=== PATIENT | male | born 1980 | race Asian ===

== ENCOUNTER 2016-10-20 14:39 | Emergency (ER) | payer OTHER ==
[2016-10-20 14:53] VITALS: TEMP 98; BMI 26.2
--- NOTE | 2016-10-20 14:58 | PDOC ---
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 Per staff he had "shaking all over" for 4 minutes. There has been no change in his medications. He is non-verbal and unable to provide a history. 10/20/16 15:15 10/20/16 15:27 - Physicial Exam PE: 10/20/16 14:59 Vitals noted He is in no acute distress Per aide, who cares for him daily, he is at his baseline mental status 10/20/16 15:27 - Medical Decision Making 10/20/16 15:17 He is well appearing and in no acute distress Per aide, he is at his baseline mental status Given his history of epilepsy there is no clear evidence to support neuroimaging Will check shunt series plain XR Will administer atival 1mg IV Will obtain basic labs 10/20/16 15:27 10/20/16 15:27 10/20/16 16:34 Labs pending Shunt series pending He has remained stable, and at his baseline Case discussed in detail with oncoming Emergency Physician including history, physical exam and ancillary studies. Oncoming Emergency Physician has assumed care for the patient and will complete the evaluation and treatment. Discharge Disposition - Diagnosis Seizure, Seizure disorder - Discharge Dispostion Last Admission D/C Date: 08/29/14
--- NOTE | 2016-10-20 15:00 | PDOC ---
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 As per aid present at bedside the patient was seizing for over 4 minutes while he was in school. As per aid, the patient at baseline has frequent seizures and while in ED right now the patient is at his baseline mental status not more lethargic than usual. The patient was discharged 2/ after being admitted for seizure activity control. The patient is nonverbal and all history was taken from chart review. The aid denies any fever, vomiting, diarrhea. <Julia Short - Last Filed: 10/20/16 15:17> <Lesly Mejias - Last Filed: 10/20/16 17:42> <Ino Amaya - Last Filed: 10/20/16 19:22> - General Chief Complaint: Seizure Stated Complaint: Seizure Time Seen by Provider: 10/20/16 14:58 Past History <Julia Short - Last Filed: 10/20/16 15:17> - Past Medical History Anemia: Yes GI Disorders: Yes (:GERD) Psychiatric Problems: Yes (mental retardation) Suicide Attempt (Hx): No Seizures: Yes Thyroid Disease: Yes (HYPOTHYROIDISM) - Surgical History Abdominal Surgery: Yes (g tube) Orthopedic Surgery: Yes - Immunization History Immunization Up to Date: Yes - Psycho/Social/Smoking Cessation Hx Anxiety: No Suicidal Ideation: No Smoking Status: No Smoking History: Never smoked Have you smoked in the past 12 months: No Number of Cigarettes Smoked Daily: 0 Information on smoking cessation initiated: No Hx Alcohol Use: No Drug/Substance Use Hx: No Substance Use Type: None <Lesly Mejias - Last Filed: 10/20/16 17:42> <Ino Amaya - Last Filed: 10/20/16 19:22> - Past Medical History Allergies/Adverse Reactions: Allergies Allergy/AdvReac Type Severity Reaction Status Date / Time carbamazepine Allergy Unknown Verified 08/07/14 16:30 Home Medications: Ambulatory Orders Baclofen 5 mg PO QID 10/20/16 Cholecalciferol (Vitamin D3) [Vitamin D3] 3,000 unit GT DAILY 10/20/16 Clindamycin Topical Solution [Cleocin 1% Topical Solution -] 0 ml TP BID Diazepam [Diastat] 5 mg RC QID PRN 10/20/16 Lacosamide [Vimpat -] 75 mg GT BID 10/20/16 Levocarnitine [Carnitor] 330 mg GT TID 10/20/16 Levothyroxine [Synthroid -] 75 mcg PO DAILY 10/20/16 Multivit-Min/Iron Fum/Folic AC [Eszvx-Yaunkjn-Qdslrtec Tablet] 1 tab GT DAILY Omeprazole 20 mg PO BID 10/20/16 Phenobarbital 30 mg GT BID 10/20/16 Polyethylene Glycol 3350 [Miralax (For Daily Use) -] 17 gm GT DAILY 10/20/16 Sodium Benzoate 5,000 gm GT TID 10/20/16 Topiramate [Topamax] 150 mg GT AM 10/20/16 Topiramate [Topamax] 175 mg GT HS 10/20/16 Valproic Acid (As Sodium Salt) [Valproic Acid] 125 mg PO BID 10/20/16 Review of Systems - Review of Systems Able to Perform ROS?: Yes Comments:: 10/20/16 15:13 Unable to obtain from the patient because patient is nonverbal. As per aid at bedside CONSTITUTIONAL: Absent: fever, no chills, no fatigue EYES: Absent: visual changes ENT: Absent: ear pain, no sore throat CARDIOVASCULAR: Absent: chest pain, no palpitations RESPIRATORY: Absent: cough, no SOB GI: Absent: no vomiting, no constipation, no diarrhea GENITOURINARY: Absent: no frequency, no hematuria NEURO: Present: seizure SKIN: Absent: rash <Julia Short - Last Filed: 10/20/16 15:17> *Physical Exam - Vital Signs Last Vital Signs Temp Pulse Resp BP Pulse Ox 98 F 76 20 113/94 98 10/20/16 14:48 10/20/16 14:48 10/20/16 14:48 10/20/16 14:48 10/20/16 14:48 - Physical Exam Comments: 10/20/16 15:16 GENERAL: +Nonverbal, +bedbound. HEENT: Normocephalic, atraumatic. +pupils slow reaction to light but symmetric. No conjunctival pallor. Sclera are non-icteric. Moist mucous membranes. Oropharynx is clear. NECK: Supple. No JVD. Carotid pulses 2+ and symmetric, without bruits. No thyromegaly. No lymphadenopathy. CARDIOVASCULAR: Regular rate and rhythm. No murmurs, rubs, or gallops. Distal pulses are 2+ and symmetric. PULMONARY: No evidence of respiratory distress. Lungs clear to auscultation bilaterally. No wheezing, rales or rhonchi. ABDOMINAL: +G tube LUQ with brown discharge around the G tube, +well healed mid abdomen vertical scar. Soft. Non-tender. Non-distended. No rebound or guarding. No organomegaly. Normoactive bowel sounds. MUSCULOSKELETAL: No bony deformities or tenderness. EXTREMITIES: +Contracted extremities. No cyanosis. No clubbing. No edema. No calf tenderness. SKIN: Warm and dry. Normal capillary refill. No rashes. No jaundice. NEUROLOGICAL: +nonverbal +no facial assymetry, not able to assess motor and sensation, +does not follow commands <Julia Short - Last Filed: 10/20/16 15:17> - Vital Signs Last Vital Signs Temp Pulse Resp BP Pulse Ox 98 F 76 20 113/94 98 10/20/16 14:48 10/20/16 14:48 10/20/16 14:48 10/20/16 14:48 10/20/16 14:48 <Lesly Mejias - Last Filed: 10/20/16 17:42> - Vital Signs Last Vital Signs Temp Pulse Resp BP Pulse Ox 98 F 76 20 113/94 98 10/20/16 14:48 10/20/16 14:48 10/20/16 14:48 10/20/16 14:48 10/20/16 14:48 <Ino Amaya - Last Filed: 10/20/16 19:22> ED Treatment Course - LABORATORY CBC & Chemistry Diagram: 10/20/16 16:30 10/20/16 16:30 <Lesly Mejias - Last Filed: 10/20/16 17:42> - LABORATORY CBC & Chemistry Diagram: 10/20/16 16:30 10/20/16 16:30 - ADDITIONAL ORDERS Additional order review: Laboratory Results 10/20/16 16:30 Sodium 141 Potassium 3.6 Chloride 102 Carbon Dioxide 30 Anion Gap 9 BUN 7 D Creatinine 0.6 L Creat Clearance w eGFR > 60 Random Glucose 87 Calcium 9.1 Total Bilirubin 0.3 D AST 11 L D ALT 31 D Alkaline Phosphatase 109 Total Protein 7.5 Albumin 3.9 10/20/16 16:30 RBC 4.63 MCV 100.0 H MCHC 34.0 RDW 12.3 MPV 9.2 - RADIOLOGY Radiology Studies Ordered: Category Date Time Status HEAD CT WITHOUT CONTRAST [CT] Stat CT Scan 10/20/16 18:27 Completed - Medications Given in the ED: ED Medications Discontinued Medications Generic Name Dose Route Start Last Admin Trade Name Freq PRN Reason Stop Dose Admin Lorazepam 1 mg 10/20/16 15:07 10/20/16 16:27 Ativan Injection - IVPUSH 10/20/16 15:08 Not Given ONCE ONE Lorazepam 1 mg 10/20/16 15:14 10/20/16 15:55 Ativan Injection - IM 10/20/16 15:15 1 mg ONCE ONE Administration Lorazepam 2 mg 10/20/16 18:08 10/20/16 18:15 Ativan Injection - IVPUSH 10/20/16 18:09 2 mg ONCE ONE Administration <Ino Amaya - Last Filed: 10/20/16 19:22> Medical Decision Making - Medical Decision Making 10/20/16 17:13 We ordered CBC, CMP, UA, x ray of his shunt. No labs abnormalities noted. Waiting for x ray. No more episodes of seizure noted. Ativan was given. 10/20/16 17:42 Shunt x ray done, no abnormalities reported. Laboratory normal. The pt will be discharged. <Lesly Mejias - Last Filed: 10/20/16 17:42> *DC/Admit/Observation/Transfer - Attestations Scribe Attestion: 10/20/16 15:27 Documentation prepared by STEPHIE Bustillos, acting as medical housekeeper for Magalie Grace MD. <Julia Short - Last Filed: 10/20/16 15:17> - Discharge Dispostion Admit: No <Lesly Mejias - Last Filed: 10/20/16 17:42> <Ino Amaya - Last Filed: 10/20/16 19:22> Diagnosis at time of Disposition: Seizure disorder Seizure Qualifiers: Convulsion type: unspecified Qualified Code(s): R56.9 - Unspecified convulsions - Discharge Dispostion Disposition: HALFWAY FACILITY Condition at time of disposition: Good - Referrals Referrals: pmd, as needed [Other] - Patient Instructions Printed Discharge Instructions: DI for Seizure Disorder -- Adult Additional Instructions: If your symptoms worsen come back to emergency room as soon as possible. shunt series reveals no abnormalities. ct head shows no acute pathology.
[2016-10-20] MEDS ORDERED: LORAZEPAM CARPU-JECT 2 MG/ML DISP.SYRIN IVPUSH ONE ×2 (15:07→18:08)
[2016-10-20] MEDS ORDERED: LORAZEPAM CARPU-JECT 2 MG/ML DISP.SYRIN IM ONE (15:14)
[2016-10-20] MEDS ORDERED: LORAZEPAM CARPU-JECT 2 MG/ML DISP.SYRIN ONE ×2 (15:50→18:10)
[2016-10-20 16:45] LABS: MEAN PLT VOLUME 9.2 fl (7.5-11.1); PLATELET COUNT 248 K/MM3 (134-434); RDW 12.3 % (11.9-15.9); WHITE BLOOD COUNT 6.2 K/mm3 (4.0-10.0)
[2016-10-20 17:09] LABS: ALBUMIN 3.9 g/dl (3.4-5.0); ALK PHOS 109 U/L (45-117); ANION GAP 9 (8-16); BILIRUBIN,TOTAL 0.3 mg/dL (0.2-1.0); CALCIUM 9.1 mg/dL (8.5-10.1); CO2 30 mmol/L (21-32); COCKROFT - GAULT 143.32; CREATININE 0.6 mg/dL (0.7-1.3); GLUCOSE,RANDOM 87 mg/dL (74-106); SGOT/AST 11 U/L (15-37); SGPT/ALT 31 U/L (12-78); TOT PROT 7.5 g/dl (6.4-8.2)
[2016-10-20 20:04] LABS: URINE APPEARANCE TURBID; URINE BILIRUBIN NEGATIVE (NEGATIVE); URINE BLOOD NEGATIVE (NEGATIVE); URINE COLOR YELLOW; URINE GLUCOSE (UA) NEGATIVE (NEGATIVE); URINE KETONE NEGATIVE (NEGATIVE); URINE LEUK ESTERASE NEGATIVE (NEGATIVE); URINE NITRITE NEGATIVE (NEGATIVE); URINE PROTEIN NEGATIVE (NEGATIVE); URINE UROBILINOGEN NEGATIVE E.U./dl (0.2-1.0)
[2016-10-20 20:22] VITALS: BP 123/74; PULSE 88
== END 2016-10-20 19:30 ==
LOC: JER 14:39
PROC: 3E033NZ Introduction of Analgesics, Hypnotics, Sedatives into Peripheral Vein, Percutaneous Approach (ICD-10-PCS; principal; 2016-10-20)
PROC: 3E023NZ Introduction of Analgesics, Hypnotics, Sedatives into Muscle, Percutaneous Approach (ICD-10-PCS; 2016-10-20)
DX: G40.909 Epilepsy, unspecified, not intractable, without status epilepticus (principal); E03.9 Hypothyroidism, unspecified; Q02 Microcephaly; G80.8 Other cerebral palsy; F73 Profound intellectual disabilities
CPT/HCPCS: 36415; 70260-TC; 70450-TC; 71010-TC; 72050-TC; 74190-TC; 80053; 81003; 85027; 99283-25

== ENCOUNTER 2016-11-10 12:41 | Emergency (ER) | payer OTHER ==
[2016-11-10 12:49] VITALS: BMI 18.1
--- NOTE | 2016-11-10 13:13 | PDOC ---
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 Per day program staff who are accompanying the patient states he typically has frequent seizures, but they are usually shorter lasting. He had a seizure lsting approx 15 min that cnsisted of deviated gaze and his arms 'stretching' - no n/v, tongue biting, + urinary incontience (pt is typically incontinent of urine) - wet diaper no recent infectious complaints per staff. <Dylan Paulino - Last Filed: 11/15/16 02:39> - General Chief Complaint: Seizure Stated Complaint: SEIZURE Time Seen by Provider: 11/10/16 13:00 Past History <Elyse Page - Last Filed: 11/10/16 17:54> - Past Medical History Anemia: Yes GI Disorders: Yes (:GERD) Psychiatric Problems: Yes (mental retardation) Suicide Attempt (Hx): No Seizures: Yes Thyroid Disease: Yes (HYPOTHYROIDISM) - Surgical History Abdominal Surgery: Yes (g tube) Orthopedic Surgery: Yes - Immunization History Immunization Up to Date: Yes - Psycho/Social/Smoking Cessation Hx Anxiety: No Suicidal Ideation: No Smoking Status: No Smoking History: Never smoked Have you smoked in the past 12 months: No Number of Cigarettes Smoked Daily: 0 Information on smoking cessation initiated: No Hx Alcohol Use: No Drug/Substance Use Hx: No Substance Use Type: None <Dylan Paulino - Last Filed: 11/15/16 02:39> - Past Medical History Allergies/Adverse Reactions: Allergies Allergy/AdvReac Type Severity Reaction Status Date / Time carbamazepine Allergy Unknown Verified 11/10/16 12:47 Home Medications: Ambulatory Orders Baclofen 5 mg PO QID 10/20/16 Cholecalciferol (Vitamin D3) [Vitamin D3] 2,000 unit GT DAILY 10/20/16 Clindamycin Topical Solution [Cleocin 1% Topical Solution -] 0 ml TP BID Diazepam [Diastat] 10 mg RC PRN PRN 10/20/16 Lacosamide [Vimpat -] 200 mg GT BID 10/20/16 Levocarnitine [Carnitor] 330 mg GT BID 10/20/16 Levothyroxine [Synthroid -] 75 mcg GT DAILY 10/20/16 Multivit-Min/Iron Fum/Folic AC [Cycch-Daiqcfa-Tnurnphy Tablet] 1 tab GT DAILY Phenobarbital 64.8 mg GT BID 10/20/16 Topiramate [Topamax] 200 mg GT BID 10/20/16 Albuterol 0.083% Nebulizer Jyoti [Ventolin 0.083%] 1 neb NEB Q4H 11/10/16 Benzoyl Peroxide 5% Gel - 1 applic TP BID 11/10/16 Bisacodyl Suppository [Dulcolax Suppository -] 10 mg RC PRN PRN 11/10/16 Ca Citrate/Mgox/Vit D3/B6/Min [Calcium Citrate Plus Tablet] 2 each GT BID Cetirizine HCl [Zyrtec -] 10 mg PO DAILY 11/10/16 Levetiracetam [Keppra Xr -] 1,500 mg GT BID 11/10/16 Magnesium Hydrox 2400MG/30Ml [Milk of Magnesia -] 30 ml PO BID 11/10/16 Mometasone Furoate [Asmanex] 50 mcg 11/10/16 Nut.tx., Urea Cycle Disorder [Cyclinex-2] 15 ml GT DAILY 11/10/16 Phenobarbital 32.4 mg GT DAILY 11/10/16 Rufinamide [Banzel] 1,200 mg GT BID 11/10/16 Senna - 17.2 mg GT BID 11/10/16 Sodium Benzoate 4.5 gm GT TID 11/10/16 Review of Systems - Review of Systems Able to Perform ROS?: No <Dylna Paulino - Last Filed: 11/15/16 02:39> *Physical Exam - Vital Signs Last Vital Signs Temp Pulse Resp BP Pulse Ox 98.5 F 93 H 18 156/44 95 11/10/16 12:47 11/10/16 12:47 11/10/16 12:47 11/10/16 12:47 11/10/16 12:47 <Elyse Page - Last Filed: 11/10/16 17:54> - Vital Signs Last Vital Signs Temp Pulse Resp BP Pulse Ox 98.5 F 93 H 18 156/44 95 11/10/16 12:47 11/10/16 12:47 11/10/16 12:47 11/10/16 12:47 11/10/16 12:47 - Physical Exam Comments: 11/10/16 13:25 GENERAL: The patient is awake, HEAD: microcephalic EYES: eyes moving around sponatneously ENT: nonverbal LUNGS: Breath sounds equal, clear to auscultation bilaterally. No wheezes, no rhonchi, no rales. HEART: Regular rate and rhythm, normal S1 and S2 without murmur, rub or gallop. ABDOMEN: slightly distended, nontender, g tube in place EXTREMITIES: contracted extremities NEUROLOGICAL: limited PSYCH: unable to assess SKIN: Warm, Dry, normal turgor, <Lora,Dylan - Last Filed: 11/15/16 02:39> ED Treatment Course - LABORATORY CBC & Chemistry Diagram: 11/10/16 13:30 11/10/16 13:30 - ADDITIONAL ORDERS Additional order review: Laboratory Results 11/10/16 11/10/16 13:30 13:30 Sodium 140 Potassium 4.1 Chloride 101 Carbon Dioxide 28 Anion Gap 11 BUN 8 Creatinine 0.5 L Creat Clearance w eGFR > 60 Random Glucose 87 Calcium 9.7 Total Bilirubin 0.2 D AST 17 D ALT 33 Alkaline Phosphatase 117 Total Protein 8.6 H Albumin 4.6 Valproic Acid < 3.000 L 11/10/16 13:30 RBC 5.02 MCV 101.3 H MCHC 33.4 RDW 12.5 MPV 9.0 Neutrophils % 58.6 Lymphocytes % 30.2 Monocytes % 8.7 Eosinophils % 1.8 Basophils % 0.7 - RADIOLOGY Radiograph Interpretation: 11/10/16 15:50 CT/HEAD CT WITHOUT CONTRAST 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 Direct axial images were obtained with coronal, sagittal reconstruction images. Comparison study CT brain October 20, 2016. Right-sided ventriculoperitoneal shunt is noted, the location of the shunt unchanged from prior study. No evidence of hydrocephalus. Its of acute intracranial hemorrhage midline shift. No evidence of acute subarachnoid hematoma. Agenesis of the corpus callosum. Asymmetry of atria, occipital horns of lateral ventricle ( left greater than the right) with periventricular encephalomalacia (left > right). No acute acute territorial ischemic changes are seen No Chiari malformation is seen. Diffusely thickened calvarium which may be attributed to the prolonged use of antiseizure medication. The visualized paranasal sinuses mastoid air cell middle ear are not opacified. Impression. Right ventricular peritoneal shunt in place. No evidence of hydrocephalus. Agenesis of the corpus callosum. 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 Diffusely thickened calvarium which may be attributed to the prolonged use of antiseizure medication. Reported By: Wade Mccabe MD 11/10/16 1458 - Medications Given in the ED: ED Medications Discontinued Medications Generic Name Dose Route Start Last Admin Trade Name Freq PRN Reason Stop Dose Admin Lorazepam 1 mg 11/10/16 13:46 11/10/16 13:46 Ativan Injection - IVPUSH 11/10/16 13:47 1 mg ONCE ONE Administration <Elyse Page - Last Filed: 11/10/16 17:54> - LABORATORY CBC & Chemistry Diagram: 11/10/16 13:30 11/10/16 13:30 - RADIOLOGY Radiology Studies Ordered: Category Date Time Status HEAD CT WITHOUT CONTRAST [CT] Stat CT Scan 11/10/16 13:00 Ordered <Dylan Paulino - Last Filed: 11/15/16 02:39> Medical Decision Making - Medical Decision Making 11/10/16 16:[address] King ([phone]) at 1547. Left a message for a call back. Called Dr. King for a second time 16:15. Left a second message for a call back. 11/10/16 17:[address] King, call transferred to Dr. Montero who is emergency management consultant for Dr. King. The patients case was discussed. 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 he is on sevral other meds that are documented as given. will await UA if neg will dc back to fu with dr. King 11/10/16 17:[address] holly rao agreed with amnagement if UA neg, will have pt fu with neurology as outpatient will include complete labs and CT head I discussed the physical exam findings, ancillary test results and final diagnoses with the patient. I answered all of the patient's questions. The patient was satisfied with the care received and felt comfortable with the discharge plan and treatment plan. The patient will call their primary care physician within 24 hours to arrange follow-up and will return to the Emergency Department with any new, persistent or worsening symptoms. <Dylan Paulino - Last Filed: 11/15/16 02:39> *DC/Admit/Observation/Transfer <Elyse Page - Last Filed: 11/10/16 17:54> - Discharge Dispostion Admit: No <Dylan Paulino - Last Filed: 11/15/16 02:39> Diagnosis at time of Disposition: Seizure Qualifiers: Convulsion type: unspecified Qualified Code(s): R56.9 - Unspecified convulsions - Discharge Dispostion Disposition: HOME Condition at time of disposition: Improved - Referrals Referrals: Munir King Jr [Non Staff, Medical] - - Patient Instructions Printed Discharge Instructions: DI for Seizure Disorder -- Adult Additional Instructions: Return to the emergency department immediately with ANY new, persistent or worsening symptoms. You MUST call and follow up with neurologist in 2-3 days for further evaluation of your symptoms. Results were discussed with you. Please make sure your doctor reviews the results of your emergency evaluation. Print Language: VIET[place]ESE
[2016-11-10] MEDS ORDERED: LORAZEPAM CARPU-JECT 2 MG/ML DISP.SYRIN ONE (13:41)
[2016-11-10] MEDS ORDERED: LORAZEPAM CARPU-JECT 2 MG/ML DISP.SYRIN IVPUSH ONE (13:46)
[2016-11-10 13:48] LABS: BASOPHIL 0.7 % (0-2.0); EOSINOPHIL 1.8 % (0-4.5); MCH 33.8 pg (25.7-33.7); MCHC 33.4 g/dl (32.0-35.9); MEAN CELL VOLUME 101.3 fl (80-96); NEUTROPHILS 58.6 % (42.8-82.8); PLATELET COUNT 250 K/MM3 (134-434); RDW 12.5 % (11.9-15.9); WHITE BLOOD COUNT 6.2 K/mm3 (4.0-10.0)
[2016-11-10 14:10] LABS: ALBUMIN 4.6 g/dl (3.4-5.0); ANION GAP 11 (8-16); BILIRUBIN,TOTAL 0.2 mg/dL (0.2-1.0); CALCIUM 9.7 mg/dL (8.5-10.1); CO2 28 mmol/L (21-32); COCKROFT - GAULT 117.93; CREATININE 0.5 mg/dL (0.7-1.3); GLUCOSE,RANDOM 87 mg/dL (74-106); SGOT/AST 17 U/L (15-37); SGPT/ALT 33 U/L (12-78); TOT PROT 8.6 g/dl (6.4-8.2)
[2016-11-10 14:11] LABS: ALK PHOS 117 U/L (45-117)
[2016-11-10 17:24] LABS: URINE APPEARANCE SLCLOUDY; URINE BILIRUBIN NEGATIVE (NEGATIVE); URINE BLOOD NEGATIVE (NEGATIVE); URINE COLOR YELLOW; URINE GLUCOSE (UA) NEGATIVE (NEGATIVE); URINE KETONE NEGATIVE (NEGATIVE); URINE LEUK ESTERASE NEGATIVE (NEGATIVE); URINE NITRITE NEGATIVE (NEGATIVE); URINE UROBILINOGEN NEGATIVE E.U./dl (0.2-1.0)
[2016-11-10 18:14] VITALS: TEMP 97.4
[2016-11-10 18:14] LABS: URINE PROTEIN 1+ (NEGATIVE)
[2016-11-10 18:19] LABS: URINE BACTERIA RARE /hpf (NONE SEEN); URINE MUCUS MODERATE; URINE RBC 1 /hpf (0-3); URINE WBC <1 /hpf (3-5)
[2016-11-10 19:33] VITALS: BP 121/80; PULSE 104
== END 2016-11-10 19:33 | disposition home or self-care (01) ==
LOC: JER 12:41
PROC: 3E033NZ Introduction of Analgesics, Hypnotics, Sedatives into Peripheral Vein, Percutaneous Approach (ICD-10-PCS; principal; 2016-11-10)
DX: G40.909 Epilepsy, unspecified, not intractable, without status epilepticus (principal); F73 Profound intellectual disabilities; G80.8 Other cerebral palsy; H47.619 Cortical blindness, unspecified side of brain
CPT/HCPCS: 36415; 70450-TC; 80053; 80164; 81003; 81015; 85025; 99282-25

== ENCOUNTER 2017-02-01 13:13 | Emergency (ER) | payer OTHER ==
[2017-02-01 13:36] VITALS: PULSE 90; TEMP 98.4
--- NOTE | 2017-02-01 13:41 | PDOC ---
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 As per the patients aide at bedside, there are no other complaints at this time. Allergies: carbamazapine <Norma Mae - Last Filed: 02/01/17 14:39> <Dylan Paulino - Last Filed: 02/03/17 07:45> - General Stated Complaint: GTUBE REPLACEMENT Time Seen by Provider: 02/01/17 13:33 Past History <Norma Mae - Last Filed: 02/01/17 14:39> - Past Medical History Anemia: Yes GI Disorders: Yes (:GERD) Psychiatric Problems: Yes (mental retardation) Suicide Attempt (Hx): No Seizures: Yes Thyroid Disease: Yes (HYPOTHYROIDISM) - Surgical History Abdominal Surgery: Yes (g tube) Orthopedic Surgery: Yes - Immunization History Immunization Up to Date: Yes - Psycho/Social/Smoking Cessation Hx Anxiety: No Suicidal Ideation: No Smoking Status: No Smoking History: Never smoked Have you smoked in the past 12 months: No Number of Cigarettes Smoked Daily: 0 Hx Alcohol Use: No Drug/Substance Use Hx: No Substance Use Type: None <Dylan Paulino - Last Filed: 02/03/17 07:45> - Past Medical History Allergies/Adverse Reactions: Allergies Allergy/AdvReac Type Severity Reaction Status Date / Time carbamazepine Allergy Unknown Verified 02/01/17 13:36 Home Medications: Ambulatory Orders Baclofen 5 mg PEG DAILY 02/01/17 Cholecalciferol (Vitamin D3) [Vitamin D3 -] 2,000 unit PO DAILY 02/01/17 Clindamycin 1% Gel [Cleocin *Gel*] 1 applic TP DAILY 02/01/17 Clobazam [Onfi -] 10 mg PEG DAILY 02/01/17 Diazepam Rectal Gel [Diastat *Rectal Gel*] 10 mg RC PRN 02/01/17 Lactulose 20 gm PEG DAILY 02/01/17 Levocarnitine [Carnitor] 330 mg PEG DAILY 02/01/17 Levothyroxine [Synthroid -] 75 mcg PEG DAILY 02/01/17 Magnesium Hydrox 2400MG/30Ml [Milk of Magnesia -] 30 ml PO Q8H 02/01/17 Nut.tx., Urea Cycle Disorder [Cyclinex-2] 400 gm PO DAILY 02/01/17 Omeprazole 20 mg PEG DAILY 02/01/17 Phenobarbital 32.4 mg PEG DAILY 02/01/17 Polyethylene Glycol 3350 [Miralax (For Daily Use) -] 17 gm PO DAILY 02/01/17 Rufinamide [Banzel] 1,400 mg PEG DAILY 02/01/17 Sodium Benzoate 4,500 gm PEG DAILY 02/01/17 Topiramate [Topamax] 100 mg PEG DAILY 02/01/17 Abd/GI Specific PMHX - Complaint Specific PMHX GERD: Yes <Dylan Paulino - Last Filed: 02/03/17 07:45> Review of Systems - Review of Systems Able to Perform ROS?: No (unable to assess) <Norma Mae - Last Filed: 02/01/17 14:39> *Physical Exam - Vital Signs Last Vital Signs Temp Pulse Resp BP Pulse Ox 98.4 F 90 18 162/90 98 02/01/17 13:40 02/01/17 13:40 02/01/17 13:40 02/01/17 13:40 02/01/17 13:40 - Physical Exam Comments: 02/01/17 14:39 GENERAL: The patient is awake, HEAD: microcephalic EYES: eyes moving around sponatneously ENT: nonverbal ABDOMEN: nondistended, nontender, gastrostomy tube displced, no bleeding or trauma noted EXTREMITIES: contracted extremities NEUROLOGICAL: limited PSYCH: unable to assess SKIN: Warm, Dry, normal turgor, <Norma Mae - Last Filed: 02/01/17 14:39> - Vital Signs Last Vital Signs Temp Pulse Resp BP Pulse Ox 98.4 F 90 18 160/92 98 02/01/17 13:35 02/01/17 13:35 02/01/17 13:35 02/01/17 13:35 02/01/17 13:35 <Dylan Paulino - Last Filed: 02/03/17 07:45> ED Treatment Course - RADIOLOGY Radiology Studies Ordered: Category Date Time Status KUB (KID UR & BLAD) [RAD] Stat Radiology 02/01/17 13:34 Ordered <Dylan Paulino - Last Filed: 02/03/17 07:45> Medical Decision Making - Medical Decision Making 02/01/17 13:41 G tube replaced awaiting KUB 02/01/17 14:[address] with contrast in stomach seven dc back to facility return precautions were discussed A portion of this note was documented by scribe services under my direction. I have reviewed the details of the note, within reason, and agree with the documentation with the following case summary and management plan written by me <Dylan Paulino - Last Filed: 02/03/17 07:45> *DC/Admit/Observation/Transfer - Attestations Scribe Attestion: 02/01/17 14:40 Documentation prepared by Norma Mae, acting as medical records clerk for Dylan Paulino MD <Norma Mae - Last Filed: 02/01/17 14:39> - Discharge Dispostion Admit: No <Dylan Paulino - Last Filed: 02/03/17 07:45> Diagnosis at time of Disposition: Gastrojejunostomy tube dislodgement - Discharge Dispostion Disposition: HOME Condition at time of disposition: Improved - Referrals Referrals: Munir King Jr [Non Staff, Medical] - - Patient Instructions Printed Discharge Instructions: How to Care for Your PEG Tube Additional Instructions: Return to the emergency department immediately with ANY new, persistent or worsening symptoms. You MUST call and follow up with your doctor tomorrow for further evaluation of your symptoms. Results were discussed with you. Please make sure your doctor reviews the results of your emergency evaluation. If you had any xrays during your visit, it was read preliminarily by myself, a Radiologist will review it and if there are any additional findings we will call you.
[2017-02-01 13:49] VITALS: BP 162/90; BMI 23.1
== END 2017-02-01 15:11 | disposition home or self-care (01) ==
LOC: JER 13:13
PROC: 0DH63UZ Insertion of Feeding Device into Stomach, Percutaneous Approach (ICD-10-PCS; principal; 2017-02-01)
DX: Z43.1 Encounter for attention to gastrostomy (principal); F79 Unspecified intellectual disabilities; G80.8 Other cerebral palsy; H54.0 Blindness, both eyes; E03.9 Hypothyroidism, unspecified; K21.9 Gastro-esophageal reflux disease without esophagitis
CPT/HCPCS: 43760; 74000-TC; 99282-25

== ENCOUNTER 2017-08-13 11:13 | Inpatient (IN) | payer OTHER ==
[2017-08-13 11:54] VITALS: BMI 17.9
[2017-08-13 12:34] LABS: RDW 12.8 % (11.9-15.9)
[2017-08-13 12:39] LABS: MEAN PLT VOLUME 10.6 fl (7.5-11.1)
--- NOTE | 2017-08-13 12:39 | PDOC ---
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 Around 10: 30am the patients O2 sank to 84-86%, upon putting him on oxygen, O2 saturation vincent to 97% according to the nurse at [place]. It is also noted that the there is flu like symptoms currently at the [facility] afflicting many other residents. Allergies: None Past surgical history: G-Tube placement Social history: No alcohol, tobacco or drug use reported <Eitan Nash - Last Filed: 08/13/17 14:12> <Ema Marino - Last Filed: 08/13/17 16:28> - General Chief Complaint: Shortness of Breath Stated Complaint: DIFFICULT BREATHING Time Seen by Provider: 08/13/17 11:23 Past History <Eitan Nash - Last Filed: 08/13/17 14:12> - Past Medical History Anemia: Yes COPD: No GI Disorders: Yes (:GERD, esophagitis.) Liver Disease: Yes (hep c core AB+) Psychiatric Problems: Yes (mental retardation,cortical blindness) Seizures: Yes Thyroid Disease: Yes (HYPOTHYROIDISM) Other medical history: infant. microcephalus, optic atrophy, spinal fusion w/instrumentati - Surgical History Abdominal Surgery: Yes (g tube) Orthopedic Surgery: Yes - Immunization History Immunization Up to Date: Yes - Suicide/Smoking/Psychosocial Hx Smoking Status: No Smoking History: Never smoked Have you smoked in the past 12 months: No Number of Cigarettes Smoked Daily: 0 Information on smoking cessation initiated: No Hx Alcohol Use: No Drug/Substance Use Hx: No Substance Use Type: None <Ema Marino - Last Filed: 08/13/17 16:28> - Past Medical History Allergies/Adverse Reactions: Allergies Allergy/AdvReac Type Severity Reaction Status Date / Time carbamazepine Allergy Unknown Verified 08/13/17 11:54 Home Medications: Ambulatory Orders Albuterol 0.083% Nebulizer Jyoti [Ventolin 0.083%] 1 neb NEB Q4H PRN 08/13/17 Baclofen 5 mg GT Q6H 08/13/17 Benzoyl Peroxide 5% Gel - 1 applic TP BID 08/13/17 Bisacodyl 10 mg RC PRN PRN 08/13/17 Calcium Citrate/Vitamin D3 [Calcium Cit 315-Vit D3 250 Tab] 1 each GT BID Cetirizine HCl 10 mg GT DAILY 08/13/17 Cholecalciferol (Vitamin D3) [Vitamin D3] 2,000 unit GT DAILY 08/13/17 Clindamycin 1% Gel [Cleocin *Gel*] 1 applic TP BID 08/13/17 Clobazam [Onfi -] 20 mg GT DAILY 08/13/17 Clobazam [Onfi -] 30 mg PO HS 08/13/17 Diazepam Rectal Gel [Diastat *Rectal Gel*] 5 mg RC PRN 08/13/17 Lacosamide [Vimpat -] 200 mg GT BID 08/13/17 Lactose-Reduced Food/Fiber [Jevity 1.5 Harjit Liquid] 711 ml GT DAILY 08/13/17 Levetiracetam 1,500 mg GT BID 08/13/17 Levocarnitine 330 mg GT BID 08/13/17 Levothyroxine [Synthroid -] 0.075 mg GT DAILY 08/13/17 Magnesium Hydrox 2400MG/30Ml [Milk of Magnesia -] 30 ml GT BID 08/13/17 Mometasone Furoate [Asmanex 110Mcg -] 2 spray IH DAILY 08/13/17 Multivitamins [Tab-A-Vit -] 1 tab GT DAILY 08/13/17 Nut.therapy,Urea Cycle Disordr [Cyclinex-2] 15 ml GT DAILY 08/13/17 Phenobarbital 32.4 mg GT HS 08/13/17 Phenobarbital 64.8 mg PO BID 08/13/17 Rufinamide [Banzel] 30 mg GT BID 08/13/17 Sennosides [Senna] 8.6 mg GT BID 08/13/17 Sodium Benzoate 4.5 gm GT TID 08/13/17 Topiramate 50 mg GT BID 08/13/17 Topiramate 200 mg GT BID 08/13/17 Review of Systems - Review of Systems Able to Perform ROS?: No Comments:: 08/13/17 14:11 Unable to obtain ROS due to patient medical condition. <Eitan Nash - Last Filed: 08/13/17 14:12> *Physical Exam - Vital Signs Last Vital Signs Temp Pulse Resp BP Pulse Ox 98.6 F 103 H 22 122/87 98 08/13/17 11:15 08/13/17 11:15 08/13/17 11:15 08/13/17 11:15 08/13/17 13:02 - Physical Exam Comments: 08/13/17 14:11 GENERAL: Eyes closed, non verbal HEAD: No signs of trauma, normocephalic, atraumatic EYES:sclera anicteric, conjunctiva clear ENT: Auricles normal inspection, nares patent, OP exam limited but no visualized abnormality NECK: Normal ROM, supple, no lymphadenopathy, JVD, or masses LUNGS: No distress, diffuse rhonchi, 4L O2 requirement to maintain sat to 95% HEART: tachy but regular to 102, normal S1 and S2, no murmurs, rubs or gallops, peripheral pulses normal and equal bilaterally. ABDOMEN: distended, tympanitic to percussion EXTREMITIES :contracted x4 NEUROLOGICAL: Deferred due to patient advanced MR. SKIN: Warm, Dry, normal turgor, no rashes or lesions noted. <Eitan Nash - Last Filed: 08/13/17 14:12> - Vital Signs Last Vital Signs Temp Pulse Resp BP Pulse Ox 98.6 F 103 H 22 122/87 96 08/13/17 11:15 08/13/17 11:15 08/13/17 11:15 08/13/17 11:15 08/13/17 11:15 <mEa Marino - Last Filed: 08/13/17 16:28> Heart Score/ECG Review #1 08/13/17 16:28 Twelve-lead EKG was performed and reviewed by me. Sinus tachycardia, rate 108. Normal axis and intervals. No ST elevations. <Ema Marino - Last Filed: 08/13/17 16:28> ED Treatment Course - LABORATORY CBC & Chemistry Diagram: 08/13/17 12:11 08/13/17 12:11 - ADDITIONAL ORDERS Additional order review: Laboratory Results 08/13/17 08/13/17 08/13/17 12:49 12:11 12:11 VBG pH 7.46 H POC VBG pCO2 44.4 POC VBG pO2 77.7 H Mixed VBG HCO3 31.4 H Sodium 141 Potassium 2.5 L* D Chloride 98 Carbon Dioxide 35 H D Anion Gap 8 BUN 8 Creatinine 0.5 L Creat Clearance w eGFR > 60 Random Glucose 101 Lactic Acid 1.0 Calcium 9.0 Total Bilirubin 0.3 D AST 21 D ALT 31 Alkaline Phosphatase 90 D Creatine Kinase 183 Creatine Kinase Index 0.5 CK-MB (CK-2) < 1.000 Troponin I < 0.02 Total Protein 8.0 Albumin 3.7 08/13/17 12:11 Influenza Types A,B Antigen (LAURA) - Final Nasopharyngeal Swab - Final 08/13/17 12:11 RBC 4.55 MCV 100.0 H MCHC 34.1 RDW 12.8 MPV 10.6 D Neutrophils % No Result Required. Lymphocytes % No Result Required. - Medications Given in the ED: ED Medications Discontinued Medications Generic Name Dose Route Start Last Admin Trade Name Freq PRN Reason Stop Dose Admin Piperacillin Sod/Tazobactam 100 mls @ 200 mls/hr 08/13/17 13:28 08/13/17 13: 37 Sod 4.5 gm/ Dextrose IVPB 08/13/17 13:57 200 mls/hr ONCE ONE Administration Protocol <Eitan Nash - Last Filed: 08/13/17 14:12> - LABORATORY CBC & Chemistry Diagram: 08/13/17 12:11 08/13/17 12:11 - RADIOLOGY Radiology Studies Ordered: Category Date Time Status CHEST X-RAY PORTABLE* [RAD] Stat Radiology 08/13/17 11:34 Completed <Ema Marino - Last Filed: 08/13/17 16:28> Medical Decision Making - Medical Decision Making 08/13/17 13:39 36-year-old male multiple medical problems including advanced MR, quadriplegic presents from [facility] with hypoxia. Vitals here remarkable for tachycardia to the low 100s an oxygen requirement at 4 L. Exam is remarkable for rhonchi and distended abdomen. Differential is wide and includes but is not limited to sepsis secondary to pulmonary or GI source versus electrolyte abnormality versus intra-abdominal pathology. We'll obtain sepsis labs and imaging of the chest and abdomen for further workup and cover broadly with vanc/ zosyn. 08/13/17 16:12 Labs remarkable for hypokalemia to 2.5. 3 runs of 10 KCl IV were ordered and liter of fluids were ordered with 20 mEq of potassium. Urinalysis negative for infection. Vitals have remained stable, patient continues have an oxygen requirement of [address] scan of the chest, abdomen, and pelvis with IV contrast however CT tach will not permit IV contrast as the patient cannot consent. Upon looking at EMR, patient has not had any CT scans of IV contrast at our facility. We also called [facility] and discussed allergies and imaging history with staff - they report they do not know if patient is allergic to IV contrast. As such, CT scans were switched nonconstant. CT scans with no acute pathology. Patient to be admitted for clinical pneumonia, hypoxia and possible sepsis. Case discussed with admitting physician Dr. Kidd who accepts the patient to an inpatient bed. Case discussed in detail with admitting physician including history, physical exam and ancillary studies. Admitting physician has assumed care for the patient, will follow all pending diagnostics and will complete the evaluation and treatment. <Ema Marino - Last Filed: 08/13/17 16:28> *DC/Admit/Observation/Transfer - Attestations Scribe Attestion: 08/13/17 14:12 Documentation prepared by Eitan Nash, acting as infertility medical assistant for Ema Marino MD <Eitan Nash - Last Filed: 08/13/17 14:12> - Discharge Dispostion Admit: Yes - Attestations Physician Attestion: 08/13/17 16:23 I, Dr. Ema Marino MD, attest that this document has been prepared under my direction and personally reviewed by me in its entirety. I further attest, that it accurately reflects all work, treatment, procedures and medical decision -making performed by me. <Ema Marino - Last Filed: 08/13/17 16:28> Diagnosis at time of Disposition: Sepsis - Discharge Dispostion Condition at time of disposition: Stable - Referrals Referrals: Burt Carty MD, MD [Primary Care Provider] - - Patient Instructions - Post Discharge Activity
[2017-08-13 12:45] LABS: HEMATOCRIT 45.5 % (35.4-49); HEMOGLOBIN 15.5 GM/dL (11.7-16.9); MCH 34.1 pg (25.7-33.7); MCHC 34.1 g/dl (32.0-35.9); PLATELET COUNT 254 K/MM3 (134-434); RBC 4.55 M/mm3 (4.00-5.60); WHITE BLOOD COUNT 8.7 K/mm3 (4.0-10.0)
[2017-08-13 12:57] LABS: VENOUS PC02 44.4 mmHg (38-52); VENOUS PH 7.46 (7.32-7.42); VENOUS PO2 77.7 mmHg (28-48)
[2017-08-13 13:11] LABS: ALBUMIN 3.7 g/dl (3.4-5.0); ANION GAP 8 (8-16); BILIRUBIN,TOTAL 0.3 mg/dL (0.2-1.0); BLOOD UREA NITROGEN 8 mg/dL (7-18); CHLORIDE 98 mmol/L (98-107); CO2 35 mmol/L (21-32); CREATININE 0.5 mg/dL (0.7-1.3); GLUCOSE,RANDOM 101 mg/dL (74-106); SGOT/AST 21 U/L (15-37); SGPT/ALT 31 U/L (12-78); SODIUM 141 mmol/L (136-145)
[2017-08-13 13:12] LABS: ALK PHOS 90 U/L (45-117)
[2017-08-13 13:27] LABS: POTASSIUM 2.5 mmol/L (3.5-5.1)
[2017-08-13] MEDS ORDERED: VANCOMYCIN 1,000 MG in DEXTROSE 5%-WATER - 250 ML IVPB ONE (13:28)
[2017-08-13] MEDS ORDERED: PIPERACILLIN/TAZOB 4.5 GM 4.5 GM in DEXTROSE 5%-WATER - 100 ML IVPB ONE (13:28)
[2017-08-13] MEDS ORDERED: KCL 10 MEQ IVPB 30 MEQ/300 ML INFUS.BAG IVPB ONE (13:36)
[2017-08-13] MEDS ORDERED: VANCOMYCIN 1 GRAM (PRE-DOCKED) 1,000 MG/250 ML BAG IVPB ONE (13:36)
[2017-08-13] MEDS ORDERED: PIPERACILLIN/TAZOB 4.5 GM 4.5 GM/100 ML BAG IVPB ONE (13:36)
[2017-08-13] MEDS ORDERED: SODIUM CHLORIDE 0.9% 500 ML INFUS.BAG IV ONE (13:41)
[2017-08-13] MEDS ORDERED: SODIUM CHLORIDE 0.9%/KCL 20 MEQ/1,000 ML INFUS.BAG IV ONE (13:44)
[2017-08-13] MEDS ORDERED: SODIUM CHLORIDE 0.9%/KCL 20 MEQ/1,000 ML INFUS.BAG IV SCH (13:45)
[2017-08-13 13:59] LABS: ACANTHOCYTES 0; ANISOCYTOSIS 0; HELMET CELLS 0; HOWELL-JOLLY BODIES 0; MACROCYTOSIS 0; OVALOCYTE 0; ROULEAU 0; SICKELED CELLS 0; TARGET CELLS 0; TEAR DROP CELLS 0; TOXIC GRANULATION 0
[2017-08-13] MEDS: KCL 10 MEQ IVPB 10 MEQ/100 ML INFUS.BAG IVPB SCH ×3 (15:15→17:05)
[2017-08-13 15:50] LABS: URINE APPEARANCE CLEAR; URINE BILIRUBIN NEGATIVE (NEGATIVE); URINE BLOOD NEGATIVE (NEGATIVE); URINE COLOR YELLOW; URINE GLUCOSE (UA) NEGATIVE (NEGATIVE); URINE KETONE NEGATIVE (NEGATIVE); URINE LEUK ESTERASE NEGATIVE (NEGATIVE); URINE NITRITE NEGATIVE (NEGATIVE); URINE PROTEIN NEGATIVE (NEGATIVE); URINE UROBILINOGEN NEGATIVE mg/dL (0.2-1.0)
--- NOTE | 2017-08-13 16:26 | HP ---
CHIEF COMPLAINT: " Sent from [facility] due to hypoxia sat 84-86% " HISTORY OF PRESENT ILLNESS: Non verbal at baseline. History obtained from [place] chart and ED physician. Patient is a 36 year old male " Sent from [facility] due to hypoxia sat 84-86% ". He was given 4L of nasal canula and his sat improved to 97 %. As per the chart, he was treated with PO Augmentin x 10 days starting from 07/28/2017 and completed the course for bronchitis. There has been 7 flu positive patients currently in [place]. In the ED, patient had 3 large bowel movements, brown in color, non bloody, fowl smelling. Rest of the history to be obtained from [facility]. 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, congenital quadriplegia, blindness, G-tube, anemia, GERD, microcephaly, hypothyroidism and spinal fusion with instrumentations PAST SURGICAL HISTORY: As mentioned above Social History: Smoking: No smoking Alcohol: No alcohol Drugs: No drugs Family History: Unknown Allergies carbamazepine Allergy (Unknown, Verified 08/13/17 11:54) HOME MEDICATIONS: Home Medications Medication Instructions Recorded Albuterol 0.083% Nebulizer Jyoti 1 neb NEB Q4H PRN 08/13/17 [Ventolin 0.083%] Baclofen 5 mg GT Q6H 08/13/17 Benzoyl Peroxide 5% Gel - 1 applic TP BID 08/13/17 Bisacodyl 10 mg RC PRN PRN 08/13/17 Calcium Citrate/Vitamin D3 1 each GT BID 08/13/17 [Calcium Cit 315-Vit D3 250 Tab] Cetirizine HCl 10 mg GT DAILY 08/13/17 Cholecalciferol (Vitamin D3) 2,000 unit GT DAILY 08/13/17 [Vitamin D3] Clindamycin 1% Gel [Cleocin *Gel*] 1 applic TP BID 08/13/17 Clobazam [Onfi -] 20 mg GT DAILY 08/13/17 Clobazam [Onfi -] 30 mg PO HS 08/13/17 Diazepam Rectal Gel [Diastat 5 mg RC PRN 08/13/17 *Rectal Gel*] Lacosamide [Vimpat -] 200 mg GT BID 08/13/17 Lactose-Reduced Food/Fiber [Jevity 711 ml GT DAILY 08/13/17 1.5 Harjit Liquid] Levetiracetam 1,500 mg GT BID 08/13/17 Levocarnitine 330 mg GT BID 08/13/17 Levothyroxine [Synthroid -] 0.075 mg GT DAILY 08/13/17 Magnesium Hydrox 2400MG/30Ml [Milk 30 ml GT BID 08/13/17 of Magnesia -] Mometasone Furoate [Asmanex 110Mcg 2 spray IH DAILY 08/13/17 -] Multivitamins [Tab-A-Vit -] 1 tab GT DAILY 08/13/17 Nut.therapy,Urea Cycle Disordr 15 ml GT DAILY 08/13/17 [Cyclinex-2] Phenobarbital 32.4 mg GT HS 08/13/17 Phenobarbital 64.8 mg PO BID 08/13/17 Rufinamide [Banzel] 30 mg GT BID 08/13/17 Sennosides [Senna] 8.6 mg GT BID 08/13/17 Sodium Benzoate 4.5 gm GT TID 08/13/17 Topiramate 50 mg GT BID 08/13/17 Topiramate 200 mg GT BID 08/13/17 REVIEW OF SYSTEMS RESPIRATORY: Present: shortness of breath PHYSICAL EXAMINATION Vital Signs - 24 hr 08/13/17 08/13/17 11:15 13:02 Temperature 98.6 F Pulse Rate 103 H Respiratory 22 Rate Blood Pressure 122/87 O2 Sat by Pulse 96 98 Oximetry (%) GENERAL: Young male, somnolent but arousable, in mild respiratory distress. HEAD: Normal with no signs of trauma. EYES: No pallor or icterus. EARS, NOSE, THROAT: Ears normal. Moist mucous membranes. NECK: Supple. LUNGS: B/L coarse breath sounds ++, No wheezes. No accessory muscle use. HEART: Distant heart sounds, hard to appreciate murmurs due to loud coarse BS. ABDOMEN: PEG tube in place-minimal erythema, Distended, nontender, hyperactive bowel sounds, No hepatomegaly or splenomegaly. MUSCULOSKELETAL: Contracted extremities. UPPER EXTREMITIES: 2+ pulses, warm, well-perfused. No cyanosis. No clubbing. No peripheral edema. LOWER EXTREMITIES: 2+ pulses, warm, well-perfused. No calf tenderness. No peripheral edema. NEUROLOGICAL: Profound MR at baseline, non verbal, doesn't follow commands. PSYCHIATRIC: Poor eye contact. SKIN: Warm, dry, normal turgor, no rashes or lesions noted, normal capillary refill. Laboratory Results - last 24 hr 08/13/17 08/13/17 08/13/17 12:11 12:11 12:11 WBC 8.7 D RBC 4.55 Hgb 15.5 Hct 45.5 MCV 100.0 H MCH 34.1 H MCHC 34.1 RDW 12.8 Plt Count 254 MPV 10.6 D Neutrophils % No Result Required. Neutrophils % (Manual) 80.6 Band Neutrophils % 3.1 Lymphocytes % No Result Required. Lymphocytes % (Manual) 5.1 L Monocytes % (Manual) 6 Eosinophils % (Manual) 0.0 Basophils % (Manual) 0.0 Myelocytes % (Man) 0 Promyelocytes % (Man) 0 Metamyelocytes 0 Hypochromia 0 Toxic Granulation 0 Dohle Bodies 0 Polychromasia 0 Poikilocytosis 0 Basophilic Stippling 0 Anisocytosis 0 Microcytosis 0 Macrocytosis 0 Spherocytes 0 Sickle Cells 0 Target Cells 0 Tear Drop Cells 0 Ovalocytes 0 Stomatocytes 0 Helmet Cells [address] [place] Bodies 0 Campbell Rings 0 Linda Cells 0 Acanthocytes (Spur) 0 Rouleaux 0 Fragmented RBCs 0 Schistocytes 0 VBG pH POC VBG pCO2 POC VBG pO2 Mixed VBG HCO3 Sodium 141 Potassium 2.5 L* D Chloride 98 Carbon Dioxide 35 H D Anion Gap 8 BUN 8 Creatinine 0.5 L Creat Clearance w eGFR > 60 Random Glucose 101 Lactic Acid 1.0 Calcium 9.0 Total Bilirubin 0.3 D AST 21 D ALT 31 Alkaline Phosphatase 90 D Creatine Kinase 183 Creatine Kinase Index 0.5 CK-MB (CK-2) < 1.000 Troponin I < 0.02 Total Protein 8.0 Albumin 3.7 Urine Color Urine Appearance Urine pH Ur Specific [place] Urine Protein Urine Glucose (UA) Urine Ketones Urine Blood Urine Nitrite Urine Bilirubin Urine Urobilinogen Ur Leukocyte Esterase 01/28/18 01/28/18 12:49 15:30 WBC RBC Hgb Hct MCV MCH MCHC RDW Plt Count MPV Neutrophils % Neutrophils % (Manual) Band Neutrophils % Lymphocytes % Lymphocytes % (Manual) Monocytes % (Manual) Eosinophils % (Manual) Basophils % (Manual) Myelocytes % (Man) Promyelocytes % (Man) Metamyelocytes Hypochromia Toxic Granulation Dohle Bodies Polychromasia Poikilocytosis Basophilic Stippling Anisocytosis Microcytosis Macrocytosis Spherocytes Sickle Cells Target Cells Tear Drop Cells Ovalocytes Stomatocytes Helmet Cells Juarez-St. Clement Bodies Campbell Rings Linda Cells Acanthocytes (Spur) Rouleaux Fragmented RBCs Schistocytes VBG pH 7.46 H POC VBG pCO2 44.4 POC VBG pO2 77.7 H Mixed VBG HCO3 31.4 H Sodium Potassium Chloride Carbon Dioxide Anion Gap BUN Creatinine Creat Clearance w eGFR Random Glucose Lactic Acid Calcium Total Bilirubin AST ALT Alkaline Phosphatase Creatine Kinase Creatine Kinase Index CK-MB (CK-2) Troponin I Total Protein Albumin Urine Color Yellow Urine Appearance Clear Urine pH 6.0 D Ur Specific [place] 1.023 Urine Protein Negative Urine Glucose (UA) Negative Urine Ketones Negative Urine Blood Negative Urine Nitrite Negative Urine Bilirubin Negative Urine Urobilinogen Negative Ur Leukocyte Esterase Negative Chest CT: 1. Suspected chronic interstitial lung disease with no acute pathology within the chest. 2. Fluid filled, moderately distended colon without obstruction. 3. Extremely limited examination with no evidence of acute pathology within the abdomen or pelvis. 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 # Sepsis likely secondary to bronchitis vs Flu Recently completed 10 day course of Augmentin, 7 flu positive pts in [facility] Patient is afebrile, no leukocytosis, Flu is negative however, high suspicion for flu Chest CT-negative for Pneumonia Would like to treat with Tamiflu but its on hold since patient is NPO due to abdominal distention, will discuss with Dr. Monterroso Hold off abx- afebrile, no leukocytosis Blood culture and Urine culture pending ID consult requested. # Acute Hypoxic respiratory failure likely secondary to bronchitis vs flu Sat dropped to 84-86 % at the [place] which improved to 97 % with 4L ox Continue Nasal oxygen Duoneb QID andreas and Albuterol Q4H PRN Chest PT # Watery diarrhoea-R/O C. diff 3 episodes of watery, brown, non bloody, fowl smelling stool; recently completed Augmentin Will send stool cultures, Ova, parasites, C. diff IV NS @ 83mls/hr # Abdominal distention likely secondary to Ileus Will place pt on PEG with low continuous suction NPO, no meds, no tube feeds No rectal tube due to risk of bleeding # Severe hypokalemia K- 2.5, was given IV 3 bags of KCL Will repeat at 8 pm with Mg level Replete K as per BMP report. # Seizure-no seizure activity at this time Continue IV Keppra 1500 mg BID Continue IV Phenobarbitol 30 mg HS and IV Phenobarbitol 60mg BID. Hold Topiramate as it is not in IV form # Hypothyroidism Continue IV Synthroid 37.5 mcg # FEN IV NS @ 83 mls/hr, if he is hypoglycemic, fluids to be changed to IV D5-1/2 NS Electrolytes to be repeated in am NPO except meds, will hold tube feeds for today. # Prophylaxis For DVT: On Heparin 5000 IU sq TID For GI: Not indicated # Medications: Confirmed from the list sent by [facility]. # Dispo: Admitted in Med-Surg. Duration of stay unknown. Case discussed with Dr. Limon and Compliance Reviewer. Visit type - Emergency Visit Emergency Visit: Yes ED Registration Date: 08/13/17 Care time: The patient presented to the Emergency Department on the above date and was hospitalized for further evaluation of their emergent condition. - New Patient This patient is new to me today: Yes Date on this admission: 08/13/17 - Critical Care Critical Care patient: No
[2017-08-13] MEDS ORDERED: ALBUTEROL SO4 0.083% IH SOL 2.5 MG/3 ML VIAL.NEB. NEB PRN (17:32)
[2017-08-13] MEDS ORDERED: OSELTAMIVIR PHOSPHATE 6 MG/1 ML - 60ML BOTTLE PO ONE (17:39)
[2017-08-13] MEDS ORDERED: OSELTAMIVIR PHOSPHATE 6 MG/1 ML - 60ML BOTTLE PEG ONE (17:42)
--- NOTE | 2017-08-13 18:07 | HP ---
Unable to obtain history from patient. Info gathered from chart. HISTORY OF PRESENT ILLNESS: Patient is a 36 yo M with a PMHx of Mental Retardation, congenital quadriplegia, seizures, blindness, Gerd, hypothyroidism , s/p G tube placement, presented to the ED from [facility] because of chest congestion, coughing and wheezing. This morning his O2 sat went to 84% and improved to 97% with O2. Patient was also treated for bronchitis with 10 days of Augmentin on 07/28. It is noted there is a flu outbreak in the halfway with at least 7 people positive with Flu. ER course was notable for: (1) Afebrile, tachycardic 103 bpm, RR-22; Hypokalemia 2.5 (2) EKG; Abd/Pelvis CT; Chest CT (3) IV KCL x 3 bags, Zosyn 4.5 gm, Vanc 1gm (4) 4 BM, nonbloody watery diarrhea Recent Travel: none PAST MEDICAL HISTORY: Mental Retardation, congenital quadriplegia, seizures, blindness, Gerd, hypothyroidism, s/p G tube placement PAST SURGICAL HISTORY: n/a Social History: Smoking: n/a Alcohol: n/a Drugs: n/a Family History: Allergies carbamazepine Allergy (Unknown, Verified 08/13/17 11:54) HOME MEDICATIONS: Home Medications Medication Instructions Recorded Albuterol 0.083% Nebulizer Jyoti 1 neb NEB Q4H PRN 08/13/17 [Ventolin 0.083%] Baclofen 5 mg GT Q6H 08/13/17 Benzoyl Peroxide 5% Gel - 1 applic TP BID 08/13/17 Bisacodyl 10 mg RC PRN PRN 08/13/17 Calcium Citrate/Vitamin D3 1 each GT BID 08/13/17 [Calcium Cit 315-Vit D3 250 Tab] Cetirizine HCl 10 mg GT DAILY 08/13/17 Cholecalciferol (Vitamin D3) 2,000 unit GT DAILY 08/13/17 [Vitamin D3] Clindamycin 1% Gel [Cleocin *Gel*] 1 applic TP BID 08/13/17 Clobazam [Onfi -] 20 mg GT DAILY 08/13/17 Clobazam [Onfi -] 30 mg PO HS 08/13/17 Diazepam Rectal Gel [Diastat 5 mg RC PRN 08/13/17 *Rectal Gel*] Lacosamide [Vimpat -] 200 mg GT BID 08/13/17 Lactose-Reduced Food/Fiber [Jevity 711 ml GT DAILY 08/13/17 1.5 Harjit Liquid] Levetiracetam 1,500 mg GT BID 08/13/17 Levocarnitine 330 mg GT BID 08/13/17 Levothyroxine [Synthroid -] 0.075 mg GT DAILY 08/13/17 Magnesium Hydrox 2400MG/30Ml [Milk 30 ml GT BID 08/13/17 of Magnesia -] Mometasone Furoate [Asmanex 110Mcg 2 spray IH DAILY 08/13/17 -] Multivitamins [Tab-A-Vit -] 1 tab GT DAILY 08/13/17 Nut.therapy,Urea Cycle Disordr 15 ml GT DAILY 08/13/17 [Cyclinex-2] Phenobarbital 32.4 mg GT HS 08/13/17 Phenobarbital 64.8 mg PO BID 08/13/17 Rufinamide [Banzel] 30 mg GT BID 08/13/17 Sennosides [Senna] 8.6 mg GT BID 08/13/17 Sodium Benzoate 4.5 gm GT TID 08/13/17 Topiramate 50 mg GT BID 08/13/17 Topiramate 200 mg GT BID 08/13/17 REVIEW OF SYSTEMS unable to obtain PHYSICAL EXAMINATION Vital Signs - 24 hr 08/13/17 08/13/17 08/13/17 11:15 13:02 16:40 Temperature 98.6 F Pulse Rate 103 H 103 H Respiratory 22 19 Rate Blood Pressure 122/87 125/95 O2 Sat by Pulse 96 98 95 Oximetry (%) GENERAL: nonverbal, somnolent, 4 L NC HEAD: Normal with no signs of trauma. EYES: Pupils equal, round and reactive to light, anicteric THROAT: oropharynx clear without exudates. Moist mucous membranes. NECK: no JVD, or masses. LUNGS: scattered course breath sounds b/l HEART: Tachy, no murmurs appreciated due to lung sounds. ABDOMEN: markedly distended, tympanic to percussion, G-tube in place, surrounding mild erythema, no drainage EXTREMITIES: Contracted limbs x 4, 2+ pulses, No peripheral edema. SKIN: Warm, dry, normal turgor, no rashes or lesions noted, normal capillary refill. Laboratory Results - last 24 hr 08/13/17 08/13/17 08/13/17 12:11 12:11 12:11 WBC 8.7 D RBC 4.55 Hgb 15.5 Hct 45.5 MCV 100.0 H MCH 34.1 H MCHC 34.1 RDW 12.8 Plt Count 254 MPV 10.6 D Neutrophils % No Result Required. Neutrophils % (Manual) 80.6 Band Neutrophils % 3.1 Lymphocytes % No Result Required. Lymphocytes % (Manual) 5.1 L Monocytes % (Manual) 6 Eosinophils % (Manual) 0.0 Basophils % (Manual) 0.0 Myelocytes % (Man) 0 Promyelocytes % (Man) 0 Metamyelocytes 0 Hypochromia 0 Toxic Granulation 0 Dohle Bodies 0 Polychromasia 0 Poikilocytosis 0 Basophilic Stippling 0 Anisocytosis 0 Microcytosis 0 Macrocytosis 0 Spherocytes 0 Sickle Cells 0 Target Cells 0 Tear Drop Cells 0 Ovalocytes 0 Stomatocytes 0 Helmet Cells 0 [place] Bodies 0 Harmony Rings 0 Goldvein Cells 0 Acanthocytes (Spur) 0 Rouleaux 0 Fragmented RBCs 0 Schistocytes 0 VBG pH POC VBG pCO2 POC VBG pO2 Mixed VBG HCO3 Sodium 141 Potassium 2.5 L* D Chloride 98 Carbon Dioxide 35 H D Anion Gap 8 BUN 8 Creatinine 0.5 L Creat Clearance w eGFR > 60 Random Glucose 101 Lactic Acid 1.0 Calcium 9.0 Total Bilirubin 0.3 D AST 21 D ALT 31 Alkaline Phosphatase 90 D Creatine Kinase 183 Creatine Kinase Index 0.5 CK-MB (CK-2) < 1.000 Troponin I < 0.02 Total Protein 8.0 Albumin 3.7 Urine Color Urine Appearance Urine pH Ur Specific [place] Urine Protein Urine Glucose (UA) Urine Ketones Urine Blood Urine Nitrite Urine Bilirubin Urine Urobilinogen Ur Leukocyte Esterase 08/13/17 08/13/17 12:49 15:30 WBC RBC Hgb Hct MCV MCH MCHC RDW Plt Count MPV Neutrophils % Neutrophils % (Manual) Band Neutrophils % Lymphocytes % Lymphocytes % (Manual) Monocytes % (Manual) Eosinophils % (Manual) Basophils % (Manual) Myelocytes % (Man) Promyelocytes % (Man) Metamyelocytes Hypochromia Toxic Granulation Dohle Bodies Polychromasia Poikilocytosis Basophilic Stippling Anisocytosis Microcytosis Macrocytosis Spherocytes Sickle Cells Target Cells Tear Drop Cells Ovalocytes Stomatocytes Helmet Cells [place] Bodies Harmony Rings Goldvein Cells Acanthocytes (Spur) Rouleaux Fragmented RBCs Schistocytes VBG pH 7.46 H POC VBG pCO2 44.4 POC VBG pO2 77.7 H Mixed VBG HCO3 31.4 H Sodium Potassium Chloride Carbon Dioxide Anion Gap BUN Creatinine Creat Clearance w eGFR Random Glucose Lactic Acid Calcium Total Bilirubin AST ALT Alkaline Phosphatase Creatine Kinase Creatine Kinase Index CK-MB (CK-2) Troponin I Total Protein Albumin Urine Color Yellow Urine Appearance Clear Urine pH 6.0 D Ur Specific [place] 1.023 Urine Protein Negative Urine Glucose (UA) Negative Urine Ketones Negative Urine Blood Negative Urine Nitrite Negative Urine Bilirubin Negative Urine Urobilinogen Negative Ur Leukocyte Esterase Negative Chest/ABD Ct: Suspected chronic ILD, Fluid filled distended colon w/o obstruction ASSESSMENT/PLAN: Patient is a 36 yo M with a PMHx of Mental Retardation, congenital quadriplegia , seizures, blindness, Gerd, hypothyroidism, s/p G tube placement, presented to the ED from [facility] because of chest congestion, coughing and wheezing and was found to be Septic. #Sepsis -secondary to Flu vs bronchitis -s/p Augmentin x 10 days for bronchitis 08/07 (last dose) -Flu outbreak at halfway facility -ID consulted -FU Cx, Bcx -CT Chest/Abd- suspected chronic ILD, no infiltrates. -No Abx at this time -FU am labs -Droplet precautions #Acute hypoxic respiratory failure -likely secondary to bronchitis vs flu -O2 sat went to 84% and improved to 97% with O2 -Sat 98% on 2L NC -Cont. O2 therapy -Duoneb QID andreas and Albuterol Q4H PRN -Chest PT -Sputum cultures -Obtain chest xray from [place]. #Diarrhea -4 BM, nonbloody watery diarrhea -NPO -Stool cultures, stool O&P, C. diff toxin -Ct Abd: fluid filled, distended colon without obstruction -IV fluids NS @ 83 ml #Ileus -significant distention on exam and Abd CT -Peg-tube low intermittent suctions -will hold placing rectal tube, poss C-diff -NPO -Home meds IV #Severe hypokalemia -K: 2.5 in ED -Given 3 bags of KCL -Will repeat labs at 8pm -Replete as needed #Seizures -no seizure activity at this time -cont. Keppra IV 1500mg BID -Continue IV Phenobarbitol 30 mg HS and IV Phenobarbitol 60mg BID #Hypothyroidism -IV Synthroid 37.5 mcg #FEN -IV fluids NS @ 83 -Replete Potassium -NPO #DVT -Hep SQ Dispo: Med-sure Visit type - Emergency Visit Emergency Visit: Yes ED Registration Date: 08/13/17 Care time: The patient presented to the Emergency Department on the above date and was hospitalized for further evaluation of their emergent condition. - New Patient This patient is new to me today: Yes Date on this admission: 08/13/17 - Critical Care Critical Care patient: No
[2017-08-13] MEDS ORDERED: LEVOTHYROXINE NA 75 MCG TABLET (FP) GT SCH (18:15)
[2017-08-13] MEDS ORDERED: BACLOFEN 10 MG TABLET (FP) GT SCH (18:15)
--- NOTE | 2017-08-13 18:25 | PN ---
Teaching Attending Note Name of Resident: Fede Loera ATTENDING PHYSICIAN STATEMENT I saw and evaluated the patient. I reviewed the resident's note and discussed the case with the resident. I agree with the resident's findings and plan as documented. 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 Pt is a [place] resident. Spo2 84% which improved to 97% on 4L NC. also had 4 loose BM today and noted his belly to be distended. he was recently treated for bronchitis with augmentin x10 days. there are reports of 6 other [place] residents with the flu which this pt is said to have contact with. 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 Acute hypoxic respiratory failure- [place] admission. concern for flu or possible superimposed bacterial infection. nebs prn, supplemental oxygen to maintain spO2 >90% 2. sepsis due to suspected flu vs diarrhea with concern for cdiff- concern for flu due to recent contacts and presenting symptoms. will need to obtain images from recent URI that he was treated for. also concern for cdiff with recent abx use. received vanco/zosyn in the ER. Flu swab negative but would start treatment. would consider starting tamiflu due to risk factors and severity of flu season at this time. droplet precaution. consult ID 3. Ileus- significant distention appreciate on exam and imaging. will place PEG to low intermittent suction. NPO. will hold on placing rectal tube due to possibility of friable mucosa if he does have cdiff 4. Diarrhea- enteritis vs cdiff. check cdiff. O&P. avoid loperamide at this time 5. Severe hypokalemia- received KCl x3 runs. will repeat when completed. check Mg 6. Hypothyroid- LT4 7. Seizure- no reported seizure like activity. will convert seizure medications to IV. seizure precautions 8. Congenital quadriplegia- full care. turn Q4H 9. DVT ppx- Hep sq
[2017-08-13] MEDS: SODIUM CHLORIDE 1,000 ML IV SCH (18:44)
[2017-08-13] MEDS ORDERED: ALBUTEROL SO4 2.5/IPRATROPIUM 0.5 INH SOL 3 ML VIAL.NEB. NEB ONE (20:25)
[2017-08-13] MEDS: ALBUTEROL SO4 2.5/IPRATROPIUM 0.5 INH SOL 3 ML VIAL.NEB. NEB SCH (20:31)
[2017-08-13] MEDS ORDERED: SODIUM BENZOATE GT SCH (22:00)
[2017-08-13] MEDS ORDERED: SENNOSIDES 8.8 MG/5 ML BULK BOTTLE GT SCH (22:00)
[2017-08-13] MEDS ORDERED: MAGNESIUM HYDROX 2400MG/30ML ORAL SUSPENSION 30 ML CUP GT SCH (22:00)
[2017-08-13] MEDS ORDERED: PHENobarbital 30 MG TABLET PO SCH (22:00)
[2017-08-13] MEDS ORDERED: LEVOCARNITINE GT SCH (22:00)
[2017-08-13] MEDS ORDERED: levETIRAcetam 500 MG/5 ML ORAL SOLUTION (UNIT-DOSE CUPS) PEG SCH (22:00)
[2017-08-13] MEDS ORDERED: PATIENT'S OWN MEDICATION (NON-FORMULARY) (Phenobarbital [Phenobarbital] 64.8 MG) PO SCH (22:00)
[2017-08-13 22:11] LABS: ANION GAP 7 (8-16); BLOOD UREA NITROGEN 7 mg/dL (7-18); CALCIUM 8.3 mg/dL (8.5-10.1); CHLORIDE 100 mmol/L (98-107); CO2 33 mmol/L (21-32); CREATININE 0.5 mg/dL (0.7-1.3); GLUCOSE,RANDOM 92 mg/dL (74-106); MAGNESIUM 2.4 mg/dL (1.8-2.4); POTASSIUM 3.4 mmol/L (3.5-5.1); SODIUM 140 mmol/L (136-145)
[2017-08-13] MEDS: levETIRAcetam 500 MG/5 ML INJECTION VIAL IVPB SCH (23:28)
[2017-08-13] MEDS ORDERED: HEPARIN NA (PORCINE) 5,000 UNITS/ML 1ML VIAL ONE (23:29)
[2017-08-13] MEDS: HEPARIN NA (PORCINE) 5,000 UNITS/ML 1ML VIAL SQ SCH (23:33)
[2017-08-13] MEDS: TOPIRAMATE 25 MG TABLET (FP) NR SCH (23:47)
[2017-08-13] MEDS: TOPIRAMATE 200 MG TABLET (FP) GT SCH (23:48)
[2017-08-14] MEDS: PHENobarbital SODIUM 65 MG/1 ML VIAL IVPB SCH ×3 (00:39→22:10)
[2017-08-14] MEDS: KCL 10 MEQ IVPB 10 MEQ/100 ML INFUS.BAG IVPB SCH ×2 (03:24→05:07)
[2017-08-14] MEDS ORDERED: KCL 10 MEQ IVPB 10 MEQ/100 ML INFUS.BAG IVPB ONE (04:52)
[2017-08-14] MEDS ORDERED: KCL 10 MEQ IVPB 10 MEQ/100 ML INFUS.BAG IVPB SCH (06:30)
[2017-08-14] MEDS ORDERED: HEPARIN NA (PORCINE) 5,000 UNITS/ML 1ML VIAL ONE (06:37)
[2017-08-14] MEDS: HEPARIN NA (PORCINE) 5,000 UNITS/ML 1ML VIAL SQ SCH ×3 (06:39→22:10)
[2017-08-14] MEDS: LEVOTHYROXINE SODIUM 100 MCG VIAL IVPUSH SCH (07:21)
[2017-08-14] MEDS ORDERED: ALBUTEROL SO4 2.5/IPRATROPIUM 0.5 INH SOL 3 ML VIAL.NEB. NEB ONE (08:40)
[2017-08-14] MEDS: ALBUTEROL SO4 2.5/IPRATROPIUM 0.5 INH SOL 3 ML VIAL.NEB. NEB SCH ×4 (08:40→20:25)
--- NOTE | 2017-08-14 08:40 | CON.ID ---
Consult Consult Specialty:: infectious disease Referred by:: hospitalist service - History of Present Illness Chief Complaint: hypoxia History of Present Illness: 36 year old man with history of CPMR sent from [facility] with hypoxia and "cold symptoms" he had ct scan chest /abd/pelvis with increased interstitial markings, no bowel obstruction of note he has received 10 days of augmentin from 07/29 as well multiple residents of the [facility] have had influenza - History Source History Provided By: Medical Record Limitations to Obtaining History: Clinical Condition - Past Medical History 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, Other (severe developmental delay, cerebral palsy, mental retardation, cortical blindness) Cardio/Vascular: Yes: AFIB (quadraplegia) Gastrointestinal: Yes: GERD Musculoskeletal: Yes: Paraplegia Endocrine: Yes: Hypothyroidism - Past Surgical History Additional Surgical History: Gtube - Alcohol/Substance Use Hx Alcohol Use: No - Smoking History Smoking history: Never smoked Have you smoked in the past 12 months: No Aproximately how many cigarettes per day: 0 - Social History Usual Living Arrangement: [facility] ADL: Support Services History of Recent Travel: No Home Medications - Allergies Allergies/Adverse Reactions: Allergies Allergy/AdvReac Type Severity Reaction Status Date / Time carbamazepine Allergy Unknown Verified 08/13/17 11:54 - Home Medications Home Medications: Ambulatory Orders Albuterol 0.083% Nebulizer Jyoti [Ventolin 0.083%] 1 neb NEB Q4H PRN 08/13/17 Baclofen 5 mg GT Q6H 08/13/17 Calcium Citrate/Vitamin D3 [Calcium Cit 315-Vit D3 250 Tab] 1 each GT BID Cetirizine HCl 10 mg GT DAILY 08/13/17 Cholecalciferol (Vitamin D3) [Vitamin D3] 2,000 unit GT DAILY 08/13/17 Clobazam [Onfi -] 20 mg GT BID 08/13/17 Clobazam [Onfi -] 30 mg PO HS 08/13/17 Diazepam Rectal Gel [Diastat *Rectal Gel*] 5 mg RC PRN 08/13/17 Lacosamide [Vimpat -] 200 mg GT BID 08/13/17 Lactose-Reduced Food/Fiber [Jevity 1.5 Harjit Liquid] 711 ml GT DAILY 08/13/17 Levetiracetam 1,500 mg GT BID 08/13/17 Levocarnitine 330 mg GT BID 08/13/17 Levothyroxine [Synthroid -] 0.075 mg GT DAILY 08/13/17 Magnesium Hydrox 2400MG/30Ml [Milk of Magnesia -] 30 ml GT BID 08/13/17 Mometasone Furoate [Asmanex 110Mcg -] 2 spray IH BID 08/13/17 Multivitamins [Tab-A-Vit -] 1 tab GT DAILY 08/13/17 Phenobarbital 32.4 mg GT HS 08/13/17 Phenobarbital 64.8 mg PO BID 08/13/17 Rufinamide [Banzel] 30 ml GT BID 08/13/17 Sennosides [Senna] 2 tab GT BID 08/13/17 Sodium Benzoate 4.5 gm GT TID 08/13/17 Sodium Phosphate,[place]-Dibasic [Enema Ready To Use] 133 ml RC ASDIR PRN 08/13/17 Topiramate 50 mg GT BID 08/13/17 Topiramate 200 mg GT BID 08/13/17 Family Disease History - Family Disease History Family History: Unable to Obtain Review of Systems - Review of Systems Respiratory: reports: Cough, Other (hypoxia and cold symptoms) Gastrointestinal: reports: Diarrhea (watery times 4 now resolved) Physical Exam Vital Signs: Vital Signs Temperature 98.1 F 08/13/17 18:45 Pulse Rate 98 H 08/14/17 06:56 Respiratory Rate 16 08/14/17 06:56 Blood Pressure 116/75 08/14/17 06:56 O2 Sat by Pulse Oximetry (%) 97 08/14/17 06:56 Constitutional: Yes: No Distress, Calm HENT: Yes: Atraumatic Cardiovascular: Yes: Regular Rate and Rhythm Respiratory: Yes: Regular, CTA Bilaterally, Diminished Gastrointestinal: Yes: Normal Bowel Sounds, Distention. No: Tenderness, Tenderness, Epigastrium ...Rectal Exam: Yes: Deferred Edema: No Labs: CBC, BMP 08/13/17 12:11 08/13/17 20:50 Microbiology 08/13/17 12:11 Nasopharyngeal Swab Influenza Types A,B Antigen (LUARA) - Final 08/13/17 12:11 Nasopharyngeal Swab - Final Imaging - Results Chest X-ray: Report Reviewed, Image Reviewed Cat Scan: Report Reviewed Problem List - Problems (1) Hypoxia Code(s): R09.02 - HYPOXEMIA (2) Spastic cerebral palsy Code(s): G80.1 - SPASTIC DIPLEGIC CEREBRAL PALSY (3) Seizure Code(s): R56.9 - UNSPECIFIED CONVULSIONS Qualifiers: Convulsion type: unspecified Qualified Code(s): R56.9 - Unspecified convulsions (4) Seizure disorder Code(s): G40.909 - EPILEPSY, UNSP, NOT INTRACTABLE, WITHOUT STATUS EPILEPTICUS Assessment/Plan given hypoxia and cold symptoms In the setting of the current influenza season-not on prophylaxis at the [place]- multiple developmental delays would treat for influenza with tamiflu check legionella urine antigen, blood cultures have been sent treat for possible pneumonia with levaquin would check RSV antigen as well I have called lab and asked them to sent viral culture droplet isolation d/w Resident in the ED
[2017-08-14 08:58] LABS: BASO % 0.3 % (0-2.0); EOS % 0.1 % (0-4.5); HEMATOCRIT 45.6 % (35.4-49); HEMOGLOBIN 14.9 GM/dL (11.7-16.9); LYMPH % 6.1 % (8-40); MCH 33.1 pg (25.7-33.7); MCHC 32.6 g/dl (32.0-35.9); MEAN CELL VOLUME 101.5 fl (80-96); MEAN PLT VOLUME 8.4 fl (7.5-11.1); MONO % 7.8 % (3.8-10.2); NEUT % 85.7 % (42.8-82.8); PLATELET COUNT 222 K/MM3 (134-434); RBC 4.49 M/mm3 (4.00-5.60); WHITE BLOOD COUNT 11.5 K/mm3 (4.0-10.0)
[2017-08-14 09:26] LABS: ALBUMIN 3.2 g/dl (3.4-5.0); ANION GAP 8 (8-16); BLOOD UREA NITROGEN 5 mg/dL (7-18); CALCIUM 8.5 mg/dL (8.5-10.1); CHLORIDE 104 mmol/L (98-107); CO2 26 mmol/L (21-32); CREATININE 0.3 mg/dL (0.7-1.3); GLUCOSE,RANDOM 95 mg/dL (74-106); MAGNESIUM 2.3 mg/dL (1.8-2.4); PHOSPHOROUS 2.6 mg/dL (2.5-4.9); POTASSIUM 4.2 mmol/L (3.5-5.1); SGOT/AST 22 U/L (15-37); SGPT/ALT 27 U/L (12-78); SODIUM 138 mmol/L (136-145)
[2017-08-14 09:27] LABS: ALK PHOS 76 U/L (45-117); BILIRUBIN,TOTAL 0.2 mg/dL (0.2-1.0)
[2017-08-14 09:30] LABS: INR 1.01 (0.82-1.09); PROTHROMBIN TIME (PATIENT) 11.4 SEC (9.98-11.88)
[2017-08-14] MEDS ORDERED: CHOLECALCIFEROL (VITAMIN D3) 1,000 UNIT TABLET (FP) GT SCH (10:00)
[2017-08-14] MEDS ORDERED: LORATADINE 10 MG TABLET GT SCH (10:00)
[2017-08-14] MEDS ORDERED: OSELTAMIVIR PHOSPHATE 6 MG/1 ML - 60ML BOTTLE PO SCH (10:00)
--- NOTE | 2017-08-14 11:19 | CON.GI ---
Consult Consult Specialty:: GI Reason for Consultation:: distended abdomen, ileus - History of Present Illness History of Present Illness: Patient is a 36 year old male " Sent from [facility] due to hypoxia sat 84-86% ". He was given 4L of nasal canula and his sat improved to 97 %. As per the chart, he was treated with PO Augmentin x 10 days starting from 07/28/2017 and completed the course for bronchitis. There has been 7 flu positive patients currently in [place]. In the ED, patient had 3 large bowel movements, brown in color, non bloody, fowl smelling. 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 Non-communicative. Health-aid at bedside, who tells me that the distended abdomen is not new, but chronic. She also tells me that multiple residents at [place] currently have flu. 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 (severe developmental delay, cerebral palsy, mental retardation, cortical blindness) Cardio/Vascular: Yes: AFIB (quadraplegia) Gastrointestinal: Yes: GERD Hepatobiliary: Yes: Hepatitis C Musculoskeletal: Yes: Paraplegia Endocrine: Yes: Hypothyroidism - Past Surgical History Additional Surgical History: Gtube - Alcohol/Substance Use Hx Alcohol Use: No - Smoking History Smoking history: Never smoked Have you smoked in the past 12 months: No Aproximately how many cigarettes per day: 0 - Social History Usual Living Arrangement: Half-Way ADL: Support Services History of Recent Travel: No Home Medications - Allergies Allergies/Adverse Reactions: Allergies Allergy/AdvReac Type Severity Reaction Status Date / Time carbamazepine Allergy Unknown Verified 08/13/17 11:54 - Home Medications Home Medications: Ambulatory Orders Albuterol 0.083% Nebulizer Jyoti [Ventolin 0.083%] 1 neb NEB Q4H PRN 08/13/17 Baclofen 5 mg GT Q6H 08/13/17 Calcium Citrate/Vitamin D3 [Calcium Cit 315-Vit D3 250 Tab] 1 each GT BID Cetirizine HCl 10 mg GT DAILY 08/13/17 Cholecalciferol (Vitamin D3) [Vitamin D3] 2,000 unit GT DAILY 08/13/17 Clobazam [Onfi -] 20 mg GT BID 08/13/17 Clobazam [Onfi -] 30 mg PO HS 08/13/17 Diazepam Rectal Gel [Diastat *Rectal Gel*] 5 mg RC PRN 08/13/17 Lacosamide [Vimpat -] 200 mg GT BID 08/13/17 Lactose-Reduced Food/Fiber [Jevity 1.5 Harjit Liquid] 711 ml GT DAILY 08/13/17 Levetiracetam 1,500 mg GT BID 08/13/17 Levocarnitine 330 mg GT BID 08/13/17 Levothyroxine [Synthroid -] 0.075 mg GT DAILY 08/13/17 Magnesium Hydrox 2400MG/30Ml [Milk of Magnesia -] 30 ml GT BID 08/13/17 Mometasone Furoate [Asmanex 110Mcg -] 2 spray IH BID 08/13/17 Multivitamins [Tab-A-Vit -] 1 tab GT DAILY 08/13/17 Phenobarbital 32.4 mg GT HS 08/13/17 Phenobarbital 64.8 mg PO BID 08/13/17 Rufinamide [Banzel] 30 ml GT BID 08/13/17 Sennosides [Senna] 2 tab GT BID 08/13/17 Sodium Benzoate 4.5 gm GT TID 08/13/17 Sodium Phosphate,[place]-Dibasic [Enema Ready To Use] 133 ml RC ASDIR PRN 08/13/17 Topiramate 50 mg GT BID 08/13/17 Topiramate 200 mg GT BID 08/13/17 Family Disease History - Family Disease History Family History: Unremarkable (non-contributory) Review of Systems Findings/Remarks: as per HPI, H&P Physical Exam-GI Vital Signs: Vital Signs Temperature 98.1 F 08/13/17 18:45 Pulse Rate 98 H 08/14/17 06:56 Respiratory Rate 16 08/14/17 06:56 Blood Pressure 116/75 08/14/17 06:56 O2 Sat by Pulse Oximetry (%) 97 08/14/17 06:56 Constitutional: Yes: Well Nourished, No Distress, Calm Eyes: Yes: Tearing Neck: Yes: Supple Cardiovascular: Yes: Regular Rate and Rhythm Respiratory: Yes: Rhonchi Gastrointestinal Inspection: Yes: Distention ...Auscultate: Yes: Normoactive Bowel Sounds ...Palpate: Yes: Soft, Other (Intact PEG in LUQ). No: Firm/Rigid, Guarding, Hepatomegaly, Mass, Pulsatile Mass, Tenderness, Tenderness, Epigastium, Tenderness, Rebound Labs: CBC, BMP 08/14/17 08:50 08/14/17 08:50 INR, PTT INR 1.01 (0.82-1.09) 08/14/17 08:50 Abnormal Lab Results 08/13/17 08/13/17 08/13/17 12:11 12:11 12:49 WBC MCV 100.0 H MCH 34.1 H Neutrophils % Lymphocytes % Lymphocytes % (Manual) 5.1 L VBG pH 7.46 H POC VBG pO2 77.7 H Mixed VBG HCO3 31.4 H Potassium 2.5 L* D Carbon Dioxide 35 H D Anion Gap BUN Creatinine 0.5 L Calcium Albumin 08/13/17 08/14/17 08/14/17 20:50 08:50 08:50 WBC 11.5 H D MCV 101.5 H MCH Neutrophils % 85.7 H D Lymphocytes % 6.1 L D Lymphocytes % (Manual) VBG pH POC VBG pO2 Mixed VBG HCO3 Potassium 3.4 L D Carbon Dioxide 33 H Anion Gap 7 L BUN 5 L D Creatinine 0.5 L 0.3 L D Calcium 8.3 L Albumin 3.2 L Imaging - Results Cat Scan: Report Reviewed Problem List - Problems (1) Abdominal distension (gaseous) Code(s): R14.0 - ABDOMINAL DISTENSION (GASEOUS) (2) Abdominal distention, non-gaseous Code(s): R14.0 - ABDOMINAL DISTENSION (GASEOUS) (3) Ileus Code(s): K56.7 - ILEUS, UNSPECIFIED Assessment/Plan Recent bronchitis and abx use. Still has pulmonary symptoms and signs. Has ileus on CT however had large BM white in ED. Do not suspect partial or total obstruction at this time Distended, non-tended, soft abdomen. Hold PEG feeds today IVF Stool for C. diff toxin PEG to intermittent suction today Frequent abdominal exams Pulmonary as per per primary team will follow
[2017-08-14] MEDS: TOPIRAMATE 200 MG TABLET (FP) GT SCH ×2 (12:33→22:32)
--- NOTE | 2017-08-14 13:04 | EKG ---
Test Reason : Blood Pressure : / mmHG Vent. Rate : 108 BPM Atrial Rate : 108 BPM P-R Int : 142 ms QRS Dur : 064 ms QT Int : 334 ms P-R-T Axes : 046 054 040 degrees QTc Int : 447 ms SINUS TACHYCARDIA POSSIBLE LEFT ATRIAL ENLARGEMENT SEPTAL INFARCT , AGE UNDETERMINED ABNORMAL ECG WHEN COMPARED WITH ECG OF 22-AUG-2014 22:49, Confirmed by JENNIFER SMITH MD ([id number]) on 08/14/2017 1:04:25 PM Referred By: Confirmed By:JENNIFER SMITH MD
[2017-08-14] MEDS: WATER IVPB SCH ×2 (13:30→22:31)
[2017-08-14] MEDS: LEVETIRACETAM IVPB SCH ×2 (13:30→22:31)
[2017-08-14] MEDS: DEXTROSE 5% IVPB SCH ×2 (13:30→22:31)
[2017-08-14] MEDS ORDERED: OSELTAMIVIR PHOSPHATE 6 MG/1 ML - 60ML BOTTLE PEG SCH (13:41)
[2017-08-14] MEDS ORDERED: ACETAMINOPHEN 650 MG/20.3 ML ORAL SOLUTION (CUPS) PEG ONE (13:42)
[2017-08-14] MEDS: OSELTAMIVIR PHOSPHATE 6 MG/1 ML - 60ML BOTTLE PEG SCH ×2 (14:23→22:32)
[2017-08-14] MEDS: levETIRAcetam 500 MG/5 ML INJECTION VIAL IVPB SCH (14:24)
[2017-08-14] MEDS ORDERED: ACETAMINOPHEN 650 MG/20.3 ML ORAL SOLUTION (CUPS) ONE (14:32)
[2017-08-14] MEDS: SODIUM CHLORIDE 1,000 ML IV SCH (15:42)
--- NOTE | 2017-08-14 17:09 | PN ---
Physical Exam: SUBJECTIVE: Patient seen and examined. No acute events overnight. He had 1 loose , nonbloody bowel movement this AM. OBJECTIVE: Vital Signs Period Temp Pulse Resp BP Sys/De La Vega Pulse Ox Last 24 Hr 98.1 F-100.9 F 68-107 13-100 107-132/65-85 94-99 GENERAL: nonverbal, somnolent, 2 L NC HEAD: Normal with no signs of trauma. EYES: Pupils equal, round and reactive to light, anicteric THROAT: oropharynx clear without exudates. Moist mucous membranes. NECK: no JVD, or masses. LUNGS: scattered course breath sounds b/l HEART: Tachy, no murmurs appreciated due to increased lung sounds. ABDOMEN: markedly distended, tympanic to percussion, G-tube in place, surrounding mild erythema, no drainage EXTREMITIES: Contracted limbs x 4, 2+ pulses, No peripheral edema. SKIN: Warm, dry, normal turgor, no rashes or lesions noted, normal capillary refill. Laboratory Results - last 24 hr 08/13/17 08/13/17 08/14/17 18:45 20:50 08:50 WBC 11.5 H D RBC 4.49 Hgb 14.9 Hct 45.6 MCV 101.5 H MCH 33.1 MCHC 32.6 RDW 13.0 Plt Count 222 MPV 8.4 D Neutrophils % 85.7 H D Lymphocytes % 6.1 L D Monocytes % 7.8 Eosinophils % 0.1 D Basophils % 0.3 PT with INR INR Sodium 140 Potassium 3.4 L D Chloride 100 Carbon Dioxide 33 H Anion Gap 7 L BUN 7 Creatinine 0.5 L Creat Clearance w eGFR Random Glucose 92 Lactic Acid 0.7 Calcium 8.3 L Phosphorus Magnesium 2.4 Total Bilirubin AST ALT Alkaline Phosphatase Total Protein Albumin 08/14/17 08/14/17 08:50 08:50 WBC RBC Hgb Hct MCV MCH MCHC RDW Plt Count MPV Neutrophils % Lymphocytes % Monocytes % Eosinophils % Basophils % PT with INR 11.40 INR 1.01 Sodium 138 Potassium 4.2 D Chloride 104 Carbon Dioxide 26 D Anion Gap 8 BUN 5 L D Creatinine 0.3 L D Creat Clearance w eGFR > 60 Random Glucose 95 Lactic Acid Calcium 8.5 Phosphorus 2.6 D Magnesium 2.3 Total Bilirubin 0.2 D AST 22 ALT 27 Alkaline Phosphatase 76 Total Protein 7.0 Albumin 3.2 L Active Medications Generic Name Dose Route Start Last Admin Trade Name Freq PRN Reason Stop Dose Admin Albuterol Sulfate 1 amp 08/13/17 17:32 Ventolin 0.083% Nebulizer Soln - NEB Q4H PRN SHORT OF BREATH/WHEEZING Albuterol/Ipratropium 1 amp 08/13/17 20:00 08/14/17 16:48 Duoneb - NEB 1 amp RQID ANDREAS Administration Heparin Sodium (Porcine) 5,000 unit 08/13/17 22:00 08/14/17 14:20 Heparin - SQ 5,000 unit TID ANDREAS Administration Sodium Chloride 1,000 mls @ 83 mls/hr 08/13/17 17:45 08/14/17 15:42 Normal Saline - IV 83 mls/hr ASDIR ANDREAS Administration Levetiracetam 1,500 mg/ 115 mls @ 460 mls/hr 08/14/17 10:00 08/14/17 13:30 Dextrose IVPB 460 mls/hr BID ANDREAS Administration Levofloxacin 500 mg 08/14/17 13:41 Levaquin - PEG DAILY@0600 ANDREAS Levothyroxine Sodium 37.5 mcg 08/14/17 07:00 08/14/17 07:21 Synthroid Injection - IVPUSH 37.5 mcg DAILY@0700 ANDREAS Administration Oseltamivir Phosphate 75 mg 08/14/17 14:30 08/14/17 14:23 Tamiflu Oral Suspension - PEG 08/19/17 14:29 75 mg BID ANDREAS Administration Phenobarbital 30 mg 08/13/17 22:00 08/14/17 00:39 Phenobarbital Injection - IVPB 30 mg HS ANDREAS Administration Phenobarbital 60 mg 08/14/17 10:00 08/14/17 15:55 Phenobarbital Injection - IVPB Not Given DAILY ANDREAS Topiramate 50 mg 08/13/17 22:00 08/13/17 23:47 Topamax - NR 50 mg HS ANDREAS Administration Topiramate 200 mg 08/13/17 22:00 08/14/17 12:33 Topamax - GT 200 mg BID ANDREAS Administration ASSESSMENT/PLAN: Patient is a 36 yo M with a PMHx of Mental Retardation, congenital quadriplegia , seizures, blindness, Gerd, hypothyroidism, s/p G tube placement, presented to the ED from [facility] because of chest congestion, coughing and wheezing and was found to be Septic. #Sepsis -secondary to Flu vs. PNA -Started Tamiflu 75mg BID -Started IV Abx: Levaquin 500mg (Day1) -FU legionella urine antigen -s/p Augmentin x 10 days for bronchitis 08/07 (last dose) -[facility] at [facility] -ID consulted -FU Cx, Bcx -CT Chest/Abd- suspected chronic ILD, no infiltrates. -FU am labs -Droplet precautions #Acute hypoxic respiratory failure -likely secondary to Flu vs PNA -Sat 98% on 2L NC -Cont. O2 therapy -Duoneb QID andreas and Albuterol Q4H PRN -Chest PT -Sputum cultures #Diarrhea -resolved (watery diarrhea) -only 1 Loose, nonbloody BM this AM -NPO -Stool cultures, stool O&P, C. diff toxin -Ct Abd: fluid filled, distended colon without obstruction -IV fluids NS @ 83 ml #Ileus -significant distention on exam and Abd CT -Peg-tube low intermittent suctions -NPO -Home meds IV -GI consulted: Dr. Herrera #Severe hypokalemia -resolved -Replete as needed -FU am labs #Seizures -no seizure activity at this time -cont. Keppra IV 1500mg BID -Continue IV Phenobarbitol 30 mg HS and IV Phenobarbitol 60mg BID #Hypothyroidism -IV Synthroid 37.5 mcg #FEN -IV fluids NS @ 83 -Replete Potassium -NPO #DVT -Hep SQ Visit type - Emergency Visit Emergency Visit: Yes ED Registration Date: 08/13/17 Care time: The patient presented to the Emergency Department on the above date and was hospitalized for further evaluation of their emergent condition. - New Patient This patient is new to me today: No - Critical Care Critical Care patient: No
--- NOTE | 2017-08-14 17:42 | PN ---
Teaching Attending Note Name of Resident: eFde Loera ATTENDING PHYSICIAN STATEMENT I saw and evaluated the patient. I reviewed the resident's note and discussed the case with the resident. I agree with the resident's findings and plan as documented. 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 Acute hypoxic respiratory failure-likely due to flu and possible PNA. clinically improved. saturating 96% on RA. will start tamiflu and give in between suction. started on empiric Levaquin for suspected PNA. nebs prn, supplemental oxygen to maintain spO2 >90% 2. sepsis due to suspected flu vs diarrhea with concern for cdiff- possible flu even though flu swab was negative. start tamiflu. Vanco/Zosyn switched to levaquin. will d/c IVF. cdiff pending. droplet precaution. consult ID 3. Ileus- significant distention appreciate on exam and imaging. PEG was not placed to suction last night as ordered. instructed RN to place to intermittent suction. GI consulted. hold TF 4. Diarrhea- enteritis vs cdiff. improved 1 loose BM. cdiff pending. avoid loperamide at this time 5. Severe hypokalemia-resolved 6. Hypothyroid- LT4 7. Seizure- no reported seizure like activity. cont seizure meds via IV. seizure precautions 8. Congenital quadriplegia- full care. turn Q4H 9. DVT ppx- Hep sq
[2017-08-14] MEDS ORDERED: PT OWN MED DRAWER 7, Y5N ONE (22:03)
[2017-08-14] MEDS: TOPIRAMATE 25 MG TABLET (FP) NR SCH (22:32)
[2017-08-15] MEDS ORDERED: PT OWN MED DRAWER 7, Y5N ONE ×3 (06:00→22:20)
[2017-08-15] MEDS: HEPARIN NA (PORCINE) 5,000 UNITS/ML 1ML VIAL SQ SCH ×3 (06:03→22:30)
[2017-08-15] MEDS: LEVOTHYROXINE SODIUM 100 MCG VIAL IVPUSH SCH (06:03)
[2017-08-15] MEDS: ALBUTEROL SO4 2.5/IPRATROPIUM 0.5 INH SOL 3 ML VIAL.NEB. NEB SCH ×4 (07:30→20:30)
--- NOTE | 2017-08-15 07:52 | PN ---
Physical Exam: SUBJECTIVE: Patient seen and examined. Tmax of 99.5. No BM all night. Patient asleep. Arousable to verbal stimuli. OBJECTIVE: Vital Signs Period Temp Pulse Resp BP Sys/De La Vega Pulse Ox Last 24 Hr 98.1 F-100.9 F 88-107 16-20 99-132/53-79 97-97 GENERAL: nonverbal, somnolent, 2 L NC HEAD: Normal with no signs of trauma. EYES: Pupils equal, round and reactive to light, anicteric THROAT: oropharynx clear without exudates. Moist mucous membranes. NECK: no JVD, or masses. LUNGS: scattered course breath sounds b/l R> L HEART: Tachy, no murmurs appreciated due to increased lung sounds. ABDOMEN:soft, nondistended, tympanic to percussion, G-tube in place, no drainage EXTREMITIES: Contracted limbs x 4, 2+ pulses, No peripheral edema. SKIN: Warm, dry, normal turgor, no rashes or lesions noted, normal capillary refill. Laboratory Results - last 24 hr 08/14/17 08/14/17 08/14/17 08:50 08:50 08:50 WBC 11.5 H D RBC 4.49 Hgb 14.9 Hct 45.6 MCV 101.5 H MCH 33.1 MCHC 32.6 RDW 13.0 Plt Count 222 MPV 8.4 D Neutrophils % 85.7 H D Lymphocytes % 6.1 L D Monocytes % 7.8 Eosinophils % 0.1 D Basophils % 0.3 PT with INR 11.40 INR 1.01 Sodium 138 Potassium 4.2 D Chloride 104 Carbon Dioxide 26 D Anion Gap 8 BUN 5 L D Creatinine 0.3 L D Creat Clearance w eGFR > 60 Random Glucose 95 Calcium 8.5 Phosphorus 2.6 D Magnesium 2.3 Total Bilirubin 0.2 D AST 22 ALT 27 Alkaline Phosphatase 76 Total Protein 7.0 Albumin 3.2 L Active Medications Generic Name Dose Route Start Last Admin Trade Name Freq PRN Reason Stop Dose Admin Albuterol Sulfate 1 amp 08/13/17 17:32 Ventolin 0.083% Nebulizer Soln - NEB Q4H PRN SHORT OF BREATH/WHEEZING Albuterol/Ipratropium 1 amp 08/13/17 20:00 08/14/17 20:25 Duoneb - NEB 1 amp RQID ANDREAS Administration Heparin Sodium (Porcine) 5,000 unit 08/13/17 22:00 08/15/17 06:03 Heparin - SQ 5,000 unit TID ANDREAS Administration Levetiracetam 1,500 mg/ 115 mls @ 460 mls/hr 08/14/17 10:00 08/14/17 22:31 Dextrose IVPB 460 mls/hr BID ANDREAS Administration Levothyroxine Sodium 37.5 mcg 08/14/17 07:00 08/15/17 06:03 Synthroid Injection - IVPUSH 37.5 mcg DAILY@0700 ANDREAS Administration Oseltamivir Phosphate 75 mg 08/14/17 14:30 08/14/17 22:32 Tamiflu Oral Suspension - PEG 08/19/17 14:29 75 mg BID ANDREAS Administration Phenobarbital 30 mg 08/13/17 22:00 08/14/17 22:10 Phenobarbital Injection - IVPB 30 mg HS ANDREAS Administration Phenobarbital 60 mg 08/14/17 10:00 08/14/17 15:55 Phenobarbital Injection - IVPB Not Given DAILY ANDREAS Topiramate 50 mg 08/13/17 22:00 08/14/17 22:32 Topamax - NR 50 mg HS ANDREAS Administration Topiramate 200 mg 08/13/17 22:00 08/14/17 22:32 Topamax - GT 200 mg BID ANDREAS Administration ASSESSMENT/PLAN: Patient is a 36 yo M with a PMHx of Mental Retardation, congenital quadriplegia , seizures, blindness, Gerd, hypothyroidism, s/p G tube placement, presented to the ED from [facility] because of chest congestion, coughing and wheezing and was found to be Septic. #Sepsis -secondary to Flu vs. PNA -clinically improved -leukocytosis improved -Started Tamiflu 75mg BID (Day 2) -Started IV Abx: Levaquin 500mg (Day2) -s/p Augmentin x 10 days for bronchitis 08/07 (last dose) -Flu outbreak at long term facility -ID on board -FU legionella urine antigen, RVP -Urine cultures, BCx, RSV antigen negative -CT Chest/Abd- suspected chronic ILD, no infiltrates. -No change in repeat CXR -FU am labs -Droplet precautions -Tylenol PRN for Fever #Acute hypoxic respiratory failure -oxygenation improved -likely secondary to Flu vs PNA -Sat 93% on RA -Cont. O2 therapy -Duoneb QID andreas and Albuterol Q4H PRN -Chest PT -Sputum cultures #Diarrhea -resolved -NPO -Stool cultures, stool O&P, C. diff toxin -Ct Abd: fluid filled, distended colon without obstruction -IV fluids NS @ 83 ml #Ileus -abdominal distension improved. -Held Peg-tube suctions -Cont feeds tomorrow if does well without suctioning -NPO -Home meds IV -GI consulted: Dr. Herrera #Severe hypokalemia -resolved -Replete as needed -FU am labs #Seizures -no seizure activity at this time -cont. Keppra IV 1500mg BID -Continue IV Phenobarbitol 30 mg HS and IV Phenobarbitol 60mg BID #Hypothyroidism -IV Synthroid 37.5 mcg -NPO #DVT -Hep SQ Visit type - Emergency Visit Emergency Visit: Yes ED Registration Date: 08/13/17 Care time: The patient presented to the Emergency Department on the above date and was hospitalized for further evaluation of their emergent condition. - New Patient This patient is new to me today: No - Critical Care Critical Care patient: No
[2017-08-15 08:37] LABS: HEMATOCRIT 44.7 % (35.4-49); HEMOGLOBIN 14.5 GM/dL (11.7-16.9); MCH 33.1 pg (25.7-33.7); MCHC 32.5 g/dl (32.0-35.9); MEAN CELL VOLUME 101.8 fl (80-96); MEAN PLT VOLUME 9.4 fl (7.5-11.1); PLATELET COUNT 179 K/MM3 (134-434); RBC 4.39 M/mm3 (4.00-5.60); RDW 12.7 % (11.9-15.9); WHITE BLOOD COUNT 6.8 K/mm3 (4.0-10.0)
[2017-08-15 10:01] LABS: ANION GAP 10 (8-16); BLOOD UREA NITROGEN 4 mg/dL (7-18); CALCIUM 8.1 mg/dL (8.5-10.1); CHLORIDE 106 mmol/L (98-107); CO2 22 mmol/L (21-32); CREATININE 0.3 mg/dL (0.7-1.3); GLUCOSE,RANDOM 81 mg/dL (74-106); POTASSIUM 4.2 mmol/L (3.5-5.1); SODIUM 138 mmol/L (136-145)
[2017-08-15] MEDS: OSELTAMIVIR PHOSPHATE 6 MG/1 ML - 60ML BOTTLE PEG SCH ×2 (10:40→22:47)
[2017-08-15] MEDS: PHENobarbital SODIUM 65 MG/1 ML VIAL IVPB SCH ×2 (10:40→22:30)
[2017-08-15] MEDS: TOPIRAMATE 200 MG TABLET (FP) GT SCH ×2 (10:41→22:47)
[2017-08-15] MEDS ORDERED: ACETAMINOPHEN 1000 MG/100 ML VIAL (NON FORMULARY) IVPB ONE (11:30)
[2017-08-15] MEDS: WATER IVPB SCH (11:46)
[2017-08-15] MEDS: DEXTROSE 5% IVPB SCH (11:46)
[2017-08-15] MEDS: LEVETIRACETAM IVPB SCH (11:46)
--- NOTE | 2017-08-15 14:20 | PN ---
Progress Note (short form) - Note Progress Note: nasal congestin NAD he is smiling Vital Signs Period Temp Pulse Resp BP Sys/De La Vega Pulse Ox Last 24 Hr 98.1 F-100.5 F 88-110 18-20 99-129/53-76 96-97 cor-rrr lungs decreased bs at bases abd-soft, nt ext no edema CBC, BMP 08/15/17 08:20 08/15/17 08:20 Microbiology 08/15/17 04:00 Urine For Antigen Detection Legionella Antigen - Final 08/15/17 04:00 Urine For Antigen Detection Streptococcus pneumoniae Antigen (M - Final 08/13/17 12:11 Blood - Peripheral Venous Blood Culture - Preliminary NO GROWTH OBTAINED AFTER 48 HOURS, INCUBATION TO CONTINUE FOR 3 DAYS. 08/13/17 12:11 Blood - Peripheral Venous Blood Culture - Preliminary NO GROWTH OBTAINED AFTER 48 HOURS, INCUBATION TO CONTINUE FOR 3 DAYS. 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
--- NOTE | 2017-08-15 14:32 | PN ---
Teaching Attending Note Name of Resident: Fede Loera ATTENDING PHYSICIAN STATEMENT Time of evaluation: 10:30 AM I saw and evaluated the patient. I reviewed the resident's note and discussed the case with the resident. I agree with the resident's findings and plan as documented. SUBJECTIVE: patient seen and examined. non verbal, unable to assess for ROS. OBJECTIVE: Vital Signs Period Temp Pulse Resp BP Sys/De La Vega Pulse Ox Last 24 Hr 98.1 F-100.5 F 88-110 18-20 99-129/53-76 96-97 Intake & Output 08/12/17 08/13/17 08/14/17 08/15/17 23:59 23:59 23:59 23:59 Intake Total 350 200 Output Total 900 Balance 350 200 -900 Weight 111 lb 1.596 oz general: lying in bed in no acute distress Chest: poor effort, no rales or wheezing appreciated abdomen: soft, minimal distension, positive bowel sounds, PEG in place, no grimacing on palpation extremities: contractures Home Medication List Medication Instructions Recorded Confirmed Type Albuterol 0.083% Nebulizer Jyoti 1 neb NEB Q4H PRN 08/13/17 08/13/17 History [Ventolin 0.083%] Baclofen 5 mg GT Q6H 08/13/17 08/13/17 History Calcium Citrate/Vitamin D3 1 each GT BID 08/13/17 08/13/17 History [Calcium Cit 315-Vit D3 250 Tab] Cetirizine HCl 10 mg GT DAILY 08/13/17 08/13/17 History Cholecalciferol (Vitamin D3) 2,000 unit GT DAILY 08/13/17 08/13/17 History [Vitamin D3] Clobazam [Onfi -] 20 mg GT BID 08/13/17 08/13/17 History Clobazam [Onfi -] 30 mg PO HS 08/13/17 08/13/17 History Diazepam Rectal Gel [Diastat 5 mg RC PRN 08/13/17 08/13/17 History *Rectal Gel*] Lacosamide [Vimpat -] 200 mg GT BID 08/13/17 08/13/17 History Lactose-Reduced Food/Fiber [Jevity 711 ml GT DAILY 08/13/17 08/13/17 History 1.5 Harjit Liquid] Levetiracetam 1,500 mg GT BID 08/13/17 08/13/17 History Levocarnitine 330 mg GT BID 08/13/17 08/13/17 History Levothyroxine [Synthroid -] 0.075 mg GT DAILY 08/13/17 08/13/17 History Magnesium Hydrox 2400MG/30Ml [Milk 30 ml GT BID 08/13/17 08/13/17 History of Magnesia -] Mometasone Furoate [Asmanex 110Mcg 2 spray IH BID 08/13/17 08/13/17 History -] Multivitamins [Tab-A-Vit -] 1 tab GT DAILY 08/13/17 08/13/17 History Phenobarbital 32.4 mg GT HS 08/13/17 08/13/17 History Phenobarbital 64.8 mg PO BID 08/13/17 08/13/17 History Rufinamide [Banzel] 30 ml GT BID 08/13/17 08/13/17 History Sennosides [Senna] 2 tab GT BID 08/13/17 08/13/17 History Sodium Benzoate 4.5 gm GT TID 08/13/17 08/13/17 History Sodium Phosphate,Yellow Medicine-Dibasic 133 ml RC ASDIR PRN 08/13/17 08/13/17 History [Enema Ready To Use] Topiramate 50 mg GT BID 08/13/17 08/13/17 History Topiramate 200 mg GT BID 08/13/17 08/13/17 History Active Medications Generic Name Dose Route Start Last Admin Trade Name Freq PRN Reason Stop Dose Admin Albuterol Sulfate 1 amp 08/13/17 17:32 Ventolin 0.083% Nebulizer Soln - NEB Q4H PRN SHORT OF BREATH/WHEEZING Albuterol/Ipratropium 1 amp 08/13/17 20:00 08/15/17 11:15 Duoneb - NEB 1 amp RQID JOANNA Administration Heparin Sodium (Porcine) 5,000 unit 08/13/17 22:00 08/15/17 06:03 Heparin - SQ 5,000 unit TID JOANNA Administration Levetiracetam 1,500 mg/ 115 mls @ 460 mls/hr 08/14/17 10:00 08/15/17 11:46 Dextrose IVPB 460 mls/hr BID JOANNA Administration Levothyroxine Sodium 37.5 mcg 08/14/17 07:00 08/15/17 06:03 Synthroid Injection - IVPUSH 37.5 mcg DAILY@0700 JOANNA Administration Oseltamivir Phosphate 75 mg 08/14/17 14:30 08/15/17 10:40 Tamiflu Oral Suspension - PEG 08/19/17 14:29 75 mg BID JOANNA Administration Phenobarbital 30 mg 08/13/17 22:00 08/14/17 22:10 Phenobarbital Injection - IVPB 30 mg HS JOANNA Administration Phenobarbital 60 mg 08/14/17 10:00 08/15/17 10:40 Phenobarbital Injection - IVPB 60 mg DAILY JOANNA Administration Topiramate 50 mg 08/13/17 22:00 08/14/17 22:32 Topamax - NR 50 mg HS JOANNA Administration Topiramate 200 mg 08/13/17 22:00 08/15/17 10:41 Topamax - GT 200 mg BID JOANNA Administration Laboratory Results - last 24 hr 08/15/17 08/15/17 08:20 08:20 WBC 6.8 D RBC 4.39 Hgb 14.5 Hct 44.7 MCV 101.8 H MCH 33.1 MCHC 32.5 RDW 12.7 Plt Count 179 MPV 9.4 D Sodium 138 Potassium 4.2 Chloride 106 Carbon Dioxide 22 Anion Gap 10 BUN 4 L Creatinine 0.3 L Random Glucose 81 Calcium 8.1 L Microbiology 08/15/17 04:00 Urine For Antigen Detection Legionella Antigen - Final 08/15/17 04:00 Urine For Antigen Detection Streptococcus pneumoniae Antigen (M - Final 08/13/17 12:11 Blood - Peripheral Venous Blood Culture - Preliminary NO GROWTH OBTAINED AFTER 48 HOURS, INCUBATION TO CONTINUE FOR 3 DAYS. 08/13/17 12:11 Blood - Peripheral Venous Blood Culture - Preliminary NO GROWTH OBTAINED AFTER 48 HOURS, INCUBATION TO CONTINUE FOR 3 DAYS. 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 Emperic tamiflu day 2,. Levaquin day 2. ID input appreicated. Urine pNA studies and RSV Ag neg. Follow up RVP. Abdominal exam benign with < 100 ml suction since admission. Abdominal xray noted. Will d/c intermittent suction. If no concerns or worsening distension, resume feeds in 24 hours. GI input appreicated. Low clinical suspicion for C difficile colitis. Replete K prn. Continue levothyroxine. Continue keppra/topiramate/phenobarbital IV till able to resume PEG feeds. Seizure precautions. resume other psych meds once able to take PO. Full care, turn q4h. Aspiration precautions. DVTPPx with heparin. dispo - anticipate in 1-2 days pending clinical improvement as oxygenation improves and able to tolerate feeds well.
--- NOTE | 2017-08-15 16:38 | PN ---
Progress Note (short form) - Note Progress Note: AXR results noted Problem List - Problems (1) Abdominal distension (gaseous) Code(s): R14.0 - ABDOMINAL DISTENSION (GASEOUS) (2) Abdominal distention, non-gaseous Code(s): R14.0 - ABDOMINAL DISTENSION (GASEOUS) (3) Ileus Code(s): K56.7 - ILEUS, UNSPECIFIED
[2017-08-15] MEDS: TOPIRAMATE 25 MG TABLET (FP) NR SCH (22:31)
[2017-08-16] MEDS ORDERED: PT OWN MED DRAWER 7, Y5N ONE (06:11)
[2017-08-16] MEDS: HEPARIN NA (PORCINE) 5,000 UNITS/ML 1ML VIAL SQ SCH ×3 (06:19→21:55)
[2017-08-16] MEDS: LEVOTHYROXINE SODIUM 100 MCG VIAL IVPUSH SCH (06:19)
[2017-08-16] MEDS: ALBUTEROL SO4 2.5/IPRATROPIUM 0.5 INH SOL 3 ML VIAL.NEB. NEB SCH ×4 (07:30→20:49)
[2017-08-16 08:02] LABS: HEMATOCRIT 46.5 % (35.4-49); HEMOGLOBIN 15.3 GM/dL (11.7-16.9); MCH 33.4 pg (25.7-33.7); MEAN CELL VOLUME 101.4 fl (80-96); MEAN PLT VOLUME 9.2 fl (7.5-11.1); PLATELET COUNT 188 K/MM3 (134-434); RBC 4.58 M/mm3 (4.00-5.60); RDW 12.7 % (11.9-15.9); WHITE BLOOD COUNT 7.8 K/mm3 (4.0-10.0)
[2017-08-16 08:39] LABS: ANION GAP 12 (8-16); BLOOD UREA NITROGEN 5 mg/dL (7-18); CALCIUM 8.7 mg/dL (8.5-10.1); CHLORIDE 102 mmol/L (98-107); CO2 23 mmol/L (21-32); CREATININE 0.4 mg/dL (0.7-1.3); GLUCOSE,RANDOM 70 mg/dL (74-106); POTASSIUM 4.1 mmol/L (3.5-5.1); SODIUM 137 mmol/L (136-145)
--- NOTE | 2017-08-16 09:07 | PN ---
Progress Note, Physician History of Present Illness: CLinically the same. NOt in distress, or discomfort. Abdomen, soft and appears to be non-tender. Imaging results noted - no ileus, or obstruction. - Current Medication List Current Medications: Active Medications Albuterol Sulfate (Ventolin 0.083% Nebulizer Soln -) 1 amp NEB Q4H PRN PRN Reason: SHORT OF BREATH/WHEEZING Albuterol/Ipratropium (Duoneb -) 1 amp NEB RQID [facility] Last Admin: 08/16/17 07:30 Dose: 1 amp Heparin Sodium (Porcine) (Heparin -) 5,000 unit SQ TID [facility] Last Admin: 08/16/17 06:19 Dose: 5,000 unit Levofloxacin (Levaquin 500 Mg Premixed Ivpb -) 500 mg in 100 mls @ 100 mls/hr IVPB DAILY [facility] Last Admin: 08/15/17 15:00 Dose: 100 mls/hr Levetiracetam 1,500 mg/ Sodium (Chloride) 115 mls @ 460 mls/hr IVPB BID [facility] Last Admin: 08/15/17 22:47 Dose: 460 mls/hr Levothyroxine Sodium (Synthroid Injection -) 37.5 mcg IVPUSH DAILY@0700 [facility] Last Admin: 08/16/17 06:19 Dose: 37.5 mcg Oseltamivir Phosphate (Tamiflu Oral Suspension -) 75 mg PEG BID [facility] Stop: 08/19/17 14:29 Last Admin: 08/15/17 22:47 Dose: 75 mg Phenobarbital (Phenobarbital Injection -) 30 mg IVPB HS [facility] Last Admin: 08/15/17 22:30 Dose: 30 mg Phenobarbital (Phenobarbital Injection -) 60 mg IVPB DAILY [facility] Last Admin: 08/15/17 10:40 Dose: 60 mg Topiramate (Topamax -) 50 mg NR HS [facility] Last Admin: 08/15/17 22:31 Dose: 50 mg Topiramate (Topamax -) 200 mg GT BID [facility] Last Admin: 08/15/17 22:47 Dose: 200 mg - Objective Vital Signs: Vital Signs Temperature 99.8 F H 08/16/17 06:00 Pulse Rate 96 H 08/16/17 06:00 Respiratory Rate 20 08/16/17 06:00 Blood Pressure 126/69 08/16/17 06:00 O2 Sat by Pulse Oximetry (%) 97 08/15/17 22:00 Constitutional: Yes: No Distress, Calm Gastrointestinal: Yes: Normal Bowel Sounds, Soft, Other (PEG intact). No: Tenderness, Tenderness, Epigastrium, Tenderness, Rebound, Vomiting Labs: CBC, BMP 08/16/17 07:37 INR, PTT INR 1.01 (0.82-1.09) 08/14/17 08:50 CBCD WBC 7.8 K/mm3 (4.0-10.0) 08/16/17 07:37 RBC 4.58 M/mm3 (4.00-5.60) 08/16/17 07:37 Hgb 15.3 GM/dL (11.7-16.9) 08/16/17 07:37 Hct 46.5 % (35.4-49) 08/16/17 07:37 MCV 101.4 fl (80-96) H 08/16/17 07:37 MCHC 33.0 g/dl (32.0-35.9) 08/16/17 07:37 RDW 12.7 % (11.9-15.9) 08/16/17 07:37 Plt Count 188 K/MM3 (134-434) 08/16/17 07:37 MPV 9.2 fl (7.5-11.1) 08/16/17 07:37 CMP Sodium 138 mmol/L (136-145) 08/15/17 08:20 Potassium 4.2 mmol/L (3.5-5.1) 08/15/17 08:20 Chloride 106 mmol/L (98-107) 08/15/17 08:20 Carbon Dioxide 22 mmol/L (21-32) 08/15/17 08:20 Anion Gap 10 (8-16) 08/15/17 08:20 BUN 4 mg/dL (7-18) L 08/15/17 08:20 Creatinine 0.3 mg/dL (0.7-1.3) L 08/15/17 08:20 Creat Clearance w eGFR > 60 (>60) 08/14/17 08:50 Calcium 8.1 mg/dL (8.5-10.1) L 08/15/17 08:20 Total Bilirubin 0.2 mg/dL (0.2-1.0) D 08/14/17 08:50 AST 22 U/L (15-37) 08/14/17 08:50 ALT 27 U/L (12-78) 08/14/17 08:50 Alkaline Phosphatase 76 U/L (45-117) 08/14/17 08:50 Total Protein 7.0 g/dl (6.4-8.2) 08/14/17 08:50 Albumin 3.2 g/dl (3.4-5.0) L 08/14/17 08:50 Problem List - Problems (1) Abdominal distension (gaseous) Code(s): R14.0 - ABDOMINAL DISTENSION (GASEOUS) (2) Abdominal distention, non-gaseous Code(s): R14.0 - ABDOMINAL DISTENSION (GASEOUS) (3) Ileus Code(s): K56.7 - ILEUS, UNSPECIFIED Assessment/Plan Recent bronchitis and abx use. Still has pulmonary symptoms and signs. Has ileus on CT however has BMs. Do not suspect partial or total obstruction at this time Chronically istended, non-tended, soft abdomen. Resume PEG feeds observe will follow
[2017-08-16] MEDS: PHENobarbital SODIUM 65 MG/1 ML VIAL IVPB SCH (10:14)
[2017-08-16] MEDS: TOPIRAMATE 200 MG TABLET (FP) GT SCH (10:14)
[2017-08-16] MEDS: OSELTAMIVIR PHOSPHATE 6 MG/1 ML - 60ML BOTTLE PEG SCH ×2 (12:09→22:51)
--- NOTE | 2017-08-16 12:18 | PN ---
Progress Note (short form) - Note Progress Note: nasal congestion NAD Vital Signs Period Temp Pulse Resp BP Sys/De La Vega Pulse Ox Last 24 Hr 97.8 F-99.8 F 76-99 20-20 121-131/69-72 97 cor-rrr lungs decreased bs at bases abd soft,nt ext no edema CBC, BMP 08/16/17 07:37 08/16/17 07:37 Microbiology 08/15/17 04:00 Urine For Antigen Detection Legionella Antigen - Final 08/15/17 04:00 Urine For Antigen Detection Streptococcus pneumoniae Antigen (M - Final 08/13/17 12:11 Blood - Peripheral Venous Blood Culture - Preliminary NO GROWTH OBTAINED AFTER 48 HOURS, INCUBATION TO CONTINUE FOR 3 DAYS. 08/13/17 12:11 Blood - Peripheral Venous Blood Culture - Preliminary NO GROWTH OBTAINED AFTER 48 HOURS, INCUBATION TO CONTINUE FOR 3 DAYS. 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
[2017-08-16] MEDS ORDERED: ALBUTEROL SO4 0.083% IH SOL 2.5 MG/3 ML VIAL.NEB. NEB PRN (15:53)
[2017-08-16] MEDS ORDERED: BISACODYL 10 MG SUPP.RECT RC PRN (15:53)
[2017-08-16] MEDS: BACLOFEN 10 MG TABLET (FP) PEG SCH ×2 (17:14→21:57)
--- NOTE | 2017-08-16 17:21 | PN ---
Teaching Attending Note Name of Resident: Fede Loera ATTENDING PHYSICIAN STATEMENT Time of evaluation: 10:30 AM I saw and evaluated the patient. I reviewed the resident's note and discussed the case with the resident. I agree with the resident's findings and plan as documented. SUBJECTIVE: Patient seen and examined. non verbal, calm, smiling, unable to assess for ROS. OBJECTIVE: Vital Signs Period Temp Pulse Resp BP Sys/De La Vega Pulse Ox Last 24 Hr 97.8 F-99.8 F 76-101 20-20 109-126/50-70 96-97 Intake & Output 08/13/17 08/14/17 08/15/17 08/16/17 23:59 23:59 23:59 23:59 Intake Total 350 200 799 200 Output Total 900 Balance 350 200 -101 200 Weight 111 lb 1.596 oz General: lying in bed in contractures, no acute process Chest: poor effort, unable to appreciate rales or wheezing Abdomen: soft, ND, positive bowel sounds, PEG in place, no grimacing on palpation Extremities: contractures Home Medication List Medication Instructions Recorded Confirmed Type Albuterol 0.083% Nebulizer Jyoti 1 neb NEB Q4H PRN 08/16/17 08/16/17 History [Ventolin 0.083%] Baclofen [Lioresal -] 5 mg PEG QID 08/16/17 08/16/17 History Benzoyl Peroxide 5% Gel - 1 applic TP BID 08/16/17 08/16/17 History Bisacodyl Suppository [Dulcolax 10 mg AR PRN PRN 08/16/17 08/16/17 History Suppository -] Calcium Citrate/Vitamin D3 2 each PEG BID 08/16/17 08/16/17 History [Calcium Cit 315-Vit D3 250 Tab] Calcium Crb,Cit/D3/Min34/Shahbaz 08/16/17 History [Citracal + Bone Density Tablet] Cetirizine HCl [Zyrtec -] 10 mg PEG AM 08/16/17 08/16/17 History Cholecalciferol (Vitamin D3) 2,000 iu PEG DAILY 08/16/17 08/16/17 History [Vitamin D3] Clindamycin Topical Solution 1 applic TP DAILY 08/16/17 08/16/17 History [Cleocin 1% Topical Solution -] Clobazam [Onfi -] 10 mg PEG HS 08/16/17 08/16/17 History Clobazam [Onfi] 20 mg PEG BID 08/16/17 08/16/17 History Diazepam [Diastat Acudial] 5 mg AR PRN PRN 08/16/17 08/16/17 History Lacosamide [Vimpat] 200 mg PEG BID 08/16/17 08/16/17 History Lactose-Reduced Food/Fiber [Jevity 711 ml PEG DAILY 08/16/17 08/16/17 History 1.5 Harjit Liquid] Levetiracetam 15 ml PEG BID 08/16/17 08/16/17 History Levocarnitine [Carnitor] 330 mg PEG BID 08/16/17 08/16/17 History Levothyroxine [Synthroid -] 75 mcg PEG AM 08/16/17 08/16/17 History Magnesium Hydrox 2400MG/30Ml [Milk 30 ml PEG BID 08/16/17 08/16/17 History of Magnesia -] Multivitamin [One Daily] PEG DAILY 08/16/17 History Nut.therapy,Urea Cycle Disordr 1 tbs PEG DAILY 08/16/17 08/16/17 History [Cyclinex-2] Phenobarbital 32.4 mg PEG HS 08/16/17 08/16/17 History Phenobarbital 64.8 mg PEG BID 08/16/17 08/16/17 History Rufinamide [Banzel] 30 ml PEG BID 08/16/17 08/16/17 History Sennosides [Senna] 2 tab PEG BID 08/16/17 08/16/17 History Sodium Benzoate 4.5 gm PEG TID 08/16/17 08/16/17 History Topiramate [Topamax -] 200 mg PEG BID 08/16/17 08/16/17 History Topiramate [Topamax] 50 mg PEG DAILY 08/16/17 08/16/17 History Water For Irrigation,Sterile 200 ml PEG DAILY 08/16/17 08/16/17 History [Water] Water For Irrigation,Sterile 525 ml PEG DAILY 08/16/17 08/16/17 History [Water] Active Medications Generic Name Dose Route Start Last Admin Trade Name Freq PRN Reason Stop Dose Admin Al Hydroxide/Mg Hydroxide 30 ml 08/16/17 22:00 Mylanta Oral Suspension - PEG BID [facility] Albuterol Sulfate 1 amp 08/13/17 17:32 Ventolin 0.083% Nebulizer Soln - NEB Q4H PRN SHORT OF BREATH/WHEEZING Albuterol/Ipratropium 1 amp 08/13/17 20:00 08/16/17 15:55 Duoneb - NEB 1 amp RQID JOANAN Administration Baclofen 5 mg 08/16/17 18:00 08/16/17 17:14 Lioresal - PEG 5 mg QID JOANNA Administration Benzoyl Peroxide 1 applic 08/16/17 22:00 Benzoyl Peroxide 5% Gel - TP BID [facility] Bisacodyl 10 mg 08/16/17 15:53 Dulcolax Suppository - RC DAILY PRN CONSTIPATION Cholecalciferol 2,000 unit 08/17/17 10:00 Vitamin D3 - GT DAILY [facility] Clindamycin Phosphate 1 applic 08/17/17 10:00 Cleocin 1% Topical Solution - TP DAILY [facility] Clobazam 20 mg 08/16/17 22:00 Onfi - PO BID [facility] Heparin Sodium (Porcine) 5,000 unit 08/13/17 22:00 08/16/17 15:54 Heparin - SQ 5,000 unit TID [facility] Administration Levofloxacin 500 mg in 100 mls @ 100 mls/hr 08/15/17 14:45 08/16/17 10:13 Levaquin 500 Mg Premixed Ivpb - IVPB 100 mls/hr DAILY JOANNA Administration Lacosamide 200 mg 08/16/17 22:00 Vimpat - PO BID [facility] Levetiracetam 1,500 mg 08/16/17 22:00 Keppra Oral Solution - PEG BID [facility] Levocarnitine 330 mg 08/16/17 22:00 Carnitor Oral Solution - PEG BID [facility] Levothyroxine Sodium 75 mcg 08/17/17 07:00 Synthroid - PEG AM [facility] Loratadine 10 mg 08/17/17 07:00 Claritin - GT AM [facility] Non-Formulary Medication 2 each 08/16/17 22:00 Calcium Citrate/Vitamin D3 [Calcium Cit 315-Vit D3 250 Tab] PEG BID JOANNA Non-Formulary Medication 1 tbs 08/17/17 10:00 Nut.Therapy,Urea Cycle Disordr [Cyclinex-2] PEG DAILY [facility] Non-Formulary Medication 30 ml 08/16/17 22:00 Rufinamide [Banzel] PEG BID [facility] Non-Formulary Medication 4.5 gm 08/16/17 22:00 Sodium Benzoate [Sodium Benzoate] PEG TID [facility] Oseltamivir Phosphate 75 mg 08/14/17 14:30 08/16/17 12:09 Tamiflu Oral Suspension - PEG 08/19/17 14:29 75 mg BID JOANNA Administration Phenobarbital 60 mg 08/17/17 10:00 Phenobarbital - PEG DAILY JOANNA Phenobarbital 90 mg 08/16/17 22:00 Phenobarbital - PEG HS JOANNA Senna 2 tab 08/16/17 22:00 Senna - PO BID JOANNA Topiramate 200 mg 08/16/17 22:00 Topamax - PO HS JOANNA Topiramate 200 mg/ Topiramate 250 mg 08/17/17 10:00 50 mg PO DAILY [facility] Laboratory Results - last 24 hr 08/16/17 08/16/17 08/16/17 07:37 07:37 07:37 WBC 7.8 RBC 4.58 Hgb 15.3 Hct 46.5 MCV 101.4 H MCH 33.4 MCHC 33.0 RDW 12.7 Plt Count 188 MPV 9.2 Sodium 137 Potassium 4.1 Chloride 102 Carbon Dioxide 23 Anion Gap 12 BUN 5 L D Creatinine 0.4 L D Random Glucose 70 L Calcium 8.7 Vitamin B12 1656 H Serum Folate 42 H Microbiology 08/13/17 12:11 Blood - Peripheral Venous Blood Culture - Preliminary NO GROWTH OBTAINED AFTER 72 HOURS, INCUBATION TO CONTINUE FOR 2 DAYS. 08/13/17 12:11 Blood - Peripheral Venous Blood Culture - Preliminary NO GROWTH OBTAINED AFTER 72 HOURS, INCUBATION TO CONTINUE FOR 2 DAYS. 08/15/17 04:00 Urine For Antigen Detection Legionella Antigen - Final 08/15/17 04:00 Urine For Antigen Detection Streptococcus pneumoniae Antigen (M - Final 08/13/17 12:11 Urine - Urine Clean Catch Urine Culture - Final 08/13/17 12:11 Nasopharyngeal Swab Respiratory Virus Panel - Preliminary 08/14/17 11:25 Nasopharyngeal Swab Respiratory Syncytial Virus Ag - Final 08/13/17 12:11 Nasopharyngeal Swab Influenza Types A,B Antigen (LAURA) - Final 08/13/17 12:11 Nasopharyngeal Swab - Final ASSESSMENT AND PLAN: 6yo M with H severe mental retardation, DESIZING [employer] shunt, congenital quadriplegia, hypothyroid, blind and seizures sent to the ER for hypoxia nad cough -Acute hypoxic respiratory failure, suspected influenza vs PNA -Sepsis, susected influenza vs PNA, less likely C difficile given resolution of diarrhea -?Ileus -Diarrhea -Severe hypokalemia -Hypothyroidism -Seizure disorder -Severe mental retardation with congenital quadriplegia Plan: Oxygenation improved. Emperic tamiflu/levaquin day 3. ID input appreciated. Urine pNA studies and RSV Ag neg. Follow up RVP. Abdominal exam benign. Abdomen xray improved. GI input appreciated. resume tube feeds, place on Jevity 1.5 at 40 ml/hr based on prior admissions (patient getting 100 ml/hr nighttime for 9.5 hours at the [facility]) Low clinical suspicion for C difficile colitis. Replete K prn. Continue levothyroxine. Resume home meds via PEG. Seizure precautions. Full care, turn q4h. Aspiration precautions. DVTPPx with heparin. dispo - anticipate dc in 24 hours if tolerating feeds and no new events.
--- NOTE | 2017-08-16 18:14 | PN ---
Physical Exam: SUBJECTIVE: Patient seen and examined. No acute events over night per nurse. OBJECTIVE: Vital Signs Period Temp Pulse Resp BP Sys/De La Vega Pulse Ox Last 24 Hr 97.8 F-99.8 F 72-101 20-20 109-126/50-70 96-97 GENERAL: nonverbal, somnolent HEAD: Normal with no signs of trauma. EYES: Pupils equal, round and reactive to light, anicteric THROAT: oropharynx clear without exudates. Moist mucous membranes. NECK: no JVD, or masses. LUNGS: scattered course breath sounds b/l R> L (improving) HEART: regular rate, no murmurs appreciated ABDOMEN:soft, nondistended, G-tube in place, no drainage EXTREMITIES: Contracted limbs x 4, 2+ pulses, No peripheral edema. SKIN: Warm, dry, normal turgor, no rashes or lesions noted, normal capillary refill. Laboratory Results - last 24 hr 08/16/17 08/16/17 08/16/17 07:37 07:37 07:37 WBC 7.8 RBC 4.58 Hgb 15.3 Hct 46.5 MCV 101.4 H MCH 33.4 MCHC 33.0 RDW 12.7 Plt Count 188 MPV 9.2 Sodium 137 Potassium 4.1 Chloride 102 Carbon Dioxide 23 Anion Gap 12 BUN 5 L D Creatinine 0.4 L D Random Glucose 70 L Calcium 8.7 Vitamin B12 1656 H Serum Folate 42 H Active Medications Generic Name Dose Route Start Last Admin Trade Name Freq PRN Reason Stop Dose Admin Al Hydroxide/Mg Hydroxide 30 ml 08/16/17 22:00 Mylanta Oral Suspension - PEG BID ANDREAS Albuterol Sulfate 1 amp 08/13/17 17:32 Ventolin 0.083% Nebulizer Soln - NEB Q4H PRN SHORT OF BREATH/WHEEZING Albuterol/Ipratropium 1 amp 08/13/17 20:00 08/16/17 15:55 Duoneb - NEB 1 amp RQID ANDREAS Administration Baclofen 5 mg 08/16/17 18:00 08/16/17 17:14 Lioresal - PEG 5 mg QID ANDREAS Administration Bisacodyl 10 mg 08/16/17 15:53 Dulcolax Suppository - RC DAILY PRN CONSTIPATION Cholecalciferol 2,000 unit 08/17/17 10:00 Vitamin D3 - GT DAILY [facility] Clindamycin Phosphate 1 applic 08/17/17 10:00 Cleocin 1% Topical Solution - TP DAILY [facility] Clobazam 20 mg 08/16/17 22:00 Onfi - PO BID [facility] Heparin Sodium (Porcine) 5,000 unit 08/13/17 22:00 08/16/17 15:54 Heparin - SQ 5,000 unit TID [facility] Administration Levofloxacin 500 mg in 100 mls @ 100 mls/hr 08/15/17 14:45 08/16/17 10:13 Levaquin 500 Mg Premixed Ivpb - IVPB 100 mls/hr DAILY [facility] Administration Lacosamide 200 mg 08/16/17 22:00 Vimpat - PO BID [facility] Levetiracetam 1,500 mg 08/16/17 22:00 Keppra Oral Solution - PEG BID [facility] Levocarnitine 330 mg 08/16/17 22:00 Carnitor Oral Solution - PEG BID [facility] Levothyroxine Sodium 75 mcg 08/17/17 07:00 Synthroid - PEG AM [facility] Loratadine 10 mg 08/17/17 07:00 Claritin - GT AM [facility] Non-Formulary Medication 2 each 08/16/17 22:00 Calcium Citrate/Vitamin D3 [Calcium Cit 315-Vit D3 250 Tab] PEG BID [facility] Non-Formulary Medication 1 tbs 08/17/17 10:00 Nut.Therapy,Urea Cycle Disordr [Cyclinex-2] PEG DAILY [facility] Non-Formulary Medication 30 ml 08/16/17 22:00 Rufinamide [Banzel] PEG BID [facility] Non-Formulary Medication 4.5 gm 08/16/17 22:00 Sodium Benzoate [Sodium Benzoate] PEG TID [facility] Oseltamivir Phosphate 75 mg 08/14/17 14:30 08/16/17 12:09 Tamiflu Oral Suspension - PEG 08/19/17 14:29 75 mg BID ANDREAS Administration Phenobarbital 60 mg 08/17/17 10:00 Phenobarbital - PEG DAILY [facility] Phenobarbital 90 mg 08/16/17 22:00 Phenobarbital - PEG HS [facility] Senna 2 tab 08/16/17 22:00 Senna - PO BID [facility] Topiramate 200 mg 08/16/17 22:00 Topamax - PO HS [facility] Topiramate 200 mg/ Topiramate 250 mg 08/17/17 10:00 50 mg PO DAILY ANDREAS ASSESSMENT/PLAN: Patient is a 36 yo M with a PMHx of Mental Retardation, congenital quadriplegia , seizures, blindness, Gerd, hypothyroidism, s/p G tube placement, presented to the ED from [facility] because of chest congestion, coughing and wheezing and was found to be Septic. #Sepsis -secondary to Flu vs. PNA -clinically improved -leukocytosis improved -Started Tamiflu 75mg BID (Day 3) -Started IV Abx: Levaquin 500mg (Day3) -s/p Augmentin x 10 days for bronchitis 08/07 (last dose) -Flu outbreak at [facility] -ID on board -FU RVP -Urine cultures, BCx, RSV antigen negative -CT Chest/Abd- suspected chronic ILD, no infiltrates. -No change in repeat CXR -FU am labs -Droplet precautions -Tylenol PRN for Fever #Acute hypoxic respiratory failure -oxygenation improved -likely secondary to Flu vs PNA -Sat 93% on RA -Cont. O2 therapy -Duoneb QID andreas and Albuterol Q4H PRN -Chest PT -Sputum cultures negative #Diarrhea -resolved -Stool cultures, stool O&P, C. diff toxin negative -Ct Abd on admission: fluid filled, distended colon without obstruction #Ileus -resolved -no abdominal distension -Cont tube feeds -GI consulted: Dr. Herrera #Severe hypokalemia -resolved -Replete as needed -FU am labs #Seizures -no seizure activity at this time -cont. Keppra -Continue Phenobarbitol #Hypothyroidism -Synthroid 75mcg via PEG #FEN -No IV fluids -WNL -Tube feeds: Jevity 1.5 at 40 ml/hr based on prior admissions (patient getting 100 ml/hr nighttime for 9.5 hours at the [facility]) #DVT -Hep SQ DC in AM if no events occur. Visit type - Emergency Visit Emergency Visit: Yes ED Registration Date: 08/13/17 Care time: The patient presented to the Emergency Department on the above date and was hospitalized for further evaluation of their emergent condition. - New Patient This patient is new to me today: No - Critical Care Critical Care patient: No
[2017-08-16] MEDS: LEVOCARNITINE PEG SCH (21:54)
[2017-08-16] MEDS: cloBAZam 10 MG TABLET PO SCH (21:55)
[2017-08-16] MEDS: LACOSAMIDE 50 MG TABLET PO SCH (21:56)
[2017-08-16] MEDS: levETIRAcetam 500 MG/5 ML ORAL SOLUTION (UNIT-DOSE CUPS) PEG SCH (21:57)
[2017-08-16] MEDS: SENNOSIDES 8.6MG TABLET (FP) PO SCH (21:57)
[2017-08-16] MEDS ORDERED: TOPIRAMATE 200 MG TABLET (FP) GT SCH (22:00)
[2017-08-16] MEDS ORDERED: PATIENT'S OWN MEDICATION (NON-FORMULARY) (Phenobarbital [Phenobarbital] 64.8 MG) PEG SCH (22:00)
[2017-08-16] MEDS ORDERED: SODIUM BENZOATE PEG SCH (22:00)
[2017-08-16] MEDS ORDERED: PHENobarbital 30 MG TABLET PEG SCH ×2 (22:00)
[2017-08-16] MEDS ORDERED: TOPIRAMATE 200 MG TABLET (FP) PO SCH (22:00)
[2017-08-16] MEDS ORDERED: BENZOYL PEROXIDE 5% 60 GM GEL..GRAM. TP SCH (22:00)
[2017-08-16] MEDS ORDERED: RUFINAMIDE PEG SCH (22:00)
[2017-08-16] MEDS: MAG HYDROX/AL HYDROX/SIMETH 30 ML UNIT-DOSE CUP PEG SCH (22:14)
[2017-08-17] MEDS: HEPARIN NA (PORCINE) 5,000 UNITS/ML 1ML VIAL SQ SCH ×2 (06:14→13:24)
[2017-08-17] MEDS ORDERED: LEVOTHYROXINE NA 75 MCG TABLET (FP) PEG SCH (07:00)
[2017-08-17] MEDS ORDERED: LORATADINE 10 MG TABLET GT SCH (07:00)
[2017-08-17] MEDS: ALBUTEROL SO4 2.5/IPRATROPIUM 0.5 INH SOL 3 ML VIAL.NEB. NEB SCH ×3 (07:25→16:18)
[2017-08-17] MEDS: LEVETIRACETAM IVPB SCH (08:12)
[2017-08-17] MEDS: DEXTROSE 5% IVPB SCH (08:12)
[2017-08-17] MEDS: WATER IVPB SCH (08:12)
[2017-08-17 08:37] VITALS: BP 121/63
--- NOTE | 2017-08-17 08:51 | DS ---
Physical Exam: SUBJECTIVE: Patient seen and examined OBJECTIVE: Vital Signs Period Temp Pulse Resp BP Sys/De La Vega Pulse Ox Last 24 Hr 97.7 F-99.1 F 72-101 20-22 99-121/50-76 96-98 PHYSICAL EXAM GENERAL: nonverbal, somnolent HEAD: Normal with no signs of trauma. EYES: Pupils equal, round and reactive to light, anicteric THROAT: oropharynx clear without exudates. Moist mucous membranes. NECK: no JVD, or masses. LUNGS: mild course, breath sounds. no rales rhonchi or wheezing. HEART: regular rate, no murmurs appreciated ABDOMEN:soft, nondistended, G-tube in place, no drainage EXTREMITIES: Contracted limbs x 4, 2+ pulses, No peripheral edema. SKIN: Warm, dry, normal turgor, no rashes or lesions noted, normal capillary refill. LABS Laboratory Results - last 24 hr 08/16/17 08/16/17 07:37 07:37 Sodium 137 Potassium 4.1 Chloride 102 Carbon Dioxide 23 Anion Gap 12 BUN 5 L D Creatinine 0.4 L D Random Glucose 70 L Calcium 8.7 Vitamin B12 1656 H Serum Folate 42 H HOSPITAL COURSE: Date of Admission:08/13/17 Patient is a 36 yo M with a PMHx of Mental Retardation, congenital quadriplegia , seizures, blindness, Gerd, hypothyroidism, s/p G tube placement, presented to the ED from [facility] because of chest congestion, coughing and wheezing and was found to be Septic and in hypoxic respiratory failure secondary to Flu and suspected pneumonia. Patient was started on Tamiflu ( today day 4), and IV abx: Levaquin 500mg. CT Chest/Abd- suspected chronic ILD, no infiltrates. Patient also presented with ileus and watery diarrhea which resolved. Ct Abd on admission: fluid filled, distended colon without obstruction. C. diff was negative. Tube feeds were held with frequent suctioning of PEG with resolution of symptoms. Patient's oxygenation improved with cont. o2 therapy, duonebs, chest PT and Abx. Patient will be discharged on O2 therapy, 1 more day of Tamiflu, and 3 more days of Oral ABx-levaquin 500mg daily. He is medically cleared to be transferred back to facility. Date of Discharge: 08/17/17 Discharge Summary Reason For Visit: SEPSIS Current Active Problems Abdominal distension (gaseous) (Acute) Abdominal distention, non-gaseous (Acute) Hypoxia (Acute) Ileus (Acute) Sepsis (Acute) Condition: Improved - Instructions Diet, Activity, Other Instructions: You will be transferred back to [place]. Continue with tube feeds and water flushes. Continue Tamiflu for 1 more day. Continue Levaquin antibiotic for 3 more days. Referrals: Burt Carty MD, [Primary Care Provider] - Disposition: TRANSFER ACUTE CARE/OTHER HOSP - Home Medications Comprehensive Discharge Medication List: Ambulatory Orders Albuterol 0.083% Nebulizer Jyoti [Ventolin 0.083%] 1 neb NEB Q4H PRN 08/16/17 Baclofen [Lioresal -] 5 mg PEG QID 08/16/17 Benzoyl Peroxide 5% Gel - 1 applic TP BID 08/16/17 Bisacodyl Suppository [Dulcolax Suppository -] 10 mg UT PRN PRN 08/16/17 Calcium Citrate/Vitamin D3 [Calcium Cit 315-Vit D3 250 Tab] 2 each PEG BID 08/16 Calcium Crb,Cit/D3/Min34/Shahbaz [Citracal + Bone Density Tablet] 08/16/17 Cetirizine HCl [Zyrtec -] 10 mg PEG AM 08/16/17 Cholecalciferol (Vitamin D3) [Vitamin D3] 2,000 iu PEG DAILY 08/16/17 Clindamycin Topical Solution [Cleocin 1% Topical Solution -] 1 applic TP DAILY 08/16/17 Clobazam [Onfi -] 10 mg PEG HS 08/16/17 Clobazam [Onfi] 20 mg PEG BID 08/16/17 Diazepam [Diastat Acudial] 5 mg UT PRN PRN 08/16/17 Lacosamide [Vimpat] 200 mg PEG BID 08/16/17 Lactose-Reduced Food/Fiber [Jevity 1.5 Harjit Liquid] 711 ml PEG DAILY 08/16/17 Levetiracetam 15 ml PEG BID 08/16/17 Levocarnitine [Carnitor] 330 mg PEG BID 08/16/17 Levothyroxine [Synthroid -] 75 mcg PEG AM 08/16/17 Magnesium Hydrox 2400MG/30Ml [Milk of Magnesia -] 30 ml PEG BID 08/16/17 Multivitamin [One Daily] PEG DAILY 08/16/17 Nut.therapy,Urea Cycle Disordr [Cyclinex-2] 1 tbs PEG DAILY 08/16/17 Phenobarbital 32.4 mg PEG HS 08/16/17 Phenobarbital 64.8 mg PEG BID 08/16/17 Rufinamide [Banzel] 30 ml PEG BID 08/16/17 Sennosides [Senna] 2 tab PEG BID 08/16/17 Sodium Benzoate 4.5 gm PEG TID 08/16/17 Topiramate [Topamax -] 200 mg PEG BID 08/16/17 Topiramate [Topamax] 50 mg PEG DAILY 08/16/17 Water For Irrigation,Sterile [Water] 200 ml PEG DAILY 08/16/17 Water For Irrigation,Sterile [Water] 525 ml PEG DAILY 08/16/17
[2017-08-17 09:12] LABS: HEMATOCRIT 43.4 % (35.4-49); HEMOGLOBIN 14.4 GM/dL (11.7-16.9); MCH 33.4 pg (25.7-33.7); MCHC 33.2 g/dl (32.0-35.9); MEAN CELL VOLUME 100.6 fl (80-96); MEAN PLT VOLUME 9.2 fl (7.5-11.1); PLATELET COUNT 198 K/MM3 (134-434); RBC 4.32 M/mm3 (4.00-5.60); RDW 12.3 % (11.9-15.9); WHITE BLOOD COUNT 4.2 K/mm3 (4.0-10.0)
[2017-08-17 09:36] LABS: ANION GAP 6 (8-16); BLOOD UREA NITROGEN 7 mg/dL (7-18); CALCIUM 7.9 mg/dL (8.5-10.1); CHLORIDE 107 mmol/L (98-107); CO2 27 mmol/L (21-32); CREATININE 0.3 mg/dL (0.7-1.3); GLUCOSE,RANDOM 125 mg/dL (74-106); POTASSIUM 3.9 mmol/L (3.5-5.1); SODIUM 140 mmol/L (136-145)
[2017-08-17] MEDS ORDERED: PT OWN MED DRAWER 7, Y5N ONE ×2 (09:54→19:10)
[2017-08-17] MEDS: MAG HYDROX/AL HYDROX/SIMETH 30 ML UNIT-DOSE CUP PEG SCH (09:56)
[2017-08-17] MEDS: OSELTAMIVIR PHOSPHATE 6 MG/1 ML - 60ML BOTTLE PEG SCH (09:56)
[2017-08-17] MEDS: SENNOSIDES 8.6MG TABLET (FP) PO SCH (09:57)
[2017-08-17] MEDS: LACOSAMIDE 50 MG TABLET PO SCH (09:57)
[2017-08-17] MEDS: cloBAZam 10 MG TABLET PO SCH (09:57)
[2017-08-17] MEDS ORDERED: [UNRECOGNIZED DRUG - OTHER] PEG SCH (10:00)
[2017-08-17] MEDS ORDERED: PHENobarbital 30 MG TABLET PEG SCH (10:00)
[2017-08-17] MEDS ORDERED: CLINDAMYCIN PHOSPHATE 1% TOPICAL SOLUTION 30 ML BOTTLE TP SCH (10:00)
[2017-08-17] MEDS ORDERED: TOPIRAMATE 200 MG, TOPIRAMATE 50 MG PO SCH (10:00)
[2017-08-17] MEDS: LEVOCARNITINE PEG SCH (10:00)
[2017-08-17] MEDS ORDERED: PATIENT'S OWN MEDICATION (NON-FORMULARY) (Topiramate [Topamax] 50 MG) PEG SCH (10:00)
[2017-08-17] MEDS ORDERED: CHOLECALCIFEROL (VITAMIN D3) 1,000 UNIT TABLET (FP) GT SCH (10:00)
[2017-08-17] MEDS: levETIRAcetam 500 MG/5 ML ORAL SOLUTION (UNIT-DOSE CUPS) PEG SCH (10:00)
[2017-08-17] MEDS: BACLOFEN 10 MG TABLET (FP) PEG SCH ×3 (10:03→17:27)
--- NOTE | 2017-08-17 11:08 | PN ---
Progress Note, Physician Chief Complaint: ID Levofloxacin Oseltamavir Appears comfortable - Current Medication List Current Medications: Active Medications Al Hydroxide/Mg Hydroxide (Mylanta Oral Suspension -) 30 ml PEG BID [facility] Last Admin: 08/17/17 09:56 Dose: 30 ml Albuterol Sulfate (Ventolin 0.083% Nebulizer Soln -) 1 amp NEB Q4H PRN PRN Reason: SHORT OF BREATH/WHEEZING Albuterol/Ipratropium (Duoneb -) 1 amp NEB RQID [facility] Last Admin: 08/17/17 07:25 Dose: 1 amp Baclofen (Lioresal -) 5 mg PEG QID [facility] Last Admin: 08/17/17 10:03 Dose: 5 mg Bisacodyl (Dulcolax Suppository -) 10 mg RC DAILY PRN PRN Reason: CONSTIPATION Cholecalciferol (Vitamin D3 -) 2,000 unit GT DAILY [facility] Last Admin: 08/17/17 09:57 Dose: 2,000 unit Clindamycin Phosphate (Cleocin 1% Topical Solution -) 1 applic TP DAILY [facility] Clobazam (Onfi -) 20 mg PO BID [facility] Last Admin: 08/17/17 09:57 Dose: 20 mg Heparin Sodium (Porcine) (Heparin -) 5,000 unit SQ TID [facility] Last Admin: 08/17/17 06:14 Dose: 5,000 unit Levofloxacin (Levaquin 500 Mg Premixed Ivpb -) 500 mg in 100 mls @ 100 mls/hr IVPB DAILY [facility] Last Admin: 08/17/17 09:56 Dose: 100 mls/hr Lacosamide (Vimpat -) 200 mg PO BID [facility] Last Admin: 08/17/17 09:57 Dose: 200 mg Levetiracetam (Keppra Oral Solution -) 1,500 mg PEG BID [facility] Last Admin: 08/17/17 10:00 Dose: 1,500 mg Levocarnitine (Carnitor Oral Solution -) 330 mg PEG BID [facility] Last Admin: 08/17/17 10:00 Dose: 330 mg Levothyroxine Sodium (Synthroid -) 75 mcg PEG AM [facility] Last Admin: 08/17/17 06:14 Dose: 75 mcg Loratadine (Claritin -) 10 mg GT AM [facility] Last Admin: 08/17/17 06:14 Dose: 10 mg Non-Formulary Medication (Calcium Citrate/Vitamin D3 [Calcium Cit 315-Vit D3 250 Tab]) 2 each PEG BID [facility] Non-Formulary Medication (Nut.Therapy,Urea Cycle Disordr [Cyclinex-2]) 1 tbs PEG DAILY [facility] Non-Formulary Medication (Rufinamide [Banzel]) 30 ml PEG BID [facility] Non-Formulary Medication (Sodium Benzoate [Sodium Benzoate]) 4.5 gm PEG TID [facility] Oseltamivir Phosphate (Tamiflu Oral Suspension -) 75 mg PEG BID [facility] Stop: 08/19/17 14:29 Last Admin: 08/17/17 09:56 Dose: 75 mg Phenobarbital (Phenobarbital -) 60 mg PEG DAILY [facility] Last Admin: 08/17/17 09:56 Dose: 60 mg Phenobarbital (Phenobarbital -) 90 mg PEG HS [facility] Last Admin: 08/16/17 21:56 Dose: 90 mg Senna (Senna -) 2 tab PO BID [facility] Last Admin: 08/17/17 09:57 Dose: 2 tab Topiramate (Topamax -) 200 mg PO HS [facility] Last Admin: 08/16/17 21:57 Dose: 200 mg Topiramate 200 mg/ Topiramate (50 mg) 250 mg PO DAILY [facility] Last Admin: 08/17/17 10:03 Dose: 250 mg - Objective Vital Signs: Vital Signs Temperature 98.1 F 08/17/17 08:36 Pulse Rate 76 08/17/17 10:42 Respiratory Rate 22 08/17/17 08:36 Blood Pressure 121/63 08/17/17 08:36 O2 Sat by Pulse Oximetry (%) 97 08/17/17 10:42 Cardiovascular: Yes: Regular Rate and Rhythm, S1, S2 Respiratory: Yes: WNL, Regular, CTA Bilaterally, Other (Occ rhocnhci) Gastrointestinal: Yes: WNL, Normal Bowel Sounds, Soft. No: Tenderness Edema: No Labs: CBC, BMP 08/17/17 08:35 08/17/17 08:35 INR, PTT INR 1.01 (0.82-1.09) 08/14/17 08:50 Assessment/Plan Laboratory Tests 08/17/17 08:35 WBC 4.2 D Hgb 14.4 Hct 43.4 Plt Count 198 Assessment URI symptoms with hypoxemia likely viral illness Plan Complete last day of Tamiflu Discharge planning
--- NOTE | 2017-08-17 12:35 | PN ---
Teaching Attending Note Name of Resident: Fede Loera ATTENDING PHYSICIAN STATEMENT Time of evaluation: 10:40 AM I saw and evaluated the patient. I reviewed the resident's note and discussed the case with the resident. I agree with the resident's findings and plan as documented. SUBJECTIVE: Patient seen and examined, non verbal, sleeping, unable to assess for ROS. OBJECTIVE: Vital Signs Period Temp Pulse Resp BP Sys/De La Vega Pulse Ox Last 24 Hr 97.7 F-99.1 F 72-101 20-22 99-121/50-76 87-98 Intake & Output 08/14/17 08/15/17 08/16/17 08/17/17 23:59 23:59 23:59 23:59 Intake Total 200 799 200 720 Output Total 900 Balance 200 -101 200 720 General: lying in bed no acute distress Abdomen: soft, ND, No grimacing on palpitation, positive bowel sounds, PEG In place Chest: poor effort, limited exam, positive air entry Home Medication List Medication Instructions Recorded Confirmed Type Albuterol 0.083% Nebulizer Jyoti 1 neb NEB Q4H PRN 08/16/17 08/16/17 History [Ventolin 0.083%] Baclofen [Lioresal -] 5 mg PEG QID 08/16/17 08/16/17 History Benzoyl Peroxide 5% Gel - 1 applic TP BID 08/16/17 08/16/17 History Bisacodyl Suppository [Dulcolax 10 mg TN PRN PRN 08/16/17 08/16/17 History Suppository -] Calcium Citrate/Vitamin D3 2 each PEG BID 08/16/17 08/16/17 History [Calcium Cit 315-Vit D3 250 Tab] Calcium Crb,Cit/D3/Min34/Shahbaz 08/16/17 History [Citracal + Bone Density Tablet] Cetirizine HCl [Zyrtec -] 10 mg PEG AM 08/16/17 08/16/17 History Cholecalciferol (Vitamin D3) 2,000 iu PEG DAILY 08/16/17 08/16/17 History [Vitamin D3] Clindamycin Topical Solution 1 applic TP DAILY 08/16/17 08/16/17 History [Cleocin 1% Topical Solution -] Clobazam [Onfi -] 10 mg PEG HS 08/16/17 08/16/17 History Clobazam [Onfi] 20 mg PEG BID 08/16/17 08/16/17 History Diazepam [Diastat Acudial] 5 mg TN PRN PRN 08/16/17 08/16/17 History Lacosamide [Vimpat] 200 mg PEG BID 08/16/17 08/16/17 History Lactose-Reduced Food/Fiber [Jevity 711 ml PEG DAILY 08/16/17 08/16/17 History 1.5 Harjit Liquid] Levetiracetam 15 ml PEG BID 08/16/17 08/16/17 History Levocarnitine [Carnitor] 330 mg PEG BID 08/16/17 08/16/17 History Levothyroxine [Synthroid -] 75 mcg PEG AM 08/16/17 08/16/17 History Magnesium Hydrox 2400MG/30Ml [Milk 30 ml PEG BID 08/16/17 08/16/17 History of Magnesia -] Multivitamin [One Daily] PEG DAILY 08/16/17 History Nut.therapy,Urea Cycle Disordr 1 tbs PEG DAILY 08/16/17 08/16/17 History [Cyclinex-2] Phenobarbital 32.4 mg PEG HS 08/16/17 08/16/17 History Phenobarbital 64.8 mg PEG BID 08/16/17 08/16/17 History Rufinamide [Banzel] 30 ml PEG BID 08/16/17 08/16/17 History Sennosides [Senna] 2 tab PEG BID 08/16/17 08/16/17 History Sodium Benzoate 4.5 gm PEG TID 08/16/17 08/16/17 History Topiramate [Topamax -] 200 mg PEG BID 08/16/17 08/16/17 History Topiramate [Topamax] 50 mg PEG DAILY 08/16/17 08/16/17 History Water For Irrigation,Sterile 200 ml PEG DAILY 08/16/17 08/16/17 History [Water] Water For Irrigation,Sterile 525 ml PEG DAILY 08/16/17 08/16/17 History [Water] Active Medications Generic Name Dose Route Start Last Admin Trade Name Freq PRN Reason Stop Dose Admin Al Hydroxide/Mg Hydroxide 30 ml 08/16/17 22:00 08/17/17 09:56 Mylanta Oral Suspension - PEG 30 ml BID JOANNA Administration Albuterol Sulfate 1 amp 08/13/17 17:32 Ventolin 0.083% Nebulizer Soln - NEB Q4H PRN SHORT OF BREATH/WHEEZING Albuterol/Ipratropium 1 amp 08/13/17 20:00 08/17/17 11:34 Duoneb - NEB 1 amp RQID JOANNA Administration Baclofen 5 mg 08/16/17 18:00 08/17/17 10:03 Lioresal - PEG 5 mg QID JOANNA Administration Bisacodyl 10 mg 08/16/17 15:53 Dulcolax Suppository - RC DAILY PRN CONSTIPATION Cholecalciferol 2,000 unit 08/17/17 10:00 08/17/17 09:57 Vitamin D3 - GT 2,000 unit DAILY JOANNA Administration Clindamycin Phosphate 1 applic 08/17/17 10:00 Cleocin 1% Topical Solution - TP DAILY [facility] Clobazam 20 mg 08/16/17 22:00 08/17/17 09:57 Onfi - PO 20 mg BID JOANNA Administration Heparin Sodium (Porcine) 5,000 unit 08/13/17 22:00 08/17/17 06:14 Heparin - SQ 5,000 unit TID [facility] Administration Levofloxacin 500 mg in 100 mls @ 100 mls/hr 08/15/17 14:45 08/17/17 09:56 Levaquin 500 Mg Premixed Ivpb - IVPB 100 mls/hr DAILY JOANNA Administration Lacosamide 200 mg 08/16/17 22:00 08/17/17 09:57 Vimpat - PO 200 mg BID JOANNA Administration Levetiracetam 1,500 mg 08/16/17 22:00 08/17/17 10:00 Keppra Oral Solution - PEG 1,500 mg BID JOANNA Administration Levocarnitine 330 mg 08/16/17 22:00 08/17/17 10:00 Carnitor Oral Solution - PEG 330 mg BID JOANNA Administration Levothyroxine Sodium 75 mcg 08/17/17 07:00 08/17/17 06:14 Synthroid - PEG 75 mcg AM JOANNA Administration Loratadine 10 mg 08/17/17 07:00 08/17/17 06:14 Claritin - GT 10 mg AM JOANNA Administration Non-Formulary Medication 2 each 08/16/17 22:00 Calcium Citrate/Vitamin D3 [Calcium Cit 315-Vit D3 250 Tab] PEG BID JOANNA Non-Formulary Medication 1 tbs 08/17/17 10:00 Nut.Therapy,Urea Cycle Disordr [Cyclinex-2] PEG DAILY JOANNA Non-Formulary Medication 30 ml 08/16/17 22:00 Rufinamide [Banzel] PEG BID [facility] Non-Formulary Medication 4.5 gm 08/16/17 22:00 Sodium Benzoate [Sodium Benzoate] PEG TID JOANNA Oseltamivir Phosphate 75 mg 08/14/17 14:30 08/17/17 09:56 Tamiflu Oral Suspension - PEG 08/19/17 14:29 75 mg BID JOANNA Administration Phenobarbital 60 mg 08/17/17 10:00 08/17/17 09:56 Phenobarbital - PEG 60 mg DAILY JOANNA Administration Phenobarbital 90 mg 08/16/17 22:00 08/16/17 21:56 Phenobarbital - PEG 90 mg HS JOANNA Administration Senna 2 tab 08/16/17 22:00 08/17/17 09:57 Senna - PO 2 tab BID JOANNA Administration Topiramate 200 mg 08/16/17 22:00 08/16/17 21:57 Topamax - PO 200 mg HS JOANNA Administration Topiramate 200 mg/ Topiramate 250 mg 08/17/17 10:00 08/17/17 10:03 50 mg PO 250 mg DAILY JOANNA Administration Laboratory Results - last 24 hr 08/17/17 08/17/17 08:35 08:35 WBC 4.2 D RBC 4.32 Hgb 14.4 Hct 43.4 MCV 100.6 H MCH 33.4 MCHC 33.2 RDW 12.3 Plt Count 198 MPV 9.2 Sodium 140 Potassium 3.9 Chloride 107 Carbon Dioxide 27 Anion Gap 6 L BUN 7 D Creatinine 0.3 L D Random Glucose 125 H D Calcium 7.9 L Microbiology 08/13/17 12:11 Blood - Peripheral Venous Blood Culture - Preliminary NO GROWTH OBTAINED AFTER 72 HOURS, INCUBATION TO CONTINUE FOR 2 DAYS. 08/13/17 12:11 Blood - Peripheral Venous Blood Culture - Preliminary NO GROWTH OBTAINED AFTER 72 HOURS, INCUBATION TO CONTINUE FOR 2 DAYS. 08/15/17 04:00 Urine For Antigen Detection Legionella Antigen - Final 08/15/17 04:00 Urine For Antigen Detection Streptococcus pneumoniae Antigen (M - Final 08/13/17 12:11 Urine - Urine Clean Catch Urine Culture - Final 08/13/17 12:11 Nasopharyngeal Swab Respiratory Virus Panel - Preliminary 08/14/17 11:25 Nasopharyngeal Swab Respiratory Syncytial Virus Ag - Final 08/13/17 12:11 Nasopharyngeal Swab Influenza Types A,B Antigen (LAURA) - Final 08/13/17 12:11 Nasopharyngeal Swab - Final ASSESSMENT AND PLAN: 36yo M with PMH severe mental retardation, INFORMATION ARCHITECT shunt, congenital quadriplegia, hypothyroid, blind and seizures sent to the ER for hypoxia nad cough -Acute hypoxic respiratory failure, suspected influenza vs PNA -Sepsis, susected influenza vs PNA -?Ileus -Diarrhea -Severe hypokalemia -Hypothyroidism -Seizure disorder -Severe mental retardation with congenital quadriplegia Plan: Oxygenation improved. Emperic tamiflu/levaquin day 4. ID input appreciated. Urine pNA studies and RSV Ag neg. Follow up RVP. levaquin x 1 week and 5 days course of tamiflu. Tolerating feeds well, no concerns. Resume home regimen on dc. Replete K prn. Continue levothyroxine. Home meds via PEG. Seizure precautions. Full care, turn q4h. Aspiration precautions. DVTPPx with heparin. dispo - d/c back to [place] today, outpatient oxygen to be arranged.
--- NOTE | 2017-08-17 13:32 | DS ---
Physical Exam: SUBJECTIVE: Patient seen and examined. No acute events overnight. Tolerate tube feeds overnight. No abdominal distension. 1 nonbloody formed BM. OBJECTIVE: Vital Signs Period Temp Pulse Resp BP Sys/De La Vega Pulse Ox Last 24 Hr 97.7 F-99.1 F 72-101 20-22 99-121/50-76 87-98 PHYSICAL EXAM GENERAL: nonverbal, somnolent HEAD: Normal with no signs of trauma. EYES: Pupils equal, round and reactive to light, anicteric THROAT: oropharynx clear without exudates. Moist mucous membranes. NECK: no JVD, or masses. LUNGS: mild course, breath sounds. no rales rhonchi or wheezing. HEART: regular rate, no murmurs appreciated ABDOMEN:soft, nondistended, G-tube in place, no drainage EXTREMITIES: Contracted limbs x 4, 2+ pulses, No peripheral edema. SKIN: Warm, dry, normal turgor, no rashes or lesions noted, normal capillary refill. LABS Laboratory Results - last 24 hr 08/17/17 08/17/17 08:35 08:35 WBC 4.2 D RBC 4.32 Hgb 14.4 Hct 43.4 MCV 100.6 H MCH 33.4 MCHC 33.2 RDW 12.3 Plt Count 198 MPV 9.2 Sodium 140 Potassium 3.9 Chloride 107 Carbon Dioxide 27 Anion Gap 6 L BUN 7 D Creatinine 0.3 L D Random Glucose 125 H D Calcium 7.9 L HOSPITAL COURSE: Date of Admission:08/13/17 Patient is a 36 yo M with a PMHx of Mental Retardation, congenital quadriplegia , seizures, blindness, Gerd, hypothyroidism, s/p G tube placement, presented to the ED from [facility] because of chest congestion, coughing and wheezing and was found to be Septic and in hypoxic respiratory failure secondary to Flu and suspected pneumonia. Patient was started on Tamiflu ( today day 4), and IV abx: Levaquin 500mg. CT Chest/Abd- suspected chronic ILD, no infiltrates. Patient also presented with ileus and watery diarrhea which resolved. Ct Abd on admission: fluid filled, distended colon without obstruction. C. diff was negative. Tube feeds were held with frequent suctioning of PEG with resolution of symptoms. Patient's oxygenation improved with cont. o2 therapy, duonebs, chest PT and Abx. His O2 sat prior to discharge was 87% on RA. He will be discharged on O2 therapy, 1 more day of Tamiflu, and 3 more days of Oral ABx-levaquin 500mg daily. He is medically cleared to be transferred back to facility. Date of Discharge: 08/17/17 Minutes to complete discharge: 35 Discharge Summary Reason For Visit: SEPSIS Current Active Problems Abdominal distension (gaseous) (Acute) Abdominal distention, non-gaseous (Acute) Diarrhea (Acute) Hypoxia (Acute) Ileus (Acute) Sepsis (Acute) Tachycardia (Acute) Seizure disorder (Chronic) Condition: Improved - Instructions Diet, Activity, Other Instructions: You will be transferred back to [facility]. Continue with tube feeds and water flushes. Continue Tamiflu for 1 more day. Continue Levaquin antibiotic for 3 more days. Referrals: Burt Carty MD, MD [Primary Care Provider] - Disposition: TRANSFER ACUTE CARE/OTHER HOSP - Home Medications Comprehensive Discharge Medication List: Ambulatory Orders Albuterol 0.083% Nebulizer Jyoti [Ventolin 0.083% Nebulizer Soln -] 1 neb NEB Q4H PRN 08/16/17 Baclofen [Lioresal -] 5 mg PEG QID 08/16/17 Benzoyl Peroxide 5% Gel - 1 applic TP BID 08/16/17 Bisacodyl Suppository [Dulcolax Suppository -] 10 mg SD PRN PRN 08/16/17 Calcium Citrate/Vitamin D3 [Calcium Cit 315-Vit D3 250 Tab] 2 each PEG BID 08/16 Calcium Crb,Cit/D3/Min34/Shahbaz [Citracal + Bone Density Tablet] 08/16/17 Cetirizine HCl [Zyrtec -] 10 mg PEG AM 08/16/17 Cholecalciferol (Vitamin D3) [Vitamin D3] 2,000 iu PEG DAILY 08/16/17 Clindamycin Topical Solution [Cleocin 1% Topical Solution -] 1 applic TP DAILY 08/16/17 Clobazam [Onfi] 20 mg PEG BID 08/16/17 Lacosamide [Vimpat] 200 mg PEG BID 08/16/17 Lactose-Reduced Food/Fiber [Jevity 1.5 Harjit Liquid] 711 ml PEG DAILY 08/16/17 Levetiracetam 15 ml PEG BID 08/16/17 Levocarnitine [Carnitor] 330 mg PEG BID 08/16/17 Levothyroxine [Synthroid -] 75 mcg PEG AM 08/16/17 Magnesium Hydrox 2400MG/30Ml [Milk of Magnesia -] 30 ml PEG BID 08/16/17 Multivitamin [One Daily] PEG DAILY 08/16/17 Nut.therapy,Urea Cycle Disordr [Cyclinex-2] 1 tbs PEG DAILY 08/16/17 Rufinamide [Banzel] 30 ml PEG BID 08/16/17 Sennosides [Senna] 2 tab PEG BID 08/16/17 Sodium Benzoate 4.5 gm PEG TID 08/16/17 Albuterol 2.5/Ipratropium 0.5 [Duoneb -] 1 amp NEB RQID amp 08/17/17 Levofloxacin [Levaquin -] 500 mg PO DAILY #3 tablet 08/17/17 Oseltamivir Phosphate [Tamiflu Oral Susp 6 mg/1 mL -] 75 mg PEG BID #1 ml Phenobarbital - 60 mg PEG DAILY tablet MDD 60 08/17/17 Phenobarbital - 90 mg PEG HS tablet MDD 90 08/17/17 Topiramate [Topamax -] 200 mg PO HS tablet 08/17/17 Topiramate [Topamax -] 250 mg GT DAILY tablet 08/17/17 This patient is new to me today: Yes Date on this admission: 08/17/17 Emergency Visit: No Critical Care patient: No - Discharge Referral Referred to [facility] No
[2017-08-17 16:29] VITALS: PULSE 87; TEMP 99
== END 2017-08-17 19:12 | disposition short-term general hospital (02) | DRG 720 ==
LOC: JER 11:13 → JERBED 16:23 → J6S 08-14 15:34
PROVIDERS: ADMIT Internal Medicine; ATTEND Hospitalist
DX: A41.9 Sepsis, unspecified organism (principal); F73 Profound intellectual disabilities; G80.1 Spastic diplegic cerebral palsy; H47.619 Cortical blindness, unspecified side of brain; D64.9 Anemia, unspecified; K21.9 Gastro-esophageal reflux disease without esophagitis; J11.00 Influenza due to unidentified influenza virus with unspecified type of pneumonia; E03.9 Hypothyroidism, unspecified; Q02 Microcephaly; H47.20 Unspecified optic atrophy; K20.8 Other esophagitis; R00.0 Tachycardia, unspecified; I48.91 Unspecified atrial fibrillation; E87.6 Hypokalemia; R14.0 Abdominal distension (gaseous); K56.7 Ileus, unspecified; J96.01 Acute respiratory failure with hypoxia; G40.909 Epilepsy, unspecified, not intractable, without status epilepticus; R19.7 Diarrhea, unspecified; Z98.2 Presence of cerebrospinal fluid drainage device; Z93.1 Gastrostomy status
CPT/HCPCS: 36415; 71045-TC; 71250-TC; 74019-TC-FY; 74176-TC; 80048; 80053; 81003; 82550; 82553; 82607; 82746; 82803; 83605; 83735; 84100; 84484; 85025; 85027; 85610; 87040; 87086; 87254; 87420; 87633; 87804; 87899; 93005; 93010; 94640; 99285-25; G9019; J0475; J1644

== ENCOUNTER 2019-02-01 11:56 | Emergency (ER) | payer OTHER ==
[2019-02-01 12:53] VITALS: BMI 19.5
--- NOTE | 2019-02-01 13:07 | PDOC ---
History of Present Illness - General Chief Complaint: Seizure Stated Complaint: Seizure History Source: Care Provider (Lemus Aid at bedside.), Correction Records, Old Records Exam Limitations: Physical Impairment, Other (Severe MR) - History of Present Illness Initial Comments: HPI: 38 y/o male [facility] from [facility] for seizure activity and fever. Facility documentation does not document any description of events or vitals signs. Member of staff at bedside but unable to provide this information. She does report the pt had three seizures today. She observed the last episode. Describes approx. 20 seconds of eye deviation with movement of upper extremities before returning to baseline. Pt unable to provide HPI secondary to cognitive baseline. Facility documentation indicates the pt has a h/o of Epilepsy managed with Topamax 200 BID and Phenobarbital 32.4mg nightly. Pts neurologist is Dr. Babin at [facility]. . Medical Hx: - Profound Intellectual Disability - H/o intraventricular hemorrhage of - Generalized idiopathic epilepsy - Microcephaly - Cortical Blindness - GERD - Spastic quadriplegic cerebral palsy - Hypothyroidism - S/p CHRONOGRAPH OPERATOR shunt placement - S/p G tube placement Review of Systems: Unable to obtain secondary to pts baseline mental status. Physical Examination: Constitutional: Nontoxic adult male in no acute distress or obvious discomfort. Found semi-fowlers on hospital bed. Alert with occasional smiling and eye tracking. Verbalizing nonspecific sounds. Head: Microcephalic. No obvious external signs of acute trauma. Eyes: Sclerae white. Cardiovascular / Chest: Regular rate and regular rhythm. No murmur, rubs, clicks , or gallops. Peripheral pulses: radial pulses full. No pretibial edema. Respiratory: Breathing unlabored. Equal chest rise and fall. Exam limited by pt s vocalization. Clear to auscultation bilaterally. No stridor, no wheezing, no rhonchi. Infrequent possible wet sounding cough. Gastrointestinal: abdomen is soft and nondistended. No grimace, rebound, or guarding. G-tube in LUQ; site well appearing. No pulsatile masses. No overlying skin lesions or obvious signs of trauma. Neuro: Alert and at baseline per member of staff at bedside. Skin: Warm, dry, and intact. No bruising, rashes, or other lesions. MSK: Upper and lower extremities contracted. Warm and well perfused. Psych: Affect: appropriate. Mood: normal. MDM: *Reviewed vital signs, nursing notes, and prior visit documentation (if available). 38 y/o male with severe MR, quadriplegia secondary to cerebral palsey, and epilepsy presenting for 3x seizures today with fever. Afebrile on arrival, which was greater than 4 hours after the reported administration of PO Tylenol. Triage vitals remarkable for borderline tachycardia with borderline hypoxia. Repeat trend revealed improved HR and SPO2 without medical intervention. Physical exam unrevealing and as described above. Given reported fever, possible cough, and risk factors for aspiration, will obtain CXR. Additionally ordered UA and culture to evaluate another site of possible infection. Ordered serum levels for pts prescribed antiepileptics and basic lab work. Suspect likely breakthrough seizure versus benign seizure mimicking activity. Telephone discussion with SHELF FILLER Alma from [facility]. Verbally appraised of the pts HPI, ED course, and current plan of management. Will fax completed epilepsy medication list. Is unable to provide a description of normal seizure pattern. Suggests increasing Phenobarbital dose if level is subtherapeutic. Will have office call Allan to schedule f/u clinic appt. Telephone consult with SHELF FILLER from [facility] [place] [facility]. Reports the pt had 3x seizures lasting less than 40 seconds each. Was found to be febrile to 101.5 this morning; is not aware of how the temperature was obtained. Is not aware of any other acute problems. Pt was given Tylenol 650mg at 8:45 this morning. Pt was never given prescribed Diastat abortive therapy. CBC revealed leukocytosis with left shift. Suspect likely reactionary to seizure activity rather than infectious given absence of other infectious signs. CXR unremarkable for acute pathology however limited by single view and pts poor inspiratory effort. CT of chest obtained and remarkable for trace consolidation likely associate financial representative of worsening chronic interstitial lung disease rather than pneumonia. UA unremarkable for pyuria, nitirtes, or leukocyte esterase. CMP unremarkable for significant electrolyte derangement. Antiepileptic levels are send out tests. Placed call back for results to be transmitted to facility. Pt reasessed. Found sleeping comfortably. Aid at bedside denies observing any further seizure like activity over the six hour duration of his ED visit. Pt believed to be stable for discharge with out patient f/u. Case discussed with rolly Lemus RN. Will monitor for further infectious signs. Steve Mason M.D., PGY2 Emergency Medicine Resident Past History - Past Medical History Allergies/Adverse Reactions: Allergies Allergy/AdvReac Type Severity Reaction Status Date / Time carbamazepine Allergy Unknown Verified 08/13/17 11:54 Home Medications: Ambulatory Orders Baclofen [Lioresal -] 5 mg PEG QID 08/16/17 Benzoyl Peroxide 5% Gel - 1 applic TP BID 08/16/17 Bisacodyl Suppository [Dulcolax Suppository -] 10 mg WA PRN PRN 08/16/17 Calcium Citrate/Vitamin D3 [Calcium Cit 315-Vit D3 250 Tab] 2 each PEG BID 08/16 Cetirizine HCl [Zyrtec -] 10 mg PEG AM 08/16/17 Cholecalciferol (Vitamin D3) [Vitamin D3] 2,000 iu PEG DAILY 08/16/17 Clindamycin Topical Solution [Cleocin 1% Topical Solution -] 1 applic TP DAILY 08/16/17 Lacosamide [Vimpat] 200 mg PEG BID 08/16/17 Levocarnitine [Carnitor] 330 mg PEG BID 08/16/17 Levothyroxine [Synthroid -] 75 mcg PEG AM 08/16/17 Multivitamin [One Daily] PEG DAILY 08/16/17 Rufinamide [Banzel] 30 ml PEG BID 08/16/17 Sennosides [Senna] 2 tab PEG BID 08/16/17 Sodium Benzoate 4.5 gm PEG TID 08/16/17 levETIRAcetam [Levetiracetam] 15 ml PEG BID 08/16/17 Chlorhexidine Gluconate 10 ml MM BID 02/01/19 Clobazam 10 mg PEG DAILY 02/01/19 Clobazam [Onfi] 20 mg PO BID 02/01/19 Diazepam Rectal Gel [Diastat Rectal Gel -] 10 mg WA ONCE PRN 02/01/19 Fluticasone Prop 0.05% Nasal [Flonase -] 1 spray NS DAILY 02/01/19 Lacosamide [Vimpat] 200 mg PO BID 02/01/19 Magnesium Hydrox 2400MG/30Ml [Milk of Magnesia -] 30 ml PEG BID 02/01/19 Phenobarbital - 32.4 mg PEG HS MDD 60 02/01/19 Topiramate [Topamax -] 200 mg GT HS 02/01/19 Anemia: Yes COPD: No GI Disorders: Yes (:GERD, esophagitis.) Liver Disease: Yes (hep c core AB+) Psychiatric Problems: Yes (mental retardation,cortical blindness) Seizures: Yes Thyroid Disease: Yes (HYPOTHYROIDISM) - Surgical History Abdominal Surgery: Yes (g tube) Orthopedic Surgery: Yes - Immunization History Immunization Up to Date: Yes - Suicide/Smoking/Psychosocial Hx Smoking Status: No Smoking History: Unknown if ever smoked Have you smoked in the past 12 months: No Number of Cigarettes Smoked Daily: 0 Information on smoking cessation initiated: No Hx Alcohol Use: No Drug/Substance Use Hx: No Substance Use Type: None *Physical Exam - Vital Signs Last Vital Signs Temp Pulse Resp BP Pulse Ox 99.4 F 109 H 16 109/97 94 L 02/01/19 12:49 02/01/19 12:49 02/01/19 12:49 02/01/19 12:49 02/01/19 12:49 Vital Signs - Vital Signs #1 Blood Pressure: 115/80 MAP: 91 BP Location: Right Arm Pulse Rate: 95 Respiratory Rate: 18 O2 Sat by Pulse Oximetry (%): 97 Oxygen Delivery Method: Room Air ED Treatment Course - LABORATORY CBC & Chemistry Diagram: 02/01/19 13:25 02/01/19 13:25 - ADDITIONAL ORDERS Additional order review: Laboratory Results 02/01/19 12:56 POC Glucometer 127 02/01/19 12:56 POC Glucometer 127 - RADIOLOGY Radiology Studies Ordered: Category Date Time Status CHEST X-RAY PORTABLE* [RAD] Stat Radiology 02/01/19 12:58 Ordered *DC/Admit/Observation/Transfer Diagnosis at time of Disposition: Seizure - Discharge Dispostion Disposition: HOME Condition at time of disposition: Improved Decision to Admit order: No - Referrals Schedule a call back: Antiepileptics Level Referrals: Burt Carty MD, MD [Primary Care Provider] - Van Babin [Non Staff, Medical] - - Patient Instructions Additional Instructions: You were seen today for multiple seizures and a fever. No fever was documented at this facility (>4hrs since Tylenol administration). His vitals signs have been unremarkable. His chest CT revealed a likely slight worsening of reactive airway disease and less likely to be pneumonia. Monitor him for signs of significant fever and/or infectious symptoms. Consider using his Diastat seizure abortive therapy if you have continued concerns for multiple seizures. His neurologist was made aware of the encounter and will call to make a follow up appointment next week. He should also follow up with his primary care doctor within the next several days. A copy of todays results are attached to this packet. Go to the nearest emergency department if your condition worsens or you feel like you need additional emergency evaluation. Print Language: PALESTINIAN - Post Discharge Activity
[2019-02-01 13:46] LABS: BASO % 0.4 % (0-2.0); EOS % 0.1 % (0-4.5); HEMATOCRIT 43.2 % (35.4-49); HEMOGLOBIN 14.7 GM/dL (11.7-16.9); MCH 34.6 pg (25.7-33.7); MCHC 34.1 g/dl (32.0-35.9); MEAN CELL VOLUME 101.6 fl (80-96); MEAN PLT VOLUME 9.6 fl (7.5-11.1); MONO % 4.1 % (3.8-10.2); NEUT % 90.4 % (42.8-82.8); PLATELET COUNT 263 K/MM3 (134-434); RBC 4.25 M/mm3 (4.00-5.60); RDW 12.3 % (11.9-15.9); WHITE BLOOD COUNT 22.1 K/mm3 (4.0-10.0)
[2019-02-01 14:00] LABS: PH,URINE >= 9.0 (5.0-8.0); URINE APPEARANCE CLOUDY; URINE BILIRUBIN NEGATIVE (NEGATIVE); URINE COLOR YELLOW; URINE GLUCOSE (UA) NEGATIVE (NEGATIVE); URINE KETONE NEGATIVE (NEGATIVE); URINE LEUK ESTERASE NEGATIVE (NEGATIVE); URINE NITRITE NEGATIVE (NEGATIVE); URINE PROTEIN NEGATIVE (NEGATIVE); URINE UROBILINOGEN 0.2 mg/dL (0.2-1.0)
--- NOTE | 2019-02-01 14:06 | PDOC ---
Documentation entered by Mahendra Huang SCRIBE, acting as scribe for Owen Hill MD. Owen Hill MD: This documentation has been prepared by the Sal giang Xhesika, SCRIBE, under my direction and personally reviewed by me in its entirety. I confirm that the documentation accurately reflects all work, treatment, procedures, and medical decision making performed by me. Attending Attestation - Resident Resident Name: BishopSteve - ED Attending Attestation I have performed the following: I have examined & evaluated the patient, The case was reviewed & discussed with the resident, I agree w/resident's findings & plan, Exceptions are as noted - HPI HPI: 02/01/19 13:24 The patient is a 38 year old male brought via EMS from [facility] and presenting with an aide, with a significant past medical history of profound MR , TRANSFUSION NURSE shunt, congenital quadriplegia, seizures, and vertical blindness, who presents to the emergency department with 3 episodes of seizure activity. As per nurse the seizures lasted approximately 20 seconds, patients eyes rolled back and his arms were twitching. As per aid at bedside, the patient has multiple seizures back to back once a week. Patient is a poor historian due to his medical disabilities. Allergies: NKDA Past surgical history: G-Tube placement Social history: No alcohol, tobacco or drug use reported - Physicial Exam PE: 02/01/19 13:24 Vitals: Triage Vital signs reviewed General Appearance: no acute distress. Head: Atraumatic, normocephalic Neck: Supple;No Nuchal rigidity Chest Wall: Nontender Cardiac: Regular rate and rhythm, no murmurs, no rubs, no gallops, Lungs: Clear to auscultation bilateral, good air movement bilaterally, Abdomen: Soft, nondistended, normal bowel sounds, nontender to palpation Extremities:(+) contracted extremities. no cyanosis, clubbing, or edema Skin: (+) Warm to touch Neuro: AOX3; Cranial Nerves 2-12 grossly c intact, Sensation intact to all extremities - Medical Decision Making 02/02/19 16:21 Pt. with seizures this am.several times per week. History of seizures very frequently on multiple antiepileptics Hx of fever this am. Elevated WBC noted on labratory analysis. Differential includes reactive from seizure vrs secondary to infection Xray with no evidence of infection CT ordered to r/o underlying infection Care transfered to Dr. Doherty 01/02 415 pm Plan followup labs CT reevaluate and dispo patient.
[2019-02-01 14:20] LABS: ALBUMIN 3.6 g/dl (3.4-5.0); BILIRUBIN,TOTAL 0.4 mg/dL (0.2-1); BLOOD UREA NITROGEN 9.6 mg/dL (7-18); CALCIUM 9.3 mg/dL (8.5-10.1); CREATININE 0.5 mg/dL (0.55-1.3); POTASSIUM 4.7 mmol/L (3.5-5.1); TOT PROT 7.6 g/dl (6.4-8.2)
[2019-02-01 14:48] LABS: ANISOCYTOSIS 1+; MACROCYTOSIS 1+; PLATELET ESTIMATE NORMAL
[2019-02-01 18:53] VITALS: TEMP 98.5
[2019-02-01 19:43] VITALS: BP 115/80; PULSE 95
--- NOTE | 2019-02-03 00:12 | EKG ---
Test Reason : Blood Pressure : / mmHG Vent. Rate : 099 BPM Atrial Rate : 099 BPM P-R Int : 142 ms QRS Dur : 066 ms QT Int : 332 ms P-R-T Axes : 046 051 054 degrees QTc Int : 426 ms POOR DATA QUALITY, INTERPRETATION MAY BE ADVERSELY AFFECTED NORMAL SINUS RHYTHM POSSIBLE LEFT ATRIAL ENLARGEMENT BORDERLINE ECG WHEN COMPARED WITH ECG OF 13-AUG-2017 16:18, NO SIGNIFICANT CHANGE WAS FOUND Confirmed by OBDULIA CÁRDENAS MD ([id number]) on 02/03/2019 12:11:42 AM Referred By: Confirmed By:OBDULIA CÁRDENAS MD
== END 2019-02-01 20:22 | disposition home or self-care (01) ==
LOC: JER 11:56
DX: G40.909 Epilepsy, unspecified, not intractable, without status epilepticus (principal); G80.0 Spastic quadriplegic cerebral palsy; F73 Profound intellectual disabilities; Q02 Microcephaly; E03.9 Hypothyroidism, unspecified; H47.619 Cortical blindness, unspecified side of brain; Z98.2 Presence of cerebrospinal fluid drainage device; Z93.1 Gastrostomy status; Z86.73 Personal history of transient ischemic attack (TIA), and cerebral infarction without residual deficits
CPT/HCPCS: 36415; 71045-TC-FY; 71250-TC; 80053; 80184; 80201; 81003; 82962; 85025; 87086; 93005; 93010; 99283-25

== ENCOUNTER 2019-03-28 11:06 | Inpatient (IN) | payer OTHER ==
[2019-03-28 11:43] VITALS: BMI 18.7
--- NOTE | 2019-03-28 11:44 | PDOC ---
History of Present Illness - General Chief Complaint: Shortness of Breath Stated Complaint: R/O PNE Time Seen by Provider: 03/28/19 11:44 Past History - Past Medical History Allergies/Adverse Reactions: Allergies Allergy/AdvReac Type Severity Reaction Status Date / Time carbamazepine Allergy Unknown Verified 03/28/19 11:43 Home Medications: Ambulatory Orders Baclofen [Lioresal -] 5 mg PEG QID 08/16/17 Benzoyl Peroxide 5% Gel - 1 applic TP BID 08/16/17 Bisacodyl Suppository [Dulcolax Suppository -] 10 mg KS PRN PRN 08/16/17 Calcium Citrate/Vitamin D3 [Calcium Cit 315-Vit D3 250 Tab] 2 each PEG BID 08/16 Cetirizine HCl [Zyrtec -] 10 mg PEG HS 08/16/17 Cholecalciferol (Vitamin D3) [Vitamin D3] 2,000 iu PEG DAILY 08/16/17 Clindamycin Topical Solution [Cleocin 1% Topical Solution -] 1 applic TP DAILY 08/16/17 Lacosamide [Vimpat] 200 mg PEG BID 08/16/17 Levocarnitine [Carnitor] 330 mg PEG BID 08/16/17 Levothyroxine [Synthroid -] 75 mcg PEG AM 08/16/17 Multivitamin [One Daily] 1 tablet PEG DAILY 08/16/17 Rufinamide [Banzel] 30 ml PEG BID 08/16/17 Sennosides [Senna] 2 tab PEG BID 08/16/17 Sodium Benzoate 4.5 gm PEG TID 08/16/17 levETIRAcetam [Levetiracetam] 15 ml PEG BID 08/16/17 Chlorhexidine Gluconate 10 ml MM BID 02/01/19 Clobazam 10 mg PEG DAILY 02/01/19 Clobazam [Onfi] 20 mg PO BID 02/01/19 Diazepam Rectal Gel [Diastat Rectal Gel -] 10 mg KS ONCE PRN 02/01/19 Fluticasone Prop 0.05% Nasal [Flonase -] 1 spray NS DAILY 02/01/19 Magnesium Hydrox 2400MG/30Ml [Milk of Magnesia -] 30 ml PEG BID 02/01/19 Phenobarbital - 32.4 mg PEG HS MDD 60 02/01/19 Topiramate [Topamax -] 200 mg GT BID 02/01/19 Albuterol 0.083% Nebulizer Jyoti [Ventolin 0.083% Nebulizer Soln -] 1 neb NEB Q6H 03/28/19 Albuterol 2.5/Ipratropium 0.5 [Duoneb -] 1 amp NEB Q6H 03/28/19 Phenobarbital 64.8 mg PEG BID 03/28/19 Topiramate [Topamax] 50 mg PO HS 03/28/19 Anemia: Yes COPD: No GI Disorders: Yes (:GERD, esophagitis.) Liver Disease: Yes (hep c core AB+) Psychiatric Problems: Yes (mental retardation,cortical blindness) Seizures: Yes Thyroid Disease: Yes (HYPOTHYROIDISM) - Surgical History Abdominal Surgery: Yes (g tube) Orthopedic Surgery: Yes - Immunization History Immunization Up to Date: Yes - Suicide/Smoking/Psychosocial Hx Smoking Status: No Smoking History: Never smoked Have you smoked in the past 12 months: No Number of Cigarettes Smoked Daily: 0 Information on smoking cessation initiated: No Hx Alcohol Use: No Drug/Substance Use Hx: No Substance Use Type: None *Physical Exam - Vital Signs Last Vital Signs Temp Pulse Resp BP Pulse Ox 100.4 F H 122 H 24 H 106/70 96 03/28/19 11:20 03/28/19 11:20 03/28/19 11:20 03/28/19 11:20 03/28/19 11:20 ED Treatment Course - LABORATORY CBC & Chemistry Diagram: 03/28/19 12:00 03/28/19 12:00 Medical Decision Making - Medical Decision Making HPI: 38yo M with PMH of profound Intellectual Disability, intraventricular hemorrhage as a , generalized idiopathic epilepsy, microcephaly, cortical blindness, GERD, spastic quadriplegic cerebral palsy, hypothyroidism, MANAGER INTEGRITY shunt placement, PEG tube placement sent by Allan for evaluation of cough and rule out PNA. History is limited as patient is nonverbal at baseline. ROS: unable to complete (patient nonverbal) PE: General: Awake, has a rattly cough Head: No signs of trauma, microcephalic Eyes: EOMI, sclera anicteric ENT: Dry mucus membranes Neck: Normal ROM, supple Lungs: Lungs with diffuse rales Cardio: Regular rhythm, S1 and S2 present Abdomen: Soft, nondistended. PEG in place. No grimacing noted upon palpation. Extremities: Upper limbs contracted, Distal pulses present SKIN: Warm, Dry, normal turgor Neurologic: Will turn head. Not tracking with eyes. Nonverbal. ED Course/MDM: DDX including but not limited to sepsis due to PNA, UTI, bacteremia, influenza VS significant for fever and tachycardia Sepsis workup initiated Fluids Ofirmev 03/28/19 11:44 CBC WBC 14.3 K/mm3 (4.0-10.0) H 03/28/19 12:00 RBC 4.12 M/mm3 (4.00-5.60) 03/28/19 12:00 Hgb 14.1 GM/dL (11.7-16.9) 03/28/19 12:00 Hct 41.6 % (35.4-49) 03/28/19 12:00 MCV 101.0 fl (80-96) H 03/28/19 12:00 MCH 34.4 pg (25.7-33.7) H 03/28/19 12:00 MCHC 34.0 g/dl (32.0-35.9) 03/28/19 12:00 RDW 12.4 % (11.9-15.9) 03/28/19 12:00 Plt Count 263 K/MM3 (134-434) D 03/28/19 12:00 MPV 8.5 fl (7.5-11.1) D 03/28/19 12:00 Absolute Neuts (auto) 12.8 K/mm3 (1.5-8.0) H 03/28/19 12:00 Neutrophils % 89.4 % (42.8-82.8) H 03/28/19 12:00 Lymphocytes % 4.5 % (8-40) L 03/28/19 12:00 Monocytes % 4.8 % (3.8-10.2) 03/28/19 12:00 Eosinophils % 0.9 % (0-4.5) D 03/28/19 12:00 Basophils % 0.4 % (0-2.0) 03/28/19 12:00 Nucleated RBC % 0 % (0-0) 03/28/19 12:00 Leukoctyosis CMP Sodium 139 mmol/L (136-145) 03/28/19 12:00 Potassium 3.8 mmol/L (3.5-5.1) 03/28/19 12:00 Chloride 103 mmol/L (98-107) 03/28/19 12:00 Carbon Dioxide 28 mmol/L (21-32) 03/28/19 12:00 Anion Gap 8 MMOL/L (8-16) 03/28/19 12:00 BUN 10.9 mg/dL (7-18) 03/28/19 12:00 Creatinine 0.6 mg/dL (0.55-1.3) 03/28/19 12:00 Est GFR (CKD-EPI)AfAm 147.82 03/28/19 12:00 Est GFR (CKD-EPI)NonAf 127.55 03/28/19 12:00 Random Glucose 105 mg/dL (74-106) 03/28/19 12:00 Lactic Acid 1.6 mmol/L (0.4-2.0) 03/28/19 12:00 Calcium 8.5 mg/dL (8.5-10.1) 03/28/19 12:00 Total Bilirubin 0.3 mg/dL (0.2-1) 03/28/19 12:00 AST 26 U/L (15-37) 03/28/19 12:00 ALT 36 U/L (13-61) 03/28/19 12:00 Alkaline Phosphatase 145 U/L (45-117) H 03/28/19 12:00 Troponin I < 0.02 ng/ml (0.00-0.05) 03/28/19 12:00 Total Protein 7.4 g/dl (6.4-8.2) 03/28/19 12:00 Albumin 3.6 g/dl (3.4-5.0) 03/28/19 12:00 Electrolytes unremarkable Normal Cr Normal lactate Tpn undetectable CXR with congestive changes, per radiology: "Single AP view of the chest is been submitted. Since the prior study of 02/01/2019, again noted is the scoliosis with spinal support hardware, right jugular line with tip in right upper quadrant and mild congestive changes angles are sharp. The soft tissues are in intact. There is some abdominal distention. Correlation recommended. Follow-up imaging suggested. " We will treat clinically for pneumonia with vanc/zosyn Plan for admission EKG: rate 113, QTc 433, sinus tachycardia 03/28/19 14:36 Discussed case with SECURITY SUPPORT ANALYST Jim who accepted patient for admission under Dr. Shen 03/28/19 14:50 Patient with seizure-like activity, shaking and rolling eyes back. 2mg Ativan ordered. Home meds due in the evening ordered. 03/28/19 16:13 *DC/Admit/Observation/Transfer Diagnosis at time of Disposition: Sepsis Qualifiers: Sepsis type: sepsis due to unspecified organism Sepsis acute organ dysfunction status: unspecified Qualified Code(s): A41.9 - Sepsis, unspecified organism Pneumonia Qualifiers: Pneumonia type: due to unspecified organism Laterality: unspecified laterality Lung location: unspecified part of lung Qualified Code(s): J18.9 - Pneumonia, unspecified organism - Discharge Dispostion Condition at time of disposition: Guarded Decision to Admit order: Yes - Referrals - Patient Instructions - Post Discharge Activity
[2019-03-28] MEDS ORDERED: SODIUM CHLORIDE 1,000 ML IV STA (12:09)
[2019-03-28] MEDS ORDERED: ACETAMINOPHEN 1000 MG/100 ML VIAL (NON FORMULARY) IVPB ONE (12:09)
[2019-03-28] MEDS ORDERED: ALBUTEROL SO4 2.5/IPRATROPIUM 0.5 INH SOL 3 ML VIAL.NEB. NEB ONE ×2 (12:10→13:32)
[2019-03-28 12:14] LABS: VENOUS PC02 42.8 mmHg (38-52); VENOUS PH 7.41 (7.31-7.41); VENOUS PO2 64.8 mmHg (28-48)
--- NOTE | 2019-03-28 12:14 | PDOC ---
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 Patient is nonverbal at baseline, unable to offer any history. Lives at [place]. - Physicial Exam PE: GENERAL: Awake, alert, in no acute distress HEAD: No signs of trauma EYES: PERRLA, EOMI, sclera anicteric, conjunctiva clear ENT: Auricles normal inspection, hearing grossly normal, nares patent, oropharynx clear without exudates. Dry mucosa NECK: Normal ROM, supple, no lymphadenopathy, JVD, or masses LUNGS: Dec air entry B/L, +rhonchi and coarse crackles B/L, worse on L. No wheezes HEART: Regular rate and rhythm, normal S1 and S2, no murmurs, rubs or gallops ABDOMEN: Soft, nontender, normoactive bowel sounds. No guarding, no rebound. No masses EXTREMITIES: Normal range of motion, no edema. No clubbing or cyanosis. No cords, erythema, or tenderness NEUROLOGICAL: Limited by quadraplegia. SKIN: Warm, dry, normal turgor, no rashes or lesions noted. - Medical Decision Making 03/28/19 12:14 Sepsis orders initiated on arrival in ED. Will give tylenol for fever, nebs for crackles/rhonchi. Will obtain CXR, UA, labs. Suspect pna. Plan for admission.
[2019-03-28 12:16] LABS: BASO % 0.4 % (0-2.0); EOS % 0.9 % (0-4.5); HEMATOCRIT 41.6 % (35.4-49); HEMOGLOBIN 14.1 GM/dL (11.7-16.9); LYMPH % 4.5 % (8-40); MCH 34.4 pg (25.7-33.7); MEAN PLT VOLUME 8.5 fl (7.5-11.1); MONO % 4.8 % (3.8-10.2); NEUT % 89.4 % (42.8-82.8); PLATELET COUNT 263 K/MM3 (134-434); RBC 4.12 M/mm3 (4.00-5.60); RDW 12.4 % (11.9-15.9); WHITE BLOOD COUNT 14.3 K/mm3 (4.0-10.0)
[2019-03-28 12:32] LABS: INR 0.91 (0.83-1.09); PROTHROMBIN TIME (PATIENT) 10.7 SEC (9.7-13.0)
[2019-03-28 12:34] LABS: ACTIVATED PTT 38.2 SECONDS (25.2-36.5)
[2019-03-28] MEDS ORDERED: ACETAMINOPHEN INJECTION 100 ML IVPB ONE (12:37)
[2019-03-28 13:18] LABS: PH,URINE 8.5 (5.0-8.0); URINE APPEARANCE CLEAR; URINE BILIRUBIN NEGATIVE (NEGATIVE); URINE COLOR YELLOW; URINE GLUCOSE (UA) NEGATIVE (NEGATIVE); URINE KETONE NEGATIVE (NEGATIVE); URINE LEUK ESTERASE NEGATIVE (NEGATIVE); URINE NITRITE NEGATIVE (NEGATIVE); URINE PROTEIN NEGATIVE (NEGATIVE); URINE UROBILINOGEN 0.2 mg/dL (0.2-1.0)
[2019-03-28 13:42] LABS: ALBUMIN 3.6 g/dl (3.4-5.0); ALK PHOS 145 U/L (45-117); ANION GAP 8 MMOL/L (8-16); BILIRUBIN,TOTAL 0.3 mg/dL (0.2-1); BLOOD UREA NITROGEN 10.9 mg/dL (7-18); CALCIUM 8.5 mg/dL (8.5-10.1); CHLORIDE 103 mmol/L (98-107); CO2 28 mmol/L (21-32); CREATININE 0.6 mg/dL (0.55-1.3); GLUCOSE,RANDOM 105 mg/dL (74-106); POTASSIUM 3.8 mmol/L (3.5-5.1); SGOT/AST 26 U/L (15-37); SGPT/ALT 36 U/L (13-61); SODIUM 139 mmol/L (136-145); TOT PROT 7.4 g/dl (6.4-8.2)
[2019-03-28] MEDS ORDERED: PIPERACILLIN/TAZOB 4.5 GM 4.5 GM in DEXTROSE 5%-WATER 100 ML IVPB ONE (13:48)
[2019-03-28] MEDS ORDERED: VANCOMYCIN 1,000 MG in DEXTROSE 5%-WATER - 250 ML IVPB ONE (13:48)
[2019-03-28] MEDS ORDERED: PIPERACILLIN/TAZOB 4.5 GM 4.5 GM/100 ML BAG IVPB ONE (13:52)
[2019-03-28] MEDS ORDERED: VANCOMYCIN 1 GRAM (PRE-DOCKED) 1,000 MG/250 ML BAG IVPB ONE (13:56)
--- NOTE | 2019-03-28 15:13 | HP ---
Admitting History and Physical - Primary Care Physician PCP: Burt Carty MD ([phone]) - Admission Chief Complaint: shortness of Breath with cough as per Allan porter History of Present Illness: 38yo M with PMH of MR, h/o profound Intellectual Disability, h/o intraventricular hemorrhage of , Generalized idiopathic epilepsy, Microcephaly, Cortical Blindness, GERD, Spastic quadriplegic cerebral palsy, Hypothyroidism, S/p ONCOLOGY CONSULTANT shunt placement, S/p G tube placement sent by Allan for evaluation of cough and rule out PNA. History is limited as patient is nonverbal at baseline. ROS:tarale to complete (patient nonverbal) History Source: Medical Record, Caregiver Limitations to Obtaining History: Other (nonverbal) - Past Medical History WATCH COMMANDER: Yes: Seizure, Other (severe developmental delay, cerebral palsy, mental retardation, cortical blindness) Gastrointestinal: Yes: GERD Hepatobiliary: Yes: Hepatitis C (HCV core AB+) Heme/Onc: Yes: Anemia Musculoskeletal: Yes: Paraplegia Endocrine: Yes: Hypothyroidism - Past Surgical History Additional Past Surgical History: PEG placement - Smoking History Smoking history: Never smoked Have you smoked in the past 12 months: No Aproximately how many cigarettes per day: 0 - Alcohol/Substance Use Hx Alcohol Use: No - Social History ADL: Support Services History of Recent Travel: No Home Medications - Allergies Allergies/Adverse Reactions: Allergies Allergy/AdvReac Type Severity Reaction Status Date / Time carbamazepine Allergy Unknown Verified 03/28/19 11:43 - Home Medications Home Medications: Ambulatory Orders Baclofen [Lioresal -] 5 mg PEG QID 08/16/17 Benzoyl Peroxide 5% Gel - 1 applic TP BID 08/16/17 Bisacodyl Suppository [Dulcolax Suppository -] 10 mg NE PRN PRN 08/16/17 Calcium Citrate/Vitamin D3 [Calcium Cit 315-Vit D3 250 Tab] 2 each PEG BID 08/16 Cetirizine HCl [Zyrtec -] 10 mg PEG HS 08/16/17 Cholecalciferol (Vitamin D3) [Vitamin D3] 2,000 iu PEG DAILY 08/16/17 Clindamycin Topical Solution [Cleocin 1% Topical Solution -] 1 applic TP DAILY 08/16/17 Lacosamide [Vimpat] 200 mg PEG BID 08/16/17 Levocarnitine [Carnitor] 330 mg PEG BID 08/16/17 Levothyroxine [Synthroid -] 75 mcg PEG AM 08/16/17 Multivitamin [One Daily] 1 tablet PEG DAILY 08/16/17 Rufinamide [Banzel] 30 ml PEG BID 08/16/17 Sennosides [Senna] 2 tab PEG BID 08/16/17 Sodium Benzoate 4.5 gm PEG TID 08/16/17 levETIRAcetam [Levetiracetam] 15 ml PEG BID 08/16/17 Chlorhexidine Gluconate 10 ml MM BID 02/01/19 Clobazam 10 mg PEG DAILY 02/01/19 Clobazam [Onfi] 20 mg PO BID 02/01/19 Diazepam Rectal Gel [Diastat Rectal Gel -] 10 mg NE ONCE PRN 02/01/19 Fluticasone Prop 0.05% Nasal [Flonase -] 1 spray NS DAILY 02/01/19 Magnesium Hydrox 2400MG/30Ml [Milk of Magnesia -] 30 ml PEG BID 02/01/19 Phenobarbital - 32.4 mg PEG HS MDD 60 02/01/19 Topiramate [Topamax -] 200 mg GT BID 02/01/19 Albuterol 0.083% Nebulizer Jyoti [Ventolin 0.083% Nebulizer Soln -] 1 neb NEB Q6H 03/28/19 Albuterol 2.5/Ipratropium 0.5 [Duoneb -] 1 amp NEB Q6H 03/28/19 Phenobarbital 64.8 mg PEG BID 03/28/19 Topiramate [Topamax] 50 mg PO HS 03/28/19 Family Disease History - Family Disease History Family History: Unable to Obtain Review of Systems Unable to obtain ROS, reason: nonverbal Physical Examination Vital Signs: Vital Signs Temperature 99.0 F 03/28/19 14:27 Pulse Rate 118 H 03/28/19 14:27 Respiratory Rate 22 H 03/28/19 14:27 Blood Pressure 110/66 03/28/19 14:27 O2 Sat by Pulse Oximetry (%) 98 03/28/19 14:27 Findings/Remarks: General: Awake, alert, and fully oriented, has a rattly cough Head: No signs of trauma Eyes: EOMI, sclera anicteric ENT: Dry mucus membranes Neck: Normal ROM, supple Lungs: Lungs with diffuse rales Cardio: Regular rhythm, S1 and S2 present Abdomen: Soft, PEG in place. No grimacing noted upon palpation Extremities: Upper limbs contracted, Distal pulses present SKIN: Warm, Dry, normal turgor Neurologic: Will turn head. Not tracking with eyes. Nonverbal. Labs: CBC, BMP 03/28/19 12:00 03/28/19 12:00 Imaging - Results Chest X-ray: Report Reviewed (mildcongestive changes since last CXR), Image Reviewed Problem List - Problems (1) Feeding by G-tube Assessment/Plan: NPO for now nutritional consult in am IVF Code(s): Z93.1 - GASTROSTOMY STATUS (2) Pneumonia Assessment/Plan: scattered rales with cough, congestive changes on CXT Vanco and zosyn ID consult placed duo nebs supplemental O2 pulmonary consult placed Code(s): J18.9 - PNEUMONIA, UNSPECIFIED ORGANISM (3) Cortical blindness Code(s): H47.619 - CORTICAL BLINDNESS, UNSPECIFIED SIDE OF BRAIN (4) Microcephalic Code(s): Q02 - MICROCEPHALY (5) S/P ONCOLOGY CONSULTANT shunt Code(s): Z98.2 - PRESENCE OF CEREBROSPINAL FLUID DRAINAGE DEVICE (6) Prophylactic measure Assessment/Plan: FEN IVF TF to start tomorrw monitor electrolytes DVT heparin sc Dispo maintain on tele full code discharge planning Code(s): Z29.9 - ENCOUNTER FOR PROPHYLACTIC MEASURES, UNSPECIFIED (7) Hypothyroid Assessment/Plan: c/w synthroid Code(s): E03.9 - HYPOTHYROIDISM, UNSPECIFIED (8) Seizure Assessment/Plan: c/w keppra, topapax, clobazam Code(s): R56.9 - UNSPECIFIED CONVULSIONS Qualifiers: Convulsion type: unspecified Qualified Code(s): R56.9 - Unspecified convulsions (9) Spastic cerebral palsy Assessment/Plan: c/w balcofen Code(s): G80.1 - SPASTIC DIPLEGIC CEREBRAL PALSY (10) Sepsis Assessment/Plan: low Grade temp, Sepsis workup initiated IVF Ofirmev PRN ID consult placed Abx trend LA Code(s): A41.9 - SEPSIS, UNSPECIFIED ORGANISM Visit type - Emergency Visit Emergency Visit: Yes ED Registration Date: 03/28/19 Care time: The patient presented to the Emergency Department on the above date and was hospitalized for further evaluation of their emergent condition. - New Patient This patient is new to me today: Yes Date on this admission: 03/28/19 - Critical Care Critical Care patient: No
[2019-03-28] MEDS ORDERED: TOPIRAMATE 25 MG TABLET (FP) PO ONE (16:15)
[2019-03-28] MEDS ORDERED: LACOSAMIDE 50 MG TABLET PO ONE (16:16)
[2019-03-28] MEDS ORDERED: LORazepam 2 MG/ML SDV VIAL ONE (16:16)
[2019-03-28] MEDS ORDERED: PHENobarbital 15 MG TABLET PEG ONE (16:17)
[2019-03-28] MEDS ORDERED: Lacosamide 50 MG/5 ML ORAL SOLUTION UNIT CUPS PEG ONE (17:40)
[2019-03-28] MEDS ORDERED: ACETAMINOPHEN 1000 MG/100 ML VIAL (NON FORMULARY) IVPB PRN (18:31)
[2019-03-28] MEDS ORDERED: AZITHROMYCIN 250 MG TABLET PO ONE (18:47)
[2019-03-28] MEDS: PIPERACILLIN/TAZOB 3.375 GM 3.375 GM in DEXTROSE 5%-WATER - 50 ML IVPB SCH (18:50)
--- NOTE | 2019-03-28 18:57 | PN ---
Progress Note (short form) - Note Progress Note: ID consult dictated 38 yo man from [facility] sent to ED with wheezing and fever of 100.3 some increased markings on cxray- no clear infiltrates leukocytosis possible pneumonia has gt tube so aspliration is possible history of seizure disorder- multiple developmental disabilities cultures sent sent rsv antigen and resp virus panel as well given vanco/zosyn in ed would continue zosyn and add zithromax for atypical coverage send legionella urinary antigen d/w aide from [facility]- she reports patient is at his baseline behavioral status in the ED Problem List - Problems (1) Pneumonia Code(s): J18.9 - PNEUMONIA, UNSPECIFIED ORGANISM Qualifiers: Pneumonia type: due to unspecified organism Laterality: unspecified laterality Lung location: unspecified part of lung Qualified Code(s): J18.9 - Pneumonia, unspecified organism (2) S/P REGIONAL INTERMODAL TRUCK 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
[2019-03-28] MEDS ORDERED: PIPERACILLIN/TAZOB 3.375 GM 3.375 GM in DEXTROSE 5%-WATER - 50 ML IVPB SCH (19:00)
[2019-03-28] MEDS: ALBUTEROL SO4 2.5/IPRATROPIUM 0.5 INH SOL 3 ML VIAL.NEB. NEB SCH (21:05)
[2019-03-28] MEDS: LORATADINE 10 MG TABLET NR SCH (21:49)
[2019-03-28] MEDS: SENNOSIDES 8.6MG TABLET (FP) PO SCH (21:49)
[2019-03-28] MEDS: BACLOFEN 10 MG TABLET (FP) PEG SCH (21:49)
[2019-03-28] MEDS: HEPARIN NA (PORCINE) 5,000 UNITS/ML 1ML VIAL SQ SCH (21:50)
[2019-03-28] MEDS: cloBAZam 10 MG TABLET PEG SCH (21:51)
[2019-03-28] MEDS ORDERED: PHENobarbital 30 MG TABLET PEG SCH (22:00)
[2019-03-28] MEDS ORDERED: levETIRAcetam 500 MG/5 ML ORAL SOLUTION (UNIT-DOSE CUPS) PEG SCH (22:00)
[2019-03-29] MEDS: CHLORHEXIDINE GLUCONATE 0.12% 15ML CUP MM SCH ×3 (01:10→21:02)
[2019-03-29] MEDS: TOPIRAMATE 200 MG TABLET (FP) GT SCH ×3 (01:11→21:01)
[2019-03-29] MEDS: BACLOFEN 10 MG TABLET (FP) PEG SCH ×5 (01:11→21:01)
[2019-03-29] MEDS: levETIRAcetam 500 MG/5 ML ORAL SOLUTION (UNIT-DOSE CUPS) PEG SCH ×3 (01:49→21:02)
[2019-03-29] MEDS ORDERED: VANCOMYCIN 1 GRAM (PRE-DOCKED) 1,000 MG/250 ML BAG IVPB SCH (02:30)
[2019-03-29] MEDS ORDERED: DEXTROSE 5%-WATER - 50 ML IVPB ONE ×3 (02:52→18:40)
[2019-03-29] MEDS ORDERED: PIPERACILLIN/TAZOBACTAM 3.375 GM VIAL IVPB ONE ×3 (02:52→18:40)
[2019-03-29] MEDS: PIPERACILLIN/TAZOB 3.375 GM 3.375 GM in DEXTROSE 5%-WATER - 50 ML IVPB SCH ×4 (02:57→18:41)
[2019-03-29] MEDS: LEVOTHYROXINE NA 75 MCG TABLET (FP) PEG SCH (06:06)
[2019-03-29] MEDS: ALBUTEROL SO4 2.5/IPRATROPIUM 0.5 INH SOL 3 ML VIAL.NEB. NEB SCH ×4 (07:40→20:30)
--- NOTE | 2019-03-29 08:16 | PN ---
Progress Note, Physician - Current Medication List Current Medications: Active Medications Acetaminophen (Ofirmev Injection -) 1,000 mg IVPB Q6H PRN PRN Reason: PAIN OR FEVER Albuterol/Ipratropium (Duoneb -) 1 amp NEB RQID [facility] Last Admin: 03/29/19 07:40 Dose: 1 amp Azithromycin (Zithromax -) 250 mg PO DAILY [facility] Baclofen (Lioresal -) 5 mg PEG QID [facility] Last Admin: 03/29/19 01:11 Dose: 5 mg Chlorhexidine Gluconate (Peridex -) 10 ml MM BID [facility] Last Admin: 03/29/19 01:10 Dose: 10 ml Clindamycin Phosphate (Cleocin 1% Topical Solution -) 1 applic TP DAILY [facility] Clobazam (Onfi -) 10 mg PEG BID [facility] Last Admin: 03/28/19 21:51 Dose: 10 mg Heparin Sodium (Porcine) (Heparin -) 5,000 unit SQ BID [facility] Last Admin: 03/28/19 21:50 Dose: 5,000 unit Piperacillin Sod/Tazobactam (Sod 3.375 gm/ Dextrose) 50 mls @ 100 mls/hr IVPB Q8H-IV JOANNA; Protocol Piperacillin Sod/Tazobactam (Sod 3.375 gm/ Dextrose) 50 mls @ 100 mls/hr IVPB Q8H-IV JOANNA; Protocol Stop: 03/29/19 10:29 Last Admin: 03/29/19 02:57 Dose: 100 mls/hr Levetiracetam (Keppra Oral Solution -) 1,500 mg PEG BID [facility] Last Admin: 03/29/19 01:49 Dose: 1,500 mg Levothyroxine Sodium (Synthroid -) 75 mcg PEG AM [facility] Last Admin: 03/29/19 06:06 Dose: 75 mcg Loratadine (Claritin -) 10 mg NR HS [facility] Last Admin: 03/28/19 21:49 Dose: 10 mg Phenobarbital (Phenobarbital -) 30 mg PEG HS [facility] Last Admin: 03/28/19 21:49 Dose: 30 mg Phenobarbital (Phenobarbital -) 90 mg PEG ONCE ONE Stop: 03/29/19 17:39 Senna (Senna -) 2 tab PO BID [facility] Last Admin: 03/28/19 21:49 Dose: 2 tab Topiramate (Topamax -) 200 mg GT BID JOANNA Last Admin: 03/29/19 01:11 Dose: 200 mg - Objective Vital Signs: Vital Signs Temperature 98.6 F 03/29/19 06:00 Pulse Rate 93 H 03/29/19 06:00 Respiratory Rate 18 03/29/19 06:00 Blood Pressure 121/83 03/29/19 06:00 O2 Sat by Pulse Oximetry (%) 96 03/28/19 21:00 Labs: CBC, BMP 03/28/19 12:00 03/28/19 12:00 INR, PTT INR 0.91 (0.83-1.09) 03/28/19 12:00 Problem List - Problems (1) Feeding by G-tube Assessment/Plan: started Jevity pending nutrional consultation dc IVF GT care as per nursing Code(s): Z93.1 - GASTROSTOMY STATUS (2) Pneumonia Assessment/Plan: scattered rales with cough, congestive changes on CXR c/w Vanco and zosyn ID consulttation appreciated duo nebs supplemental O2 RSV (-) LEGIONELLA AG PENDING pulmonary consultation appreciated Code(s): J18.9 - PNEUMONIA, UNSPECIFIED ORGANISM Qualifiers: Pneumonia type: due to unspecified organism Laterality: unspecified laterality Lung location: unspecified part of lung Qualified Code(s): J18.9 - Pneumonia, unspecified organism (3) Cortical blindness Assessment/Plan: supportive care Code(s): H47.619 - CORTICAL BLINDNESS, UNSPECIFIED SIDE OF BRAIN (4) Microcephalic Code(s): Q02 - MICROCEPHALY (5) S/P CHECK CASHIER shunt Code(s): Z98.2 - PRESENCE OF CEREBROSPINAL FLUID DRAINAGE DEVICE (6) Prophylactic measure Assessment/Plan: FEN IVF c/w TF monitor electrolytes DVT heparin sc Dispo maintain on tele full code discharge planning Code(s): Z29.9 - ENCOUNTER FOR PROPHYLACTIC MEASURES, UNSPECIFIED (7) Hypothyroid Assessment/Plan: c/w synthroid Code(s): E03.9 - HYPOTHYROIDISM, UNSPECIFIED (8) Seizure Assessment/Plan: c/w keppra, topapax, clobazam keppra/lamictal level pending Code(s): R56.9 - UNSPECIFIED CONVULSIONS Qualifiers: Convulsion type: unspecified Qualified Code(s): R56.9 - Unspecified convulsions (9) Spastic cerebral palsy Assessment/Plan: c/w balcofen Code(s): G80.1 - SPASTIC DIPLEGIC CEREBRAL PALSY (10) Sepsis Assessment/Plan: low Grade temp on admission, afebrile o/n Ofirmev PRN ID follwoing c/w azithro/zosyn legionella pending,RSV negative Code(s): A41.9 - SEPSIS, UNSPECIFIED ORGANISM Qualifiers: Sepsis type: sepsis due to unspecified organism Sepsis acute organ dysfunction status: unspecified Qualified Code(s): A41.9 - Sepsis, unspecified organism Visit type - Emergency Visit Emergency Visit: Yes ED Registration Date: 03/28/19 Care time: The patient presented to the Emergency Department on the above date and was hospitalized for further evaluation of their emergent condition. - New Patient This patient is new to me today: No - Critical Care Critical Care patient: No - Discharge Referral Referred to [facility] Med P.C[facility] No
[2019-03-29 09:34] LABS: BASO % 0.5 % (0-2.0); EOS % 3.1 % (0-4.5); HEMATOCRIT 41.5 % (35.4-49); HEMOGLOBIN 14.1 GM/dL (11.7-16.9); LYMPH % 8.2 % (8-40); MCH 34.9 pg (25.7-33.7); MCHC 34.1 g/dl (32.0-35.9); MEAN CELL VOLUME 102.4 fl (80-96); MONO % 5.3 % (3.8-10.2); NEUT % 82.9 % (42.8-82.8); PLATELET COUNT 234 K/MM3 (134-434); RBC 4.05 M/mm3 (4.00-5.60); RDW 12.8 % (11.9-15.9); WHITE BLOOD COUNT 8.1 K/mm3 (4.0-10.0)
[2019-03-29 09:40] LABS: ALBUMIN 3.4 g/dl (3.4-5.0); BILIRUBIN,TOTAL 0.4 mg/dL (0.2-1); BLOOD UREA NITROGEN 6.1 mg/dL (7-18); CALCIUM 8.6 mg/dL (8.5-10.1); CREATININE 0.4 mg/dL (0.55-1.3); MAGNESIUM 2.5 mg/dL (1.8-2.4); N-TERMINAL BNP 173.8 pg/ml (5-125); POTASSIUM 3.8 mmol/L (3.5-5.1)
[2019-03-29] MEDS ORDERED: VANCOMYCIN 1,000 MG in DEXTROSE 5%-WATER - 250 ML IVPB SCH (10:00)
[2019-03-29] MEDS ORDERED: cloBAZam 10 MG TABLET PEG SCH (10:00)
[2019-03-29] MEDS ORDERED: AZITHROMYCIN 250 MG TABLET PO SCH ×2 (10:00→16:35)
[2019-03-29] MEDS: HEPARIN NA (PORCINE) 5,000 UNITS/ML 1ML VIAL SQ SCH ×2 (10:32→21:02)
[2019-03-29] MEDS: cloBAZam 10 MG TABLET PEG SCH ×2 (10:35→21:01)
[2019-03-29] MEDS: SENNOSIDES 8.6MG TABLET (FP) PO SCH ×2 (10:35→21:01)
[2019-03-29] MEDS: CLINDAMYCIN PHOSPHATE 1% TOPICAL SOLUTION 30 ML BOTTLE TP SCH (12:24)
--- NOTE | 2019-03-29 12:29 | PN ---
Progress Note (short form) - Note Progress Note: PULMONARY CONSULTATION DICTATED 03/29/19 IMP ACUTE RESPIRATORY DISTRESS LIKELY PNEUMONIA CEREBRAL PALSY SEVERE MENTAL RETARDATION MICROCEPHALY H/O INTRAVENTRICULAR BLEED S/P V-P SHUNT SEIZURES HYPOTHYROID CORTICAL BLINDNESS SPASTIC QUADRIPLEGIA PLAN IV ABX PER ID CULTURES INHALED BRONCHODILATORS SUPPLEMENTAL O2 F/U CHEST X-RAYS DR TAY Problem List - Problems (1) Cortical blindness Code(s): H47.619 - CORTICAL BLINDNESS, UNSPECIFIED SIDE OF BRAIN (2) Feeding by G-tube Code(s): Z93.1 - GASTROSTOMY STATUS (3) GERD (gastroesophageal reflux disease) Code(s): K21.9 - GASTRO-ESOPHAGEAL REFLUX DISEASE WITHOUT ESOPHAGITIS (4) Microcephalic Code(s): Q02 - MICROCEPHALY (5) Pneumonia Code(s): J18.9 - PNEUMONIA, UNSPECIFIED ORGANISM Qualifiers: Pneumonia type: due to unspecified organism Laterality: unspecified laterality Lung location: unspecified part of lung Qualified Code(s): J18.9 - Pneumonia, unspecified organism (6) S/P NETWORKS SOFTWARE CONSULTANT shunt Code(s): Z98.2 - PRESENCE OF CEREBROSPINAL FLUID DRAINAGE DEVICE (7) Hypothyroid Code(s): E03.9 - HYPOTHYROIDISM, UNSPECIFIED (8) Seizure Code(s): R56.9 - UNSPECIFIED CONVULSIONS Qualifiers: Convulsion type: unspecified Qualified Code(s): R56.9 - Unspecified convulsions (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
--- NOTE | 2019-03-29 14:10 | EKG ---
Test Reason : Blood Pressure : / mmHG Vent. Rate : 113 BPM Atrial Rate : 113 BPM P-R Int : 146 ms QRS Dur : 066 ms QT Int : 316 ms P-R-T Axes : 051 060 048 degrees QTc Int : 433 ms SINUS TACHYCARDIA POSSIBLE LEFT ATRIAL ENLARGEMENT WHEN COMPARED WITH ECG OF 01-FEB-2019 14:13, NO SIGNIFICANT CHANGE WAS FOUND Confirmed by RICHARD PALACIOS MD ([id number]) on 03/29/2019 2:10:15 PM Referred By: Confirmed By:RICHARD PALACIOS MD
--- NOTE | 2019-03-29 15:00 | PN ---
Progress Note, Physician History of Present Illness: NON VERBAL BREATHING NON-LABORED NO COUGH NOTED TEMPS DOWN AFEBRILE WBC IMPROVED RSV (-) LEGIONELLA AG PENDING - Current Medication List Current Medications: Active Medications Acetaminophen (Ofirmev Injection -) 1,000 mg IVPB Q6H PRN PRN Reason: PAIN OR FEVER Albuterol/Ipratropium (Duoneb -) 1 amp NEB RQID [facility] Last Admin: 03/29/19 11:29 Dose: 1 amp Azithromycin (Zithromax -) 250 mg PO DAILY [facility] Last Admin: 03/29/19 10:34 Dose: 250 mg Baclofen (Lioresal -) 5 mg PEG QID [facility] Last Admin: 03/29/19 14:24 Dose: 5 mg Chlorhexidine Gluconate (Peridex -) 10 ml MM BID [facility] Last Admin: 03/29/19 12:26 Dose: 10 ml Clindamycin Phosphate (Cleocin 1% Topical Solution -) 1 applic TP DAILY [facility] Last Admin: 03/29/19 12:24 Dose: 1 applic Clobazam (Onfi -) 10 mg PEG BID [facility] Last Admin: 03/29/19 10:35 Dose: 10 mg Heparin Sodium (Porcine) (Heparin -) 5,000 unit SQ BID [facility] Last Admin: 03/29/19 10:32 Dose: 5,000 unit Piperacillin Sod/Tazobactam (Sod 3.375 gm/ Dextrose) 50 mls @ 100 mls/hr IVPB Q8H-IV JOANNA; Protocol Levetiracetam (Keppra Oral Solution -) 1,500 mg PEG BID [facility] Last Admin: 03/29/19 10:33 Dose: 1,500 mg Levothyroxine Sodium (Synthroid -) 75 mcg PEG AM [facility] Last Admin: 03/29/19 06:06 Dose: 75 mcg Loratadine (Claritin -) 10 mg NR HS [facility] Last Admin: 03/28/19 21:49 Dose: 10 mg Phenobarbital (Phenobarbital -) 30 mg PEG HS [facility] Last Admin: 03/28/19 21:49 Dose: 30 mg Phenobarbital (Phenobarbital -) 90 mg PEG ONCE ONE Stop: 03/29/19 17:39 Senna (Senna -) 2 tab PO BID [facility] Last Admin: 03/29/19 10:35 Dose: 2 tab Topiramate (Topamax -) 200 mg GT BID [facility] Last Admin: 03/29/19 10:35 Dose: 200 mg - Objective Vital Signs: Vital Signs Temperature 98.5 F 03/29/19 11:00 Pulse Rate 110 H 03/29/19 11:00 Respiratory Rate 18 03/29/19 11:00 Blood Pressure 140/74 03/29/19 11:00 O2 Sat by Pulse Oximetry (%) 97 03/29/19 09:00 Constitutional: Yes: No Distress Cardiovascular: Yes: Regular Rate and Rhythm, S1, S2 Respiratory: Yes: Rhonchi Gastrointestinal: Yes: Normal Bowel Sounds, Soft. 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
--- NOTE | 2019-03-29 15:36 | CONS ---
DATE OF CONSULTATION: 03/29/2019 REFERRING PHYSICIAN: HISTORY OF PRESENT ILLNESS: The history was obtained from the chart, as well as the patient's mother. Patient is a 38-year-old male with past medical history of mental retardation with profound intellectual disability, history of ventricular hemorrhage as a , status post PIG STICKER shunt, generalized idiopathic epilepsy, microcephaly, cortical blindness, spastic quadriplegia, cerebral palsy, hypothyroidism, status post G-tube,transferred to [facility] secondary to cough and chest congestion. On admission, the patient was felt to have pneumonia. He was admitted. He was placed on broad spectrum antibiotics for possible aspiration. He had a low-grade temperature on admission. Again, no further history is available at this time. PAST MEDICAL HISTORY: As noted earlier. Cerebral palsy, severe mental retardation, spastic quadriplegia, seizures, hypothyroid, cortical blindness, status post PIG STICKER shunt, history of intraventricular bleed and microcephaly. REVIEW OF SYSTEMS: Unable to be obtained. CURRENT MEDICATIONS: Include Zithromax, Cleocin, piperacillin, heparin subcutaneous, Keppra oral solution, Topamax, phenobarbital , DuoNeb, Senna, Claritin and Synthroid. PHYSICAL EXAMINATION: General: Patient is a thin male well-developed, contracted upper extremities, mildly congested, but in no acute distress. Vitals: He is currently afebrile. Heart rate is 110. Blood pressure 140/74, respiratory rate is 18, O2 saturation is 97% on 2 L nasal cannula. HEENT: Normocephalic, atraumatic. Neck: Supple. HEART: Irregular tachycardic, S1, S2. Chest: Scattered bilateral rhonchi. Abdomen: Soft. Bowel sounds are positive. Extremities: Upper extremity contractures. Lower extremities are shortened. LABORATORY STUDIES: WBC is 8.1, hemoglobin 14.1, hematocrit 41.5 with a platelet count of 234,000. Venous blood gas 7.41, pCO2 of 42, pO2 of 64. INR 0.91. Chemistries: BUN 6, creatinine 0.4. Chest x-ray scoliosis, spinal hardware, increased markings. IMPRESSION: 1. Respiratory distress, likely pneumonia, ? aspiration. 2. Cerebral palsy. 3. Severe mental retardation. 4. Microcephaly. 5. History of intraventricular bleed, status post ventriculoperitoneal shunt. 6. Seizures. 7. Hypothyroid. 8. Cortical blindness. 9. Spastic quadriplegia. PLAN: IV antibiotics as per infectious disease, inhaled bronchodilators, supplemental O2. Obtain follow up chest x-rays, obtain cultures. JAYLON TAY M.D. JANNET/[id number] MTDD
[2019-03-29] MEDS ORDERED: PHENobarbital 30 MG TABLET PEG SCH (16:44)
[2019-03-29] MEDS ORDERED: PHENobarbital 30 MG TABLET PEG ONE ×2 (17:15→17:38)
[2019-03-29] MEDS ORDERED: PHENobarbital 30 MG TABLET PO ONE (17:38)
[2019-03-29] MEDS ORDERED: PT OWN MED DRAWER 7, Y5N ONE (20:56)
[2019-03-29] MEDS: LORATADINE 10 MG TABLET NR SCH (21:01)
[2019-03-30] MEDS ORDERED: DEXTROSE 5%-WATER - 50 ML IVPB ONE ×3 (01:26→17:24)
[2019-03-30] MEDS ORDERED: PIPERACILLIN/TAZOBACTAM 3.375 GM VIAL IVPB ONE ×3 (01:26→17:23)
[2019-03-30] MEDS: PIPERACILLIN/TAZOB 3.375 GM 3.375 GM in DEXTROSE 5%-WATER - 50 ML IVPB SCH ×3 (01:33→17:29)
[2019-03-30] MEDS: LEVOTHYROXINE NA 75 MCG TABLET (FP) PEG SCH (06:28)
[2019-03-30 07:09] LABS: BASO % 0.7 % (0-2.0); EOS % 2.6 % (0-4.5); HEMATOCRIT 41.2 % (35.4-49); HEMOGLOBIN 13.7 GM/dL (11.7-16.9); LYMPH % 20.8 % (8-40); MCH 34.5 pg (25.7-33.7); MCHC 33.4 g/dl (32.0-35.9); MEAN CELL VOLUME 103.1 fl (80-96); MONO % 9.8 % (3.8-10.2); NEUT % 66.1 % (42.8-82.8); PLATELET COUNT 259 K/MM3 (134-434); RBC 3.99 M/mm3 (4.00-5.60); RDW 12.3 % (11.9-15.9); WHITE BLOOD COUNT 6.2 K/mm3 (4.0-10.0)
[2019-03-30] MEDS: ALBUTEROL SO4 2.5/IPRATROPIUM 0.5 INH SOL 3 ML VIAL.NEB. NEB SCH ×4 (07:35→20:32)
[2019-03-30 07:44] LABS: ALBUMIN 3.2 g/dl (3.4-5.0); BILIRUBIN,TOTAL 0.4 mg/dL (0.2-1); BLOOD UREA NITROGEN 6.8 mg/dL (7-18); CALCIUM 8.8 mg/dL (8.5-10.1); CREATININE 0.5 mg/dL (0.55-1.3); MAGNESIUM 2.2 mg/dL (1.8-2.4); POTASSIUM 3.8 mmol/L (3.5-5.1)
[2019-03-30] MEDS ORDERED: PT OWN MED DRAWER 7, Y5N ONE ×2 (08:54→21:16)
[2019-03-30] MEDS: SENNOSIDES 8.6MG TABLET (FP) PO SCH ×2 (09:25→21:22)
[2019-03-30] MEDS: cloBAZam 10 MG TABLET PEG SCH ×2 (09:26→21:23)
[2019-03-30] MEDS: HEPARIN NA (PORCINE) 5,000 UNITS/ML 1ML VIAL SQ SCH ×2 (09:26→21:19)
[2019-03-30] MEDS: PHENobarbital 30 MG TABLET PEG SCH ×2 (09:26→21:23)
[2019-03-30] MEDS: AZITHROMYCIN 250 MG TABLET NR SCH (09:26)
[2019-03-30] MEDS: levETIRAcetam 500 MG/5 ML ORAL SOLUTION (UNIT-DOSE CUPS) PEG SCH ×2 (09:27→21:21)
[2019-03-30] MEDS: TOPIRAMATE 200 MG TABLET (FP) GT SCH ×2 (09:29→21:21)
[2019-03-30] MEDS: BACLOFEN 10 MG TABLET (FP) PEG SCH ×4 (09:30→21:22)
[2019-03-30] MEDS: CLINDAMYCIN PHOSPHATE 1% TOPICAL SOLUTION 30 ML BOTTLE TP SCH (09:31)
--- NOTE | 2019-03-30 09:32 | PN ---
Physical Exam: SUBJECTIVE: Patient seen and examined OBJECTIVE: Vital Signs Period Temp Pulse Resp BP Sys/[place] Pulse Ox Last 24 Hr 97 F-98.5 F 88-110 18-20 101-140/42-74 95 GENERAL: NAD on NC O2 HEAD: Normal with no signs of trauma EYES: sclera anicteric, conjunctiva clear. NECK: Trachea midline, full range of motion, supple. LUNGS: scattered rhonchi at the bases, no wheeze HEART: Regular rate and rhythm, S1, S2 without murmur ABDOMEN: Soft, NT, ND, (+) BS EXTREMITIES: 2+ pulses, warm, well-perfused, no edema. NEUROLOGICAL: pre-existing deficits PSYCH: Normal mood, normal affect. SKIN: Warm, dry, normal turgor, no rashes or lesions noted Laboratory Results - last 24 hr 03/29/19 03/29/19 03/30/19 08:30 08:30 05:50 WBC 8.1 6.2 RBC 4.05 3.99 L Hgb 14.1 13.7 Hct 41.5 41.2 MCV 102.4 H 103.1 H MCH 34.9 H 34.5 H MCHC 34.1 33.4 RDW 12.8 12.3 Plt Count 234 259 MPV 9.0 9.0 Absolute Neuts (auto) 6.8 4.1 Neutrophils % 82.9 H 66.1 D Lymphocytes % 8.2 D 20.8 D Monocytes % 5.3 9.8 D Eosinophils % 3.1 D 2.6 Basophils % 0.5 0.7 Nucleated RBC % 0 0 Sodium 136 Potassium 3.8 Chloride 105 Carbon Dioxide 23 Anion Gap 8 BUN 6.1 L Creatinine 0.4 L Est GFR (CKD-EPI)AfAm 174.63 Est GFR (CKD-EPI)NonAf 150.67 Random Glucose 92 Calcium 8.6 Magnesium 2.5 H Total Bilirubin 0.4 AST 16 ALT 29 Alkaline Phosphatase 121 H B-Natriuretic Peptide 173.8 H Total Protein 7.0 Albumin 3.4 03/30/19 05:50 WBC RBC Hgb Hct MCV MCH MCHC RDW Plt Count MPV Absolute Neuts (auto) Neutrophils % Lymphocytes % Monocytes % Eosinophils % Basophils % Nucleated RBC % Sodium 141 Potassium 3.8 Chloride 110 H Carbon Dioxide 22 Anion Gap 9 BUN 6.8 L Creatinine 0.5 L Est GFR (CKD-EPI)AfAm 159.33 Est GFR (CKD-EPI)NonAf 137.47 Random Glucose 103 Calcium 8.8 Magnesium 2.2 Total Bilirubin 0.4 AST 11 L ALT 27 Alkaline Phosphatase 115 B-Natriuretic Peptide Total Protein 7.0 Albumin 3.2 L Active Medications Generic Name Dose Route Start Last Admin Trade Name Freq PRN Reason Stop Dose Admin Acetaminophen 1,000 mg 03/28/19 18:31 Ofirmev Injection - IVPB Q6H PRN PAIN OR FEVER Albuterol/Ipratropium 1 amp 03/28/19 20:00 03/29/19 20:30 Duoneb - NEB 1 amp RQID JOANNA Administration Azithromycin 250 mg 03/29/19 17:04 Zithromax - NR DAILY JO[facility]NA Baclofen 5 mg 03/28/19 18:00 03/29/19 21:01 Lioresal - PEG 5 mg QID JOANNA Administration Chlorhexidine Gluconate 10 ml 03/28/19 22:00 03/29/19 21:02 Peridex - MM 10 ml BID JOANNA Administration Clindamycin Phosphate 1 applic 03/29/19 10:00 03/29/19 12:24 Cleocin 1% Topical Solution - TP 1 applic DAILY [facility] Administration Clobazam 10 mg 03/28/19 22:00 03/29/19 21:01 Onfi - PEG 10 mg BID [facility]NA Administration Heparin Sodium (Porcine) 5,000 unit 03/28/19 22:00 03/29/19 21:02 Heparin - SQ 5,000 unit BID [facility]NA Administration Piperacillin Sod/Tazobactam 50 mls @ 100 mls/hr 03/29/19 10:00 03/30/19 01:33 Sod 3.375 gm/ Dextrose IVPB 100 mls/hr Q8H-IV JOANNA Administration Protocol Levetiracetam 1,500 mg 03/28/19 22:00 03/29/19 21:02 Keppra Oral Solution - PEG 1,500 mg BID [facility] Administration Levothyroxine Sodium 75 mcg 03/29/19 07:00 03/30/19 06:28 Synthroid - PEG 75 mcg AM [facility] Administration Loratadine 10 mg 03/28/19 22:00 03/29/19 21:01 Claritin - NR 10 mg HS [facility]NA Administration Phenobarbital 60 mg 03/30/19 10:00 Phenobarbital - PEG DAILY [facility] Phenobarbital 90 mg 03/30/19 22:00 Phenobarbital - PEG HS [facility] Senna 2 tab 03/28/19 22:00 03/29/19 21:01 Senna - PO 2 tab BID [facility] Administration Topiramate 200 mg 03/28/19 22:00 03/29/19 21:01 Topamax - GT 200 mg BID [facility] Administration ASSESSMENT/PLAN: Problems (1) Feeding by G-tube Assessment/Plan: started Jevity pending nutrional consultation dc IVF GT care as per nursing Code(s): Z93.1 - GASTROSTOMY STATUS (2) Pneumonia Assessment/Plan: scattered rales with cough, congestive changes on CXR c/w zithro and zosyn ID consultation appreciated duo nebs supplemental O2 RSV (-) LEGIONELLA AG-Negative pulmonary consultation appreciated Code(s): J18.9 - PNEUMONIA, UNSPECIFIED ORGANISM Qualifiers: Pneumonia type: due to unspecified organism Laterality: unspecified laterality Lung location: unspecified part of lung Qualified Code(s): J18.9 - Pneumonia, unspecified organism (3) Cortical blindness Assessment/Plan: supportive care Code(s): H47.619 - CORTICAL BLINDNESS, UNSPECIFIED SIDE OF BRAIN (4) Microcephalic Code(s): Q02 - MICROCEPHALY (5) S/P PAN HELPER shunt Code(s): Z98.2 - PRESENCE OF CEREBROSPINAL FLUID DRAINAGE DEVICE (6) Prophylactic measure Assessment/Plan: FEN IVF c/w TF monitor electrolytes DVT heparin sc Dispo maintain on tele full code discharge planning Code(s): Z29.9 - ENCOUNTER FOR PROPHYLACTIC MEASURES, UNSPECIFIED (7) Hypothyroid Assessment/Plan: c/w synthroid Code(s): E03.9 - HYPOTHYROIDISM, UNSPECIFIED (8) Seizure Assessment/Plan: c/w keppra, topapax, clobazam keppra/lamictal level pending Code(s): R56.9 - UNSPECIFIED CONVULSIONS Qualifiers: Convulsion type: unspecified Qualified Code(s): R56.9 - Unspecified convulsions (9) Spastic cerebral palsy Assessment/Plan: c/w balcofen Code(s): G80.1 - SPASTIC DIPLEGIC CEREBRAL PALSY (10) Sepsis Assessment/Plan: low Grade temp on admission, afebrile o/n Ofirmev PRN ID follwoing c/w azithro/zosyn legionella Neg. ,RSV negative Code(s): A41.9 - SEPSIS, UNSPECIFIED ORGANISM Qualifiers: Sepsis type: sepsis due to unspecified organism Sepsis acute organ dysfunction status: unspecified Qualified Code(s): A41.9 - Sepsis, unspecified organism Visit type - Emergency Visit Emergency Visit: Yes ED Registration Date: 03/28/19 Care time: The patient presented to the Emergency Department on the above date and was hospitalized for further evaluation of their emergent condition. - New Patient This patient is new to me today: Yes Date on this admission: 03/30/19 - Critical Care Critical Care patient: No
[2019-03-30] MEDS: CHLORHEXIDINE GLUCONATE 0.12% 15ML CUP MM SCH ×2 (10:00→21:20)
--- NOTE | 2019-03-30 13:59 | PN ---
Progress Note (short form) - Note Progress Note: NAD on 2 L NC O2. No acute events overnight. Intake & Output 03/27/19 03/28/19 03/29/19 03/30/19 23:59 23:59 23:59 23:59 Intake Total 1100 590 90 Output Total 350 Balance 750 590 90 Weight 96 lb Last Vital Signs Temp Pulse Resp BP Pulse Ox 97 F L 88 20 103/57 L 95 03/30/19 06:00 03/30/19 06:00 03/30/19 06:00 03/30/19 06:00 03/29/19 21:00 Active Medications Acetaminophen (Ofirmev Injection -) 1,000 mg IVPB Q6H PRN PRN Reason: PAIN OR FEVER Albuterol/Ipratropium (Duoneb -) 1 amp NEB RQID [facility] Last Admin: 03/30/19 11:35 Dose: 1 amp Azithromycin (Zithromax -) 250 mg NR DAILY [facility] Last Admin: 03/30/19 09:26 Dose: 250 mg Baclofen (Lioresal -) 5 mg PEG QID [facility] Last Admin: 03/30/19 09:30 Dose: 5 mg Chlorhexidine Gluconate (Peridex -) 10 ml MM BID [facility] Last Admin: 03/29/19 21:02 Dose: 10 ml Clindamycin Phosphate (Cleocin 1% Topical Solution -) 1 applic TP DAILY [facility] Last Admin: 03/30/19 09:31 Dose: 1 applic Clobazam (Onfi -) 10 mg PEG BID [facility] Last Admin: 03/30/19 09:26 Dose: 10 mg Heparin Sodium (Porcine) (Heparin -) 5,000 unit SQ BID [facility] Last Admin: 03/30/19 09:26 Dose: 5,000 unit Piperacillin Sod/Tazobactam (Sod 3.375 gm/ Dextrose) 50 mls @ 100 mls/hr IVPB Q8H-IV [facility]ANNA; Protocol Last Admin: 03/30/19 09:30 Dose: 100 mls/hr Levetiracetam (Keppra Oral Solution -) 1,500 mg PEG BID [facility] Last Admin: 03/30/19 09:27 Dose: 1,500 mg Levothyroxine Sodium (Synthroid -) 75 mcg PEG AM [facility] Last Admin: 03/30/19 06:28 Dose: 75 mcg Loratadine (Claritin -) 10 mg NR HS [facility] Last Admin: 03/29/19 21:01 Dose: 10 mg Phenobarbital (Phenobarbital -) 60 mg PEG DAILY [facility] Last Admin: 03/30/19 09:26 Dose: 60 mg Phenobarbital (Phenobarbital -) 90 mg PEG HS [facility] Senna (Senna -) 2 tab PO BID [facility] Last Admin: 03/30/19 09:25 Dose: 2 tab Topiramate (Topamax -) 200 mg GT BID [facility] Last Admin: 03/30/19 09:29 Dose: 200 mg GENERAL: NAD on NC O2 HEAD: (-) trauma. EYES: sclera anicteric, conjunctiva clear. NECK: Trachea midline, full range of motion, supple. LUNGS: scattered rhonchi at the bases, no wheeze HEART: Regular rate and rhythm, S1, S2 without murmur, rub or gallop. ABDOMEN: Soft, NT, ND, (+) BS EXTREMITIES: 2+ pulses, warm, well-perfused, no edema. NEUROLOGICAL: pre-existing deficits PSYCH: Normal mood, normal affect. SKIN: Warm, dry, normal turgor, no rashes or lesions noted Laboratory Results - last 24 hr 03/30/19 03/30/19 05:50 05:50 WBC 6.2 RBC 3.99 L Hgb 13.7 Hct 41.2 MCV 103.1 H MCH 34.5 H MCHC 33.4 RDW 12.3 Plt Count 259 MPV 9.0 Absolute Neuts (auto) 4.1 Neutrophils % 66.1 D Lymphocytes % 20.8 D Monocytes % 9.8 D Eosinophils % 2.6 Basophils % 0.7 Nucleated RBC % 0 Sodium 141 Potassium 3.8 Chloride 110 H Carbon Dioxide 22 Anion Gap 9 BUN 6.8 L Creatinine 0.5 L Est GFR (CKD-EPI)AfAm 159.33 Est GFR (CKD-EPI)NonAf 137.47 Random Glucose 103 Calcium 8.8 Magnesium 2.2 Total Bilirubin 0.4 AST 11 L ALT 27 Alkaline Phosphatase 115 Total Protein 7.0 Albumin 3.2 L Vitamin B12 1312 H Serum Folate 24 H Problem List - Problems (1) Cortical blindness Code(s): H47.619 - CORTICAL BLINDNESS, UNSPECIFIED SIDE OF BRAIN (2) Feeding by G-tube Code(s): Z93.1 - GASTROSTOMY STATUS (3) GERD (gastroesophageal reflux disease) Code(s): K21.9 - GASTRO-ESOPHAGEAL REFLUX DISEASE WITHOUT ESOPHAGITIS (4) Microcephalic Code(s): Q02 - MICROCEPHALY (5) Pneumonia Code(s): J18.9 - PNEUMONIA, UNSPECIFIED ORGANISM Qualifiers: Pneumonia type: due to unspecified organism Laterality: unspecified laterality Lung location: unspecified part of lung Qualified Code(s): J18.9 - Pneumonia, unspecified organism (6) S/P TIP CEMENTER shunt Code(s): Z98.2 - PRESENCE OF CEREBROSPINAL FLUID DRAINAGE DEVICE (7) Hypothyroid Code(s): E03.9 - HYPOTHYROIDISM, UNSPECIFIED (8) Seizure Code(s): R56.9 - UNSPECIFIED CONVULSIONS Qualifiers: Convulsion type: unspecified Qualified Code(s): R56.9 - Unspecified convulsions (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 IMP ACUTE RESPIRATORY DISTRESS LIKELY PNEUMONIA CEREBRAL PALSY SEVERE MENTAL RETARDATION MICROCEPHALY H/O INTRAVENTRICULAR BLEED S/P V-P SHUNT SEIZURES HYPOTHYROID CORTICAL BLINDNESS SPASTIC QUADRIPLEGIA PLAN IV ABX PER ID FOLLOW CULTURES INHALED BRONCHODILATORS SUPPLEMENTAL O2 NEEDED ASPIRATION PRECAUTIONS DR TAMEZ
[2019-03-30] MEDS ORDERED: PHENobarbital 30 MG TABLET PEG ONE (16:52)
[2019-03-30] MEDS: LORATADINE 10 MG TABLET NR SCH (21:22)
[2019-03-31] MEDS ORDERED: PIPERACILLIN/TAZOBACTAM 3.375 GM VIAL IVPB ONE ×3 (00:46→16:31)
[2019-03-31] MEDS ORDERED: DEXTROSE 5%-WATER - 50 ML IVPB ONE ×3 (00:47→16:31)
[2019-03-31] MEDS: PIPERACILLIN/TAZOB 3.375 GM 3.375 GM in DEXTROSE 5%-WATER - 50 ML IVPB SCH ×3 (01:39→17:32)
[2019-03-31] MEDS: LEVOTHYROXINE NA 75 MCG TABLET (FP) PEG SCH (06:27)
[2019-03-31 06:46] LABS: BASO % 0.5 % (0-2.0); EOS % 3.4 % (0-4.5); HEMATOCRIT 41.1 % (35.4-49); HEMOGLOBIN 13.7 GM/dL (11.7-16.9); LYMPH % 24.1 % (8-40); MCH 34.5 pg (25.7-33.7); MCHC 33.2 g/dl (32.0-35.9); MEAN CELL VOLUME 103.8 fl (80-96); MEAN PLT VOLUME 8.9 fl (7.5-11.1); MONO % 8.5 % (3.8-10.2); NEUT % 63.5 % (42.8-82.8); PLATELET COUNT 254 K/MM3 (134-434); RBC 3.96 M/mm3 (4.00-5.60); RDW 12.3 % (11.9-15.9); WHITE BLOOD COUNT 6.4 K/mm3 (4.0-10.0)
[2019-03-31 07:09] LABS: ALBUMIN 3.2 g/dl (3.4-5.0); BILIRUBIN,TOTAL 0.2 mg/dL (0.2-1); BLOOD UREA NITROGEN 7.1 mg/dL (7-18); CALCIUM 9.1 mg/dL (8.5-10.1); CREATININE 0.4 mg/dL (0.55-1.3); MAGNESIUM 2.2 mg/dL (1.8-2.4); POTASSIUM 3.9 mmol/L (3.5-5.1); TOT PROT 7.1 g/dl (6.4-8.2)
[2019-03-31] MEDS ORDERED: PT OWN MED DRAWER 7, Y5N ONE ×2 (07:41→09:15)
[2019-03-31] MEDS: ALBUTEROL SO4 2.5/IPRATROPIUM 0.5 INH SOL 3 ML VIAL.NEB. NEB SCH ×4 (08:25→21:01)
--- NOTE | 2019-03-31 08:50 | PN ---
Progress Note, Physician Chief Complaint: non verbal, grimaces to touch History of Present Illness: History of Present Illness: 38yo M with PMH of MR, h/o profound Intellectual Disability, h/o intraventricular hemorrhage of , Generalized idiopathic epilepsy, Microcephaly, Cortical Blindness, GERD, Spastic quadriplegic cerebral palsy, Hypothyroidism, S/p LINE THERAPIST shunt placement, S/p G tube placement sent by [facility] for evaluation of cough and rule out PNA. History is limited as patient is nonverbal at baseline. - Current Medication List Current Medications: Active Medications Acetaminophen (Ofirmev Injection -) 1,000 mg IVPB Q6H PRN PRN Reason: PAIN OR FEVER Albuterol/Ipratropium (Duoneb -) 1 amp NEB RQID [facility] Last Admin: 03/30/19 20:32 Dose: 1 amp Azithromycin (Zithromax -) 250 mg NR DAILY [facility] Last Admin: 03/30/19 09:26 Dose: 250 mg Baclofen (Lioresal -) 5 mg PEG QID [facility] Last Admin: 03/30/19 21:22 Dose: 5 mg Chlorhexidine Gluconate (Peridex -) 10 ml MM BID [facility] Last Admin: 03/30/19 21:20 Dose: 10 ml Clindamycin Phosphate (Cleocin 1% Topical Solution -) 1 applic TP DAILY [facility] Last Admin: 03/30/19 09:31 Dose: 1 applic Clobazam (Onfi -) 10 mg PEG BID [facility] Last Admin: 03/30/19 21:23 Dose: 10 mg Heparin Sodium (Porcine) (Heparin -) 5,000 unit SQ BID [facility] Last Admin: 03/30/19 21:19 Dose: 5,000 unit Piperacillin Sod/Tazobactam (Sod 3.375 gm/ Dextrose) 50 mls @ 100 mls/hr IVPB Q8H-IV JOANNA; Protocol Last Admin: 03/31/19 01:39 Dose: 100 mls/hr Levetiracetam (Keppra Oral Solution -) 1,500 mg PEG BID [facility] Last Admin: 03/30/19 21:21 Dose: 1,500 mg Levothyroxine Sodium (Synthroid -) 75 mcg PEG AM [facility] Last Admin: 03/31/19 06:27 Dose: 75 mcg Loratadine (Claritin -) 10 mg NR HS [facility] Last Admin: 03/30/19 21:22 Dose: 10 mg Phenobarbital (Phenobarbital -) 60 mg PEG DAILY [facility] Last Admin: 03/30/19 09:26 Dose: 60 mg Phenobarbital (Phenobarbital -) 90 mg PEG HS [facility] Last Admin: 03/30/19 21:23 Dose: 90 mg Senna (Senna -) 2 tab PO BID [facility] Last Admin: 03/30/19 21:22 Dose: 2 tab Topiramate (Topamax -) 200 mg GT BID [facility] Last Admin: 03/30/19 21:21 Dose: 200 mg - Objective Vital Signs: Vital Signs Temperature 97.8 F 03/31/19 08:33 Pulse Rate 65 03/31/19 08:33 Respiratory Rate 18 03/31/19 08:38 Blood Pressure 102/68 03/31/19 08:33 O2 Sat by Pulse Oximetry (%) 100 03/31/19 08:38 Constitutional: Yes: Well Nourished, No Distress, Calm Eyes: Yes: WNL, Conjunctiva Clear HENT: Yes: WNL, Atraumatic, Normocephalic Neck: Yes: WNL, Supple, Trachea Midline Cardiovascular: Yes: WNL, Regular Rate and Rhythm Respiratory: Yes: Diminished, On Nasal O2, Rhonchi (scattered) Gastrointestinal: Yes: WNL, Normal Bowel Sounds, Other (PEG in place) ...Rectal Exam: Yes: Deferred Genitourinary: Yes: Incontinence Breast(s): Yes: WNL Extremities: Yes: WNL Edema: No Peripheral Pulses WNL: Yes Integumentary: Yes: WNL Neurological: Yes: Other (responds to tactile stimuli) Labs: CBC, BMP 03/31/19 05:34 03/31/19 05:34 INR, PTT INR 0.91 (0.83-1.09) 03/28/19 12:00 - ....Imaging Chest X-ray: Image Reviewed Problem List - Problems (1) Feeding by G-tube Assessment/Plan: Appreciate RD consultation c/w Jevity 1.5 @ goal rate of 40mls/hr + pump flush of 40mls/hr to provide vol. 960mls, 1440 cals, 61 gms pro & 730mls H20. Total [id number]. GT care as per nursing Code(s): Z93.1 - GASTROSTOMY STATUS (2) Pneumonia Assessment/Plan: scattered rales with cough, congestive changes on CXR c/w Vanco and zosyn day 3 ID consultation appreciated duo nebs supplemental O2 RSV (-) Legionella AG negative pulmonary consultation appreciated Code(s): J18.9 - PNEUMONIA, UNSPECIFIED ORGANISM Qualifiers: Pneumonia type: due to unspecified organism Laterality: unspecified laterality Lung location: unspecified part of lung Qualified Code(s): J18.9 - Pneumonia, unspecified organism (3) Cortical blindness Assessment/Plan: supportive care Code(s): H47.619 - CORTICAL BLINDNESS, UNSPECIFIED SIDE OF BRAIN (4) Microcephalic Code(s): Q02 - MICROCEPHALY (5) S/P LINE THERAPIST shunt Code(s): Z98.2 - PRESENCE OF CEREBROSPINAL FLUID DRAINAGE DEVICE (6) Prophylactic measure Assessment/Plan: FEN sufficient calories/c/w TF monitor electrolytes DVT heparin sc Dispo maintain on tele full code discharge planning Code(s): Z29.9 - ENCOUNTER FOR PROPHYLACTIC MEASURES, UNSPECIFIED (7) Hypothyroid Assessment/Plan: c/w synthroid vis PEG Code(s): E03.9 - HYPOTHYROIDISM, UNSPECIFIED (8) Seizure Assessment/Plan: c/w keppra, topapax, clobazam keppra/lamictal level still pending Code(s): R56.9 - UNSPECIFIED CONVULSIONS Qualifiers: Convulsion type: unspecified Qualified Code(s): R56.9 - Unspecified convulsions (9) Spastic cerebral palsy Assessment/Plan: c/w balcofen via PEG Code(s): G80.1 - SPASTIC DIPLEGIC CEREBRAL PALSY (10) Sepsis Assessment/Plan: low Grade temp on admission, afebrile since then Ofirmev PRN ID following c/w azithro/zosyn day 3 legionella & RSV negative Code(s): A41.9 - SEPSIS, UNSPECIFIED ORGANISM Qualifiers: Sepsis type: sepsis due to unspecified organism Sepsis acute organ dysfunction status: unspecified Qualified Code(s): A41.9 - Sepsis, unspecified organism Visit type - Emergency Visit Emergency Visit: Yes ED Registration Date: 03/28/19 Care time: The patient presented to the Emergency Department on the above date and was hospitalized for further evaluation of their emergent condition. - New Patient This patient is new to me today: No - Critical Care Critical Care patient: No - Discharge Referral Referred to [facility] No
[2019-03-31] MEDS: TOPIRAMATE 200 MG TABLET (FP) GT SCH ×2 (09:21→23:22)
[2019-03-31] MEDS: CHLORHEXIDINE GLUCONATE 0.12% 15ML CUP MM SCH ×2 (09:21→23:16)
[2019-03-31] MEDS: AZITHROMYCIN 250 MG TABLET NR SCH (09:22)
[2019-03-31] MEDS: HEPARIN NA (PORCINE) 5,000 UNITS/ML 1ML VIAL SQ SCH ×2 (09:22→23:15)
[2019-03-31] MEDS: PHENobarbital 30 MG TABLET PEG SCH ×2 (09:22→23:12)
[2019-03-31] MEDS: BACLOFEN 10 MG TABLET (FP) PEG SCH ×4 (09:22→23:13)
[2019-03-31] MEDS: cloBAZam 10 MG TABLET PEG SCH ×2 (09:22→23:09)
[2019-03-31] MEDS: levETIRAcetam 500 MG/5 ML ORAL SOLUTION (UNIT-DOSE CUPS) PEG SCH ×2 (09:25→23:15)
[2019-03-31] MEDS: SENNOSIDES 8.6MG TABLET (FP) PO SCH ×2 (09:26→23:10)
[2019-03-31] MEDS: CLINDAMYCIN PHOSPHATE 1% TOPICAL SOLUTION 30 ML BOTTLE TP SCH (09:27)
--- NOTE | 2019-03-31 15:01 | PN ---
Progress Note (short form) - Note Progress Note: NAD on 2 L NC O2. No acute events overnight. Intake & Output 03/27/19 03/28/19 03/29/19 03/30/19 23:59 23:59 23:59 23:59 Intake Total 1100 590 90 Output Total 350 Balance 750 590 90 Weight 96 lb Last Vital Signs Temp Pulse Resp BP Pulse Ox 97 F L 88 20 103/57 L 95 03/30/19 06:00 03/30/19 06:00 03/30/19 06:00 03/30/19 06:00 03/29/19 21:00 Active Medications Acetaminophen (Ofirmev Injection -) 1,000 mg IVPB Q6H PRN PRN Reason: PAIN OR FEVER Albuterol/Ipratropium (Duoneb -) 1 amp NEB RQID [facility] Last Admin: 03/30/19 11:35 Dose: 1 amp Azithromycin (Zithromax -) 250 mg NR DAILY [facility] Last Admin: 03/30/19 09:26 Dose: 250 mg Baclofen (Lioresal -) 5 mg PEG QID [facility] Last Admin: 03/30/19 09:30 Dose: 5 mg Chlorhexidine Gluconate (Peridex -) 10 ml MM BID [facility] Last Admin: 03/29/19 21:02 Dose: 10 ml Clindamycin Phosphate (Cleocin 1% Topical Solution -) 1 applic TP DAILY [facility] Last Admin: 03/30/19 09:31 Dose: 1 applic Clobazam (Onfi -) 10 mg PEG BID [facility] Last Admin: 03/30/19 09:26 Dose: 10 mg Heparin Sodium (Porcine) (Heparin -) 5,000 unit SQ BID [facility] Last Admin: 03/30/19 09:26 Dose: 5,000 unit Piperacillin Sod/Tazobactam (Sod 3.375 gm/ Dextrose) 50 mls @ 100 mls/hr IVPB Q8H-IV [facility]; Protocol Last Admin: 03/30/19 09:30 Dose: 100 mls/hr Levetiracetam (Keppra Oral Solution -) 1,500 mg PEG BID [facility] Last Admin: 03/30/19 09:27 Dose: 1,500 mg Levothyroxine Sodium (Synthroid -) 75 mcg PEG AM [facility] Last Admin: 03/30/19 06:28 Dose: 75 mcg Loratadine (Claritin -) 10 mg NR HS [facility] Last Admin: 03/29/19 21:01 Dose: 10 mg Phenobarbital (Phenobarbital -) 60 mg PEG DAILY [facility] Last Admin: 03/30/19 09:26 Dose: 60 mg Phenobarbital (Phenobarbital -) 90 mg PEG HS [facility] Senna (Senna -) 2 tab PO BID [facility] Last Admin: 03/30/19 09:25 Dose: 2 tab Topiramate (Topamax -) 200 mg GT BID [facility] Last Admin: 03/30/19 09:29 Dose: 200 mg GENERAL: NAD on NC O2 HEAD: (-) trauma. EYES: sclera anicteric, conjunctiva clear. NECK: Trachea midline, full range of motion, supple. LUNGS: scattered rhonchi at the bases, no wheeze HEART: Regular rate and rhythm, S1, S2 without murmur, rub or gallop. ABDOMEN: Soft, NT, ND, (+) BS EXTREMITIES: 2+ pulses, warm, well-perfused, no edema. NEUROLOGICAL: pre-existing deficits PSYCH: Normal mood, normal affect. SKIN: Warm, dry, normal turgor, no rashes or lesions noted Laboratory Results - last 24 hr 03/30/19 03/30/19 05:50 05:50 WBC 6.2 RBC 3.99 L Hgb 13.7 Hct 41.2 MCV 103.1 H MCH 34.5 H MCHC 33.4 RDW 12.3 Plt Count 259 MPV 9.0 Absolute Neuts (auto) 4.1 Neutrophils % 66.1 D Lymphocytes % 20.8 D Monocytes % 9.8 D Eosinophils % 2.6 Basophils % 0.7 Nucleated RBC % 0 Sodium 141 Potassium 3.8 Chloride 110 H Carbon Dioxide 22 Anion Gap 9 BUN 6.8 L Creatinine 0.5 L Est GFR (CKD-EPI)AfAm 159.33 Est GFR (CKD-EPI)NonAf 137.47 Random Glucose 103 Calcium 8.8 Magnesium 2.2 Total Bilirubin 0.4 AST 11 L ALT 27 Alkaline Phosphatase 115 Total Protein 7.0 Albumin 3.2 L Vitamin B12 1312 H Serum Folate 24 H Problem List - Problems (1) Cortical blindness Code(s): H47.619 - CORTICAL BLINDNESS, UNSPECIFIED SIDE OF BRAIN (2) Feeding by G-tube Code(s): Z93.1 - GASTROSTOMY STATUS (3) GERD (gastroesophageal reflux disease) Code(s): K21.9 - GASTRO-ESOPHAGEAL REFLUX DISEASE WITHOUT ESOPHAGITIS (4) Microcephalic Code(s): Q02 - MICROCEPHALY (5) Pneumonia Code(s): J18.9 - PNEUMONIA, UNSPECIFIED ORGANISM Qualifiers: Pneumonia type: due to unspecified organism Laterality: unspecified laterality Lung location: unspecified part of lung Qualified Code(s): J18.9 - Pneumonia, unspecified organism (6) S/P SHIFT COORDINATOR shunt Code(s): Z98.2 - PRESENCE OF CEREBROSPINAL FLUID DRAINAGE DEVICE (7) Hypothyroid Code(s): E03.9 - HYPOTHYROIDISM, UNSPECIFIED (8) Seizure Code(s): R56.9 - UNSPECIFIED CONVULSIONS Qualifiers: Convulsion type: unspecified Qualified Code(s): R56.9 - Unspecified convulsions (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 IMP ACUTE RESPIRATORY DISTRESS LIKELY PNEUMONIA CEREBRAL PALSY SEVERE MENTAL RETARDATION MICROCEPHALY H/O INTRAVENTRICULAR BLEED S/P V-P SHUNT SEIZURES HYPOTHYROID CORTICAL BLINDNESS SPASTIC QUADRIPLEGIA PLAN IV ABX PER ID FOLLOW CULTURES INHALED BRONCHODILATORS SUPPLEMENTAL O2 NEEDED ASPIRATION PRECAUTIONS DR TAMEZ
[2019-03-31] MEDS: LORATADINE 10 MG TABLET NR SCH (23:10)
[2019-04-01] MEDS ORDERED: PIPERACILLIN/TAZOBACTAM 3.375 GM VIAL IVPB ONE ×3 (01:08→17:11)
[2019-04-01] MEDS ORDERED: DEXTROSE 5%-WATER - 50 ML IVPB ONE ×3 (01:08→17:11)
[2019-04-01] MEDS: PIPERACILLIN/TAZOB 3.375 GM 3.375 GM in DEXTROSE 5%-WATER - 50 ML IVPB SCH ×3 (01:24→17:19)
[2019-04-01] MEDS: LEVOTHYROXINE NA 75 MCG TABLET (FP) PEG SCH (06:04)
[2019-04-01 07:01] LABS: BASO % 0.5 % (0-2.0); EOS % 5.1 % (0-4.5); HEMATOCRIT 42.4 % (35.4-49); HEMOGLOBIN 14.5 GM/dL (11.7-16.9); MCH 34.9 pg (25.7-33.7); MCHC 34.2 g/dl (32.0-35.9); MEAN CELL VOLUME 102.1 fl (80-96); MONO % 10.7 % (3.8-10.2); NEUT % 53.7 % (42.8-82.8); PLATELET COUNT 275 K/MM3 (134-434); RBC 4.15 M/mm3 (4.00-5.60); RDW 12.2 % (11.9-15.9); WHITE BLOOD COUNT 6.1 K/mm3 (4.0-10.0)
[2019-04-01 07:23] LABS: ALBUMIN 3.4 g/dl (3.4-5.0); BILIRUBIN,TOTAL 0.4 mg/dL (0.2-1); BLOOD UREA NITROGEN 8.9 mg/dL (7-18); CALCIUM 9.3 mg/dL (8.5-10.1); CREATININE 0.5 mg/dL (0.55-1.3); MAGNESIUM 2.4 mg/dL (1.8-2.4); POTASSIUM 4.3 mmol/L (3.5-5.1); TOT PROT 7.7 g/dl (6.4-8.2)
[2019-04-01] MEDS: ALBUTEROL SO4 2.5/IPRATROPIUM 0.5 INH SOL 3 ML VIAL.NEB. NEB SCH ×4 (07:30→20:30)
--- NOTE | 2019-04-01 07:41 | PN ---
Progress Note, Physician Chief Complaint: non verbal, grimaces to touch History of Present Illness: History of Present Illness: 38yo M with PMH of MR, h/o profound Intellectual Disability, h/o intraventricular hemorrhage of , Generalized idiopathic epilepsy, Microcephaly, Cortical Blindness, GERD, Spastic quadriplegic cerebral palsy, Hypothyroidism, S/p PROFILE STITCHING MACHINE OPERATOR shunt placement, S/p G tube placement sent by [facility] for evaluation of cough and rule out PNA. History is limited as patient is nonverbal at baseline. - Current Medication List Current Medications: Active Medications Acetaminophen (Ofirmev Injection -) 1,000 mg IVPB Q6H PRN PRN Reason: PAIN OR FEVER Albuterol/Ipratropium (Duoneb -) 1 amp NEB RQID [facility] Last Admin: 03/31/19 21:01 Dose: 1 amp Azithromycin (Zithromax -) 250 mg NR DAILY [facility] Last Admin: 03/31/19 09:22 Dose: 250 mg Baclofen (Lioresal -) 5 mg PEG QID [facility] Last Admin: 03/31/19 23:13 Dose: 5 mg Chlorhexidine Gluconate (Peridex -) 10 ml MM BID [facility] Last Admin: 03/31/19 23:16 Dose: 10 ml Clindamycin Phosphate (Cleocin 1% Topical Solution -) 1 applic TP DAILY [facility] Last Admin: 03/31/19 09:27 Dose: 1 applic Clobazam (Onfi -) 10 mg PEG BID [facility] Last Admin: 03/31/19 23:09 Dose: 10 mg Heparin Sodium (Porcine) (Heparin -) 5,000 unit SQ BID [facility] Last Admin: 03/31/19 23:15 Dose: 5,000 unit Piperacillin Sod/Tazobactam (Sod 3.375 gm/ Dextrose) 50 mls @ 100 mls/hr IVPB Q8H-IV [facility]; Protocol Last Admin: 04/01/19 01:24 Dose: 100 mls/hr Levetiracetam (Keppra Oral Solution -) 1,500 mg PEG BID [facility] Last Admin: 03/31/19 23:15 Dose: 1,500 mg Levothyroxine Sodium (Synthroid -) 75 mcg PEG AM [facility] Last Admin: 04/01/19 06:04 Dose: 75 mcg Loratadine (Claritin -) 10 mg NR HS [facility] Last Admin: 03/31/19 23:10 Dose: 10 mg Phenobarbital (Phenobarbital -) 60 mg PEG DAILY [facility] Last Admin: 03/31/19 09:22 Dose: 60 mg Phenobarbital (Phenobarbital -) 90 mg PEG HS [facility] Last Admin: 03/31/19 23:12 Dose: 90 mg Senna (Senna -) 2 tab PO BID [facility] Last Admin: 03/31/19 23:10 Dose: 2 tab Topiramate (Topamax -) 200 mg GT BID [facility] Last Admin: 03/31/19 23:22 Dose: 200 mg - Objective Vital Signs: Vital Signs Temperature 97.2 F L 04/01/19 06:00 Pulse Rate 79 04/01/19 06:00 Respiratory Rate 18 04/01/19 06:00 Blood Pressure 90/56 L 04/01/19 06:00 O2 Sat by Pulse Oximetry (%) 100 03/31/19 21:00 Additional Findings/Remarks: Constitutional: Yes: Well Nourished, No Distress, Calm Eyes: Yes: WNL, Conjunctiva Clear HENT: Yes: WNL, Atraumatic, Normocephalic Neck: Yes: WNL, Supple, Trachea Midline Cardiovascular: Yes: WNL, Regular Rate and Rhythm Respiratory: Yes: Diminished, On Nasal O2, Rhonchi (scattered) Gastrointestinal: Yes: WNL, Normal Bowel Sounds, Other (PEG in place) ...Rectal Exam: Yes: Deferred Genitourinary: Yes: Incontinence Breast(s): Yes: WNL Extremities: Yes: WNL Edema: No Peripheral Pulses WNL: Yes Integumentary: Yes: WNL Neurological: Yes: Other (responds to tactile stimuli) Labs: CBC, BMP 04/01/19 05:35 04/01/19 05:35 INR, PTT INR 0.91 (0.83-1.09) 03/28/19 12:00 Problem List - Problems (1) Feeding by G-tube Assessment/Plan: Appreciate RD consultation c/w Jevity 1.5 @ goal rate of 40mls/hr + pump flush of 40mls/hr to provide vol. 960mls, 1440 cals, 61 gms pro & 730mls H20. Total [id number]. GT care as per nursing Code(s): Z93.1 - GASTROSTOMY STATUS (2) Pneumonia Assessment/Plan: scattered rales with cough, congestive changes on CXR c/w Vanco and zosyn day 4 ID consultation appreciated duo nebs supplemental O2 RSV (-) Legionella AG negative pulmonary consultation appreciated Code(s): J18.9 - PNEUMONIA, UNSPECIFIED ORGANISM Qualifiers: Pneumonia type: due to unspecified organism Laterality: unspecified laterality Lung location: unspecified part of lung Qualified Code(s): J18.9 - Pneumonia, unspecified organism (3) Cortical blindness Assessment/Plan: supportive care Code(s): H47.619 - CORTICAL BLINDNESS, UNSPECIFIED SIDE OF BRAIN (4) Microcephalic Code(s): Q02 - MICROCEPHALY (5) S/P PROFILE STITCHING MACHINE OPERATOR shunt Code(s): Z98.2 - PRESENCE OF CEREBROSPINAL FLUID DRAINAGE DEVICE (6) Prophylactic measure Assessment/Plan: FEN sufficient calories-c/w TF monitor electrolytes DVT heparin sc Dispo can be transfered off tele to [facility] bed full code discharge planning Code(s): Z29.9 - ENCOUNTER FOR PROPHYLACTIC MEASURES, UNSPECIFIED (7) Hypothyroid Assessment/Plan: c/w synthroid vis PEG Code(s): E03.9 - HYPOTHYROIDISM, UNSPECIFIED (8) Seizure Assessment/Plan: c/w keppra, topapax, clobazam keppra/lamictal level still pending Code(s): R56.9 - UNSPECIFIED CONVULSIONS Qualifiers: Convulsion type: unspecified Qualified Code(s): R56.9 - Unspecified convulsions (9) Spastic cerebral palsy Assessment/Plan: c/w balcofen via PEG Code(s): G80.1 - SPASTIC DIPLEGIC CEREBRAL PALSY (10) Sepsis Assessment/Plan: low Grade temp on admission, afebrile since then WBC 6.1 Ofirmev PRN ID following c/w azithro/zosyn day 4 legionella & RSV negative Code(s): A41.9 - SEPSIS, UNSPECIFIED ORGANISM Qualifiers: Sepsis type: sepsis due to unspecified organism Sepsis acute organ dysfunction status: unspecified Qualified Code(s): A41.9 - Sepsis, unspecified organism Visit type - Emergency Visit Emergency Visit: Yes ED Registration Date: 03/28/19 Care time: The patient presented to the Emergency Department on the above date and was hospitalized for further evaluation of their emergent condition. - New Patient This patient is new to me today: No - Critical Care Critical Care patient: No - Discharge Referral Referred to [facility] Med P.C.: No
[2019-04-01] MEDS ORDERED: PT OWN MED DRAWER 7, Y5N ONE ×3 (08:49→23:15)
[2019-04-01] MEDS: CLINDAMYCIN PHOSPHATE 1% TOPICAL SOLUTION 30 ML BOTTLE TP SCH (09:00)
[2019-04-01] MEDS: HEPARIN NA (PORCINE) 5,000 UNITS/ML 1ML VIAL SQ SCH ×2 (09:00→22:46)
[2019-04-01] MEDS: PHENobarbital 30 MG TABLET PEG SCH ×2 (09:01→22:48)
[2019-04-01] MEDS: SENNOSIDES 8.6MG TABLET (FP) PO SCH ×2 (09:01→22:50)
[2019-04-01] MEDS: BACLOFEN 10 MG TABLET (FP) PEG SCH ×4 (09:02→22:49)
[2019-04-01] MEDS: AZITHROMYCIN 250 MG TABLET NR SCH (09:02)
[2019-04-01] MEDS: cloBAZam 10 MG TABLET PEG SCH ×2 (09:02→22:47)
[2019-04-01] MEDS: CHLORHEXIDINE GLUCONATE 0.12% 15ML CUP MM SCH ×2 (09:02→22:50)
[2019-04-01] MEDS: levETIRAcetam 500 MG/5 ML ORAL SOLUTION (UNIT-DOSE CUPS) PEG SCH ×2 (09:03→22:50)
[2019-04-01] MEDS: TOPIRAMATE 200 MG TABLET (FP) GT SCH ×2 (09:04→22:47)
--- NOTE | 2019-04-01 10:49 | PN ---
Progress Note, Physician History of Present Illness: PULMONARY COMFORTABLE,-RESP DISTRESS,LESS CONGESTION - Current Medication List Current Medications: Active Medications Acetaminophen (Ofirmev Injection -) 1,000 mg IVPB Q6H PRN PRN Reason: PAIN OR FEVER Albuterol/Ipratropium (Duoneb -) 1 amp NEB RQID [facility] Last Admin: 04/01/19 07:30 Dose: 1 amp Azithromycin (Zithromax -) 250 mg NR DAILY [facility] Last Admin: 04/01/19 09:02 Dose: 250 mg Baclofen (Lioresal -) 5 mg PEG QID [facility] Last Admin: 04/01/19 09:02 Dose: 5 mg Chlorhexidine Gluconate (Peridex -) 10 ml MM BID [facility] Last Admin: 04/01/19 09:02 Dose: 10 ml Clindamycin Phosphate (Cleocin 1% Topical Solution -) 1 applic TP DAILY [facility] Last Admin: 04/01/19 09:00 Dose: 1 applic Clobazam (Onfi -) 10 mg PEG BID [facility] Last Admin: 04/01/19 09:02 Dose: 10 mg Heparin Sodium (Porcine) (Heparin -) 5,000 unit SQ BID [facility] Last Admin: 04/01/19 09:00 Dose: 5,000 unit Piperacillin Sod/Tazobactam (Sod 3.375 gm/ Dextrose) 50 mls @ 100 mls/hr IVPB Q8H-IV [facility]; Protocol Last Admin: 04/01/19 09:00 Dose: 100 mls/hr Levetiracetam (Keppra Oral Solution -) 1,500 mg PEG BID [facility] Last Admin: 04/01/19 09:03 Dose: 1,500 mg Levothyroxine Sodium (Synthroid -) 75 mcg PEG AM [facility] Last Admin: 04/01/19 06:04 Dose: 75 mcg Loratadine (Claritin -) 10 mg NR HS [facility] Last Admin: 03/31/19 23:10 Dose: 10 mg Phenobarbital (Phenobarbital -) 60 mg PEG DAILY [facility] Last Admin: 04/01/19 09:01 Dose: 60 mg Phenobarbital (Phenobarbital -) 90 mg PEG HS [facility] Last Admin: 03/31/19 23:12 Dose: 90 mg Senna (Senna -) 2 tab PO BID [facility] Last Admin: 04/01/19 09:01 Dose: 2 tab Topiramate (Topamax -) 200 mg GT BID [facility] Last Admin: 04/01/19 09:04 Dose: 200 mg - Objective Vital Signs: Vital Signs Temperature 98 F 04/01/19 09:33 Pulse Rate 68 04/01/19 09:33 Respiratory Rate 18 04/01/19 09:33 Blood Pressure 90/58 L 04/01/19 09:33 O2 Sat by Pulse Oximetry (%) 100 03/31/19 21:00 Constitutional: Yes: Calm, Thin Eyes: Yes: WNL HENT: Yes: WNL Neck: Yes: WNL Cardiovascular: Yes: Regular Rate and Rhythm, S1, S2 Respiratory: Yes: Rhonchi (FEW SCATTERED RHONCHI) Gastrointestinal: Yes: Normal Bowel Sounds, Soft Extremities: Yes: Other (CONTRACTED) Labs: CBC, BMP 04/01/19 05:35 04/01/19 05:35 INR, PTT INR 0.91 (0.83-1.09) 03/28/19 12:00 Problem List - Problems (1) Cortical blindness Code(s): H47.619 - CORTICAL BLINDNESS, UNSPECIFIED SIDE OF BRAIN (2) Feeding by G-tube Code(s): Z93.1 - GASTROSTOMY STATUS (3) GERD (gastroesophageal reflux disease) Code(s): K21.9 - GASTRO-ESOPHAGEAL REFLUX DISEASE WITHOUT ESOPHAGITIS (4) Microcephalic Code(s): Q02 - MICROCEPHALY (5) Pneumonia Code(s): J18.9 - PNEUMONIA, UNSPECIFIED ORGANISM Qualifiers: Pneumonia type: due to unspecified organism Laterality: unspecified laterality Lung location: unspecified part of lung Qualified Code(s): J18.9 - Pneumonia, unspecified organism (6) S/P REHEAT FURNACE OPERATOR shunt Code(s): Z98.2 - PRESENCE OF CEREBROSPINAL FLUID DRAINAGE DEVICE (7) Hypothyroid Code(s): E03.9 - HYPOTHYROIDISM, UNSPECIFIED (8) Seizure Code(s): R56.9 - UNSPECIFIED CONVULSIONS Qualifiers: Convulsion type: unspecified Qualified Code(s): R56.9 - Unspecified convulsions (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 Assessment/Plan IMP ACUTE RESPIRATORY DISTRESS IMPROVED LIKELY PNEUMONIA CEREBRAL PALSY SEVERE MENTAL RETARDATION MICROCEPHALY H/O INTRAVENTRICULAR BLEED S/P V-P SHUNT SEIZURES HYPOTHYROID CORTICAL BLINDNESS SPASTIC QUADRIPLEGIA PLAN IV ABX PER ID INHALED BRONCHODILATORS SUPPLEMENTAL O2 F/U CHEST X-RAYS DR TAY Problem List - Problems (1) Cortical blindness Code(s): H47.619 - CORTICAL BLINDNESS, UNSPECIFIED SIDE OF BRAIN (2) Feeding by G-tube Code(s): Z93.1 - GASTROSTOMY STATUS (3) GERD (gastroesophageal reflux disease) Code(s): K21.9 - GASTRO-ESOPHAGEAL REFLUX DISEASE WITHOUT ESOPHAGITIS (4) Microcephalic Code(s): Q02 - MICROCEPHALY (5) Pneumonia Code(s): J18.9 - PNEUMONIA, UNSPECIFIED ORGANISM Qualifiers: Pneumonia type: due to unspecified organism Laterality: unspecified laterality Lung location: unspecified part of lung Qualified Code(s): J18.9 - Pneumonia, unspecified organism (6) S/P REHEAT FURNACE OPERATOR shunt Code(s): Z98.2 - PRESENCE OF CEREBROSPINAL FLUID DRAINAGE DEVICE (7) Hypothyroid Code(s): E03.9 - HYPOTHYROIDISM, UNSPECIFIED (8) Seizure Code(s): R56.9 - UNSPECIFIED CONVULSIONS Qualifiers: Convulsion type: unspecified Qualified Code(s): R56.9 - Unspecified convulsions (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
--- NOTE | 2019-04-01 14:30 | PN ---
Progress Note (short form) - Note Progress Note: doing well afebrile day #5 antibiotics zosyn/zithromax Vital Signs Period Temp Pulse Resp BP Sys/[place] Pulse Ox Last 24 Hr 97.2 F-98.3 F 68-90 18-18 90-125/56-78 100-100 cor-rrr lungs clear abd soft,nt ext no edema CBC, BMP 04/01/19 05:35 04/01/19 05:35 Microbiology 03/28/19 12:39 Blood - Peripheral Venous Blood Culture - Preliminary NO GROWTH OBTAINED AFTER 96 HOURS, INCUBATION TO CONTINUE FOR 1 DAYS. 03/28/19 12:00 Blood - Peripheral Venous Blood Culture - Preliminary NO GROWTH OBTAINED AFTER 96 HOURS, INCUBATION TO CONTINUE FOR 1 DAYS. 03/29/19 02:45 Urine For Antigen Detection Legionella Antigen - Final- negative 03/29/19 02:45 Urine For Antigen Detection Streptococcus pneumoniae Antigen (M - Final-negative 03/28/19 12:39 Urine - Urine - Catheterized Urine Culture - Final NO GROWTH OBTAINED some increased markings on cxray- no clear infiltrates rsc negative Current Medications Acetaminophen (Ofirmev Injection -) 1,000 mg IVPB Q6H PRN PRN Reason: PAIN OR FEVER Albuterol/Ipratropium (Duoneb -) 1 amp NEB RQID [facility] Last Admin: 04/01/19 11:12 Dose: 1 amp Azithromycin (Zithromax -) 250 mg NR DAILY [facility] Last Admin: 04/01/19 09:02 Dose: 250 mg Baclofen (Lioresal -) 5 mg PEG QID [facility] Last Admin: 04/01/19 14:08 Dose: 5 mg Chlorhexidine Gluconate (Peridex -) 10 ml MM BID [facility] Last Admin: 04/01/19 09:02 Dose: 10 ml Clindamycin Phosphate (Cleocin 1% Topical Solution -) 1 applic TP DAILY [facility] Last Admin: 04/01/19 09:00 Dose: 1 applic Clobazam (Onfi -) 10 mg PEG BID [facility] Last Admin: 04/01/19 09:02 Dose: 10 mg Heparin Sodium (Porcine) (Heparin -) 5,000 unit SQ BID [facility] Last Admin: 04/01/19 09:00 Dose: 5,000 unit Piperacillin Sod/Tazobactam (Sod 3.375 gm/ Dextrose) 50 mls @ 100 mls/hr IVPB Q8H-IV [facility]; Protocol Last Admin: 04/01/19 09:00 Dose: 100 mls/hr Levetiracetam (Keppra Oral Solution -) 1,500 mg PEG BID [facility] Last Admin: 04/01/19 09:03 Dose: 1,500 mg Levothyroxine Sodium (Synthroid -) 75 mcg PEG AM [facility] Last Admin: 04/01/19 06:04 Dose: 75 mcg Loratadine (Claritin -) 10 mg NR HS [facility] Last Admin: 03/31/19 23:10 Dose: 10 mg Phenobarbital (Phenobarbital -) 60 mg PEG DAILY [facility] Last Admin: 04/01/19 09:01 Dose: 60 mg Phenobarbital (Phenobarbital -) 90 mg PEG HS [facility] Last Admin: 03/31/19 23:12 Dose: 90 mg Senna (Senna -) 2 tab PO BID [facility] Last Admin: 04/01/19 09:01 Dose: 2 tab Topiramate (Topamax -) 200 mg GT BID [facility] Last Admin: 04/01/19 09:04 Dose: 200 mg a/p ?pneumonia leukocytosis-has resolved day #5 zosyn/zithromax can switch to augmentin via gt for another 2 days history of seizure disorder- multiple developmental disabilities Problem List - Problems (1) Pneumonia Code(s): J18.9 - PNEUMONIA, UNSPECIFIED ORGANISM Qualifiers: Pneumonia type: due to unspecified organism Laterality: unspecified laterality Lung location: unspecified part of lung Qualified Code(s): J18.9 - Pneumonia, unspecified organism (2) S/P STOCKKEEPER shunt Code(s): Z98.2 - PRESENCE OF CEREBROSPINAL FLUID DRAINAGE DEVICE (3) Seizure disorder Code(s): G40.909 - EPILEPSY, UNSP, NOT INTRACTABLE, WITHOUT STATUS EPILEPTICUS
[2019-04-01] MEDS: LORATADINE 10 MG TABLET NR SCH (22:48)
[2019-04-02] MEDS ORDERED: DEXTROSE 5%-WATER - 50 ML IVPB ONE ×3 (00:57→17:05)
[2019-04-02] MEDS ORDERED: PIPERACILLIN/TAZOBACTAM 3.375 GM VIAL IVPB ONE ×3 (00:57→17:05)
[2019-04-02] MEDS: PIPERACILLIN/TAZOB 3.375 GM 3.375 GM in DEXTROSE 5%-WATER - 50 ML IVPB SCH ×3 (01:36→17:10)
[2019-04-02] MEDS: LEVOTHYROXINE NA 75 MCG TABLET (FP) PEG SCH (07:06)
[2019-04-02] MEDS: ALBUTEROL SO4 2.5/IPRATROPIUM 0.5 INH SOL 3 ML VIAL.NEB. NEB SCH ×4 (07:46→21:05)
[2019-04-02] MEDS: CHLORHEXIDINE GLUCONATE 0.12% 15ML CUP MM SCH ×2 (09:55→23:12)
[2019-04-02] MEDS: BACLOFEN 10 MG TABLET (FP) PEG SCH ×4 (09:56→23:11)
[2019-04-02] MEDS: PHENobarbital 30 MG TABLET PEG SCH ×2 (09:56→23:11)
[2019-04-02] MEDS: SENNOSIDES 8.6MG TABLET (FP) PO SCH ×2 (09:56→23:11)
[2019-04-02] MEDS: cloBAZam 10 MG TABLET PEG SCH ×2 (09:57→23:12)
[2019-04-02] MEDS: HEPARIN NA (PORCINE) 5,000 UNITS/ML 1ML VIAL SQ SCH ×2 (09:57→23:12)
[2019-04-02] MEDS: AZITHROMYCIN 250 MG TABLET NR SCH (09:57)
[2019-04-02] MEDS: TOPIRAMATE 200 MG TABLET (FP) GT SCH ×2 (09:58→23:11)
[2019-04-02] MEDS: levETIRAcetam 500 MG/5 ML ORAL SOLUTION (UNIT-DOSE CUPS) PEG SCH ×2 (09:59→23:12)
[2019-04-02] MEDS: CLINDAMYCIN PHOSPHATE 1% TOPICAL SOLUTION 30 ML BOTTLE TP SCH (09:59)
--- NOTE | 2019-04-02 11:08 | PN ---
Progress Note, Physician History of Present Illness: PULMONARY COMFORTABLE,-RESP DISTRESS - Current Medication List Current Medications: Active Medications Acetaminophen (Ofirmev Injection -) 1,000 mg IVPB Q6H PRN PRN Reason: PAIN OR FEVER Albuterol/Ipratropium (Duoneb -) 1 amp NEB RQID [facility] Last Admin: 04/02/19 07:46 Dose: 1 amp Azithromycin (Zithromax -) 250 mg NR DAILY [facility] Last Admin: 04/02/19 09:57 Dose: 250 mg Baclofen (Lioresal -) 5 mg PEG QID [facility] Last Admin: 04/02/19 09:56 Dose: 5 mg Chlorhexidine Gluconate (Peridex -) 10 ml MM BID [facility] Last Admin: 04/02/19 09:55 Dose: 10 ml Clindamycin Phosphate (Cleocin 1% Topical Solution -) 1 applic TP DAILY [facility] Last Admin: 04/02/19 09:59 Dose: 1 applic Clobazam (Onfi -) 10 mg PEG BID [facility] Last Admin: 04/02/19 09:57 Dose: 10 mg Heparin Sodium (Porcine) (Heparin -) 5,000 unit SQ BID [facility] Last Admin: 04/02/19 09:57 Dose: 5,000 unit Piperacillin Sod/Tazobactam (Sod 3.375 gm/ Dextrose) 50 mls @ 100 mls/hr IVPB Q8H-IV [facility]; Protocol Last Admin: 04/02/19 09:49 Dose: 100 mls/hr Levetiracetam (Keppra Oral Solution -) 1,500 mg PEG BID [facility] Last Admin: 04/02/19 09:59 Dose: 1,500 mg Levothyroxine Sodium (Synthroid -) 75 mcg PEG AM [facility] Last Admin: 04/02/19 07:06 Dose: 75 mcg Loratadine (Claritin -) 10 mg NR HS [facility] Last Admin: 04/01/19 22:48 Dose: 10 mg Phenobarbital (Phenobarbital -) 60 mg PEG DAILY [facility] Last Admin: 04/02/19 09:56 Dose: 60 mg Phenobarbital (Phenobarbital -) 90 mg PEG HS [facility] Last Admin: 04/01/19 22:48 Dose: 90 mg Senna (Senna -) 2 tab PO BID [facility] Last Admin: 04/02/19 09:56 Dose: 2 tab Topiramate (Topamax -) 200 mg GT BID [facility] Last Admin: 04/02/19 09:58 Dose: 200 mg - Objective Vital Signs: Vital Signs Temperature 97.1 F L 04/02/19 07:55 Pulse Rate 72 04/02/19 07:55 Respiratory Rate 18 04/02/19 07:55 Blood Pressure 108/75 04/02/19 07:55 O2 Sat by Pulse Oximetry (%) 97 04/02/19 07:55 Constitutional: Yes: Calm, Thin Eyes: Yes: WNL HENT: Yes: WNL Neck: Yes: WNL Cardiovascular: Yes: Regular Rate and Rhythm, S1, S2 Respiratory: Yes: Diminished Gastrointestinal: Yes: Normal Bowel Sounds, Soft Extremities: Yes: Other (CONTRACTED) Edema: No Labs: CBC, BMP Problem List - Problems (1) Cortical blindness Code(s): H47.619 - CORTICAL BLINDNESS, UNSPECIFIED SIDE OF BRAIN (2) Feeding by G-tube Code(s): Z93.1 - GASTROSTOMY STATUS (3) GERD (gastroesophageal reflux disease) Code(s): K21.9 - GASTRO-ESOPHAGEAL REFLUX DISEASE WITHOUT ESOPHAGITIS (4) Microcephalic Code(s): Q02 - MICROCEPHALY (5) Pneumonia Code(s): J18.9 - PNEUMONIA, UNSPECIFIED ORGANISM Qualifiers: Pneumonia type: due to unspecified organism Laterality: unspecified laterality Lung location: unspecified part of lung Qualified Code(s): J18.9 - Pneumonia, unspecified organism (6) S/P SENIOR PORTFOLIO MANAGER shunt Code(s): Z98.2 - PRESENCE OF CEREBROSPINAL FLUID DRAINAGE DEVICE (7) Hypothyroid Code(s): E03.9 - HYPOTHYROIDISM, UNSPECIFIED (8) Seizure Code(s): R56.9 - UNSPECIFIED CONVULSIONS Qualifiers: Convulsion type: unspecified Qualified Code(s): R56.9 - Unspecified convulsions (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 Assessment/Plan IMP ACUTE RESPIRATORY DISTRESS IMPROVED LIKELY PNEUMONIA CEREBRAL PALSY SEVERE MENTAL RETARDATION MICROCEPHALY H/O INTRAVENTRICULAR BLEED S/P V-P SHUNT SEIZURES HYPOTHYROID CORTICAL BLINDNESS SPASTIC QUADRIPLEGIA PLAN IV ABX PER ID INHALED BRONCHODILATORS SUPPLEMENTAL O2 F/U CHEST X-RAYS DR TAY Problem List - Problems (1) Cortical blindness Code(s): H47.619 - CORTICAL BLINDNESS, UNSPECIFIED SIDE OF BRAIN (2) Feeding by G-tube Code(s): Z93.1 - GASTROSTOMY STATUS (3) GERD (gastroesophageal reflux disease) Code(s): K21.9 - GASTRO-ESOPHAGEAL REFLUX DISEASE WITHOUT ESOPHAGITIS (4) Microcephalic Code(s): Q02 - MICROCEPHALY (5) Pneumonia Code(s): J18.9 - PNEUMONIA, UNSPECIFIED ORGANISM Qualifiers: Pneumonia type: due to unspecified organism Laterality: unspecified laterality Lung location: unspecified part of lung Qualified Code(s): J18.9 - Pneumonia, unspecified organism (6) S/P [employer] shunt Code(s): Z98.2 - PRESENCE OF CEREBROSPINAL FLUID DRAINAGE DEVICE (7) Hypothyroid Code(s): E03.9 - HYPOTHYROIDISM, UNSPECIFIED (8) Seizure Code(s): R56.9 - UNSPECIFIED CONVULSIONS Qualifiers: Convulsion type: unspecified Qualified Code(s): R56.9 - Unspecified convulsions (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
--- NOTE | 2019-04-02 13:35 | PN ---
Progress Note, Physician Chief Complaint: appears comfortable at rest. non verbal. on oxygen support. History of Present Illness: Patient is a 38 year old male with a significant past medical history of MR, h/ o profound Intellectual disability, h/o intraventricular hemorrhage of , generalized idiopathic epilepsy, microcephaly, cortical blindness, GERD, spastic quadriplegic cerebral palsy, hypothyroidism, s/p PRINT SUPPORT SPECIALIST shunt placement, S/ p G tube placement sent by Allan for evaluation of cough and rule out PNA. History is limited as patient is nonverbal at baseline. - Current Medication List Current Medications: Active Medications Acetaminophen (Ofirmev Injection -) 1,000 mg IVPB Q6H PRN PRN Reason: PAIN OR FEVER Albuterol/Ipratropium (Duoneb -) 1 amp NEB RQID [facility] Last Admin: 04/02/19 11:25 Dose: 1 amp Azithromycin (Zithromax -) 250 mg NR DAILY [facility] Last Admin: 04/02/19 09:57 Dose: 250 mg Baclofen (Lioresal -) 5 mg PEG QID [facility] Last Admin: 04/02/19 09:56 Dose: 5 mg Chlorhexidine Gluconate (Peridex -) 10 ml MM BID [facility] Last Admin: 04/02/19 09:55 Dose: 10 ml Clindamycin Phosphate (Cleocin 1% Topical Solution -) 1 applic TP DAILY [facility] Last Admin: 04/02/19 09:59 Dose: 1 applic Clobazam (Onfi -) 10 mg PEG BID [facility] Last Admin: 04/02/19 09:57 Dose: 10 mg Heparin Sodium (Porcine) (Heparin -) 5,000 unit SQ BID [facility] Last Admin: 04/02/19 09:57 Dose: 5,000 unit Piperacillin Sod/Tazobactam (Sod 3.375 gm/ Dextrose) 50 mls @ 100 mls/hr IVPB Q8H-IV [facility]; Protocol Last Admin: 04/02/19 09:49 Dose: 100 mls/hr Levetiracetam (Keppra Oral Solution -) 1,500 mg PEG BID [facility] Last Admin: 04/02/19 09:59 Dose: 1,500 mg Levothyroxine Sodium (Synthroid -) 75 mcg PEG AM [facility] Last Admin: 04/02/19 07:06 Dose: 75 mcg Loratadine (Claritin -) 10 mg NR HS [facility] Last Admin: 04/01/19 22:48 Dose: 10 mg Phenobarbital (Phenobarbital -) 60 mg PEG DAILY [facility] Last Admin: 04/02/19 09:56 Dose: 60 mg Phenobarbital (Phenobarbital -) 90 mg PEG HS [facility] Last Admin: 04/01/19 22:48 Dose: 90 mg Senna (Senna -) 2 tab PO BID [facility] Last Admin: 04/02/19 09:56 Dose: 2 tab Topiramate (Topamax -) 200 mg GT BID [facility] Last Admin: 04/02/19 09:58 Dose: 200 mg - Objective Vital Signs: Vital Signs Temperature 97.1 F L 04/02/19 07:55 Pulse Rate 72 04/02/19 07:55 Respiratory Rate 18 04/02/19 07:55 Blood Pressure 108/75 04/02/19 07:55 O2 Sat by Pulse Oximetry (%) 97 04/02/19 07:55 Constitutional: Yes: Calm Eyes: Yes: WNL HENT: Yes: Atraumatic Neck: Yes: WNL Cardiovascular: Yes: Regular Rate and Rhythm Respiratory: Yes: Rhonchi Gastrointestinal: Yes: Soft ...Rectal Exam: Yes: Deferred Genitourinary: Yes: WNL Extremities: Yes: WNL Edema: No Integumentary: Yes: WNL Neurological: Yes: Alert Psychiatric: Yes: Alert Labs: CBC, BMP 04/01/19 05:35 04/01/19 05:35 INR, PTT INR 0.91 (0.83-1.09) 03/28/19 12:00 Problem List - Problems (1) Pneumonia Assessment/Plan: scattered rhonchi with cough, congestive changes on CXR c/w Vanco and zosyn, per ID can be converted to PO on d/c ID consultation appreciated duo nebs supplemental O2 RSV (-) Legionella AG negative pulmonary consultation appreciated Code(s): J18.9 - PNEUMONIA, UNSPECIFIED ORGANISM Qualifiers: Pneumonia type: due to unspecified organism Laterality: unspecified laterality Lung location: unspecified part of lung Qualified Code(s): J18.9 - Pneumonia, unspecified organism (2) Sepsis Assessment/Plan: low Grade temp on admission, remains afebrile WBC within normal limits. awaiting today's labs. Ofirmev PRN ID following Code(s): A41.9 - SEPSIS, UNSPECIFIED ORGANISM Qualifiers: Sepsis type: sepsis due to unspecified organism Sepsis acute organ dysfunction status: unspecified Qualified Code(s): A41.9 - Sepsis, unspecified organism (3) Cortical blindness Assessment/Plan: supportive care, re orient to environment. Code(s): H47.619 - CORTICAL BLINDNESS, UNSPECIFIED SIDE OF BRAIN (4) Feeding by G-tube Assessment/Plan: Appreciate RD consultation c/w Jevity 1.5 @ goal rate of 40mls/hr + pump flush of 40mls/hr aspiration risk. maintain hob elevated with feeds. Code(s): Z93.1 - GASTROSTOMY STATUS (5) GERD (gastroesophageal reflux disease) Code(s): K21.9 - GASTRO-ESOPHAGEAL REFLUX DISEASE WITHOUT ESOPHAGITIS (6) Microcephalic Assessment/Plan: history Code(s): Q02 - MICROCEPHALY (7) S/P PRINT SUPPORT SPECIALIST shunt Code(s): Z98.2 - PRESENCE OF CEREBROSPINAL FLUID DRAINAGE DEVICE (8) Hypothyroid Assessment/Plan: c/w synthroid vis PEG Code(s): E03.9 - HYPOTHYROIDISM, UNSPECIFIED (9) Hypoxia Code(s): R09.02 - HYPOXEMIA (10) Seizure disorder Assessment/Plan: c/w keppra, topapax, clobazam keppra/lamictal levels pending Code(s): G40.909 - EPILEPSY, UNSP, NOT INTRACTABLE, WITHOUT STATUS EPILEPTICUS (11) Prophylactic measure Assessment/Plan: fen tube feeds at goal rate SCDs on heparin Code(s): Z29.9 - ENCOUNTER FOR PROPHYLACTIC MEASURES, UNSPECIFIED (12) DVT prophylaxis Code(s): SCS3087 - Visit type - Emergency Visit Emergency Visit: Yes ED Registration Date: 03/28/19 Care time: The patient presented to the Emergency Department on the above date and was hospitalized for further evaluation of their emergent condition. - New Patient This patient is new to me today: Yes Date on this admission: 04/02/19 - Critical Care Critical Care patient: No - Discharge Referral Referred to [facility] Med P.C.: No
[2019-04-02 16:33] LABS: BASO % 0.8 % (0-2.0); EOS % 3.9 % (0-4.5); HEMATOCRIT 43.9 % (35.4-49); HEMOGLOBIN 14.6 GM/dL (11.7-16.9); LYMPH % 15.8 % (8-40); MCH 34.1 pg (25.7-33.7); MCHC 33.3 g/dl (32.0-35.9); MEAN CELL VOLUME 102.5 fl (80-96); MEAN PLT VOLUME 9.9 fl (7.5-11.1); MONO % 6.4 % (3.8-10.2); NEUT % 73.1 % (42.8-82.8); PLATELET COUNT 240 K/MM3 (134-434); RBC 4.28 M/mm3 (4.00-5.60); RDW 12.3 % (11.9-15.9)
[2019-04-02 17:00] LABS: ALBUMIN 3.5 g/dl (3.4-5.0); BILIRUBIN,TOTAL 0.3 mg/dL (0.2-1); BLOOD UREA NITROGEN 11.7 mg/dL (7-18); CALCIUM 9.2 mg/dL (8.5-10.1); CREATININE 0.5 mg/dL (0.55-1.3); TOT PROT 7.7 g/dl (6.4-8.2)
[2019-04-02] MEDS ORDERED: PT OWN MED DRAWER 7, Y5N ONE (21:20)
[2019-04-02] MEDS: LORATADINE 10 MG TABLET NR SCH (23:11)
[2019-04-03] MEDS ORDERED: DEXTROSE 5%-WATER - 50 ML IVPB ONE ×2 (02:50→10:34)
[2019-04-03] MEDS ORDERED: PIPERACILLIN/TAZOBACTAM 3.375 GM VIAL IVPB ONE ×2 (02:50→10:34)
[2019-04-03] MEDS: PIPERACILLIN/TAZOB 3.375 GM 3.375 GM in DEXTROSE 5%-WATER - 50 ML IVPB SCH ×2 (02:54→10:36)
[2019-04-03] MEDS: LEVOTHYROXINE NA 75 MCG TABLET (FP) PEG SCH (06:31)
[2019-04-03 08:09] LABS: BASO % 1.5 % (0-2.0); EOS % 5.6 % (0-4.5); HEMATOCRIT 41.8 % (35.4-49); HEMOGLOBIN 14.4 GM/dL (11.7-16.9); LYMPH % 33.4 % (8-40); MCH 35.1 pg (25.7-33.7); MCHC 34.3 g/dl (32.0-35.9); MEAN CELL VOLUME 102.1 fl (80-96); MEAN PLT VOLUME 8.8 fl (7.5-11.1); MONO % 12.9 % (3.8-10.2); NEUT % 46.6 % (42.8-82.8); PLATELET COUNT 296 K/MM3 (134-434); RDW 11.9 % (11.9-15.9); WHITE BLOOD COUNT 4.6 K/mm3 (4.0-10.0)
[2019-04-03 08:39] LABS: ALBUMIN 3.4 g/dl (3.4-5.0); BILIRUBIN,TOTAL 0.3 mg/dL (0.2-1); BLOOD UREA NITROGEN 11.8 mg/dL (7-18); CALCIUM 9.5 mg/dL (8.5-10.1); CREATININE 0.4 mg/dL (0.55-1.3); POTASSIUM 3.9 mmol/L (3.5-5.1); TOT PROT 7.6 g/dl (6.4-8.2)
[2019-04-03] MEDS: ALBUTEROL SO4 2.5/IPRATROPIUM 0.5 INH SOL 3 ML VIAL.NEB. NEB SCH ×3 (09:10→16:17)
[2019-04-03] MEDS: BACLOFEN 10 MG TABLET (FP) PEG SCH ×2 (10:00→14:00)
[2019-04-03] MEDS: SENNOSIDES 8.6MG TABLET (FP) PO SCH (10:36)
[2019-04-03] MEDS: levETIRAcetam 500 MG/5 ML ORAL SOLUTION (UNIT-DOSE CUPS) PEG SCH (10:37)
[2019-04-03] MEDS: PHENobarbital 30 MG TABLET PEG SCH (10:37)
[2019-04-03] MEDS: cloBAZam 10 MG TABLET PEG SCH (10:37)
[2019-04-03] MEDS: AZITHROMYCIN 250 MG TABLET NR SCH (10:37)
[2019-04-03] MEDS: HEPARIN NA (PORCINE) 5,000 UNITS/ML 1ML VIAL SQ SCH (10:37)
[2019-04-03] MEDS: CLINDAMYCIN PHOSPHATE 1% TOPICAL SOLUTION 30 ML BOTTLE TP SCH (10:38)
[2019-04-03] MEDS: CHLORHEXIDINE GLUCONATE 0.12% 15ML CUP MM SCH (10:38)
[2019-04-03] MEDS: TOPIRAMATE 200 MG TABLET (FP) GT SCH (10:38)
--- NOTE | 2019-04-03 10:53 | PN ---
Progress Note, Physician History of Present Illness: PULMONARY SLEEPING,-RESP DISTRESS,-CONGESTION - Current Medication List Current Medications: Active Medications Acetaminophen (Ofirmev Injection -) 1,000 mg IVPB Q6H PRN PRN Reason: PAIN OR FEVER Albuterol/Ipratropium (Duoneb -) 1 amp NEB RQID [facility] Last Admin: 04/03/19 09:10 Dose: 1 amp Azithromycin (Zithromax -) 250 mg NR DAILY [facility] Last Admin: 04/03/19 10:37 Dose: 250 mg Baclofen (Lioresal -) 5 mg PEG QID [facility] Last Admin: 04/02/19 23:11 Dose: 5 mg Chlorhexidine Gluconate (Peridex -) 10 ml MM BID [facility] Last Admin: 04/03/19 10:38 Dose: 10 ml Clindamycin Phosphate (Cleocin 1% Topical Solution -) 1 applic TP DAILY [facility] Last Admin: 04/03/19 10:38 Dose: 1 applic Clobazam (Onfi -) 10 mg PEG BID [facility] Last Admin: 04/03/19 10:37 Dose: 10 mg Heparin Sodium (Porcine) (Heparin -) 5,000 unit SQ BID [facility] Last Admin: 04/03/19 10:37 Dose: 5,000 unit Piperacillin Sod/Tazobactam (Sod 3.375 gm/ Dextrose) 50 mls @ 100 mls/hr IVPB Q8H-IV [facility]; Protocol Last Admin: 04/03/19 10:36 Dose: 100 mls/hr Levetiracetam (Keppra Oral Solution -) 1,500 mg PEG BID [facility] Last Admin: 04/03/19 10:37 Dose: 1,500 mg Levothyroxine Sodium (Synthroid -) 75 mcg PEG AM [facility] Last Admin: 04/03/19 06:31 Dose: 75 mcg Loratadine (Claritin -) 10 mg NR HS [facility] Last Admin: 04/02/19 23:11 Dose: 10 mg Phenobarbital (Phenobarbital -) 60 mg PEG DAILY [facility] Last Admin: 04/03/19 10:37 Dose: 60 mg Phenobarbital (Phenobarbital -) 90 mg PEG HS [facility] Last Admin: 04/02/19 23:11 Dose: 90 mg Senna (Senna -) 2 tab PO BID [facility] Last Admin: 04/03/19 10:36 Dose: 2 tab Topiramate (Topamax -) 200 mg GT BID [facility] Last Admin: 04/03/19 10:38 Dose: 200 mg - Objective Vital Signs: Vital Signs Temperature 97.8 F 04/03/19 06:00 Pulse Rate 74 04/03/19 06:00 Respiratory Rate 18 04/03/19 06:00 Blood Pressure 108/66 04/03/19 06:00 O2 Sat by Pulse Oximetry (%) 100 04/02/19 21:00 Constitutional: Yes: Thin, Other (SLEEPING) Eyes: Yes: WNL HENT: Yes: WNL Neck: Yes: WNL Cardiovascular: Yes: Regular Rate and Rhythm, S1, S2 Respiratory: Yes: Diminished Gastrointestinal: Yes: Normal Bowel Sounds, Soft Extremities: Yes: Other (CONTRACTED) Edema: No Labs: CBC, BMP 04/03/19 06:19 04/03/19 06:19 INR, PTT INR 0.91 (0.83-1.09) 03/28/19 12:00 Problem List - Problems (1) Cortical blindness Code(s): H47.619 - CORTICAL BLINDNESS, UNSPECIFIED SIDE OF BRAIN (2) Feeding by G-tube Code(s): Z93.1 - GASTROSTOMY STATUS (3) GERD (gastroesophageal reflux disease) Code(s): K21.9 - GASTRO-ESOPHAGEAL REFLUX DISEASE WITHOUT ESOPHAGITIS (4) Microcephalic Code(s): Q02 - MICROCEPHALY (5) Pneumonia Code(s): J18.9 - PNEUMONIA, UNSPECIFIED ORGANISM Qualifiers: Pneumonia type: due to unspecified organism Laterality: unspecified laterality Lung location: unspecified part of lung Qualified Code(s): J18.9 - Pneumonia, unspecified organism (6) S/P SUBSTATION ELECTRICIAN shunt Code(s): Z98.2 - PRESENCE OF CEREBROSPINAL FLUID DRAINAGE DEVICE (7) Hypothyroid Code(s): E03.9 - HYPOTHYROIDISM, UNSPECIFIED (8) Seizure Code(s): R56.9 - UNSPECIFIED CONVULSIONS Qualifiers: Convulsion type: unspecified Qualified Code(s): R56.9 - Unspecified convulsions (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 Assessment/Plan IMP ACUTE RESPIRATORY DISTRESS IMPROVED LIKELY PNEUMONIA CEREBRAL PALSY SEVERE MENTAL RETARDATION MICROCEPHALY H/O INTRAVENTRICULAR BLEED S/P V-P SHUNT SEIZURES HYPOTHYROID CORTICAL BLINDNESS SPASTIC QUADRIPLEGIA PLAN IV ABX PER ID INHALED BRONCHODILATORS SUPPLEMENTAL O2 F/U CHEST X-RAYS DR TAY Problem List - Problems (1) Cortical blindness Code(s): H47.619 - CORTICAL BLINDNESS, UNSPECIFIED SIDE OF BRAIN (2) Feeding by G-tube Code(s): Z93.1 - GASTROSTOMY STATUS (3) GERD (gastroesophageal reflux disease) Code(s): K21.9 - GASTRO-ESOPHAGEAL REFLUX DISEASE WITHOUT ESOPHAGITIS (4) Microcephalic Code(s): Q02 - MICROCEPHALY (5) Pneumonia Code(s): J18.9 - PNEUMONIA, UNSPECIFIED ORGANISM Qualifiers: Pneumonia type: due to unspecified organism Laterality: unspecified laterality Lung location: unspecified part of lung Qualified Code(s): J18.9 - Pneumonia, unspecified organism (6) S/P SUBSTATION ELECTRICIAN shunt Code(s): Z98.2 - PRESENCE OF CEREBROSPINAL FLUID DRAINAGE DEVICE (7) Hypothyroid Code(s): E03.9 - HYPOTHYROIDISM, UNSPECIFIED (8) Seizure Code(s): R56.9 - UNSPECIFIED CONVULSIONS Qualifiers: Convulsion type: unspecified Qualified Code(s): R56.9 - Unspecified convulsions (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
[2019-04-03 11:36] VITALS: TEMP 97.5
[2019-04-03 13:35] VITALS: PULSE 97
--- NOTE | 2019-04-03 14:13 | PN ---
Progress Note, Physician Chief Complaint: appears comfortable at rest. non verbal. discharge back to [place] once we have clearance and signout can be given to Allan CARRIAGE DOGGER (Broderick) [phone] History of Present Illness: Patient is a 38 year old male with a significant past medical history of MR, h/ o profound Intellectual disability, h/o intraventricular hemorrhage of , generalized idiopathic epilepsy, microcephaly, cortical blindness, GERD, spastic quadriplegic cerebral palsy, hypothyroidism, s/p SUPER[employer] shunt placement, S/ p G tube placement sent by Allan for evaluation of cough and rule out PNA. History is limited as patient is nonverbal at baseline. - Current Medication List Current Medications: Active Medications Acetaminophen (Ofirmev Injection -) 1,000 mg IVPB Q6H PRN PRN Reason: PAIN OR FEVER Albuterol/Ipratropium (Duoneb -) 1 amp NEB RQID [facility] Last Admin: 04/03/19 11:47 Dose: 1 amp Azithromycin (Zithromax -) 250 mg NR DAILY [facility] Last Admin: 04/03/19 10:37 Dose: 250 mg Baclofen (Lioresal -) 5 mg PEG QID [facility] Last Admin: 04/03/19 10:00 Dose: Not Given Chlorhexidine Gluconate (Peridex -) 10 ml MM BID [facility] Last Admin: 04/03/19 10:38 Dose: 10 ml Clindamycin Phosphate (Cleocin 1% Topical Solution -) 1 applic TP DAILY [facility] Last Admin: 04/03/19 10:38 Dose: 1 applic Clobazam (Onfi -) 10 mg PEG BID [facility] Last Admin: 04/03/19 10:37 Dose: 10 mg Heparin Sodium (Porcine) (Heparin -) 5,000 unit SQ BID [facility] Last Admin: 04/03/19 10:37 Dose: 5,000 unit Piperacillin Sod/Tazobactam (Sod 3.375 gm/ Dextrose) 50 mls @ 100 mls/hr IVPB Q8H-IV [facility]; Protocol Last Admin: 04/03/19 10:36 Dose: 100 mls/hr Levetiracetam (Keppra Oral Solution -) 1,500 mg PEG BID [facility] Last Admin: 04/03/19 10:37 Dose: 1,500 mg Levothyroxine Sodium (Synthroid -) 75 mcg PEG AM [facility] Last Admin: 04/03/19 06:31 Dose: 75 mcg Loratadine (Claritin -) 10 mg NR HS [facility] Last Admin: 04/02/19 23:11 Dose: 10 mg Phenobarbital (Phenobarbital -) 60 mg PEG DAILY [facility] Last Admin: 04/03/19 10:37 Dose: 60 mg Phenobarbital (Phenobarbital -) 90 mg PEG HS [facility] Last Admin: 04/02/19 23:11 Dose: 90 mg Senna (Senna -) 2 tab PO BID [facility] Last Admin: 04/03/19 10:36 Dose: 2 tab Topiramate (Topamax -) 200 mg GT BID [facility] Last Admin: 04/03/19 10:38 Dose: 200 mg - Objective Vital Signs: Vital Signs Temperature 97.5 F L 04/03/19 10:00 Pulse Rate 97 H 04/03/19 13:31 Respiratory Rate 22 H 04/03/19 10:00 Blood Pressure 126/84 04/03/19 10:00 O2 Sat by Pulse Oximetry (%) 93 L 04/03/19 13:31 Constitutional: Yes: Well Nourished, No Distress Eyes: Yes: WNL HENT: Yes: Atraumatic Neck: Yes: Supple Cardiovascular: Yes: Regular Rate and Rhythm Respiratory: Yes: Regular, CTA Bilaterally Gastrointestinal: Yes: Normal Bowel Sounds, Other (peg tube) ...Rectal Exam: Yes: Deferred Genitourinary: Yes: WNL Musculoskeletal: Yes: Muscle Weakness Extremities: Yes: Deformity Integumentary: Yes: WNL Neurological: Yes: Alert Psychiatric: Yes: WNL Labs: CBC, BMP 04/03/19 06:19 04/03/19 06:19 INR, PTT INR 0.91 (0.83-1.09) 03/28/19 12:00 Problem List - Problems (1) Pneumonia Assessment/Plan: breathing improved, clear to auscultation will d/c IV antibiotics per ID recommendations. Patient to be sent home on one more day of Augmentin via G tube. ID consultation appreciated duo nebs supplemental O2 RSV (-) Legionella AG negative does not qualify for home oxygen support. [facility] oxygen [facility]. Code(s): J18.9 - PNEUMONIA, UNSPECIFIED ORGANISM Qualifiers: Pneumonia type: due to unspecified organism Laterality: unspecified laterality Lung location: unspecified part of lung Qualified Code(s): J18.9 - Pneumonia, unspecified organism (2) Sepsis Assessment/Plan: sepsis resolved. Code(s): A41.9 - SEPSIS, UNSPECIFIED ORGANISM Qualifiers: Sepsis type: sepsis due to unspecified organism Sepsis acute organ dysfunction status: unspecified Qualified Code(s): A41.9 - Sepsis, unspecified organism (3) Cortical blindness Assessment/Plan: supportive care, re orient to environment. Code(s): H47.619 - CORTICAL BLINDNESS, UNSPECIFIED SIDE OF BRAIN (4) Feeding by G-tube Assessment/Plan: Appreciate RD consultation c/w Jevity 1.5 @ goal rate of 40mls/hr + pump flush of 40mls/hr aspiration risk. maintain hob elevated with feeds. Code(s): Z93.1 - GASTROSTOMY STATUS (5) GERD (gastroesophageal reflux disease) Code(s): K21.9 - GASTRO-ESOPHAGEAL REFLUX DISEASE WITHOUT ESOPHAGITIS (6) Microcephalic Assessment/Plan: history Code(s): Q02 - MICROCEPHALY (7) S/P [employer] shunt Code(s): Z98.2 - PRESENCE OF CEREBROSPINAL FLUID DRAINAGE DEVICE (8) Hypothyroid Assessment/Plan: c/w synthroid vis PEG Code(s): E03.9 - HYPOTHYROIDISM, UNSPECIFIED (9) Hypoxia Code(s): R09.02 - HYPOXEMIA (10) Seizure disorder Assessment/Plan: c/w keppra, topapax, clobazam Code(s): G40.909 - EPILEPSY, UNSP, NOT INTRACTABLE, WITHOUT STATUS EPILEPTICUS (11) Prophylactic measure Assessment/Plan: fen tube feeds at goal rate SCDs on heparin Code(s): Z29.9 - ENCOUNTER FOR PROPHYLACTIC MEASURES, UNSPECIFIED (12) DVT prophylaxis Code(s): [id number] -
--- NOTE | 2019-04-03 14:29 | DS ---
Physical Exam: SUBJECTIVE: Patient seen and examined at the bedside. breathing much improved since admission, saturations are stable off oxygen As per Lemus, patient uses oxygen prn at the facility. Strongly recommend aspiration precautions. OBJECTIVE: discharge back to [place]. Accepted by Dr. King. Patient will need one more day of Augmentin 500mg on 04/04/19, then antibiotics will be completed. cleared by pulmonary for discharge Vital Signs Period Temp Pulse Resp BP Sys/[place] Pulse Ox Last 24 Hr 97.5 F-98.3 F 72-97 18-22 103-126/64-84 93-100 PHYSICAL EXAM GENERAL: The patient is awake, alert, has MR, mentation improved from admission HEAD: Normal with no signs of trauma. EYES: PERRL, extraocular movements intact, sclera anicteric, conjunctiva clear. ENT: Ears normal, nares patent, oropharynx clear without exudates, moist mucous membranes. NECK: Trachea midline, full range of motion, supple. LUNGS: Breath sounds equal, clear to auscultation bilaterally, no wheezes, no crackles, no accessory muscle use. HEART: Regular rate and rhythm, S1, S2 without murmur, rub or gallop. ABDOMEN: peg tube EXTREMITIES: deformity-contracted NEUROLOGICAL: non verbal at baseline PSYCH: awake, tracks at times LABS Laboratory Results - last 24 hr 04/02/19 04/02/19 04/03/19 15:00 15:00 06:19 WBC 6.0 4.6 RBC 4.28 4.10 Hgb 14.6 14.4 Hct 43.9 41.8 MCV 102.5 H 102.1 H MCH 34.1 H 35.1 H MCHC 33.3 34.3 RDW 12.3 11.9 Plt Count 240 296 D MPV 9.9 8.8 D Absolute Neuts (auto) 4.4 2.2 Neutrophils % 73.1 D 46.6 D Lymphocytes % 15.8 D 33.4 D Monocytes % 6.4 12.9 H D Eosinophils % 3.9 5.6 H Basophils % 0.8 1.5 Nucleated RBC % 0 0 Sodium 139 Potassium 4.0 Chloride 105 Carbon Dioxide 28 Anion Gap 7 L BUN 11.7 Creatinine 0.5 L Est GFR (CKD-EPI)AfAm 159.33 Est GFR (CKD-EPI)NonAf 137.47 Random Glucose 118 H Calcium 9.2 Total Bilirubin 0.3 AST 27 ALT 59 Alkaline Phosphatase 108 Total Protein 7.7 Albumin 3.5 04/03/19 06:19 WBC RBC Hgb Hct MCV MCH MCHC RDW Plt Count MPV Absolute Neuts (auto) Neutrophils % Lymphocytes % Monocytes % Eosinophils % Basophils % Nucleated RBC % Sodium 140 Potassium 3.9 Chloride 106 Carbon Dioxide 28 Anion Gap 7 L BUN 11.8 Creatinine 0.4 L Est GFR (CKD-EPI)AfAm 174.63 Est GFR (CKD-EPI)NonAf 150.67 Random Glucose 113 H Calcium 9.5 Total Bilirubin 0.3 AST 24 ALT 63 H Alkaline Phosphatase 105 Total Protein 7.6 Albumin 3.4 HOSPITAL COURSE: Date of Admission:03/28/19 Date of Discharge: 04/03/19 Minutes to complete discharge: 60 Discharge Summary Reason For Visit: SEPSIS,PNEUMONIA Current Active Problems Cortical blindness (Acute) Feeding by G-tube (Acute) GERD (gastroesophageal reflux disease) (Acute) Microcephalic (Acute) Pneumonia (Acute) Prophylactic measure (Acute) S/P HAND CANDLE DIPPER shunt (Acute) Sepsis (Acute) Condition: Stable - Instructions Diet, Activity, Other Instructions: Please continue Augmentin 500mg TWICE per day for 1 more day on 04/04/2019. Completed IV antibiotics during hospital stay Referrals: Ortega Contreras MD [Staff Physician] - Disposition: LONGTERM FACILITY - Home Medications Comprehensive Discharge Medication List: Ambulatory Orders Baclofen [Lioresal -] 5 mg PEG QID 08/16/17 Benzoyl Peroxide 5% Gel - 1 applic TP BID 08/16/17 Bisacodyl Suppository [Dulcolax Suppository -] 10 mg IN PRN PRN 08/16/17 Calcium Citrate/Vitamin D3 [Calcium Cit 315-Vit D3 250 Tab] 2 each PEG BID 08/16 Cetirizine HCl [Zyrtec -] 10 mg PEG HS 08/16/17 Cholecalciferol (Vitamin D3) [Vitamin D3] 2,000 iu PEG DAILY 08/16/17 Clindamycin Topical Solution [Cleocin 1% Topical Solution -] 1 applic TP DAILY 08/16/17 Lacosamide [Vimpat] 200 mg PEG BID 08/16/17 Levocarnitine [Carnitor] 330 mg PEG BID 08/16/17 Levothyroxine [Synthroid -] 75 mcg PEG AM 08/16/17 Multivitamin [One Daily] 1 tablet PEG DAILY 08/16/17 Rufinamide [Banzel] 30 ml PEG BID 08/16/17 Sennosides [Senna] 2 tab PEG BID 08/16/17 Sodium Benzoate 4.5 gm PEG TID 08/16/17 levETIRAcetam [Levetiracetam] 15 ml PEG BID 08/16/17 Chlorhexidine Gluconate 10 ml MM BID 02/01/19 Clobazam 10 mg PEG DAILY 02/01/19 Clobazam [Onfi] 20 mg PO BID 02/01/19 Diazepam Rectal Gel [Diastat Rectal Gel -] 10 mg IN ONCE PRN 02/01/19 Fluticasone Prop 0.05% Nasal [Flonase -] 1 spray NS DAILY 02/01/19 Magnesium Hydrox 2400MG/30Ml [Milk of Magnesia -] 30 ml PEG BID 02/01/19 Phenobarbital - 32.4 mg PEG HS MDD 60 02/01/19 Topiramate [Topamax -] 200 mg GT BID 02/01/19 Albuterol 0.083% Nebulizer Jyoti [Ventolin 0.083% Nebulizer Soln -] 1 neb NEB Q6H 03/28/19 Albuterol 2.5/Ipratropium 0.5 [Duoneb -] 1 amp NEB Q6H 03/28/19 Phenobarbital 64.8 mg PEG BID 03/28/19 Topiramate [Topamax] 50 mg PO HS 03/28/19 Problem List - Problems (1) Pneumonia Assessment/Plan: breathing improved, clear to auscultation will d/c IV antibiotics per ID recommendations. Patient to be sent home on one more day of Augmentin via G tube. ID consultation appreciated duo nebs supplemental O2 RSV (-) Legionella AG negative does not qualify for home oxygen support. [facility] will benefit from outpatient pulmonary follow up. Code(s): J18.9 - PNEUMONIA, UNSPECIFIED ORGANISM Qualifiers: Pneumonia type: due to unspecified organism Laterality: unspecified laterality Lung location: unspecified part of lung Qualified Code(s): J18.9 - Pneumonia, unspecified organism (2) Sepsis Assessment/Plan: sepsis resolved. Code(s): A41.9 - SEPSIS, UNSPECIFIED ORGANISM Qualifiers: Sepsis type: sepsis due to unspecified organism Sepsis acute organ dysfunction status: unspecified Qualified Code(s): A41.9 - Sepsis, unspecified organism (3) Cortical blindness Assessment/Plan: supportive care, re orient to environment. Code(s): H47.619 - CORTICAL BLINDNESS, UNSPECIFIED SIDE OF BRAIN (4) Feeding by G-tube Assessment/Plan: Appreciate RD consultation c/w Jevity 1.5 @ goal rate of 40mls/hr + pump flush of 40mls/hr aspiration risk. maintain hob elevated with feeds. Code(s): Z93.1 - GASTROSTOMY STATUS (5) GERD (gastroesophageal reflux disease) Code(s): K21.9 - GASTRO-ESOPHAGEAL REFLUX DISEASE WITHOUT ESOPHAGITIS (6) Microcephalic Assessment/Plan: history Code(s): Q02 - MICROCEPHALY (7) S/P HAND CANDLE DIPPER shunt Code(s): Z98.2 - PRESENCE OF CEREBROSPINAL FLUID DRAINAGE DEVICE (8) Hypothyroid Assessment/Plan: c/w synthroid vis PEG Code(s): E03.9 - HYPOTHYROIDISM, UNSPECIFIED (9) Hypoxia Code(s): R09.02 - HYPOXEMIA (10) Seizure disorder Assessment/Plan: c/w keppra, topapax, clobazam Code(s): G40.909 - EPILEPSY, UNSP, NOT INTRACTABLE, WITHOUT STATUS EPILEPTICUS (11) Prophylactic measure Assessment/Plan: Code(s): Z29.9 - ENCOUNTER FOR PROPHYLACTIC MEASURES, UNSPECIFIED (12) DVT prophylaxis Code(s): [id number] - This patient is new to me today: No Emergency Visit: Yes ED Registration Date: 03/28/19 Care time: The patient presented to the Emergency Department on the above date and was hospitalized for further evaluation of their emergent condition. Critical Care patient: No - Discharge Referral Referred to [facility] Med P.C[facility] No
[2019-04-03 16:20] VITALS: BP 126/84
[2019-04-04] MEDS ORDERED: AMOX TR/POTASSIUM CLAVULANATE 250 MG/5 ML BOTTLE PO SCH (08:00)
== END 2019-04-03 17:12 | disposition home or self-care (01) | DRG 720 ==
LOC: JER 11:06 → JERBED 14:51 → J4W 20:27
PROVIDERS: ATTEND Nurse Practitioner Family
DX: A41.9 Sepsis, unspecified organism (principal); G80.1 Spastic diplegic cerebral palsy; Q02 Microcephaly; G40.909 Epilepsy, unspecified, not intractable, without status epilepticus; E03.9 Hypothyroidism, unspecified; Z93.1 Gastrostomy status; Z98.2 Presence of cerebrospinal fluid drainage device; R06.03 Acute respiratory distress; J18.9 Pneumonia, unspecified organism; H47.619 Cortical blindness, unspecified side of brain; F73 Profound intellectual disabilities; K21.9 Gastro-esophageal reflux disease without esophagitis
CPT/HCPCS: 36415; 71045-TC-FY; 80053; 80175; 80177; 81003; 82607; 82746; 82803; 83605; 83735; 83880; 84484; 85025; 85610; 85730; 87040; 87086; 87807; 87899; 93005; 93010; 94640; 94761; 99285-25; J0131; J0475; J1644; J7030

== ENCOUNTER 2019-04-23 11:28 | Emergency (ER) | payer OTHER ==
[2019-04-23 11:37] VITALS: BMI 23.3
--- NOTE | 2019-04-23 12:14 | PDOC ---
History of Present Illness - General Chief Complaint: Seizure Stated Complaint: SEIZURE Time Seen by Provider: 04/23/19 12:09 History Source: [facility] - History of Present Illness Initial Comments: 04/23/19 12:12 38 yo M PMH of MR, intraventricular hemorrhage of , generalized idiopathic epilepsy, microcephaly, cortical Blindness, GERD, spastic quadriplegic cerebral palsy, hypothyroidism, s/p VASC TECH shunt placement, s/p G tube placement, sent by [facility] for seizures. Notably seen last month for sepsis, clinically treated for PNA. Unable to gather history from patient as he is nonverbal at baseline. Unable to perform ROS. Per teaching staff from [facility]: First seizure at 1011, lasting 1 minute, 30 seconds Second seizure at 1020, lasting 3 minutes, 28 seconds Vitals at 1035: BP 123/83, Pulse 79, 99% on RA, temperature 97.7 taken at ear Reportedly similar to normal seizures, now back to baseline. Past History - Past Medical History Allergies/Adverse Reactions: Allergies Allergy/AdvReac Type Severity Reaction Status Date / Time carbamazepine Allergy Unknown Verified 04/23/19 14:47 Home Medications: Ambulatory Orders Baclofen [Lioresal -] 5 mg PEG QID 08/16/17 Benzoyl Peroxide 5% Gel - 1 applic TP BID 08/16/17 Bisacodyl Suppository [Dulcolax Suppository -] 10 mg LA PRN PRN 08/16/17 Calcium Citrate/Vitamin D3 [Calcium Cit 315-Vit D3 250 Tab] 2 each PEG BID 08/16 Cetirizine HCl [Zyrtec -] 10 mg PEG HS 08/16/17 Cholecalciferol (Vitamin D3) [Vitamin D3] 2,000 iu PEG DAILY 08/16/17 Clindamycin Topical Solution [Cleocin 1% Topical Solution -] 1 applic TP DAILY 08/16/17 Lacosamide [Vimpat] 200 mg PEG BID 08/16/17 Levocarnitine [Carnitor] 330 mg PEG BID 08/16/17 Levothyroxine [Synthroid -] 75 mcg PEG AM 08/16/17 Multivitamin [One Daily] 1 tablet PEG DAILY 08/16/17 Rufinamide [Banzel] 30 ml PEG BID 08/16/17 Sennosides [Senna] 2 tab PEG BID 08/16/17 Sodium Benzoate 4.5 gm PEG TID 08/16/17 levETIRAcetam [Levetiracetam] 15 ml PEG BID 08/16/17 Chlorhexidine Gluconate 10 ml MM BID 02/01/19 Clobazam 10 mg PEG DAILY 02/01/19 Clobazam [Onfi] 20 mg PO BID 02/01/19 Diazepam Rectal Gel [Diastat Rectal Gel -] 5 mg LA ONCE PRN 02/01/19 Fluticasone Prop 0.05% Nasal [Flonase -] 1 spray NS DAILY 02/01/19 Magnesium Hydrox 2400MG/30Ml [Milk of Magnesia -] 30 ml PEG BID 02/01/19 Phenobarbital - 32.4 mg PEG HS MDD 60 02/01/19 Topiramate [Topamax -] 200 mg GT BID 02/01/19 Albuterol 0.083% Nebulizer Jyoti [Ventolin 0.083% Nebulizer Soln -] 1 neb NEB Q6H 03/28/19 Albuterol 2.5/Ipratropium 0.5 [Duoneb -] 1 amp NEB Q6H PRN 03/28/19 Phenobarbital 64.8 mg PEG BID 03/28/19 Topiramate [Topamax] 50 mg PO HS 03/28/19 Amox-Tr/K Cl [Augmentin 250 mg/5 ml Oral Suspension -] 10 ml PO BID #1 bottle Amox-Tr/K Cl [Augmentin Suspension -] 500 mg PO BID@0800,1730 #1 bottle Anemia: Yes Cardiac Disorders: Yes (SOB) COPD: No GI Disorders: Yes (:GERD, esophagitis.) Liver Disease: Yes (hep c core AB+) Psychiatric Problems: Yes (mental retardation,cortical blindness) Seizures: Yes Thyroid Disease: Yes (HYPOTHYROIDISM) - Surgical History Abdominal Surgery: Yes (g tube) Orthopedic Surgery: Yes - Immunization History Immunization Up to Date: Yes - Psycho Social/Smoking Cessation Hx Smoking Status: No Smoking History: Never smoked Have you smoked in the past 12 months: No Number of Cigarettes Smoked Daily: 0 Information on smoking cessation initiated: No Hx Alcohol Use: No Drug/Substance Use Hx: No Substance Use Type: None Review of Systems - Review of Systems Able to Perform ROS?: No (nonverbal) *Physical Exam - Vital Signs Last Vital Signs Temp Pulse Resp BP Pulse Ox 98.7 F 79 16 123/83 99 04/23/19 11:34 04/23/19 11:34 04/23/19 11:34 04/23/19 11:34 04/23/19 11:34 - Physical Exam Comments: 04/23/19 12:58 Gen: awake, alert, NAD HEENT: atraumatic, microcephalic Neuro: limited by quadraplegia. PERRLA, EOMI, anicteric, clear conjuctiva Neck: trachea midline, supple CV: regular rate, regular rhythm Pulm: coarse lung sounds b/l, rhonchi Abd: soft, non-distended, non-tender Extr: no edema, no deformities Skin: warm, dry MSK: contracted musculature ED Treatment Course - LABORATORY CBC & Chemistry Diagram: 04/23/19 15:50 04/23/19 15:50 Medical Decision Making - Medical Decision Making 04/23/19 13:03 Patient concerning for possible repeat PNA triggering seizures. However, patient does not appear to be septic. - CBC, CMP - CT head - EKG, CXR - lactic acid - likely admit 04/23/19 13:35 CXR with decreased congestive changes, no apparent consolidation or PNA. 04/23/19 16:20 CT head: no interval change 04/23/19 17:05 Labs back and unconcerning, will dc back to [facility]. 04/23/19 17:28 Spoke with Gallito, nursing supervisor doping at [facility] ([phone]). Will dc back to [facility]. Discharge - Discharge Information Problems reviewed: Yes Clinical Impression/Diagnosis: Seizure Condition: Stable Disposition: [facility] FACILITY - Admission No - Follow up/Referral - Patient Discharge Instructions Patient Printed Discharge Instructions: DI for Seizure Disorder -- Adult Additional Instructions: You were seen with seizures, similar to your history of seizures. Your labs and imaging were unconcerning, and your CT scan did not show any new changes. You were found to be back to your baseline. Please follow up with your primary care physician. Return to the ED if you develop worsening seizures. - Post Discharge Activity
--- NOTE | 2019-04-23 14:02 | PDOC ---
Documentation entered by Oleksandr Del Real SCRIBE, acting as scribe for Owen Hill MD. Owen Hill MD: This documentation has been prepared by the Gt giang Daniel, SCRIBE, under my direction and personally reviewed by me in its entirety. I confirm that the documentation accurately reflects all work, treatment, procedures, and medical decision making performed by me. Attending Attestation - Resident Resident Name: TorrezIliatien - ED Attending Attestation I have performed the following: I have examined & evaluated the patient, The case was reviewed & discussed with the resident, I agree w/resident's findings & plan, Exceptions are as noted - HPI HPI: 04/23/19 13:10 The patient is a 38 year old male with a past medical history of mitral regurgitation, intraventricular hemorrhage of , generalized idiopathic epilepsy, microcephaly, cortical Blindness, GERD, spastic quadriplegic cerebral palsy, hypothyroidism, s/p DIRECTOR OF COLLECTIONS shunt placement, and G tube placement here today from [facility] for evaluation of seizures. The patient is nonverbal and was unable to provide history. As per aide at bedside the patient had 2 seizures today, one at 10:11 AM and the second at 10:20 AM which were his typical seizures. Allergies: carbamazepine - Physicial Exam PE: 04/23/19 13:38 Vitals: Triage vital signs reviewed General Appearance: No acute distress, well nourished Head: Atraumatic Neck: Supple; No nuchal rigidity Chest Wall: Nontender Cardiac: Regular rate and rhythm, no murmurs, no rubs, no gallops Lungs: +transmitted upper airway sounds. Good air movement bilaterally Abdomen: Soft, nondistended, nontender to palpation Extremities: contracted upper and lower extremities, no cyanosis, clubbing, or edema Skin: Warm and dry, no rashes or lesions, no rash, no petechiae - Medical Decision Making 04/23/19 15:32 Likely breakthrough seizure we will check labs head CT observe and reassess Dr. Hall to follow up labs CT and reasses 04/25/19 14:19
[2019-04-23 14:33] LABS: EPI CELLS 0.8 /HPF (0-5/HPF); HYALINE CASTS 1 /lpf (0-8); PH,URINE >= 9.0 (5.0-8.0); URINE APPEARANCE CLOUDY; URINE BACTERIA 0.8 /hpf (NEGATIVE); URINE BILIRUBIN NEGATIVE (NEGATIVE); URINE COLOR YELLOW; URINE GLUCOSE (UA) NEGATIVE (NEGATIVE); URINE KETONE NEGATIVE (NEGATIVE); URINE LEUK ESTERASE NEGATIVE (NEGATIVE); URINE NITRITE NEGATIVE (NEGATIVE); URINE PROTEIN NEGATIVE (NEGATIVE); URINE RBC 8 /hpf (0-4); URINE UROBILINOGEN 0.2 mg/dL (0.2-1.0); URINE WBC 0 /hpf (0-5)
[2019-04-23 16:24] LABS: BASO % 0.7 % (0-2.0); EOS % 1.7 % (0-4.5); HEMATOCRIT 45.8 % (35.4-49); HEMOGLOBIN 15.5 GM/dL (11.7-16.9); LYMPH % 33.2 % (8-40); MCH 34.8 pg (25.7-33.7); MCHC 33.9 g/dl (32.0-35.9); MEAN CELL VOLUME 102.5 fl (80-96); MEAN PLT VOLUME 9.8 fl (7.5-11.1); MONO % 6.9 % (3.8-10.2); NEUT % 57.5 % (42.8-82.8); PLATELET COUNT 218 K/MM3 (134-434); RBC 4.47 M/mm3 (4.00-5.60); RDW 12.1 % (11.9-15.9); WHITE BLOOD COUNT 5.2 K/mm3 (4.0-10.0)
[2019-04-23 16:54] LABS: BILIRUBIN,TOTAL 0.9 mg/dL (0.2-1); BLOOD UREA NITROGEN 8.6 mg/dL (7-18); CALCIUM 9.5 mg/dL (8.5-10.1); CREATININE 0.5 mg/dL (0.55-1.3); POTASSIUM 4.1 mmol/L (3.5-5.1); TOT PROT 7.9 g/dl (6.4-8.2)
[2019-04-23 18:48] VITALS: BP 118/76; PULSE 67; TEMP 98.2
--- NOTE | 2019-04-24 12:12 | EKG ---
Test Reason : Blood Pressure : / mmHG Vent. Rate : 078 BPM Atrial Rate : 078 BPM P-R Int : 146 ms QRS Dur : 068 ms QT Int : 356 ms P-R-T Axes : 046 031 052 degrees QTc Int : 405 ms POOR DATA QUALITY, INTERPRETATION MAY BE ADVERSELY AFFECTED NORMAL SINUS RHYTHM POSSIBLE LEFT ATRIAL ENLARGEMENT BORDERLINE ECG WHEN COMPARED WITH ECG OF 28-MAR-2019 11:28, NO SIGNIFICANT CHANGE WAS FOUND Confirmed by KASSIDY FRANCIS MD ([id number]) on 04/24/2019 12:12:01 PM Referred By: Confirmed By:KASSIDY FRANCIS MD
== END 2019-04-23 18:50 ==
LOC: JER 11:28
DX: G40.309 Generalized idiopathic epilepsy and epileptic syndromes, not intractable, without status epilepticus (principal); Q02 Microcephaly; H47.619 Cortical blindness, unspecified side of brain; E03.9 Hypothyroidism, unspecified; G80.0 Spastic quadriplegic cerebral palsy; F79 Unspecified intellectual disabilities; K21.9 Gastro-esophageal reflux disease without esophagitis; Z86.73 Personal history of transient ischemic attack (TIA), and cerebral infarction without residual deficits; Z98.2 Presence of cerebrospinal fluid drainage device; Z93.1 Gastrostomy status; Z87.01 Personal history of pneumonia (recurrent); Z88.8 Allergy status to other drugs, medicaments and biological substances
CPT/HCPCS: 36415; 70450-TC; 71045-TC-FY; 80053; 81003; 83605; 85025; 87086; 93005; 93010; 99284-25

== ENCOUNTER 2019-05-14 11:20 | Inpatient (IN) | payer OTHER ==
--- NOTE | 2019-05-14 11:40 | PDOC ---
History of Present Illness - General Stated Complaint: Seizure Time Seen by Provider: 05/14/19 11:40 - History of Present Illness Initial Comments: 05/14/19 11:40 HPI: 38 yo M PMH of MR, intraventricular hemorrhage of , generalized idiopathic epilepsy, microcephaly, cortical Blindness, GERD, spastic quadriplegic cerebral palsy, hypothyroidism, s/p CARBON LAMP CLEANER shunt placement, s/p G tube placement, sent by [facility] for seizures. Notably seen last month for sepsis from [facility]. Seen 04/23 for seizure, discharged back to [facility]. History limited as Pt is nonverbal at baseline. Unable to perform ROS. Per staff from [facility]: Around 10:40 AM patient was at program where he had a 1min 58 second seizure, then a 35 second seizure, and a 28 second seizure all within 10 minutes. No medications were administered. Vitals were taken but not recorded or supplied to nursing. Per patient nurse, he has had no focal complaints - no fevers, chills, or cough recently. Reportedly similar to normal seizures, now back to baseline. Past History - Travel Traveled outside of the country in the last 30 days: No Close contact w/someone who was outside of country & ill: No - Past Medical History Allergies/Adverse Reactions: Allergies Allergy/AdvReac Type Severity Reaction Status Date / Time carbamazepine Allergy Unknown Verified 05/14/19 11:36 Home Medications: Ambulatory Orders Baclofen [Lioresal -] 5 mg PEG QID 08/16/17 Benzoyl Peroxide 5% Gel - 1 applic TP BID 08/16/17 Bisacodyl Suppository [Dulcolax Suppository -] 10 mg AR PRN PRN 08/16/17 Calcium Citrate/Vitamin D3 [Calcium Cit 315-Vit D3 250 Tab] 2 each PEG BID 08/16 Cetirizine HCl [Zyrtec -] 10 mg PEG HS 08/16/17 Cholecalciferol (Vitamin D3) [Vitamin D3] 2,000 iu PEG DAILY 08/16/17 Clindamycin Topical Solution [Cleocin 1% Topical Solution -] 1 applic TP DAILY 08/16/17 Lacosamide [Vimpat] 200 mg PEG BID 08/16/17 Levocarnitine [Carnitor] 330 mg PEG BID 08/16/17 Levothyroxine [Synthroid -] 75 mcg PEG AM 08/16/17 Multivitamin [One Daily] 1 tablet PEG DAILY 08/16/17 Rufinamide [Banzel] 30 ml PEG BID 08/16/17 Sennosides [Senna] 2 tab PEG BID 08/16/17 Sodium Benzoate 4.5 gm PEG TID 08/16/17 levETIRAcetam [Levetiracetam] 15 ml PEG BID 08/16/17 Chlorhexidine Gluconate 10 ml MM BID 02/01/19 Clobazam 10 mg PEG DAILY 02/01/19 Clobazam [Onfi] 20 mg PO BID 02/01/19 Diazepam Rectal Gel [Diastat Rectal Gel -] 5 mg AR ONCE PRN 02/01/19 Fluticasone Prop 0.05% Nasal [Flonase -] 1 spray NS DAILY 02/01/19 Magnesium Hydrox 2400MG/30Ml [Milk of Magnesia -] 30 ml PEG BID 02/01/19 Phenobarbital - 32.4 mg PEG HS MDD 60 02/01/19 Topiramate [Topamax -] 200 mg GT BID 02/01/19 Albuterol 0.083% Nebulizer Jyoti [Ventolin 0.083% Nebulizer Soln -] 1 neb NEB Q6H 03/28/19 Albuterol 2.5/Ipratropium 0.5 [Duoneb -] 1 amp NEB Q6H PRN 03/28/19 Phenobarbital 64.8 mg PEG BID 03/28/19 Topiramate [Topamax] 50 mg PO HS 03/28/19 Amox-Tr/K Cl [Augmentin 250 mg/5 ml Oral Suspension -] 10 ml PO BID #1 bottle Amox-Tr/K Cl [Augmentin Suspension -] 500 mg PO BID@0800,1730 #1 bottle Anemia: Yes Cardiac Disorders: Yes (SOB) COPD: No GI Disorders: Yes (:GERD, esophagitis.) Liver Disease: Yes (hep c core AB+) Psychiatric Problems: Yes (mental retardation,cortical blindness) Seizures: Yes Thyroid Disease: Yes (HYPOTHYROIDISM) - Surgical History Abdominal Surgery: Yes (g tube) Orthopedic Surgery: Yes - Immunization History Immunization Up to Date: Yes - Psycho Social/Smoking Cessation Hx Smoking Status: No Smoking History: Never smoked Have you smoked in the past 12 months: No Number of Cigarettes Smoked Daily: 0 Hx Alcohol Use: No Drug/Substance Use Hx: No Substance Use Type: None Review of Systems - Review of Systems Able to Perform ROS?: No (patient nonverbal) Is the patient limited Kazakh proficient: No *Physical Exam - Physical Exam Comments: 05/14/19 13:26 Vitals reviewed, notable for mild hypertension Awake, alert, NAD, pleasantly smiling PERRLA, EOMI, anicteric, clear conjuctiva Atraumatic, microcephalic, trachea midline, supple Regular rate, regular rhythm, No murmur appreciated Coarse lung sounds b/l, normal WOB, good saturation, no wheezes Soft, non-distended, non-tender WWP, no clubbing / cyanosis / edema, +contractions Neuro limited by quadraplegia and cooperation ED Treatment Course - LABORATORY CBC & Chemistry Diagram: 05/14/19 14:20 05/14/19 14:20 Medical Decision Making - Medical Decision Making 05/14/19 13:20 38 yo M PMH of MR, intraventricular hemorrhage of , generalized idiopathic epilepsy, microcephaly, cortical Blindness, GERD, spastic quadriplegic cerebral palsy, hypothyroidism, s/p CARBON LAMP CLEANER shunt placement, s/p G tube placement, sent by [facility] for seizures. Concerning for breakthrough seizures in setting of presumed medication compliance (Phenobarb 32.4mg BID), will evaluate for possible causes - recent PNA a possible source despite ASX at facility. Concern for status epilepticus given Hx of 4 seizures back to back over 10 minutes. Will admit for Obs. -CBC, CMP, Lactate -Phenobarbitol level -CXR, EKG -UA, UCx 05/14/19 13:45 Benzene Worker and nurse noted patient to have an approximately 20second seizure Ordered for rectal diazepam gel 5mg Ultrasound guided IV access established in R forearm by Dr. Mcknight and myself, labs drawn 05/14/19 14:36 EKbpm, NSR, normal axis, normal intervals, no ischemic changes or concerning morphologies CXR limited 2/2 poor inspiratory effort, inability to cooperate, no gross consolidations visualized in this limited film Lactate 2.3 No leukocytosis No UTI Dispo: Admit Discharge - Discharge Information Problems reviewed: Yes Clinical Impression/Diagnosis: Seizure Qualifiers: Convulsion type: unspecified Qualified Code(s): R56.9 - Unspecified convulsions Condition: Stable - Admission Yes - Follow up/Referral - Patient Discharge Instructions Patient Printed Discharge Instructions: DI for Seizure Disorder -- Adult - Post Discharge Activity
[2019-05-14] MEDS ORDERED: diazePAM ACUDIAL 5-7.5-10 MG 1 EACH KIT PR ONE (13:46)
[2019-05-14 14:49] LABS: PH,URINE >= 9.0 (5.0-8.0); URINE APPEARANCE TURBID; URINE BILIRUBIN NEGATIVE (NEGATIVE); URINE COLOR YELLOW; URINE GLUCOSE (UA) NEGATIVE (NEGATIVE); URINE KETONE NEGATIVE (NEGATIVE); URINE LEUK ESTERASE NEGATIVE (NEGATIVE); URINE NITRITE NEGATIVE (NEGATIVE); URINE PROTEIN TRACE (NEGATIVE); URINE UROBILINOGEN 0.2 mg/dL (0.2-1.0)
[2019-05-14 14:53] LABS: HEMATOCRIT 47.3 % (35.4-49); HEMOGLOBIN 15.7 GM/dL (11.7-16.9); MCH 34.4 pg (25.7-33.7); MCHC 33.3 g/dl (32.0-35.9); MEAN CELL VOLUME 103.4 fl (80-96); MEAN PLT VOLUME 9.4 fl (7.5-11.1); PLATELET COUNT 257 K/MM3 (134-434); RBC 4.57 M/mm3 (4.00-5.60); RDW 12.3 % (11.9-15.9)
--- NOTE | 2019-05-14 15:11 | PDOC ---
Attending Attestation - Resident Resident Name: Jossue Kruger - ED Attending Attestation I have performed the following: I have examined & evaluated the patient, The case was reviewed & discussed with the resident, I agree w/resident's findings & plan - HPI HPI: 05/14/19 15:09 38-year-old male with history of anoxic brain injury, spastic quadriplegia, severe developmental delay, history of seizures presents from living facility with status epilepticus, recurrent seizure in the emergency department ultimately relieved after Diastat given rectally. No recent report of fever/chills/cough/vomiting/diarrhea - Physicial Exam PE: 05/14/19 15:10 Vital signs are within normal limits, afebrile Baseline nonverbal, contractures, eyes open with alternating gaze Heart is regular, coarse breath sounds bibasilar Abdomen benign with PEG in place Upper extremity contractures, lower extremities without evidence of cellulitis or edema - Critical Care Time Total Critical Care Time: 30 Critical Care Statement: The care of this patient involved high complexity decision making to prevent further life threatening deterioration of the patient 's condition and/or to evaluate & treat vital organ system(s) failure or risk of failure. - Medical Decision Making 05/14/19 15:10 38-year-old male with history of developmental delay, anoxic brain injury, seizures presents with recurring seizures at the living facility, seems to have resolved after Diastat administration. Question etiology, unclear if subtherapeutic on medications, unclear possible infectious etiology. Labs, urinalysis Chest x-ray Stabilized after Diastat, continue to monitor Admission Heart Score/ECG Review #1 ECG reviewed & interpreted by me at: 13:41 General ECG Interpretation: Sinus Rhythm, Normal Rate (80), Normal Intervals ( qtc 408), No acute ischemic changes
--- NOTE | 2019-05-14 15:13 | EKG ---
Test Reason : Blood Pressure : / mmHG Vent. Rate : 080 BPM Atrial Rate : 080 BPM P-R Int : 150 ms QRS Dur : 068 ms QT Int : 354 ms P-R-T Axes : 038 038 041 degrees QTc Int : 408 ms NORMAL SINUS RHYTHM POSSIBLE LEFT ATRIAL ENLARGEMENT EARLY REPOLARIZATION BORDERLINE ECG WHEN COMPARED WITH ECG OF 23-APR-2019 16:21, NO SIGNIFICANT CHANGE WAS FOUND Confirmed by MD Dom, Oleksandr ([id number]) on 05/14/2019 3:13:02 PM Referred By: Confirmed By:Oleksandr Fernandes MD
[2019-05-14 15:24] LABS: ALBUMIN 3.9 g/dl (3.4-5.0); BILIRUBIN,TOTAL 0.3 mg/dL (0.2-1); BLOOD UREA NITROGEN 9.8 mg/dL (7-18); CALCIUM 9.2 mg/dL (8.5-10.1); CREATININE 0.6 mg/dL (0.55-1.3); POTASSIUM 4.7 mmol/L (3.5-5.1); TOT PROT 8.1 g/dl (6.4-8.2)
[2019-05-14] MEDS ORDERED: levETIRAcetam 500 MG/5 ML INJECTION VIAL IVPB ONE ×2 (16:59→17:07)
--- NOTE | 2019-05-14 17:11 | HP ---
CHIEF COMPLAINT: sent by [facility] for witnessed seizures during day activity PCP: Dr. King ([facility]) HISTORY OF PRESENT ILLNESS: Patient is a 38 year old male with a significant past medical history of profound intellectual disability, h/o intraventricular hemorrhage of , generalized idiopathic epilepsy, microcephaly, cortical blindness, GERD, spastic quadriplegic cerebral palsy, hypothyroidism, s/p LINK TRAINER MAINTENANCE WORKER shunt placement, s/ p G tube placement. He was sent to the ED from [facility] for seizures. Patient is non verbal at baseline with a history of MR and unable to provide the history. He was reported to have a seizures at [facility] today this morning while in the day program. He was reported to have a 1.58 second seizure accompanied by 35 second seizure and then a 28 second seizure, all within 10 minutes. In the Ed he was also noted to have two seizures that were witnessed by his primary RN and his bedside aide. Patient seen here last month for sepsis secondary to pneumonia and was sent back to [facility] with Augmentin via Gtube. ER course was notable for: (1) elevated lactic acid 2.3 (2) two seizure events in the Ed, benzo administered - rectal diazepam gel 5mg (3) head CT negative Recent Travel: none PAST MEDICAL/SURGICAL HISTORY: profound intellectual disability, h/o intraventricular hemorrhage of , generalized idiopathic epilepsy, microcephaly, cortical blindness, GERD, spastic quadriplegic cerebral palsy, hypothyroidism, s/p LINK TRAINER MAINTENANCE WORKER shunt placement, s/p G tube placement. Social History: Smoking: none Alcohol: none Drugs: none Allergies carbamazepine Allergy (Unknown, Verified 05/14/19 11:36) HOME MEDICATIONS: Home Medications Medication Instructions Recorded Baclofen [Lioresal -] 5 mg PEG QID 08/16/17 Benzoyl Peroxide 5% Gel - 1 applic TP BID 08/16/17 Bisacodyl Suppository [Dulcolax 10 mg RI PRN PRN 08/16/17 Suppository -] Calcium Citrate/Vitamin D3 2 each PEG BID 08/16/17 [Calcium Cit 315-Vit D3 250 Tab] Cetirizine HCl [Zyrtec -] 10 mg PEG HS 08/16/17 Cholecalciferol (Vitamin D3) 2,000 iu PEG DAILY 08/16/17 [Vitamin D3] Clindamycin Topical Solution 1 applic TP DAILY 01/31/18 [Cleocin 1% Topical Solution -] Lacosamide [Vimpat] 200 mg PEG BID 08/16/17 Levocarnitine [Carnitor] 330 mg PEG BID 08/16/17 Levothyroxine [Synthroid -] 75 mcg PEG AM 08/16/17 Multivitamin [One Daily] 1 tablet PEG DAILY 08/16/17 Rufinamide [Banzel] 30 ml PEG BID 08/16/17 Sennosides [Senna] 2 tab PEG BID 08/16/17 Sodium Benzoate 4.5 gm PEG TID 08/16/17 levETIRAcetam [Levetiracetam] 15 ml PEG BID 08/16/17 Chlorhexidine Gluconate 10 ml MM BID 02/01/19 Clobazam 10 mg PEG DAILY 02/01/19 Clobazam [Onfi] 20 mg PO BID 02/01/19 Diazepam Rectal Gel [Diastat 5 mg RI ONCE PRN 02/01/19 Rectal Gel -] Fluticasone Prop 0.05% Nasal 1 spray NS DAILY 02/01/19 [Flonase -] Magnesium Hydrox 2400MG/30Ml [Milk 30 ml PEG BID 02/01/19 of Magnesia -] Phenobarbital - 32.4 mg PEG HS MDD 60 02/01/19 Topiramate [Topamax -] 200 mg GT BID 02/01/19 Albuterol 0.083% Nebulizer Jyoti 1 neb NEB Q6H 03/28/19 [Ventolin 0.083% Nebulizer Soln -] Albuterol 2.5/Ipratropium 0.5 1 amp NEB Q6H PRN 03/28/19 [Duoneb -] Phenobarbital 64.8 mg PEG BID 03/28/19 Topiramate [Topamax] 50 mg PO HS 03/28/19 Amox-Tr/K Cl [Augmentin 250 mg/5 10 ml PO BID #1 bottle 04/03/19 ml Oral Suspension -] Amox-Tr/K Cl [Augmentin Suspension 500 mg PO BID@0800,1730 #1 bottle 04/03/19 -] REVIEW OF SYSTEMS Vital Signs - 24 hr 05/14/19 05/14/19 11:25 13:10 Temperature 98.3 F Pulse Rate 81 Pulse Rate [ 73 Left Radial] Respiratory 16 13 Rate Blood Pressure 136/100 Blood Pressure 124/90 [Right Thigh] O2 Sat by Pulse 98 95 Oximetry (%) GENERAL: non verbal at baseline, lethargic HEAD: Normal with no signs of trauma. EYES: Pupils equal, round and reactive to light, extraocular movements intact, sclera anicteric, conjunctiva clear. No lid lag. EARS, NOSE, THROAT: Ears normal, nares patent, oropharynx clear without exudates. Moist mucous membranes. NECK: Normal range of motion, supple without lymphadenopathy, JVD, or masses. LUNGS: Breath sounds equal, clear to auscultation bilaterally. HEART: Regular rate and rhythm ABDOMEN: Soft, nontender, not distended, +peg tube MUSCULOSKELETAL: Normal range of motion at all joints. No bony deformities or tenderness. No CVA tenderness. UPPER EXTREMITIES: No peripheral edema. LOWER EXTREMITIES: No peripheral edema. NEUROLOGICAL: non verbal Laboratory Results - last 24 hr 05/14/19 05/14/19 05/14/19 14:14 14:20 14:20 WBC 5.0 RBC 4.57 Hgb 15.7 Hct 47.3 MCV 103.4 H MCH 34.4 H MCHC 33.3 RDW 12.3 Plt Count 257 MPV 9.4 Sodium 138 Potassium 4.7 Chloride 101 Carbon Dioxide 33 H Anion Gap 4 L BUN 9.8 Creatinine 0.6 Est GFR (CKD-EPI)AfAm 147.82 Est GFR (CKD-EPI)NonAf 127.55 Random Glucose 90 Lactic Acid Calcium 9.2 Total Bilirubin 0.3 AST 35 ALT 36 Alkaline Phosphatase 123 H Total Protein 8.1 Albumin 3.9 Urine Color Yellow Urine Appearance Turbid Urine pH >= 9.0 H Ur Specific [place] 1.017 Urine Protein Trace Urine Glucose (UA) Negative Urine Ketones Negative Urine Blood Negative Urine Nitrite Negative Urine Bilirubin Negative Urine Urobilinogen 0.2 Ur Leukocyte Esterase Negative 05/14/19 14:20 WBC RBC Hgb Hct MCV MCH MCHC RDW Plt Count MPV Sodium Potassium Chloride Carbon Dioxide Anion Gap BUN Creatinine Est GFR (CKD-EPI)AfAm Est GFR (CKD-EPI)NonAf Random Glucose Lactic Acid 2.3 H* Calcium Total Bilirubin AST ALT Alkaline Phosphatase Total Protein Albumin Urine Color Urine Appearance Urine pH Ur Specific [place] Urine Protein Urine Glucose (UA) Urine Ketones Urine Blood Urine Nitrite Urine Bilirubin Urine Urobilinogen Ur Leukocyte Esterase ASSESSMENT/PLAN: Problem List - Problem (1) Seizure Assessment/Plan: Multiple seizures today, approximately 5 all together reported, from NH to two witnessed in the ED Will give loading dose of keppra 1000mg keppra and phenobarbital levels pending keppra 1500mg iv BID on multiple benzos and anti seizures meds at [place]. will continue same here. head ct negative for acute process neurology consulted Monitor mental status ativan prn no signs of infection that may be causing seizures, blood and urine cultures ordered and pending lactic acid now within normal limits, but elevated on admission Code(s): R56.9 - UNSPECIFIED CONVULSIONS Qualifiers: Convulsion type: unspecified Qualified Code(s): R56.9 - Unspecified convulsions (2) Cortical blindness Assessment/Plan: supportive care, frequent orientation and reassurance aides at bedside Code(s): H47.619 - CORTICAL BLINDNESS, UNSPECIFIED SIDE OF BRAIN (3) Feeding by G-tube Assessment/Plan: hold tube feeds until seizures resolve to decrease likelihood of aspiration restart tube feeds once more stable Code(s): Z93.1 - GASTROSTOMY STATUS (4) Prophylactic measure Assessment/Plan: fen heparin bid monitor electrolytes seizure precautions full code Code(s): Z29.9 - ENCOUNTER FOR PROPHYLACTIC MEASURES, UNSPECIFIED Visit type - Emergency Visit Emergency Visit: Yes ED Registration Date: 05/14/19 Care time: The patient presented to the Emergency Department on the above date and was hospitalized for further evaluation of their emergent condition. - New Patient This patient is new to me today: Yes Date on this admission: 05/14/19 - Critical Care Critical Care patient: No
[2019-05-14] MEDS: DEXTROSE 5%-NORMAL SALINE 1,000 ML IV SCH ×2 (17:22→23:58)
[2019-05-14] MEDS ORDERED: LORazepam 2 MG/ML SDV VIAL IVPUSH PRN (18:56)
[2019-05-14] MEDS ORDERED: LORazepam 2 MG/ML SDV VIAL ONE (19:59)
[2019-05-14] MEDS ORDERED: SODIUM BENZOATE PEG SCH (22:00)
[2019-05-14] MEDS ORDERED: CLOBAZAM 20 MG PO SCH (22:00)
[2019-05-14] MEDS ORDERED: PATIENT'S OWN MEDICATION (NON-FORMULARY) (Topiramate [Topamax] 50 MG) PO SCH (22:00)
[2019-05-14] MEDS ORDERED: PHENobarbital 30 MG TABLET PEG SCH (22:00)
[2019-05-14] MEDS ORDERED: PATIENT'S OWN MEDICATION (NON-FORMULARY) (Phenobarbital [Phenobarbital] 64.8 MG) PEG SCH (22:00)
[2019-05-14] MEDS ORDERED: TOPIRAMATE 200 MG TABLET (FP) GT SCH (22:00)
[2019-05-14] MEDS: BACLOFEN 10 MG TABLET (FP) PEG SCH ×2 (23:04→23:56)
[2019-05-14] MEDS: PHENobarbital 30 MG TABLET PEG SCH (23:46)
[2019-05-14] MEDS: LORATADINE 10 MG TABLET GT SCH (23:47)
[2019-05-14] MEDS: cloBAZam 10 MG TABLET PEG SCH (23:47)
[2019-05-14] MEDS: TOPIRAMATE 200 MG, TOPIRAMATE 50 MG GT SCH (23:48)
[2019-05-14] MEDS: levETIRAcetam 500 MG/5 ML ORAL SOLUTION (UNIT-DOSE CUPS) PEG SCH (23:49)
[2019-05-15] MEDS: BACLOFEN 10 MG TABLET (FP) PEG SCH ×3 (06:13→21:24)
[2019-05-15 08:41] LABS: HEMATOCRIT 43.6 % (35.4-49); HEMOGLOBIN 14.7 GM/dL (11.7-16.9); MCH 34.8 pg (25.7-33.7); MCHC 33.8 g/dl (32.0-35.9); MEAN CELL VOLUME 102.9 fl (80-96); MEAN PLT VOLUME 9.3 fl (7.5-11.1); PLATELET COUNT 244 K/MM3 (134-434); RBC 4.24 M/mm3 (4.00-5.60); RDW 12.4 % (11.9-15.9); WHITE BLOOD COUNT 4.7 K/mm3 (4.0-10.0)
[2019-05-15 09:26] LABS: BLOOD UREA NITROGEN 9.2 mg/dL (7-18); CALCIUM 8.2 mg/dL (8.5-10.1); CREATININE 0.5 mg/dL (0.55-1.3); MAGNESIUM 2.5 mg/dL (1.8-2.4); POTASSIUM 3.6 mmol/L (3.5-5.1)
--- NOTE | 2019-05-15 09:42 | CONSULT ---
Consult - text type - Consultation Consultation Note: Neurology CHIEF COMPLAINT: sent by [facility] for witnessed seizures during day activity PCP: Dr. King ([facility]) HISTORY OF PRESENT ILLNESS: 38 year old male with a significant past medical history of profound intellectual disability, h/o intraventricular hemorrhage of , generalized idiopathic epilepsy, microcephaly, cortical blindness, GERD, spastic quadriplegic cerebral palsy, hypothyroidism, s/p HAZARDOUS MATERIALS DRIVER shunt placement, s/ p G tube placement. He was sent to the ED from [facility] for seizures. Patient is non verbal at baseline with a history of MR and unable to provide the history. He was reported to have a seizures at [facility] the morning of admission while in the day program. He was reported to have recurrent seizures at the facility and then multiple seizure-like events iin the emergency department. CT head was completed and without any acute changes. Seizures resolved with Diastat rectally given in the emergency department. Overnight, no seizure events and discussed the case with hospitalist. The patient is already on 6 antiseizure medications including Vimpat, benzyl, Keppra, Onfi, Topamax and phenobarbital. I would be reluctant to take significant addition to his regimen which is already with a large number of antiepileptics. We will continue to monitor and if seizure were to occur than I would consider increasing his Topamax which is currently at 50 mg. For now, we'll hold off but if recurrence occurs than the Topamax would be the medication I would consider increasing Recent Travel: none PAST MEDICAL/SURGICAL HISTORY: profound intellectual disability, h/o intraventricular hemorrhage of , generalized idiopathic epilepsy, microcephaly, cortical blindness, GERD, spastic quadriplegic cerebral palsy, hypothyroidism, s/p HAZARDOUS MATERIALS DRIVER shunt placement, s/p G tube placement. Social History: Smoking: none Alcohol: none Drugs: none Allergies carbamazepine Allergy (Unknown, Verified 05/14/19 11:36) HOME MEDICATIONS: Home Medications Medication Instructions Recorded Baclofen [Lioresal -] 5 mg PEG QID 08/16/17 Benzoyl Peroxide 5% Gel - 1 applic TP BID 08/16/17 Bisacodyl Suppository [Dulcolax 10 mg IN PRN PRN 08/16/17 Suppository -] Calcium Citrate/Vitamin D3 2 each PEG BID 08/16/17 [Calcium Cit 315-Vit D3 250 Tab] Cetirizine HCl [Zyrtec -] 10 mg PEG HS 08/16/17 Cholecalciferol (Vitamin D3) 2,000 iu PEG DAILY 08/16/17 [Vitamin D3] Clindamycin Topical Solution 1 applic TP DAILY 08/16/17 [Cleocin 1% Topical Solution -] Lacosamide [Vimpat] 200 mg PEG BID 08/16/17 Levocarnitine [Carnitor] 330 mg PEG BID 08/16/17 Levothyroxine [Synthroid -] 75 mcg PEG AM 08/16/17 Multivitamin [One Daily] 1 tablet PEG DAILY 08/16/17 Rufinamide [Banzel] 30 ml PEG BID 08/16/17 Sennosides [Senna] 2 tab PEG BID 08/16/17 Sodium Benzoate 4.5 gm PEG TID 08/16/17 levETIRAcetam [Levetiracetam] 15 ml PEG BID 08/16/17 Chlorhexidine Gluconate 10 ml MM BID 02/01/19 Clobazam 10 mg PEG DAILY 02/01/19 Clobazam [Onfi] 20 mg PO BID 02/01/19 Diazepam Rectal Gel [Diastat 5 mg IN ONCE PRN 02/01/19 Rectal Gel -] Fluticasone Prop 0.05% Nasal 1 spray NS DAILY 02/01/19 [Flonase -] Magnesium Hydrox 2400MG/30Ml [Milk 30 ml PEG BID 02/01/19 of Magnesia -] Phenobarbital - 32.4 mg PEG HS MDD 60 02/01/19 Topiramate [Topamax -] 200 mg GT BID 02/01/19 Albuterol 0.083% Nebulizer Jyoti 1 neb NEB Q6H 03/28/19 [Ventolin 0.083% Nebulizer Soln -] Albuterol 2.5/Ipratropium 0.5 1 amp NEB Q6H PRN 03/28/19 [Duoneb -] Phenobarbital 64.8 mg PEG BID 03/28/19 Topiramate [Topamax] 50 mg PO HS 03/28/19 Amox-Tr/K Cl [Augmentin 250 mg/5 10 ml PO BID #1 bottle 04/03/19 ml Oral Suspension -] Amox-Tr/K Cl [Augmentin Suspension 500 mg PO BID@0800,1730 #1 bottle 04/03/19 -] REVIEW OF SYSTEMS Vital Signs - 24 hr 05/14/19 05/14/19 11:25 13:10 Temperature 98.3 F Pulse Rate 81 Pulse Rate [ 73 Left Radial] Respiratory 16 13 Rate Blood Pressure 136/100 Blood Pressure 124/90 [Right Thigh] O2 Sat by Pulse 98 95 Oximetry (%) GENERAL: non verbal at baseline, lethargic HEAD: Normal with no signs of trauma. EYES: Pupils equal, round and reactive to light, extraocular movements intact, sclera anicteric, conjunctiva clear. No lid lag. EARS, NOSE, THROAT: Ears normal, nares patent, oropharynx clear without exudates. Moist mucous membranes. NECK: Normal range of motion, supple without lymphadenopathy, JVD, or masses. LUNGS: Breath sounds equal, clear to auscultation bilaterally. HEART: Regular rate and rhythm ABDOMEN: Soft, nontender, not distended, +peg tube MUSCULOSKELETAL: Normal range of motion at all joints. No bony deformities or tenderness. No CVA tenderness. UPPER EXTREMITIES: No peripheral edema. LOWER EXTREMITIES: No peripheral edema. NEUROLOGICAL: non verbal, asleep but arousable, not following commands, fatigued-appearing, moves extremities grossly Laboratory Results - last 24 hr 05/14/19 05/14/19 05/14/19 14:14 14:20 14:20 WBC 5.0 RBC 4.57 Hgb 15.7 Hct 47.3 MCV 103.4 H MCH 34.4 H MCHC 33.3 RDW 12.3 Plt Count 257 MPV 9.4 Sodium 138 Potassium 4.7 Chloride 101 Carbon Dioxide 33 H Anion Gap 4 L BUN 9.8 Creatinine 0.6 Est GFR (CKD-EPI)AfAm 147.82 Est GFR (CKD-EPI)NonAf 127.55 Random Glucose 90 Lactic Acid Calcium 9.2 Total Bilirubin 0.3 AST 35 ALT 36 Alkaline Phosphatase 123 H Total Protein 8.1 Albumin 3.9 Urine Color Yellow Urine Appearance Turbid Urine pH >= 9.0 H Ur Specific [place] 1.017 Urine Protein Trace Urine Glucose (UA) Negative Urine Ketones Negative Urine Blood Negative Urine Nitrite Negative Urine Bilirubin Negative Urine Urobilinogen 0.2 Ur Leukocyte Esterase Negative ASSESSMENT/PLAN: 38 year old male with a significant past medical history of profound intellectual disability, h/o intraventricular hemorrhage of , generalized idiopathic epilepsy, microcephaly, cortical blindness, GERD, spastic quadriplegic cerebral palsy, hypothyroidism, s/p HAZARDOUS MATERIALS DRIVER shunt placement, s/ p G tube placement. He was sent to the ED from [facility] for seizures. Patient is non verbal at baseline with a history of MR and unable to provide the history. He was reported to have a seizures at [facility] the morning of admission while in the day program. He was reported to have recurrent seizures at the facility and then multiple seizure-like events iin the emergency department. CT head was completed and without any acute changes. Seizures resolved with Diastat rectally given in the emergency department. Overnight, no seizure events and discussed the case with hospitalist. The patient is already on 6 antiseizure medications including Vimpat, benzyl, Keppra, Onfi, Topamax and phenobarbital. I would be reluctant to take significant addition to his regimen which is already with a large number of antiepileptics. We will continue to monitor and if seizure were to occur than I would consider increasing his Topamax which is currently at 50 mg. For now, we'll hold off but if recurrence occurs than the Topamax would be the medication I would consider increasing. Keppra and Phenobarb levels sent, awaiting results. no significant evidence of hydrocephalus on CT scan, does not seem to be related to HAZARDOUS MATERIALS DRIVER shunt.. Discussed with aide at bedside from [facility] who indicates patient has significant sleep deprivation and will be awake during the nighttime as this can certainly precipitate seizures. continue monitor for any seizure activity, DVT prophylaxis.
[2019-05-15] MEDS ORDERED: cloBAZam 10 MG TABLET PEG SCH (10:00)
[2019-05-15] MEDS: CHOLECALCIFEROL (VIT D3) 1,000 UNIT (25 MCG) TABLET GT SCH (11:33)
[2019-05-15] MEDS: levETIRAcetam 500 MG/5 ML ORAL SOLUTION (UNIT-DOSE CUPS) PEG SCH ×2 (11:33→21:25)
[2019-05-15] MEDS: cloBAZam 10 MG TABLET PEG SCH ×2 (11:33→21:25)
[2019-05-15] MEDS: HEPARIN NA (PORCINE) 5,000 UNITS/ML 1ML VIAL SQ SCH ×2 (11:34→21:24)
[2019-05-15] MEDS: RUFINAMIDE 40 MG/ML GT SCH ×3 (12:00→21:25)
--- NOTE | 2019-05-15 12:28 | PN ---
Physical Exam: SUBJECTIVE: Patient seen and examined at the bedside. mom at the bedside. 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 He was sent to the ED from [facility] for seizures. Patient is non verbal at baseline with a history of MR and unable to provide the history. He was reported to have a seizures at [place] on admission while in the day program. He was reported to have a 1.58 second seizure accompanied by 35 second seizure and then a 28 second seizure, all within 10 minutes. In the Ed he was also noted to have two seizures that were witnessed by his primary RN and his bedside aide. Patient seen here last month for sepsis secondary to pneumonia and was sent back to [place] with Augmentin via Gtube. Vital Signs Period Temp Pulse Resp BP Sys/[place] Pulse Ox Last 24 Hr 97.0 F-98 F 69-87 13-20 106-132/67-90 95-98 GENERAL: non verbal at baseline, lethargic HEAD: Normal with no signs of trauma. EYES: Pupils equal, round and reactive to light, extraocular movements intact, sclera anicteric, conjunctiva clear. No lid lag. EARS, NOSE, THROAT: Ears normal, nares patent, oropharynx clear without exudates. Moist mucous membranes. NECK: Normal range of motion, supple without lymphadenopathy, JVD, or masses. LUNGS: Breath sounds equal, clear to auscultation bilaterally. HEART: Regular rate and rhythm ABDOMEN: Soft, nontender, not distended, +peg tube MUSCULOSKELETAL: Normal range of motion at all joints. No bony deformities or tenderness. No CVA tenderness. UPPER EXTREMITIES: No peripheral edema. LOWER EXTREMITIES: No peripheral edema. NEUROLOGICAL: non verbal Laboratory Results - last 24 hr 05/14/19 05/14/19 05/14/19 14:14 14:20 14:20 WBC 5.0 RBC 4.57 Hgb 15.7 Hct 47.3 MCV 103.4 H MCH 34.4 H MCHC 33.3 RDW 12.3 Plt Count 257 MPV 9.4 Sodium 138 Potassium 4.7 Chloride 101 Carbon Dioxide 33 H Anion Gap 4 L BUN 9.8 Creatinine 0.6 Est GFR (CKD-EPI)AfAm 147.82 Est GFR (CKD-EPI)NonAf 127.55 Random Glucose 90 Lactic Acid Calcium 9.2 Phosphorus Magnesium Total Bilirubin 0.3 AST 35 ALT 36 Alkaline Phosphatase 123 H Total Protein 8.1 Albumin 3.9 Urine Color Yellow Urine Appearance Turbid Urine pH >= 9.0 H Ur Specific [place] 1.017 Urine Protein Trace Urine Glucose (UA) Negative Urine Ketones Negative Urine Blood Negative Urine Nitrite Negative Urine Bilirubin Negative Urine Urobilinogen 0.2 Ur Leukocyte Esterase Negative 05/14/19 05/14/19 05/15/19 14:20 17:58 07:15 WBC 4.7 RBC 4.24 Hgb 14.7 Hct 43.6 MCV 102.9 H MCH 34.8 H MCHC 33.8 RDW 12.4 Plt Count 244 MPV 9.3 Sodium Potassium Chloride Carbon Dioxide Anion Gap BUN Creatinine Est GFR (CKD-EPI)AfAm Est GFR (CKD-EPI)NonAf Random Glucose Lactic Acid 2.3 H* 1.8 Calcium Phosphorus Magnesium Total Bilirubin AST ALT Alkaline Phosphatase Total Protein Albumin Urine Color Urine Appearance Urine pH Ur Specific [place] Urine Protein Urine Glucose (UA) Urine Ketones Urine Blood Urine Nitrite Urine Bilirubin Urine Urobilinogen Ur Leukocyte Esterase 05/15/19 07:15 WBC RBC Hgb Hct MCV MCH MCHC RDW Plt Count MPV Sodium 137 Potassium 3.6 Chloride 104 Carbon Dioxide 23 Anion Gap 9 BUN 9.2 Creatinine 0.5 L Est GFR (CKD-EPI)AfAm 159.33 Est GFR (CKD-EPI)NonAf 137.47 Random Glucose 97 Lactic Acid Calcium 8.2 L Phosphorus 3.0 Magnesium 2.5 H Total Bilirubin AST ALT Alkaline Phosphatase Total Protein Albumin Urine Color Urine Appearance Urine pH Ur Specific [place] Urine Protein Urine Glucose (UA) Urine Ketones Urine Blood Urine Nitrite Urine Bilirubin Urine Urobilinogen Ur Leukocyte Esterase Active Medications Generic Name Dose Route Start Last Admin Trade Name Freq PRN Reason Stop Dose Admin Baclofen 5 mg 05/14/19 21:00 05/15/19 06:13 Lioresal - PEG 5 mg 0000,0600,1600,2100 JOANNA Administration Cholecalciferol 2,000 unit 05/15/19 10:00 05/15/19 11:33 Vitamin D3 - GT 2,000 unit DAILY JOANNA Administration Clobazam 30 mg 05/15/19 10:00 05/15/19 11:33 Onfi - PEG 30 mg DAILY JOANNA Administration Clobazam 20 mg 05/14/19 22:00 05/14/19 23:47 Onfi - PEG 20 mg HS JOANNA Administration Heparin Sodium (Porcine) 5,000 unit 05/15/19 10:00 05/15/19 11:34 Heparin - SQ 5,000 unit BID JOANNA Administration Dextrose/Sodium Chloride 1,000 mls @ 100 mls/hr 05/14/19 17:15 05/14/19 23:58 D5-Ns - IV 100 mls/hr ASDIR JOANNA Administration Levetiracetam 1,500 mg 05/14/19 22:00 05/15/19 11:33 Keppra Oral Solution - PEG 1,500 mg BID JOANNA Administration Loratadine 10 mg 05/14/19 22:00 05/14/19 23:47 Claritin - GT 10 mg HS JOANNA Administration Lorazepam 1 mg 05/14/19 18:56 05/14/19 19:58 Ativan Injection - IVPUSH 1 mg Q6H PRN Administration seizures Non-Formulary Medication 2 each 05/14/19 22:00 Calcium Citrate/Vitamin D3 [Calcium Cit 315-Vit D3 250 Tab] PEG BID JOANNA Non-Formulary Medication 30 ml 05/14/19 22:00 Rufinamide [Banzel] PEG BID JOANNA Non-Formulary Medication 4.5 gm 05/14/19 22:00 Sodium Benzoate [Sodium Benzoate] PEG TID JOANNA Phenobarbital 90 mg 05/14/19 22:00 05/14/19 23:46 Phenobarbital - PEG 90 mg HS JOANNA Administration Phenobarbital 60 mg 05/15/19 10:54 Phenobarbital - NR DAILY JOANNA Topiramate 200 mg/ Topiramate 250 mg 05/14/19 22:00 05/14/19 23:48 50 mg GT 250 mg HS JOANNA Administration Topiramate 200 mg 05/15/19 10:00 Topamax - GT DAILY JOANNA ASSESSMENT/PLAN: Problem List - Problems (1) Seizure Assessment/Plan: Multiple seizures on admission, approximately 5 all together reported, from NH to two witnessed in the ED Given loading dose of keppra 1000mg on admission and now on keppra 1500mg BID via g tube. keppra and phenobarbital levels pending on multiple benzos and anti seizures meds at [place]. will continue same here. head ct negative for acute process neurology consulted and following, notes reviewed and appreciated. Monitor mental status ativan prn for any breakthrough seizures. no signs of infection that may be causing seizures, blood and urine cultures ordered and pending lactic acid now within normal limits, but elevated on admission likely secondary to seizure Code(s): R56.9 - UNSPECIFIED CONVULSIONS Qualifiers: Convulsion type: unspecified Qualified Code(s): R56.9 - Unspecified convulsions (2) Cortical blindness Assessment/Plan: supportive care, frequent orientation and reassurance aides at bedside Code(s): H47.619 - CORTICAL BLINDNESS, UNSPECIFIED SIDE OF BRAIN (3) Feeding by G-tube Assessment/Plan: restart tube feeds Code(s): Z93.1 - GASTROSTOMY STATUS (4) Prophylactic measure Assessment/Plan: fen heparin bid monitor electrolytes seizure precautions full code Code(s): Z29.9 - ENCOUNTER FOR PROPHYLACTIC MEASURES, UNSPECIFIED Visit type - Emergency Visit Emergency Visit: Yes ED Registration Date: 05/14/19 Care time: The patient presented to the Emergency Department on the above date and was hospitalized for further evaluation of their emergent condition. - New Patient This patient is new to me today: No - Critical Care Critical Care patient: No - Discharge Referral Referred to [facility] No
[2019-05-15] MEDS: TOPIRAMATE 200 MG TABLET (FP) GT SCH (15:05)
[2019-05-15] MEDS ORDERED: LORazepam 2 MG/ML SDV VIAL IVPUSH PRN (16:10)
--- NOTE | 2019-05-15 16:33 | PROC ---
Procedure Note Procedure: Called by patients RN for IV placement after multiple unsuccessful attempts made at peripheral line placement by multiple RNs. Patient in need of IV for fluids/medications. Patient prepped using typical sterile fashion. 22 gauge peripheral IV placed above patients left ankle. Line flushes easily with venous blood return and was irrigated with 5mls NS. Line secured in place. Pt. tolerated procedure well. RN aware.
[2019-05-15] MEDS: DEXTROSE 5%-NORMAL SALINE 1,000 ML IV SCH (20:48)
[2019-05-15] MEDS ORDERED: FLU VACCINE QUAD 60 MCG/0.5 ML (MDV 19-20) IM ONE (21:00)
[2019-05-15] MEDS ORDERED: PT OWN MED DRAWER 7, Y5N ONE ×2 (21:17→22:17)
[2019-05-15] MEDS: LORATADINE 10 MG TABLET GT SCH (21:24)
[2019-05-15] MEDS: PHENobarbital 30 MG TABLET PEG SCH (21:25)
[2019-05-15] MEDS: TOPIRAMATE 200 MG, TOPIRAMATE 50 MG GT SCH (22:55)
[2019-05-16] MEDS: BACLOFEN 10 MG TABLET (FP) PEG SCH ×4 (00:10→23:07)
[2019-05-16] MEDS: DEXTROSE 5%-NORMAL SALINE 1,000 ML IV SCH (06:38)
[2019-05-16 08:34] LABS: BASO % 0.4 % (0-2.0); EOS % 1.5 % (0-4.5); HEMATOCRIT 45.4 % (35.4-49); HEMOGLOBIN 14.9 GM/dL (11.7-16.9); LYMPH % 38.4 % (8-40); MCHC 32.9 g/dl (32.0-35.9); MEAN CELL VOLUME 103.5 fl (80-96); MONO % 11.8 % (3.8-10.2); NEUT % 47.9 % (42.8-82.8); PLATELET COUNT 244 K/MM3 (134-434); RBC 4.38 M/mm3 (4.00-5.60); RDW 12.6 % (11.9-15.9); WHITE BLOOD COUNT 4.6 K/mm3 (4.0-10.0)
--- NOTE | 2019-05-16 08:57 | PN ---
Progress Note (short form) - Note Progress Note: Neurology CHIEF COMPLAINT: sent by [facility] for witnessed seizures during day activity PCP: Dr. King ([place]) HISTORY OF PRESENT ILLNESS: 38 year old male with a significant past medical history of profound intellectual disability, h/o intraventricular hemorrhage of , generalized idiopathic epilepsy, microcephaly, cortical blindness, GERD, spastic quadriplegic cerebral palsy, hypothyroidism, s/p MULTIPLE DRILL OPERATOR shunt placement, s/ p G tube placement. He was sent to the ED from [facility] ([place] for seizures. Patient is non verbal at baseline with a history of MR and unable to provide the history. He was reported to have a seizures at [place] the morning of admission while in the day program. He was reported to have recurrent seizures at the facility and then multiple seizure-like events iin the emergency department. CT head was completed and without any acute changes. Seizures resolved with Diastat rectally given in the emergency department. Overnight, no seizure events and discussed with nurse. The patient is already on 6 antiseizure medications including Vimpat, benzyl, Keppra, Onfi, Topamax and phenobarbital. I would be reluctant to take significant addition to his regimen which is already with a large number of antiepileptics. We will continue to monitor and if seizure were to occur than I would consider increasing his Topamax which is currently at 50 mg. For now, we'll hold off but if recurrence occurs than the Topamax would be the medication I would consider increasing. since he has not had any seizures overnight, I do not feel that we need to further modify or increase his regimen. If medically stable consider discharge planning. Active Medications Baclofen (Lioresal -) 5 mg PEG 0000,0600,1600,2100 JOANNA Last Admin: 05/16/19 06:38 Dose: 5 mg Cholecalciferol (Vitamin D3 -) 2,000 unit GT DAILY JOANNA Last Admin: 05/15/19 11:33 Dose: 2,000 unit Clobazam (Onfi -) 30 mg PEG DAILY JOANNA Last Admin: 05/15/19 11:33 Dose: 30 mg Clobazam (Onfi -) 20 mg PEG HS JOANNA Last Admin: 05/15/19 21:25 Dose: 20 mg Heparin Sodium (Porcine) (Heparin -) 5,000 unit SQ BID JOANNA Last Admin: 05/15/19 21:24 Dose: 5,000 unit Dextrose/Sodium Chloride (D5-Ns -) 1,000 mls @ 100 mls/hr IV ASDIR [facility] Last Admin: 05/16/19 06:38 Dose: 100 mls/hr Levetiracetam (Keppra Oral Solution -) 1,500 mg PEG BID [facility] Last Admin: 05/15/19 21:25 Dose: 1,500 mg Loratadine (Claritin -) 10 mg GT HS [facility] Last Admin: 05/15/19 21:24 Dose: 10 mg Lorazepam (Ativan Injection -) 1 mg IVPUSH Q6H PRN PRN Reason: seizures Rufinamide [Banzel] 40mg/Ml Patient's Own Medication (Non- Formulary) 30 ml GT BID [facility] Last Admin: 05/15/19 21:25 Dose: 30 ml Non-Formulary Medication (Sodium Benzoate [Sodium Benzoate]) 4.5 gm PEG TID JOANNA Phenobarbital (Phenobarbital -) 90 mg PEG HS [facility] Last Admin: 05/15/19 21:25 Dose: 90 mg Phenobarbital (Phenobarbital -) 60 mg NR DAILY [facility] Topiramate 200 mg/ Topiramate (50 mg) 250 mg GT HS [facility] Last Admin: 05/15/19 22:55 Dose: 250 mg Topiramate (Topamax -) 200 mg GT DAILY [facility] Last Admin: 05/15/19 15:05 Dose: 200 mg Physical Examination Vital Signs Period Temp Pulse Resp BP Sys/[place] Pulse Ox Last 24 Hr 97.3 F-98.1 F 59-75 18-18 93-124/38-78 95-97 GENERAL: non verbal at baseline, lethargic HEAD: Normal with no signs of trauma. EYES: Pupils equal, round and reactive to light, extraocular movements intact, sclera anicteric, conjunctiva clear. No lid lag. EARS, NOSE, THROAT: Ears normal, nares patent, oropharynx clear without exudates. Moist mucous membranes. NECK: Normal range of motion, supple without lymphadenopathy, JVD, or masses. LUNGS: Breath sounds equal, clear to auscultation bilaterally. HEART: Regular rate and rhythm ABDOMEN: Soft, nontender, not distended, +peg tube MUSCULOSKELETAL: Normal range of motion at all joints. No bony deformities or tenderness. No CVA tenderness. UPPER EXTREMITIES: No peripheral edema. LOWER EXTREMITIES: No peripheral edema. NEUROLOGICAL: non verbal, asleep but arousable, not following commands, fatigued-appearing, moves extremities grossly CBCD WBC 4.7 K/mm3 (4.0-10.0) 05/15/19 07:15 RBC 4.24 M/mm3 (4.00-5.60) 05/15/19 07:15 Hgb 14.7 GM/dL (11.7-16.9) 05/15/19 07:15 Hct 43.6 % (35.4-49) 05/15/19 07:15 MCV 102.9 fl (80-96) H 05/15/19 07:15 MCHC 33.8 g/dl (32.0-35.9) 05/15/19 07:15 RDW 12.4 % (11.9-15.9) 05/15/19 07:15 Plt Count 244 K/MM3 (134-434) 05/15/19 07:15 MPV 9.3 fl (7.5-11.1) 05/15/19 07:15 CMP Sodium 137 mmol/L (136-145) 05/15/19 07:15 Potassium 3.6 mmol/L (3.5-5.1) 05/15/19 07:15 Chloride 104 mmol/L (98-107) 05/15/19 07:15 Carbon Dioxide 23 mmol/L (21-32) 05/15/19 07:15 Anion Gap 9 MMOL/L (8-16) 05/15/19 07:15 BUN 9.2 mg/dL (7-18) 05/15/19 07:15 Creatinine 0.5 mg/dL (0.55-1.3) L 05/15/19 07:15 Random Glucose 97 mg/dL (74-106) 05/15/19 07:15 Calcium 8.2 mg/dL (8.5-10.1) L 05/15/19 07:15 Total Bilirubin 0.3 mg/dL (0.2-1) 05/14/19 14:20 AST 35 U/L (15-37) 05/14/19 14:20 ALT 36 U/L (13-61) 05/14/19 14:20 Alkaline Phosphatase 123 U/L (45-117) H 05/14/19 14:20 Total Protein 8.1 g/dl (6.4-8.2) 05/14/19 14:20 Albumin 3.9 g/dl (3.4-5.0) 05/14/19 14:20 ASSESSMENT/PLAN: 38 year old male with a significant past medical history of profound intellectual disability, h/o intraventricular hemorrhage of , generalized idiopathic epilepsy, microcephaly, cortical blindness, GERD, spastic quadriplegic cerebral palsy, hypothyroidism, s/p MULTIPLE DRILL OPERATOR shunt placement, s/ p G tube placement. He was sent to the ED from [facility] ([place] for seizures. Patient is non verbal at baseline with a history of MR and unable to provide the history. He was reported to have a seizures at [place] the morning of admission while in the day program. He was reported to have recurrent seizures at the facility and then multiple seizure-like events iin the emergency department. CT head was completed and without any acute changes. Seizures resolved with Diastat rectally given in the emergency department. Overnight, no seizure events and discussed the case with hospitalist. The patient is already on 6 antiseizure medications including Vimpat, benzyl, Keppra, Onfi, Topamax and phenobarbital. I would be reluctant to take significant addition to his regimen which is already with a large number of antiepileptics. We will continue to monitor and if seizure were to occur than I would consider increasing his Topamax which is currently at 50 mg. For now, we'll hold off but if recurrence occurs than the Topamax would be the medication I would consider increasing. Keppra and Phenobarb levels sent, awaiting results. no significant evidence of hydrocephalus on CT scan, does not seem to be related to MULTIPLE DRILL OPERATOR shunt.. since he has not had any seizures overnight, I do not feel that we need to further modify or increase his regimen. If medically stable consider discharge planning. Medication compliance recommended, aavoid sleep deprivation, infection, metabolic changes that can trigger seizure activity
[2019-05-16 09:33] LABS: ALBUMIN 3.5 g/dl (3.4-5.0); BILIRUBIN,TOTAL 0.2 mg/dL (0.2-1); BLOOD UREA NITROGEN 5.6 mg/dL (7-18); CALCIUM 8.6 mg/dL (8.5-10.1); CREATININE 0.5 mg/dL (0.55-1.3); MAGNESIUM 2.1 mg/dL (1.8-2.4); POTASSIUM 3.8 mmol/L (3.5-5.1); TOT PROT 7.2 g/dl (6.4-8.2)
[2019-05-16] MEDS ORDERED: PT OWN MED DRAWER 7, Y5N ONE (09:44)
[2019-05-16] MEDS: levETIRAcetam 500 MG/5 ML ORAL SOLUTION (UNIT-DOSE CUPS) PEG SCH ×2 (09:45→22:54)
[2019-05-16] MEDS: CHOLECALCIFEROL (VIT D3) 1,000 UNIT (25 MCG) TABLET GT SCH (09:46)
[2019-05-16] MEDS: TOPIRAMATE 200 MG TABLET (FP) GT SCH (09:46)
[2019-05-16] MEDS: HEPARIN NA (PORCINE) 5,000 UNITS/ML 1ML VIAL SQ SCH ×2 (09:47→22:56)
[2019-05-16] MEDS: cloBAZam 10 MG TABLET PEG SCH ×2 (09:47→22:53)
[2019-05-16] MEDS: PHENobarbital 30 MG TABLET NR SCH (09:49)
[2019-05-16] MEDS: RUFINAMIDE 40 MG/ML GT SCH ×2 (09:56→22:55)
--- NOTE | 2019-05-16 11:25 | PN ---
Physical Exam: SUBJECTIVE: Patient seen and examined at the bedside. non verbal at baseline. OBJECTIVE: no fevers, mildly hypotensive and with a blood + blood culture, one bottle with gram pos cocci.patient with recent admission for sepsis. 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 He was sent to the ED from [facility] for seizures. Patient is non verbal at baseline with a history of MR and unable to provide the history. He was reported to have a seizures at [facility] on admission while in the day program. He was reported to have a 1.58 second seizure accompanied by 35 second seizure and then a 28 second seizure, all within 10 minutes. In the Ed he was also noted to have two seizures that were witnessed by his primary RN and his bedside aide. Patient seen here last month for sepsis secondary to pneumonia and was sent back to [facility] with Augmentin via Gtube. chest xray 05/14/19: cannot rule out infiltrate of lungs. Vital Signs Period Temp Pulse Resp BP Sys/De La Vega Pulse Ox Last 24 Hr 97.3 F-98.1 F 59-75 18-18 93-124/38-78 97 GENERAL: non verbal at baseline, lethargic HEAD: Normal with no signs of trauma. EYES: Pupils equal, round and reactive to light, extraocular movements intact, sclera anicteric, conjunctiva clear. No lid lag. EARS, NOSE, THROAT: Ears normal, nares patent, oropharynx clear without exudates. Moist mucous membranes. NECK: Normal range of motion, supple without lymphadenopathy, JVD, or masses. LUNGS: Breath sounds equal, clear to auscultation bilaterally. HEART: Regular rate and rhythm ABDOMEN: Soft, nontender, not distended, +peg tube MUSCULOSKELETAL: Normal range of motion at all joints. No bony deformities or tenderness. No CVA tenderness. UPPER EXTREMITIES: No peripheral edema. LOWER EXTREMITIES: No peripheral edema. NEUROLOGICAL: non verbal Laboratory Results - last 24 hr 05/14/19 05/16/19 05/16/19 14:20 07:30 07:30 WBC 4.6 RBC 4.38 Hgb 14.9 Hct 45.4 MCV 103.5 H MCH 34.0 H MCHC 32.9 RDW 12.6 Plt Count 244 MPV 9.0 Absolute Neuts (auto) 2.2 Neutrophils % 47.9 Lymphocytes % 38.4 Monocytes % 11.8 H Eosinophils % 1.5 Basophils % 0.4 Nucleated RBC % 0 Sodium 142 Potassium 3.8 Chloride 110 H Carbon Dioxide 25 Anion Gap 8 BUN 5.6 L Creatinine 0.5 L Est GFR (CKD-EPI)AfAm 159.33 Est GFR (CKD-EPI)NonAf 137.47 Random Glucose 109 H Calcium 8.6 Magnesium 2.1 Total Bilirubin 0.2 AST 10 L ALT 29 Alkaline Phosphatase 118 H Total Protein 7.2 Albumin 3.5 Phenobarbital 37 Active Medications Generic Name Dose Route Start Last Admin Trade Name Freq PRN Reason Stop Dose Admin Baclofen 5 mg 05/14/19 21:00 05/16/19 06:38 Lioresal - PEG 5 mg 0000,0600,1600,2100 JOANNA Administration Cholecalciferol 2,000 unit 05/15/19 10:00 05/16/19 09:46 Vitamin D3 - GT 2,000 unit DAILY JOANNA Administration Clobazam 30 mg 05/15/19 10:00 05/16/19 09:47 Onfi - PEG 30 mg DAILY JOANNA Administration Clobazam 20 mg 05/14/19 22:00 05/15/19 21:25 Onfi - PEG 20 mg HS JOANNA Administration Heparin Sodium (Porcine) 5,000 unit 05/15/19 10:00 05/16/19 09:47 Heparin - SQ 5,000 unit BID JOANNA Administration Dextrose/Sodium Chloride 1,000 mls @ 100 mls/hr 05/14/19 17:15 05/16/19 06:38 D5-Ns - IV 100 mls/hr ASDIR JOANNA Administration Levetiracetam 1,500 mg 05/14/19 22:00 05/16/19 09:45 Keppra Oral Solution - PEG 1,500 mg BID JOANNA Administration Loratadine 10 mg 05/14/19 22:00 05/15/19 21:24 Claritin - GT 10 mg HS JONANA Administration Lorazepam 1 mg 05/15/19 16:10 Ativan Injection - IVPUSH Q6H PRN seizures Rufinamide [Banzel] 30 ml 05/14/19 22:00 05/16/19 09:56 40mg/Ml Patient's GT 30 ml Own Medication (Non- BID JOANNA Administration Formulary) Non-Formulary Medication 4.5 gm 05/14/19 22:00 Sodium Benzoate [Sodium Benzoate] PEG TID JOANNA Phenobarbital 90 mg 05/14/19 22:00 05/15/19 21:25 Phenobarbital - PEG 90 mg HS JOANNA Administration Phenobarbital 60 mg 05/15/19 10:54 05/16/19 09:49 Phenobarbital - NR 60 mg DAILY JOANNA Administration Topiramate 200 mg/ Topiramate 250 mg 05/14/19 22:00 05/15/19 22:55 50 mg GT 250 mg HS JOANNA Administration Topiramate 200 mg 05/15/19 10:00 05/16/19 09:46 Topamax - GT 200 mg DAILY JOANNA Administration ASSESSMENT/PLAN: Problem List - Problems (1) Seizure Assessment/Plan: Multiple seizures on admission, approximately 5 all together reported, from [place] to two witnessed in the ED Given loading dose of keppra 1000mg on admission and now on keppra 1500mg BID via g tube. keppra levels pending and phenobarbital levels within normal limits on multiple benzos and anti seizures meds at [facility]. will continue same here. head ct negative for acute process neurology consulted and following, notes reviewed and appreciated. ativan prn for any breakthrough seizures. no signs of infection that may be causing seizures, however has one pending + blood culture bottle. ID consulted and started on emperic vanco as patient was septic one month ago. repeat blood cultures. lactic acid now within normal limits, but elevated on admission likely secondary to seizure Code(s): R56.9 - UNSPECIFIED CONVULSIONS Qualifiers: Convulsion type: unspecified Qualified Code(s): R56.9 - Unspecified convulsions (2) Cortical blindness Assessment/Plan: supportive care, frequent orientation and reassurance aides at bedside Code(s): H47.619 - CORTICAL BLINDNESS, UNSPECIFIED SIDE OF BRAIN (3) Feeding by G-tube Assessment/Plan: tolerating tube feeds Code(s): Z93.1 - GASTROSTOMY STATUS (4) Prophylactic measure Assessment/Plan: fen heparin bid monitor electrolytes seizure precautions full code Code(s): Z29.9 - ENCOUNTER FOR PROPHYLACTIC MEASURES, UNSPECIFIED Visit type - Emergency Visit Emergency Visit: Yes ED Registration Date: 05/14/19 Care time: The patient presented to the Emergency Department on the above date and was hospitalized for further evaluation of their emergent condition. - New Patient This patient is new to me today: No - Critical Care Critical Care patient: No - Discharge Referral Referred to [facility] Med P.C.: No
--- NOTE | 2019-05-16 11:42 | CON.PULM ---
Consult Consult Specialty:: PULM/CCM Referred by:: Hospitalist Reason for Consultation:: abnormal CXR - History of Present Illness Chief Complaint: seizure History of Present Illness: 38 M, profound intellectual disability, h/o intraventricular hemorrhage of , generalized idiopathic epilepsy, microcephaly, cortical blindness, GERD , spastic quadriplegic cerebral palsy, hypothyroidism, s/p TRAINING LEAD shunt placement, s /p G tube placement, and recent admission here to [facility] for sepsis. Readmitted via the ER due to multiple seizures. Patient is not able to provide any history. He is afebrile with a normal WBC. CXR: poor film quality. Possible mild increase in bilateral didier-hilar infiltrates. He is in NAD on RA. 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: Seizure, Other (severe developmental delay, cerebral palsy, mental retardation, cortical blindness) Cardio/Vascular: Yes: AFIB (quadraplegia) Gastrointestinal: Yes: GERD Hepatobiliary: Yes: Hepatitis C (HCV core AB+) Musculoskeletal: Yes: Paraplegia Endocrine: Yes: Hypothyroidism - Alcohol/Substance Use Hx Alcohol Use: No - Smoking History Smoking history: Never smoked Have you smoked in the past 12 months: No Aproximately how many cigarettes per day: 0 - Social History Usual Living Arrangement: Jail ADL: Support Services History of Recent Travel: No Home Medications - Allergies Allergies/Adverse Reactions: Allergies Allergy/AdvReac Type Severity Reaction Status Date / Time carbamazepine Allergy Unknown Verified 05/14/19 11:36 - Home Medications Home Medications: Ambulatory Orders Baclofen [Lioresal -] 5 mg PEG QID 08/16/17 Benzoyl Peroxide 5% Gel - 1 applic TP BID 08/16/17 Bisacodyl Suppository [Dulcolax Suppository -] 10 mg CA PRN PRN 08/16/17 Calcium Citrate/Vitamin D3 [Calcium Cit 315-Vit D3 250 Tab] 2 each PEG BID 08/16 Cetirizine HCl [Zyrtec -] 10 mg PEG HS 08/16/17 Cholecalciferol (Vitamin D3) [Vitamin D3] 2,000 iu PEG DAILY 08/16/17 Clindamycin Topical Solution [Cleocin 1% Topical Solution -] 1 applic TP DAILY 08/16/17 Lacosamide [Vimpat] 200 mg PEG BID 08/16/17 Levocarnitine [Carnitor] 330 mg PEG BID 08/16/17 Levothyroxine [Synthroid -] 75 mcg PEG AM 08/16/17 Multivitamin [One Daily] 1 tablet PEG DAILY 08/16/17 Rufinamide [Banzel] 30 ml PEG BID 08/16/17 Sennosides [Senna] 2 tab PEG BID 08/16/17 Sodium Benzoate 4.5 gm PEG TID 08/16/17 levETIRAcetam [Levetiracetam] 15 ml PEG BID 08/16/17 Chlorhexidine Gluconate 10 ml MM BID 02/01/19 Clobazam 10 mg PEG DAILY 02/01/19 Clobazam [Onfi] 20 mg PO BID 02/01/19 Diazepam Rectal Gel [Diastat Rectal Gel -] 5 mg CA ONCE PRN 02/01/19 Fluticasone Prop 0.05% Nasal [Flonase -] 1 spray NS DAILY 02/01/19 Magnesium Hydrox 2400MG/30Ml [Milk of Magnesia -] 30 ml PEG BID 02/01/19 Phenobarbital - 32.4 mg PEG HS MDD 60 02/01/19 Topiramate [Topamax -] 200 mg GT BID 02/01/19 Albuterol 0.083% Nebulizer Jyoti [Ventolin 0.083% Nebulizer Soln -] 1 neb NEB Q6H 03/28/19 Albuterol 2.5/Ipratropium 0.5 [Duoneb -] 1 amp NEB Q6H PRN 03/28/19 Phenobarbital 64.8 mg PEG BID 03/28/19 Topiramate [Topamax] 50 mg PO HS 03/28/19 Amox-Tr/K Cl [Augmentin 250 mg/5 ml Oral Suspension -] 10 ml PO BID #1 bottle Amox-Tr/K Cl [Augmentin Suspension -] 500 mg PO BID@0800,1730 #1 bottle Review of Systems Unable to obtain ROS, reason: not able to provide Physical Exam Vital Sings: Vital Signs Temperature 97.4 F L 05/16/19 05:00 Pulse Rate 68 05/16/19 05:00 Respiratory Rate 18 05/16/19 05:00 Blood Pressure 93/53 L 05/16/19 05:00 O2 Sat by Pulse Oximetry (%) 97 05/15/19 21:00 Constitutional: Yes: No Distress Eyes: Yes: Conjunctiva Clear HENT: Yes: Atraumatic Neck: Yes: Supple, Trachea Midline Cardiovascular: Yes: Regular Rate and Rhythm Respiratory: Yes: Diminished. No: Accessory Muscle Use, Rales, Rhonchi, SOB, SOB on Exertion, Stridor, Tachypnea, Wheezes ...Inspection: Yes: Scoliosis ...Clubbing: No Gastrointestinal: Yes: Normal Bowel Sounds, Soft Musculoskeletal: Yes: Joint Stiffness Extremities: Yes: Shortened Edema: No Peripheral Pulses WNL: Yes Integumentary: Yes: WNL Neurological: Yes: Pre-Existing Deficit Labs: CBC, BMP 05/16/19 07:30 05/16/19 07:30 Imaging - Results Chest X-ray: Report Reviewed, Image Reviewed Problem List - Problems (1) Seizure Code(s): R56.9 - UNSPECIFIED CONVULSIONS Qualifiers: Convulsion type: unspecified Qualified Code(s): R56.9 - Unspecified convulsions (2) Cortical blindness Code(s): H47.619 - CORTICAL BLINDNESS, UNSPECIFIED SIDE OF BRAIN (3) Feeding by G-tube Code(s): Z93.1 - GASTROSTOMY STATUS (4) GERD (gastroesophageal reflux disease) Code(s): K21.9 - GASTRO-ESOPHAGEAL REFLUX DISEASE WITHOUT ESOPHAGITIS (5) Hypothyroid Code(s): E03.9 - HYPOTHYROIDISM, UNSPECIFIED (6) Microcephalic Code(s): Q02 - MICROCEPHALY (7) S/P TRAINING LEAD shunt Code(s): Z98.2 - PRESENCE OF CEREBROSPINAL FLUID DRAINAGE DEVICE (8) Spastic cerebral palsy Code(s): G80.1 - SPASTIC DIPLEGIC CEREBRAL PALSY (9) Seizure disorder Code(s): G40.909 - EPILEPSY, UNSP, NOT INTRACTABLE, WITHOUT STATUS EPILEPTICUS Assessment/Plan IMP: Do not suspect PNA Findings on CXR likely related to poor film quality and central crowding of vessels on exhalation. 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 Noted ID consult was called Aspiration precautions O2 as needed, comfortable on RA VTE prophylaxis Neurology to titrate AEDs Would minimize IVF Will follow while admitted Thank you. Dr Vasquez
[2019-05-16] MEDS ORDERED: VANCOMYCIN 1 GRAM (PRE-DOCKED) 1,000 MG/250 ML BAG IVPB ONE (12:02)
[2019-05-16 14:33] VITALS: BMI 22.3
--- NOTE | 2019-05-16 15:00 | PN ---
Progress Note (short form) - Note Progress Note: ID CONSULT DICTATED + BC GPCCL ? SIGNIFICANCE AWAIT FINAL C/S EMPIRIC VANCOMYCIN PENDING C/S
--- NOTE | 2019-05-16 15:50 | CONS ---
INFECTIOUS DISEASE CONSULTATION DATE OF CONSULTATION: DATE OF DICTATION: 05/16/2019 HISTORY OF PRESENT ILLNESS: The patient is a 38-year-old male evaluated for positive blood cultures. He is a resident of [facility]. He suffers from profound mental retardation and is unable to give any history. He was admitted to the hospital on May 14, 2019, after seizure activity at the nursing facility. Cultures were obtained on admission. One blood culture bottle is growing gram-positive cocci in clusters anaerobically. He cannot give any additional history. The patient has been afebrile with a normal white blood cell count. No reports of high-grade fever or shaking chills. No reports of infected skin wounds or decubitus ulcers. PAST MEDICAL HISTORY: Positive for mental retardation, cerebral palsy, seizure disorder, microcephaly, gastroesophageal reflux, quadriplegia, hypothyroidism. PAST SURGICAL HISTORY: Status post LEAD RECREATION ASSISTANT shunt and feeding gastrostomy. ALLERGIES: CARBAMAZEPINE. LABORATORY DATA: White blood cell count 4.6, hematocrit 45.4, platelets 244. Creatinine 0.5. Urinalysis negative. Chest x-ray has some increased markings bilaterally. PHYSICAL EXAMINATION: General: On exam, he is awake. He is not verbally responsive. Vital Signs: Temperature 97.4, blood pressure 93/53, pulse 68 regular, respirations 18 per minute. Eyes: Sclerae are anicteric. Heart: Heart sounds S1, S2. Lungs: Air entry bilaterally. Abdomen: Soft and nontender. Feeding gastrostomy tube site: No erythema or drainage. Extremities: Negative for edema. Skin: Intact. No infected decubitus ulcers noted. IMPRESSION: Positive blood cultures; gram-positive cocci in clusters. Uncertain significance. Presence of staphylococcus in one anaerobic bottle in this patient without a clear source for staphylococcus bacteremia, suggestive of contamination. Repeat cultures have been obtained. Await final identification of blood isolate. Vancomycin 1 g IV piggyback stat dose pending cultures. Thank you for the kind referral. RICHARD GRECO M.D. [id number]
[2019-05-16] MEDS: LORATADINE 10 MG TABLET GT SCH (22:52)
[2019-05-16] MEDS: TOPIRAMATE 200 MG, TOPIRAMATE 50 MG GT SCH (22:55)
[2019-05-16] MEDS: PHENobarbital 30 MG TABLET PEG SCH (23:00)
[2019-05-17] MEDS: BACLOFEN 10 MG TABLET (FP) PEG SCH ×4 (00:14→22:47)
--- NOTE | 2019-05-17 09:12 | PN ---
Progress Note (short form) - Note Progress Note: Neurology CHIEF COMPLAINT: sent by [facility] for witnessed seizures during day activity PCP: Dr. 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 He was sent to the ED from [facility] for seizures. Patient is non verbal at baseline with a history of MR and unable to provide the history. He was reported to have a seizures at [facility] the morning of admission while in the day program. He was reported to have recurrent seizures at the facility and then multiple seizure-like events iin the emergency department. CT head was completed and without any acute changes. Seizures resolved with Diastat rectally given in the emergency department. Overnight, no seizure events and discussed with nurse. The patient is already on 6 antiseizure medications including Vimpat, benzyl, Keppra, Onfi, Topamax and phenobarbital. I would be reluctant to take significant addition to his regimen which is already with a large number of antiepileptics. again seizure- free overnight and no abnormal movements noted this morning. Discussed with nursing patient remains neurologically stable. Active Medications Baclofen (Lioresal -) 5 mg PEG 0000,0600,1600,2100 JOANNA Last Admin: 05/17/19 05:37 Dose: 5 mg Cholecalciferol (Vitamin D3 -) 2,000 unit GT DAILY JOANNA Last Admin: 05/16/19 09:46 Dose: 2,000 unit Clobazam (Onfi -) 30 mg PEG DAILY JOANNA Last Admin: 05/16/19 09:47 Dose: 30 mg Clobazam (Onfi -) 20 mg PEG HS JOANNA Last Admin: 05/16/19 22:53 Dose: 20 mg Heparin Sodium (Porcine) (Heparin -) 5,000 unit SQ BID JOANNA Last Admin: 05/16/19 22:56 Dose: 5,000 unit Levetiracetam (Keppra Oral Solution -) 1,500 mg PEG BID JOANNA Last Admin: 05/16/19 22:54 Dose: 1,500 mg Loratadine (Claritin -) 10 mg GT HS JOANNA Last Admin: 05/16/19 22:52 Dose: 10 mg Lorazepam (Ativan Injection -) 1 mg IVPUSH Q6H PRN PRN Reason: seizures Rufinamide [Banzel] 40mg/Ml Patient's Own Medication (Non- Formulary) 30 ml GT BID [facility] Last Admin: 05/16/19 22:55 Dose: 30 ml Non-Formulary Medication (Sodium Benzoate [Sodium Benzoate]) 4.5 gm PEG TID JOANNA Phenobarbital (Phenobarbital -) 90 mg PEG HS [facility] Last Admin: 05/16/19 23:00 Dose: 90 mg Phenobarbital (Phenobarbital -) 60 mg NR DAILY [facility] Last Admin: 05/16/19 09:49 Dose: 60 mg Topiramate 200 mg/ Topiramate (50 mg) 250 mg GT HS [facility] Last Admin: 05/16/19 22:55 Dose: 250 mg Topiramate (Topamax -) 200 mg GT DAILY [facility] Last Admin: 05/16/19 09:46 Dose: 200 mg Physical Examination Vital Signs Period Temp Pulse Resp BP Sys/De La Vega Pulse Ox Last 24 Hr 96.7 F-98.4 F 73-88 18-18 109-127/60-85 100 GENERAL: non verbal at baseline, lethargic HEAD: Normal with no signs of trauma. EYES: Pupils equal, round and reactive to light, extraocular movements intact, sclera anicteric, conjunctiva clear. No lid lag. EARS, NOSE, THROAT: Ears normal, nares patent, oropharynx clear without exudates. Moist mucous membranes. NECK: Normal range of motion, supple without lymphadenopathy, JVD, or masses. LUNGS: Breath sounds equal, clear to auscultation bilaterally. HEART: Regular rate and rhythm ABDOMEN: Soft, nontender, not distended, +peg tube MUSCULOSKELETAL: Normal range of motion at all joints. No bony deformities or tenderness. No CVA tenderness. UPPER EXTREMITIES: No peripheral edema. LOWER EXTREMITIES: No peripheral edema. NEUROLOGICAL: non verbal, asleep but arousable, not following commands, fatigued-appearing, moves extremities grossly CBCD WBC 4.7 K/mm3 (4.0-10.0) 05/15/19 07:15 RBC 4.24 M/mm3 (4.00-5.60) 05/15/19 07:15 Hgb 14.7 GM/dL (11.7-16.9) 05/15/19 07:15 Hct 43.6 % (35.4-49) 05/15/19 07:15 MCV 102.9 fl (80-96) H 05/15/19 07:15 MCHC 33.8 g/dl (32.0-35.9) 05/15/19 07:15 RDW 12.4 % (11.9-15.9) 05/15/19 07:15 Plt Count 244 K/MM3 (134-434) 05/15/19 07:15 MPV 9.3 fl (7.5-11.1) 05/15/19 07:15 CMP Sodium 137 mmol/L (136-145) 05/15/19 07:15 Potassium 3.6 mmol/L (3.5-5.1) 05/15/19 07:15 Chloride 104 mmol/L (98-107) 05/15/19 07:15 Carbon Dioxide 23 mmol/L (21-32) 05/15/19 07:15 Anion Gap 9 MMOL/L (8-16) 05/15/19 07:15 BUN 9.2 mg/dL (7-18) 05/15/19 07:15 Creatinine 0.5 mg/dL (0.55-1.3) L 05/15/19 07:15 Random Glucose 97 mg/dL (74-106) 05/15/19 07:15 Calcium 8.2 mg/dL (8.5-10.1) L 05/15/19 07:15 Total Bilirubin 0.3 mg/dL (0.2-1) 05/14/19 14:20 AST 35 U/L (15-37) 05/14/19 14:20 ALT 36 U/L (13-61) 05/14/19 14:20 Alkaline Phosphatase 123 U/L (45-117) H 05/14/19 14:20 Total Protein 8.1 g/dl (6.4-8.2) 05/14/19 14:20 Albumin 3.9 g/dl (3.4-5.0) 05/14/19 14:20 ASSESSMENT/PLAN: 38 year old male with a significant past medical history of profound intellectual disability, h/o intraventricular hemorrhage of , generalized idiopathic epilepsy, microcephaly, cortical blindness, GERD, spastic quadriplegic cerebral palsy, hypothyroidism, 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 He was sent to the ED from [facility] for seizures. Patient is non verbal at baseline with a history of MR and unable to provide the history. He was reported to have a seizures at [place] the morning of admission while in the day program. He was reported to have recurrent seizures at the facility and then multiple seizure-like events iin the emergency department. CT head was completed and without any acute changes. Seizures resolved with Diastat rectally given in the emergency department. Overnight, no seizure events and discussed the case with hospitalist. The patient is already on 6 antiseizure medications including Vimpat, benzyl, Keppra, Onfi, Topamax and phenobarbital. I would be reluctant to take significant addition to his regimen which is already with a large number of antiepileptics. We will continue to monitor and if seizure were to occur than I would consider increasing his Topamax which is currently at 50 mg. For now, we'll hold off but if recurrence occurs than the Topamax would be the medication I would consider increasing. Keppra and Phenobarb levels sent, awaiting results. no significant evidence of hydrocephalus on CT scan, does not seem to be related to CATALYTIC CONVERTER OPERATOR HELPER shunt.. since he has not had any seizures overnight, I do not feel that we need to further modify or increase his regimen. If medically stable consider discharge planning. Medication compliance recommended, aavoid sleep deprivation, infection, metabolic changes that can trigger seizure activity, seen and discussed with nurse at bedside
[2019-05-17 09:13] LABS: ALBUMIN 3.4 g/dl (3.4-5.0); BILIRUBIN,TOTAL 0.2 mg/dL (0.2-1); BLOOD UREA NITROGEN 7.4 mg/dL (7-18); CALCIUM 8.7 mg/dL (8.5-10.1); CREATININE 0.5 mg/dL (0.55-1.3); MAGNESIUM 2.1 mg/dL (1.8-2.4); POTASSIUM 3.8 mmol/L (3.5-5.1)
[2019-05-17] MEDS ORDERED: PT OWN MED DRAWER 7, Y5N ONE (09:42)
[2019-05-17] MEDS: HEPARIN NA (PORCINE) 5,000 UNITS/ML 1ML VIAL SQ SCH ×2 (09:58→22:41)
[2019-05-17] MEDS: levETIRAcetam 500 MG/5 ML ORAL SOLUTION (UNIT-DOSE CUPS) PEG SCH ×2 (10:00→22:41)
[2019-05-17] MEDS: PHENobarbital 30 MG TABLET NR SCH (10:01)
[2019-05-17] MEDS: CHOLECALCIFEROL (VIT D3) 1,000 UNIT (25 MCG) TABLET GT SCH (10:01)
[2019-05-17] MEDS: cloBAZam 10 MG TABLET PEG SCH ×2 (10:02→22:41)
[2019-05-17] MEDS: TOPIRAMATE 200 MG TABLET (FP) GT SCH (10:03)
[2019-05-17] MEDS: RUFINAMIDE 40 MG/ML GT SCH ×2 (10:05→22:42)
--- NOTE | 2019-05-17 12:59 | PN ---
Physical Exam: SUBJECTIVE: Patient seen and examined at the bedside. awake and alert, watching TV, smiling. OBJECTIVE: comfortable at rest no reported seizure now off all antibiotics repeat blood cultures pending monitor discharge planning to [place] Patient is a 38 year old male with a significant past medical history of profound intellectual disability, h/o intraventricular hemorrhage of , generalized idiopathic epilepsy, microcephaly, cortical blindness, GERD, spastic quadriplegic cerebral palsy, hypothyroidism, s/p FLY WINDER shunt placement, s/ p G tube placement. He was sent to the ED from [facility]'s [place] for seizures. Patient is non verbal at baseline with a history of MR and unable to provide the history. He was reported to have a seizures at [place] on admission while in the day program. He was reported to have a 1.58 second seizure accompanied by 35 second seizure and then a 28 second seizure, all within 10 minutes. In the Ed he was also noted to have two seizures that were witnessed by his primary RN and his bedside aide. Patient seen here last month for sepsis secondary to pneumonia and was sent back to [place] with Augmentin via Gtube. His blood culture was positive x 1 bottle and given Vancomycin yesterday per ID. will monitor off antibiotics as patient has had a recent admission for sepsis. chest xray 05/14/19: cannot rule out infiltrate of lungs. Vital Signs Period Temp Pulse Resp BP Sys/De La Vega Pulse Ox Last 24 Hr 96.7 F-98.4 F 73-88 18-18 109-127/60-85 100 GENERAL: non verbal at baseline, lethargic HEAD: Normal with no signs of trauma. EYES: Pupils equal, round and reactive to light, extraocular movements intact, sclera anicteric, conjunctiva clear. No lid lag. EARS, NOSE, THROAT: Ears normal, nares patent, oropharynx clear without exudates. Moist mucous membranes. NECK: Normal range of motion, supple without lymphadenopathy, JVD, or masses. LUNGS: Breath sounds equal, clear to auscultation bilaterally. HEART: Regular rate and rhythm ABDOMEN: Soft, nontender, not distended, +peg tube MUSCULOSKELETAL: Normal range of motion at all joints. No bony deformities or tenderness. No CVA tenderness. UPPER EXTREMITIES: No peripheral edema. LOWER EXTREMITIES: No peripheral edema. NEUROLOGICAL: non verbal Laboratory Results - last 24 hr 05/17/19 07:26 Sodium 140 Potassium 3.8 Chloride 108 H Carbon Dioxide 25 Anion Gap 7 L BUN 7.4 Creatinine 0.5 L Est GFR (CKD-EPI)AfAm 159.33 Est GFR (CKD-EPI)NonAf 137.47 Random Glucose 97 Calcium 8.7 Magnesium 2.1 Total Bilirubin 0.2 AST 14 L ALT 30 Alkaline Phosphatase 113 Total Protein 7.0 Albumin 3.4 Active Medications Generic Name Dose Route Start Last Admin Trade Name Freq PRN Reason Stop Dose Admin Baclofen 5 mg 05/14/19 21:00 05/17/19 05:37 Lioresal - PEG 5 mg 0000,0600,1600,2100 JOANNA Administration Cholecalciferol 2,000 unit 05/15/19 10:00 05/17/19 10:01 Vitamin D3 - GT 2,000 unit DAILY JOANNA Administration Clobazam 30 mg 05/15/19 10:00 05/17/19 10:02 Onfi - PEG 30 mg DAILY JOANNA Administration Clobazam 20 mg 05/14/19 22:00 05/16/19 22:53 Onfi - PEG 20 mg HS JOANNA Administration Heparin Sodium (Porcine) 5,000 unit 05/15/19 10:00 05/17/19 09:58 Heparin - SQ 5,000 unit BID JOANNA Administration Levetiracetam 1,500 mg 05/14/19 22:00 05/17/19 10:00 Keppra Oral Solution - PEG 1,500 mg BID JOANNA Administration Loratadine 10 mg 05/14/19 22:00 05/16/19 22:52 Claritin - GT 10 mg HS JOANNA Administration Lorazepam 1 mg 05/15/19 16:10 Ativan Injection - IVPUSH Q6H PRN seizures Rufinamide [Banzel] 30 ml 05/14/19 22:00 05/17/19 10:05 40mg/Ml Patient's GT 30 ml Own Medication (Non- BID JOANNA Administration Formulary) Non-Formulary Medication 4.5 gm 05/14/19 22:00 Sodium Benzoate [Sodium Benzoate] PEG TID JOANNA Phenobarbital 90 mg 05/14/19 22:00 05/16/19 23:00 Phenobarbital - PEG 90 mg HS JOANNA Administration Phenobarbital 60 mg 05/15/19 10:54 05/17/19 10:01 Phenobarbital - NR 60 mg DAILY JOANNA Administration Topiramate 200 mg/ Topiramate 250 mg 05/14/19 22:00 05/16/19 22:55 50 mg GT 250 mg HS JOANNA Administration Topiramate 200 mg 05/15/19 10:00 05/17/19 10:03 Topamax - GT 200 mg DAILY JOANNA Administration ASSESSMENT/PLAN: Problem List - Problems (1) Seizure Assessment/Plan: Multiple seizures on admission, approximately 5 all together reported, from [place] to two witnessed in the ED Given loading dose of keppra 1000mg on admission and now on keppra 1500mg BID via g tube. keppra levels pending and phenobarbital levels within normal limits on multiple benzos and anti seizures meds at [place]. will continue same here. head ct negative for acute process neurology consulted and following, notes reviewed and appreciated. ativan prn for any breakthrough seizures. no signs of infection that may be causing seizures, however has one pending + blood culture bottle. ID consulted and started on emperic vanco as patient was septic one month ago. repeat blood cultures with ngtd. will monitor 24 hours off antibiotics. lactic acid now within normal limits, but elevated on admission likely secondary to seizure Code(s): R56.9 - UNSPECIFIED CONVULSIONS Qualifiers: Convulsion type: unspecified Qualified Code(s): R56.9 - Unspecified convulsions (2) Cortical blindness Assessment/Plan: supportive care, frequent orientation and reassurance aides at bedside Code(s): H47.619 - CORTICAL BLINDNESS, UNSPECIFIED SIDE OF BRAIN (3) Feeding by G-tube Assessment/Plan: tolerating tube feeds Code(s): Z93.1 - GASTROSTOMY STATUS (4) Prophylactic measure Assessment/Plan: fen heparin bid monitor electrolytes seizure precautions full code Code(s): Z29.9 - ENCOUNTER FOR PROPHYLACTIC MEASURES, UNSPECIFIED Visit type - Emergency Visit Emergency Visit: Yes ED Registration Date: 05/14/19 Care time: The patient presented to the Emergency Department on the above date and was hospitalized for further evaluation of their emergent condition. - New Patient This patient is new to me today: No - Critical Care Critical Care patient: No - Discharge Referral Referred to [facility] Med P.C.: No
--- NOTE | 2019-05-17 15:28 | PN ---
Progress Note (short form) - Note Progress Note: PULMONARY VSS/AFEBRILE Constitutional: Yes: No Distress Eyes: Yes: Conjunctiva Clear HENT: Yes: Atraumatic Neck: Yes: Supple, Trachea Midline Cardiovascular: Yes: Regular Rate and Rhythm Respiratory: Yes: Diminished. No: Accessory Muscle Use, Rales, Rhonchi, SOB, SOB on Exertion, Stridor, Tachypnea, Wheezes ...Inspection: Yes: Scoliosis ...Clubbing: No Gastrointestinal: Yes: Normal Bowel Sounds, Soft Musculoskeletal: Yes: Joint Stiffness Extremities: Yes: Shortened Edema: No Peripheral Pulses WNL: Yes Integumentary: Yes: WNL Neurological: Yes: Pre-Existing Deficit Labs: NOTED Imaging - Results Chest X-ray: Report Reviewed, Image Reviewed Problem List - Problems (1) Seizure Code(s): R56.9 - UNSPECIFIED CONVULSIONS Qualifiers: Convulsion type: unspecified Qualified Code(s): R56.9 - Unspecified convulsions (2) Cortical blindness Code(s): H47.619 - CORTICAL BLINDNESS, UNSPECIFIED SIDE OF BRAIN (3) Feeding by G-tube Code(s): Z93.1 - GASTROSTOMY STATUS (4) GERD (gastroesophageal reflux disease) Code(s): K21.9 - GASTRO-ESOPHAGEAL REFLUX DISEASE WITHOUT ESOPHAGITIS (5) Hypothyroid Code(s): E03.9 - HYPOTHYROIDISM, UNSPECIFIED (6) Microcephalic Code(s): Q02 - MICROCEPHALY (7) S/P STUDY DIRECTOR shunt Code(s): Z98.2 - PRESENCE OF CEREBROSPINAL FLUID DRAINAGE DEVICE (8) Spastic cerebral palsy Code(s): G80.1 - SPASTIC DIPLEGIC CEREBRAL PALSY (9) Seizure disorder Code(s): G40.909 - EPILEPSY, UNSP, NOT INTRACTABLE, WITHOUT STATUS EPILEPTICUS Do not suspect PNA Noted ID consult was called Aspiration precautions O2 as needed, comfortable on RA VTE prophylaxis Neurology to titrate AEDs Would minimize IVF Will follow while admitted Freddie AQUINO MD
--- NOTE | 2019-05-17 16:29 | PN ---
Progress Note, Physician History of Present Illness: AWAKE, SMILING NO ACUTE DISTRESS BREATHING NON LABORED AFEBRILE [facility] - Current Medication List Current Medications: Active Medications Baclofen (Lioresal -) 5 mg PEG 0000,0600,1600,2100 [facility] Last Admin: 05/17/19 05:37 Dose: 5 mg Cholecalciferol (Vitamin D3 -) 2,000 unit GT DAILY [facility] Last Admin: 05/17/19 10:01 Dose: 2,000 unit Clobazam (Onfi -) 30 mg PEG DAILY [facility] Last Admin: 05/17/19 10:02 Dose: 30 mg Clobazam (Onfi -) 20 mg PEG HS [facility] Last Admin: 05/16/19 22:53 Dose: 20 mg Heparin Sodium (Porcine) (Heparin -) 5,000 unit SQ BID [facility] Last Admin: 05/17/19 09:58 Dose: 5,000 unit Levetiracetam (Keppra Oral Solution -) 1,500 mg PEG BID [facility] Last Admin: 05/17/19 10:00 Dose: 1,500 mg Loratadine (Claritin -) 10 mg GT HS [facility] Last Admin: 05/16/19 22:52 Dose: 10 mg Lorazepam (Ativan Injection -) 1 mg IVPUSH Q6H PRN PRN Reason: seizures Rufinamide [Banzel] 40mg/Ml Patient's Own Medication (Non- Formulary) 30 ml GT BID [facility] Last Admin: 05/17/19 10:05 Dose: 30 ml Non-Formulary Medication (Sodium Benzoate [Sodium Benzoate]) 4.5 gm PEG TID [facility] Phenobarbital (Phenobarbital -) 90 mg PEG HS [facility] Last Admin: 05/16/19 23:00 Dose: 90 mg Phenobarbital (Phenobarbital -) 60 mg NR DAILY [facility] Last Admin: 05/17/19 10:01 Dose: 60 mg Topiramate 200 mg/ Topiramate (50 mg) 250 mg GT HS [facility] Last Admin: 05/16/19 22:55 Dose: 250 mg Topiramate (Topamax -) 200 mg GT DAILY [facility] Last Admin: 05/17/19 10:03 Dose: 200 mg - Objective Vital Signs: Vital Signs Temperature 98.6 F 05/17/19 15:09 Pulse Rate 79 05/17/19 15:09 Respiratory Rate 18 05/17/19 15:09 Blood Pressure 123/75 05/17/19 15:09 O2 Sat by Pulse Oximetry (%) 99 05/17/19 10:00 Constitutional: Yes: No Distress Cardiovascular: Yes: Regular Rate and Rhythm, S1, S2 Respiratory: Yes: CTA Bilaterally Gastrointestinal: Yes: Normal Bowel Sounds, Soft. No: Tenderness Edema: No Labs: CBC, BMP 05/16/19 07:30 05/17/19 07:26 Assessment/Plan +BC SCN = CONTAMINANT CP/MR SEIZURE DISORDER OBSERVE OFF ANTIBIOTICS
[2019-05-17] MEDS: LORATADINE 10 MG TABLET GT SCH (22:41)
[2019-05-17] MEDS: PHENobarbital 30 MG TABLET PEG SCH (22:42)
[2019-05-17] MEDS: TOPIRAMATE 200 MG, TOPIRAMATE 50 MG GT SCH (22:42)
[2019-05-18] MEDS: BACLOFEN 10 MG TABLET (FP) PEG SCH ×5 (00:07→23:57)
[2019-05-18 09:34] LABS: BASO % 1.5 % (0-2.0); EOS % 2.6 % (0-4.5); HEMATOCRIT 46.2 % (35.4-49); HEMOGLOBIN 15.7 GM/dL (11.7-16.9); LYMPH % 36.7 % (8-40); MCH 34.6 pg (25.7-33.7); MEAN CELL VOLUME 101.8 fl (80-96); MEAN PLT VOLUME 9.5 fl (7.5-11.1); MONO % 13.4 % (3.8-10.2); NEUT % 45.8 % (42.8-82.8); PLATELET COUNT 238 K/MM3 (134-434); RBC 4.53 M/mm3 (4.00-5.60); RDW 12.3 % (11.9-15.9); WHITE BLOOD COUNT 4.3 K/mm3 (4.0-10.0)
[2019-05-18 10:00] LABS: ALBUMIN 3.6 g/dl (3.4-5.0); BILIRUBIN,TOTAL 0.3 mg/dL (0.2-1); BLOOD UREA NITROGEN 11.5 mg/dL (7-18); CREATININE 0.5 mg/dL (0.55-1.3); MAGNESIUM 2.4 mg/dL (1.8-2.4); POTASSIUM 3.8 mmol/L (3.5-5.1); TOT PROT 7.6 g/dl (6.4-8.2)
[2019-05-18] MEDS: levETIRAcetam 500 MG/5 ML ORAL SOLUTION (UNIT-DOSE CUPS) PEG SCH ×2 (10:02→23:06)
[2019-05-18] MEDS: cloBAZam 10 MG TABLET PEG SCH ×2 (10:02→23:04)
[2019-05-18] MEDS: PHENobarbital 30 MG TABLET NR SCH (10:03)
[2019-05-18] MEDS: HEPARIN NA (PORCINE) 5,000 UNITS/ML 1ML VIAL SQ SCH ×2 (10:03→23:06)
[2019-05-18] MEDS: CHOLECALCIFEROL (VIT D3) 1,000 UNIT (25 MCG) TABLET GT SCH (10:04)
[2019-05-18] MEDS: TOPIRAMATE 200 MG TABLET (FP) GT SCH (10:04)
[2019-05-18] MEDS: RUFINAMIDE 40 MG/ML GT SCH ×2 (10:07→23:09)
--- NOTE | 2019-05-18 11:16 | PN ---
Physical Exam: SUBJECTIVE: Patient seen and examined at the bedside. appears comfortable at rest. no respiratory distress. OBJECTIVE: comfortable at rest no reported seizure now off all antibiotics repeat blood cultures negative monitor discharge planning to [place] mentation back to baseline Patient is a 38 year old male with a significant past medical history of profound intellectual disability, h/o intraventricular hemorrhage of , generalized idiopathic epilepsy, microcephaly, cortical blindness, GERD, spastic quadriplegic cerebral palsy, hypothyroidism, s/p BUSINESS CONSULTANT shunt placement, s/ p G tube placement. He was sent to the ED from [facility] for seizures. His blood culture was positive x 1 bottle and given Vancomycin IV. will monitor off antibiotics as patient has had a recent admission for sepsis, however, currently, afebrile, wbc stable. chest xray 05/14/19: cannot rule out infiltrate of lungs. Vital Signs Period Temp Pulse Resp BP Sys/De [place]ega Pulse Ox Last 24 Hr 97.3 F-98.6 F 63-79 18-18 94-123/54-75 98 GENERAL: non verbal at baseline, awake and alert. HEAD: Normal with no signs of trauma. EYES: Pupils equal, round and reactive to light, extraocular movements intact, sclera anicteric, conjunctiva clear. No lid lag. EARS, NOSE, THROAT: Ears normal, nares patent, oropharynx clear without exudates. Moist mucous membranes. NECK: Normal range of motion, supple without lymphadenopathy, JVD, or masses. LUNGS: mild rhonchi on anterior lungs, stable saturations. maintain aspiration precautions HEART: Regular rate and rhythm ABDOMEN: Soft, nontender, not distended, +peg tube MUSCULOSKELETAL: Normal range of motion at all joints. No bony deformities or tenderness. No CVA tenderness. UPPER EXTREMITIES: No peripheral edema. LOWER EXTREMITIES: No peripheral edema. NEUROLOGICAL: non verbal Laboratory Results - last 24 hr 05/14/19 05/18/19 05/18/19 17:58 08:05 08:05 WBC 4.3 RBC 4.53 Hgb 15.7 Hct 46.2 MCV 101.8 H MCH 34.6 H MCHC 34.0 RDW 12.3 Plt Count 238 MPV 9.5 Absolute Neuts (auto) 2.0 Neutrophils % 45.8 Lymphocytes % 36.7 Monocytes % 13.4 H Eosinophils % 2.6 Basophils % 1.5 D Nucleated RBC % 0 Sodium 140 Potassium 3.8 Chloride 105 Carbon Dioxide 25 Anion Gap 10 BUN 11.5 Creatinine 0.5 L Est GFR (CKD-EPI)AfAm 159.33 Est GFR (CKD-EPI)NonAf 137.47 Random Glucose 94 Calcium 9.0 Magnesium 2.4 Total Bilirubin 0.3 AST 24 ALT 42 Alkaline Phosphatase 120 H Total Protein 7.6 Albumin 3.6 Levetiracetam 38.7 Active Medications Generic Name Dose Route Start Last Admin Trade Name Freq PRN Reason Stop Dose Admin Baclofen 5 mg 05/14/19 21:00 05/18/19 06:17 Lioresal - PEG 5 mg 0000,0600,1600,2100 JOANNA Administration Cholecalciferol 2,000 unit 05/15/19 10:00 05/18/19 10:04 Vitamin D3 - GT 2,000 unit DAILY JOANNA Administration Clobazam 30 mg 05/15/19 10:00 05/18/19 10:02 Onfi - PEG 30 mg DAILY JOANNA Administration Clobazam 20 mg 05/14/19 22:00 05/17/19 22:41 Onfi - PEG 20 mg HS JOANNA Administration Heparin Sodium (Porcine) 5,000 unit 05/15/19 10:00 05/18/19 10:03 Heparin - SQ 5,000 unit BID JOANNA Administration Levetiracetam 1,500 mg 05/14/19 22:00 05/18/19 10:02 Keppra Oral Solution - PEG 1,500 mg BID JOANNA Administration Loratadine 10 mg 05/14/19 22:00 05/17/19 22:41 Claritin - GT 10 mg HS JOANNA Administration Lorazepam 1 mg 05/15/19 16:10 Ativan Injection - IVPUSH Q6H PRN seizures Rufinamide [Banzel] 30 ml 05/14/19 22:00 05/18/19 10:07 40mg/Ml Patient's GT 30 ml Own Medication (Non- BID JOANNA Administration Formulary) Non-Formulary Medication 4.5 gm 05/14/19 22:00 Sodium Benzoate [Sodium Benzoate] PEG TID JOANNA Phenobarbital 90 mg 05/14/19 22:00 05/17/19 22:42 Phenobarbital - PEG 90 mg HS JOANNA Administration Phenobarbital 60 mg 05/15/19 10:54 05/18/19 10:03 Phenobarbital - NR 60 mg DAILY JOANNA Administration Topiramate 200 mg/ Topiramate 250 mg 05/14/19 22:00 05/17/19 22:42 50 mg GT 250 mg HS JOANNA Administration Topiramate 200 mg 05/15/19 10:00 05/18/19 10:04 Topamax - GT 200 mg DAILY JOANNA Administration ASSESSMENT/PLAN: Problem List - Problems (1) Seizure Assessment/Plan: resolved. Multiple seizures on admission, approximately 5 all together reported, from [place] to two witnessed in the ED Given loading dose of keppra 1000mg on admission and now on keppra 1500mg BID via g tube. keppra levels and phenobarbital levels within normal limits on multiple benzos and anti seizures meds at [place]. will continue same here. head ct negative for acute process neurology consulted and following, notes reviewed and appreciated. no signs of infection that may be causing seizures, however has one pending + blood culture bottle, he was seen by ID, given vanco and monitored off antibiotics. his repeat blood cultures is negative. Code(s): R56.9 - UNSPECIFIED CONVULSIONS Qualifiers: Convulsion type: unspecified Qualified Code(s): R56.9 - Unspecified convulsions (2) Cortical blindness Assessment/Plan: supportive care, frequent orientation and reassurance aides at bedside Code(s): H47.619 - CORTICAL BLINDNESS, UNSPECIFIED SIDE OF BRAIN (3) Feeding by G-tube Assessment/Plan: tolerating tube feeds Code(s): Z93.1 - GASTROSTOMY STATUS (4) Prophylactic measure Assessment/Plan: fen heparin bid monitor electrolytes seizure precautions full code Code(s): Z29.9 - ENCOUNTER FOR PROPHYLACTIC MEASURES, UNSPECIFIED Visit type - Emergency Visit Emergency Visit: Yes ED Registration Date: 05/14/19 Care time: The patient presented to the Emergency Department on the above date and was hospitalized for further evaluation of their emergent condition. - New Patient This patient is new to me today: No - Critical Care Critical Care patient: No - Discharge Referral Referred to [facility] Med P.C.: No
--- NOTE | 2019-05-18 14:02 | PN ---
Progress Note (short form) - Note Progress Note: PULMONARY VSS/AFEBRILE Constitutional: Yes: No Distress Eyes: Yes: Conjunctiva Clear HENT: Yes: Atraumatic Neck: Yes: Supple, Trachea Midline Cardiovascular: Yes: Regular Rate and Rhythm Respiratory: Yes: Diminished. No: Accessory Muscle Use, Rales, Rhonchi, SOB, SOB on Exertion, Stridor, Tachypnea, Wheezes ...Inspection: Yes: Scoliosis ...Clubbing: No Gastrointestinal: Yes: Normal Bowel Sounds, Soft Musculoskeletal: Yes: Joint Stiffness Extremities: Yes: Shortened Edema: No Peripheral Pulses WNL: Yes Integumentary: Yes: WNL Neurological: Yes: Pre-Existing Deficit Labs: NOTED Imaging - Results Chest X-ray: Report Reviewed, Image Reviewed Problem List - Problems (1) Seizure Code(s): R56.9 - UNSPECIFIED CONVULSIONS Qualifiers: Convulsion type: unspecified Qualified Code(s): R56.9 - Unspecified convulsions (2) Cortical blindness Code(s): H47.619 - CORTICAL BLINDNESS, UNSPECIFIED SIDE OF BRAIN (3) Feeding by G-tube Code(s): Z93.1 - GASTROSTOMY STATUS (4) GERD (gastroesophageal reflux disease) Code(s): K21.9 - GASTRO-ESOPHAGEAL REFLUX DISEASE WITHOUT ESOPHAGITIS (5) Hypothyroid Code(s): E03.9 - HYPOTHYROIDISM, UNSPECIFIED (6) Microcephalic Code(s): Q02 - MICROCEPHALY (7) S/P PLASTIC TILE SETTER shunt Code(s): Z98.2 - PRESENCE OF CEREBROSPINAL FLUID DRAINAGE DEVICE (8) Spastic cerebral palsy Code(s): G80.1 - SPASTIC DIPLEGIC CEREBRAL PALSY (9) Seizure disorder Code(s): G40.909 - EPILEPSY, UNSP, NOT INTRACTABLE, WITHOUT STATUS EPILEPTICUS Observing off antibiotics Aspiration precautions O2 as needed, comfortable on RA VTE prophylaxis Neurology to titrate AEDs Would minimize IVF Will follow while admitted Freddie AQUINO MD
[2019-05-18] MEDS: LORATADINE 10 MG TABLET GT SCH (23:09)
[2019-05-18] MEDS: PHENobarbital 30 MG TABLET PEG SCH (23:12)
[2019-05-18] MEDS: TOPIRAMATE 200 MG, TOPIRAMATE 50 MG GT SCH (23:24)
[2019-05-19] MEDS: BACLOFEN 10 MG TABLET (FP) PEG SCH ×4 (06:05→23:19)
[2019-05-19 07:37] LABS: EOS % 2.1 % (0-4.5); HEMATOCRIT 44.9 % (35.4-49); HEMOGLOBIN 15.6 GM/dL (11.7-16.9); LYMPH % 41.9 % (8-40); MCH 34.9 pg (25.7-33.7); MCHC 34.7 g/dl (32.0-35.9); MEAN CELL VOLUME 100.6 fl (80-96); MONO % 11.4 % (3.8-10.2); NEUT % 43.6 % (42.8-82.8); PLATELET COUNT 260 K/MM3 (134-434); RBC 4.46 M/mm3 (4.00-5.60); RDW 12.3 % (11.9-15.9); WHITE BLOOD COUNT 5.2 K/mm3 (4.0-10.0)
[2019-05-19 08:00] LABS: ALBUMIN 3.7 g/dl (3.4-5.0); BILIRUBIN,TOTAL 0.2 mg/dL (0.2-1); BLOOD UREA NITROGEN 13.7 mg/dL (7-18); CALCIUM 8.8 mg/dL (8.5-10.1); CREATININE 0.6 mg/dL (0.55-1.3); MAGNESIUM 2.4 mg/dL (1.8-2.4); POTASSIUM 3.7 mmol/L (3.5-5.1); TOT PROT 7.6 g/dl (6.4-8.2)
[2019-05-19] MEDS: HEPARIN NA (PORCINE) 5,000 UNITS/ML 1ML VIAL SQ SCH ×2 (10:33→21:19)
[2019-05-19] MEDS: cloBAZam 10 MG TABLET PEG SCH ×2 (10:33→21:21)
[2019-05-19] MEDS: CHOLECALCIFEROL (VIT D3) 1,000 UNIT (25 MCG) TABLET GT SCH (10:34)
[2019-05-19] MEDS: POLYETHYLENE GLYCOL 3350 119 GM BTL PO SCH (10:34)
[2019-05-19] MEDS: RUFINAMIDE 40 MG/ML GT SCH ×2 (10:36→21:27)
[2019-05-19] MEDS: TOPIRAMATE 200 MG TABLET (FP) GT SCH (10:36)
[2019-05-19] MEDS: levETIRAcetam 500 MG/5 ML ORAL SOLUTION (UNIT-DOSE CUPS) PEG SCH ×2 (10:37→21:21)
[2019-05-19] MEDS: PHENobarbital 30 MG TABLET NR SCH (10:37)
--- NOTE | 2019-05-19 13:18 | PN ---
Progress Note (short form) - Note Progress Note: PULMONARY VSS/AFEBRILE Constitutional: Yes: No Distress Eyes: Yes: Conjunctiva Clear HENT: Yes: Atraumatic Neck: Yes: Supple, Trachea Midline Cardiovascular: Yes: Regular Rate and Rhythm Respiratory: Yes: Diminished. No: Accessory Muscle Use, Rales, Rhonchi, SOB, SOB on Exertion, Stridor, Tachypnea, Wheezes ...Inspection: Yes: Scoliosis ...Clubbing: No Gastrointestinal: Yes: Normal Bowel Sounds, Soft Musculoskeletal: Yes: Joint Stiffness Extremities: Yes: Shortened Edema: No Peripheral Pulses WNL: Yes Integumentary: Yes: WNL Neurological: Yes: Pre-Existing Deficit Labs: NOTED Imaging - Results Chest X-ray: Report Reviewed, Image Reviewed Problem List - Problems (1) Seizure Code(s): R56.9 - UNSPECIFIED CONVULSIONS Qualifiers: Convulsion type: unspecified Qualified Code(s): R56.9 - Unspecified convulsions (2) Cortical blindness Code(s): H47.619 - CORTICAL BLINDNESS, UNSPECIFIED SIDE OF BRAIN (3) Feeding by G-tube Code(s): Z93.1 - GASTROSTOMY STATUS (4) GERD (gastroesophageal reflux disease) Code(s): K21.9 - GASTRO-ESOPHAGEAL REFLUX DISEASE WITHOUT ESOPHAGITIS (5) Hypothyroid Code(s): E03.9 - HYPOTHYROIDISM, UNSPECIFIED (6) Microcephalic Code(s): Q02 - MICROCEPHALY (7) S/P POLITICAL THEORY PROFESSOR shunt Code(s): Z98.2 - PRESENCE OF CEREBROSPINAL FLUID DRAINAGE DEVICE (8) Spastic cerebral palsy Code(s): G80.1 - SPASTIC DIPLEGIC CEREBRAL PALSY (9) Seizure disorder Code(s): G40.909 - EPILEPSY, UNSP, NOT INTRACTABLE, WITHOUT STATUS EPILEPTICUS Observing off antibiotics Aspiration precautions O2 as needed, comfortable on RA VTE prophylaxis Neurology to titrate AEDs Would minimize IVF Will follow while admitted Freddie AQUINO MD
[2019-05-19] MEDS: BISACODYL 10 MG SUPP.RECT RC PRN (14:00)
--- NOTE | 2019-05-19 15:22 | PN ---
Physical Exam: SUBJECTIVE: Patient seen and examined at the bedside. appears to be at baseline. 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 He was sent to the ED from [facility] for seizures. His blood culture was positive x 1 bottle and given Vancomycin IV. will monitor off antibiotics as patient has had a recent admission for sepsis, however, currently, afebrile, wbc stable. chest xray 05/14/19: cannot rule out infiltrate of lungs. Vital Signs Period Temp Pulse Resp BP Sys/De La Vega Pulse Ox Last 24 Hr 98.0 F-98.9 F 78-87 18-18 105-122/63-73 98 GENERAL: non verbal at baseline, awake and alert. HEAD: Normal with no signs of trauma. EYES: Pupils equal, round and reactive to light, extraocular movements intact, sclera anicteric, conjunctiva clear. No lid lag. EARS, NOSE, THROAT: Ears normal, nares patent, oropharynx clear without exudates. Moist mucous membranes. NECK: Normal range of motion, supple without lymphadenopathy, JVD, or masses. LUNGS: clear anterior lungs, stable saturations. maintain aspiration precautions HEART: Regular rate and rhythm ABDOMEN: Soft, nontender, not distended, +peg tube MUSCULOSKELETAL: Normal range of motion at all joints. No bony deformities or tenderness. No CVA tenderness. UPPER EXTREMITIES: No peripheral edema. LOWER EXTREMITIES: No peripheral edema. NEUROLOGICAL: non verbal Laboratory Results - last 24 hr 05/19/19 05/19/19 07:13 07:13 WBC 5.2 RBC 4.46 Hgb 15.6 Hct 44.9 MCV 100.6 H MCH 34.9 H MCHC 34.7 RDW 12.3 Plt Count 260 MPV 9.0 Absolute Neuts (auto) 2.3 Neutrophils % 43.6 Lymphocytes % 41.9 H Monocytes % 11.4 H Eosinophils % 2.1 Basophils % 1.0 Nucleated RBC % 0 Sodium 141 Potassium 3.7 Chloride 109 H Carbon Dioxide 25 Anion Gap 7 L BUN 13.7 Creatinine 0.6 Est GFR (CKD-EPI)AfAm 147.82 Est GFR (CKD-EPI)NonAf 127.55 Random Glucose 101 Calcium 8.8 Magnesium 2.4 Total Bilirubin 0.2 AST 44 H ALT 68 H Alkaline Phosphatase 116 Total Protein 7.6 Albumin 3.7 Active Medications Generic Name Dose Route Start Last Admin Trade Name Freq PRN Reason Stop Dose Admin Baclofen 5 mg 05/14/19 21:00 05/19/19 06:05 Lioresal - PEG 5 mg 0000,0600,1600,2100 JOANNA Administration Bisacodyl 10 mg 05/19/19 08:32 Dulcolax Suppository - RC DAILY PRN CONSTIPATION Cholecalciferol 2,000 unit 05/15/19 10:00 05/19/19 10:34 Vitamin D3 - GT 2,000 unit DAILY JOANNA Administration Clobazam 30 mg 05/15/19 10:00 05/19/19 10:33 Onfi - PEG 30 mg DAILY JOANNA Administration Clobazam 20 mg 05/14/19 22:00 05/18/19 23:04 Onfi - PEG 20 mg HS JOANNA Administration Heparin Sodium (Porcine) 5,000 unit 05/15/19 10:00 05/19/19 10:33 Heparin - SQ 5,000 unit BID JOANNA Administration Levetiracetam 1,500 mg 05/14/19 22:00 05/19/19 10:37 Keppra Oral Solution - PEG 1,500 mg BID JOANNA Administration Loratadine 10 mg 05/14/19 22:00 05/18/19 23:09 Claritin - GT 10 mg HS JOANNA Administration Lorazepam 1 mg 05/15/19 16:10 Ativan Injection - IVPUSH Q6H PRN seizures Rufinamide [Banzel] 30 ml 05/14/19 22:00 05/19/19 10:36 40mg/Ml Patient's GT 30 ml Own Medication (Non- BID JOANNA Administration Formulary) Non-Formulary Medication 4.5 gm 05/14/19 22:00 Sodium Benzoate [Sodium Benzoate] PEG TID JOANNA Phenobarbital 90 mg 05/14/19 22:00 05/18/19 23:12 Phenobarbital - PEG 90 mg HS JOANNA Administration Phenobarbital 60 mg 05/15/19 10:54 05/19/19 10:37 Phenobarbital - NR 60 mg DAILY JOANNA Administration Polyethylene Glycol 17 gm 05/19/19 10:00 05/19/19 10:34 Miralax (For Daily Use) - PO 17 grams DAILY JOANNA Administration Topiramate 200 mg/ Topiramate 250 mg 05/14/19 22:00 05/18/19 23:24 50 mg GT 250 mg HS JOANNA Administration Topiramate 200 mg 05/15/19 10:00 05/19/19 10:36 Topamax - GT 200 mg DAILY JOANNA Administration ASSESSMENT/PLAN: Problem List - Problems (1) Seizure Assessment/Plan: resolved. Multiple seizures on admission, approximately 5 all together reported, from [place] to two witnessed in the ED Given loading dose of keppra 1000mg on admission and now on keppra 1500mg BID via g tube. keppra levels and phenobarbital levels within normal limits on multiple benzos and anti seizures meds at [place]. will continue same here. head ct negative for acute process neurology consulted and following, notes reviewed and appreciated. no signs of infection that may be causing seizures, however had one pending + blood culture bottle, was seen by ID, given vanco and monitored off antibiotics. his repeat blood cultures is negative. Code(s): R56.9 - UNSPECIFIED CONVULSIONS Qualifiers: Convulsion type: unspecified Qualified Code(s): R56.9 - Unspecified convulsions (2) Cortical blindness Assessment/Plan: supportive care, frequent orientation and reassurance aides at bedside Code(s): H47.619 - CORTICAL BLINDNESS, UNSPECIFIED SIDE OF BRAIN (3) Feeding by G-tube Assessment/Plan: tolerating tube feeds Code(s): Z93.1 - GASTROSTOMY STATUS (4) Prophylactic measure Assessment/Plan: fen heparin bid monitor electrolytes seizure precautions full code Code(s): Z29.9 - ENCOUNTER FOR PROPHYLACTIC MEASURES, UNSPECIFIED Visit type - Emergency Visit Emergency Visit: Yes ED Registration Date: 05/14/19 Care time: The patient presented to the Emergency Department on the above date and was hospitalized for further evaluation of their emergent condition. - New Patient This patient is new to me today: No - Critical Care Critical Care patient: No - Discharge Referral Referred to [facility] Med P.C.: No
[2019-05-19] MEDS: LORATADINE 10 MG TABLET GT SCH (21:19)
[2019-05-19] MEDS: PHENobarbital 30 MG TABLET PEG SCH (21:24)
[2019-05-19] MEDS: TOPIRAMATE 200 MG, TOPIRAMATE 50 MG GT SCH (21:28)
[2019-05-20] MEDS: BACLOFEN 10 MG TABLET (FP) PEG SCH ×2 (05:59→16:42)
[2019-05-20 08:14] LABS: BASO % 0.8 % (0-2.0); EOS % 1.6 % (0-4.5); HEMATOCRIT 47.1 % (35.4-49); LYMPH % 38.5 % (8-40); MCH 34.6 pg (25.7-33.7); MCHC 33.9 g/dl (32.0-35.9); MEAN CELL VOLUME 101.9 fl (80-96); MEAN PLT VOLUME 9.3 fl (7.5-11.1); MONO % 9.9 % (3.8-10.2); NEUT % 49.2 % (42.8-82.8); PLATELET COUNT 281 K/MM3 (134-434); RBC 4.62 M/mm3 (4.00-5.60); RDW 12.2 % (11.9-15.9); WHITE BLOOD COUNT 5.5 K/mm3 (4.0-10.0)
[2019-05-20 08:37] LABS: ALBUMIN 3.7 g/dl (3.4-5.0); BILIRUBIN,TOTAL 0.4 mg/dL (0.2-1); BLOOD UREA NITROGEN 15.6 mg/dL (7-18); CALCIUM 8.9 mg/dL (8.5-10.1); CREATININE 0.6 mg/dL (0.55-1.3); MAGNESIUM 2.5 mg/dL (1.8-2.4); POTASSIUM 3.8 mmol/L (3.5-5.1); TOT PROT 7.7 g/dl (6.4-8.2)
--- NOTE | 2019-05-20 09:00 | PN ---
Progress Note (short form) - Note Progress Note: Neurology CHIEF COMPLAINT: sent by [facility] for witnessed seizures during day activity PCP: Dr. 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 He was sent to the ED from [facility] for seizures. Patient is non verbal at baseline with a history of MR and unable to provide the history. He was reported to have a seizures at [facility] the morning of admission while in the day program. He was reported to have recurrent seizures at the facility and then multiple seizure-like events iin the emergency department. CT head was completed and without any acute changes. Seizures resolved with Diastat rectally given in the emergency department. Overnight, no seizure events and discussed with nurse. The patient is already on 6 antiseizure medications including Vimpat, benzyl, Keppra, Onfi, Topamax and phenobarbital. I would be reluctant to take significant addition to his regimen which is already with a large number of antiepileptics. Weekend notes reviewed, no seizures over the weekend noted. Patient did have positive blood culture but without recurrence of seizure like activity. Underlying infection may have been precipitant to seizure although unclear exact duration. No seizure activity noted this morning during my visit. Active Medications Baclofen (Lioresal -) 5 mg PEG 0000,0600,1600,2100 [facility] Last Admin: 05/20/19 05:59 Dose: 5 mg Bisacodyl (Dulcolax Suppository -) 10 mg RC DAILY PRN PRN Reason: CONSTIPATION Last Admin: 05/19/19 14:00 Dose: 10 mg Cholecalciferol (Vitamin D3 -) 2,000 unit GT DAILY JOANNA Last Admin: 05/19/19 10:34 Dose: 2,000 unit Clobazam (Onfi -) 30 mg PEG DAILY JOANNA Last Admin: 05/19/19 10:33 Dose: 30 mg Clobazam (Onfi -) 20 mg PEG HS JOANNA Last Admin: 05/19/19 21:21 Dose: 20 mg Heparin Sodium (Porcine) (Heparin -) 5,000 unit SQ BID JOANNA Last Admin: 05/19/19 21:19 Dose: 5,000 unit Levetiracetam (Keppra Oral Solution -) 1,500 mg PEG BID [facility] Last Admin: 05/19/19 21:21 Dose: 1,500 mg Loratadine (Claritin -) 10 mg GT HS [facility] Last Admin: 05/19/19 21:19 Dose: 10 mg Lorazepam (Ativan Injection -) 1 mg IVPUSH Q6H PRN PRN Reason: seizures Rufinamide [Banzel] 40mg/Ml Patient's Own Medication (Non- Formulary) 30 ml GT BID [facility] Last Admin: 05/19/19 21:27 Dose: 30 ml Non-Formulary Medication (Sodium Benzoate [Sodium Benzoate]) 4.5 gm PEG TID JOANNA Phenobarbital (Phenobarbital -) 90 mg PEG HS [facility] Last Admin: 05/19/19 21:24 Dose: 90 mg Phenobarbital (Phenobarbital -) 60 mg NR DAILY [facility] Last Admin: 05/19/19 10:37 Dose: 60 mg Polyethylene Glycol (Miralax (For Daily Use) -) 17 gm PO DAILY [facility] Last Admin: 05/19/19 10:34 Dose: 17 grams Topiramate 200 mg/ Topiramate (50 mg) 250 mg GT HS [facility] Last Admin: 05/19/19 21:28 Dose: 250 mg Topiramate (Topamax -) 200 mg GT DAILY [facility] Last Admin: 05/19/19 10:36 Dose: 200 mg Physical Examination Vital Signs Period Temp Pulse Resp BP Sys/De La Vega Pulse Ox Last 24 Hr 97.5 F-98.6 F 79-91 18-18 98-117/56-73 98-98 GENERAL: non verbal at baseline, lethargic HEAD: Normal with no signs of trauma. EYES: Pupils equal, round and reactive to light, extraocular movements intact, sclera anicteric, conjunctiva clear. No lid lag. EARS, NOSE, THROAT: Ears normal, nares patent, oropharynx clear without exudates. Moist mucous membranes. NECK: Normal range of motion, supple without lymphadenopathy, JVD, or masses. LUNGS: Breath sounds equal, clear to auscultation bilaterally. HEART: Regular rate and rhythm ABDOMEN: Soft, nontender, not distended, +peg tube MUSCULOSKELETAL: Normal range of motion at all joints. No bony deformities or tenderness. No CVA tenderness. UPPER EXTREMITIES: No peripheral edema. LOWER EXTREMITIES: No peripheral edema. NEUROLOGICAL: non verbal, asleep but arousable, not following commands, fatigued-appearing, moves extremities grossly CBCD WBC 5.5 K/mm3 (4.0-10.0) 05/20/19 06:30 RBC 4.62 M/mm3 (4.00-5.60) 05/20/19 06:30 Hgb 16.0 GM/dL (11.7-16.9) 05/20/19 06:30 Hct 47.1 % (35.4-49) 05/20/19 06:30 MCV 101.9 fl (80-96) H 05/20/19 06:30 MCHC 33.9 g/dl (32.0-35.9) 05/20/19 06:30 RDW 12.2 % (11.9-15.9) 05/20/19 06:30 Plt Count 281 K/MM3 (134-434) 05/20/19 06:30 MPV 9.3 fl (7.5-11.1) 05/20/19 06:30 CMP Sodium 142 mmol/L (136-145) 05/20/19 06:30 Potassium 3.8 mmol/L (3.5-5.1) 05/20/19 06:30 Chloride 108 mmol/L (98-107) H 05/20/19 06:30 Carbon Dioxide 27 mmol/L (21-32) 05/20/19 06:30 Anion Gap 7 MMOL/L (8-16) L 05/20/19 06:30 BUN 15.6 mg/dL (7-18) 05/20/19 06:30 Creatinine 0.6 mg/dL (0.55-1.3) 05/20/19 06:30 Random Glucose 99 mg/dL (74-106) 05/20/19 06:30 Calcium 8.9 mg/dL (8.5-10.1) 05/20/19 06:30 Total Bilirubin 0.4 mg/dL (0.2-1) 05/20/19 06:30 AST 27 U/L (15-37) 05/20/19 06:30 ALT 63 U/L (13-61) H 05/20/19 06:30 Alkaline Phosphatase 114 U/L (45-117) 05/20/19 06:30 Total Protein 7.7 g/dl (6.4-8.2) 05/20/19 06:30 Albumin 3.7 g/dl (3.4-5.0) 05/20/19 06:30 ASSESSMENT/PLAN: 38 year old male with a significant past medical history of profound intellectual disability, h/o intraventricular hemorrhage of , generalized idiopathic epilepsy, microcephaly, cortical blindness, GERD, spastic quadriplegic cerebral palsy, hypothyroidism, s/p SECTION MAINTAINER shunt placement, s/ p G tube placement. He was sent to the ED from [facility] for seizures. Patient is non verbal at baseline with a history of MR and unable to provide the history. He was reported to have a seizures at [facility] the morning of admission while in the day program. He was reported to have recurrent seizures at the facility and then multiple seizure-like events iin the emergency department. CT head was completed and without any acute changes. Seizures resolved with Diastat rectally given in the emergency department. Overnight, no seizure events and discussed the case with hospitalist. The patient is already on 6 antiseizure medications including Vimpat, benzyl, Keppra, Onfi, Topamax and phenobarbital. I would be reluctant to take significant addition to his regimen which is already with a large number of antiepileptics. Weekend notes reviewed, no seizures over the weekend noted. Patient did have positive blood culture but without recurrence of seizure like activity. Underlying infection may have been precipitant to seizure although unclear exact duration. No seizure activity noted this morning during my visit. Medication compliance recommended, aavoid sleep deprivation, infection, metabolic changes that can trigger seizure activity, seen and discussed with nurse at bedside
--- NOTE | 2019-05-20 10:56 | PN ---
Progress Note (short form) - Note Progress Note: PULMONARY Pt nonverbal. No fevers recorded. Vital Signs Period Temp Pulse Resp BP Sys/De La Vega Pulse Ox Last 24 Hr 97.5 F-98.6 F 79-91 18-18 98-117/56-73 98 Gen: NAD, nonverbal Heart: RRR Lung: decreased breath sounds at the bases Abd: soft, nontender Ext: no edema CBC, BMP 05/20/19 06:30 05/20/19 06:30 Active Medications Baclofen (Lioresal -) 5 mg PEG 0000,0600,1600,2100 [facility] Last Admin: 05/20/19 05:59 Dose: 5 mg Bisacodyl (Dulcolax Suppository -) 10 mg RC DAILY PRN PRN Reason: CONSTIPATION Last Admin: 05/19/19 14:00 Dose: 10 mg Cholecalciferol (Vitamin D3 -) 2,000 unit GT DAILY [facility] Last Admin: 05/19/19 10:34 Dose: 2,000 unit Clobazam (Onfi -) 30 mg PEG DAILY [facility] Last Admin: 05/19/19 10:33 Dose: 30 mg Clobazam (Onfi -) 20 mg PEG HS [facility] Last Admin: 05/19/19 21:21 Dose: 20 mg Heparin Sodium (Porcine) (Heparin -) 5,000 unit SQ BID [facility] Last Admin: 05/19/19 21:19 Dose: 5,000 unit Levetiracetam (Keppra Oral Solution -) 1,500 mg PEG BID [facility] Last Admin: 05/19/19 21:21 Dose: 1,500 mg Loratadine (Claritin -) 10 mg GT HS [facility] Last Admin: 05/19/19 21:19 Dose: 10 mg Lorazepam (Ativan Injection -) 1 mg IVPUSH Q6H PRN PRN Reason: seizures Rufinamide [Banzel] 40mg/Ml Patient's Own Medication (Non- Formulary) 30 ml GT BID [facility] Last Admin: 05/19/19 21:27 Dose: 30 ml Non-Formulary Medication (Sodium Benzoate [Sodium Benzoate]) 4.5 gm PEG TID [facility] Phenobarbital (Phenobarbital -) 90 mg PEG HS [facility] Last Admin: 05/19/19 21:24 Dose: 90 mg Phenobarbital (Phenobarbital -) 60 mg NR DAILY [facility] Last Admin: 05/19/19 10:37 Dose: 60 mg Polyethylene Glycol (Miralax (For Daily Use) -) 17 gm PO DAILY [facility] Last Admin: 05/19/19 10:34 Dose: 17 grams Topiramate 200 mg/ Topiramate (50 mg) 250 mg GT HS [facility] Last Admin: 05/19/19 21:28 Dose: 250 mg Topiramate (Topamax -) 200 mg GT DAILY [facility] Last Admin: 05/19/19 10:36 Dose: 200 mg A/P Breakthrough Seizure Seizure Disorder Lactic Acidosis Cerebral Palsy Mental Retardation Functional Quadriplegia Hypothyroidism - continue antiepileptics - aspiration precautions - enteral feeds - DVT prophylaxis
[2019-05-20] MEDS: HEPARIN NA (PORCINE) 5,000 UNITS/ML 1ML VIAL SQ SCH (11:19)
[2019-05-20] MEDS: levETIRAcetam 500 MG/5 ML ORAL SOLUTION (UNIT-DOSE CUPS) PEG SCH (11:19)
[2019-05-20] MEDS: RUFINAMIDE 40 MG/ML GT SCH (11:19)
[2019-05-20] MEDS: BISACODYL 10 MG SUPP.RECT RC PRN (11:20)
[2019-05-20] MEDS: cloBAZam 10 MG TABLET PEG SCH (11:20)
[2019-05-20] MEDS: CHOLECALCIFEROL (VIT D3) 1,000 UNIT (25 MCG) TABLET GT SCH (11:20)
[2019-05-20] MEDS: PHENobarbital 30 MG TABLET NR SCH (11:38)
[2019-05-20] MEDS: TOPIRAMATE 200 MG TABLET (FP) GT SCH (11:39)
[2019-05-20] MEDS: POLYETHYLENE GLYCOL 3350 119 GM BTL PO SCH (11:39)
--- NOTE | 2019-05-20 15:54 | DS ---
Physical Exam: SUBJECTIVE: Patient seen and examined at the bedside. in no acute distress. had a small bm this morning after given tap water enema. 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 He was sent to the ED from [facility] for seizures. During hospital stay, a blood culture was positive x 1 bottle and given Vancomycin IV x 1 dose. Blood cultures were repeated and negative. Likely contaminant per ID. Patient had a recent admission for sepsis, however, currently, afebrile, wbc stable. chest xray 05/14/19: cannot rule out infiltrate of lungs. Vital Signs Period Temp Pulse Resp BP Sys/De La Vega Pulse Ox Last 24 Hr 97.5 F-98.3 F 79-103 18-18 98-126/56-76 98-98 PHYSICAL EXAM GENERAL: non verbal at baseline, awake and alert. HEAD: Normal with no signs of trauma. EYES: Pupils equal, round and reactive to light, extraocular movements intact, sclera anicteric, conjunctiva clear. No lid lag. EARS, NOSE, THROAT: Ears normal, nares patent, oropharynx clear without exudates. Moist mucous membranes. NECK: Normal range of motion, supple without lymphadenopathy, JVD, or masses. LUNGS: clear anterior lungs, stable saturations. maintain aspiration precautions HEART: Regular rate and rhythm ABDOMEN: Soft, nontender, not distended, +peg tube MUSCULOSKELETAL: Normal range of motion at all joints. No bony deformities or tenderness. No CVA tenderness. UPPER EXTREMITIES: No peripheral edema. LOWER EXTREMITIES: No peripheral edema. NEUROLOGICAL: non verbal LABS Laboratory Results - last 24 hr 05/20/19 05/20/19 06:30 06:30 WBC 5.5 RBC 4.62 Hgb 16.0 Hct 47.1 MCV 101.9 H MCH 34.6 H MCHC 33.9 RDW 12.2 Plt Count 281 MPV 9.3 Absolute Neuts (auto) 2.7 Neutrophils % 49.2 Lymphocytes % 38.5 Monocytes % 9.9 Eosinophils % 1.6 Basophils % 0.8 Nucleated RBC % 0 Sodium 142 Potassium 3.8 Chloride 108 H Carbon Dioxide 27 Anion Gap 7 L BUN 15.6 Creatinine 0.6 Est GFR (CKD-EPI)AfAm 147.82 Est GFR (CKD-EPI)NonAf 127.55 Random Glucose 99 Calcium 8.9 Magnesium 2.5 H Total Bilirubin 0.4 AST 27 ALT 63 H Alkaline Phosphatase 114 Total Protein 7.7 Albumin 3.7 HOSPITAL COURSE: Date of Admission:05/14/19 Date of Discharge: 05/20/19 Minutes to complete discharge: 45 Discharge Summary Problems reviewed: Yes Reason For Visit: SEIZURE DISORDER Current Active Problems Seizure (Acute) Condition: Improved - Instructions Diet, Activity, Other Instructions: [facility] staff: Mr Weiss was admitted for uncontrolled seizures. He was evaluated by neurologist, government service executive and hospitalist team during his stay. He also was noted to have a positive blood culture (one bottle). He was treated with one dose of antibiotics emperically. The blood cultures were repeated and are negative. Therefore, likely a contaminant sample. He has been monitored and will be discharged back to [facility] today without any antibiotics. Here are our discharge recommendations: Seizures: Keppra levels and phenobarbital levels are within normal limits. We did not adjust his seizure medications. He was seen by neurology during his hospital stay and we recommend that he follows up outpatient. Neurologist information is enclosed. Avoid sleep deprivation, infection, metabolic changes that can trigger seizure activity. Continue his home seizure medications. Constipation: Patient was constipated x 3 days, he was given a tap water enema today and had a bowel movement. Infection: ruled out. no infection. Medications: Continue all medications as outlined in your discharge instructions. Thank you for allowing us to care for Mr. Weiss. Referrals: Munir King Jr [Non Staff, Medical] - Charlie Salazar MD [Staff Physician] - Disposition: HOME - Home Medications Comprehensive Discharge Medication List: Ambulatory Orders Baclofen [Lioresal -] 5 mg PEG QID 08/16/17 Benzoyl Peroxide 5% Gel - 1 applic TP BID 08/16/17 Bisacodyl Suppository [Dulcolax Suppository -] 10 mg LA PRN PRN 08/16/17 Calcium Citrate/Vitamin D3 [Calcium Cit 315-Vit D3 250 Tab] 2 each PEG BID 08/16 Cetirizine HCl [Zyrtec -] 10 mg PEG HS 08/16/17 Cholecalciferol (Vitamin D3) [Vitamin D3] 2,000 iu PEG DAILY 08/16/17 Clindamycin Topical Solution [Cleocin 1% Topical Solution -] 1 applic TP DAILY 08/16/17 Lacosamide [Vimpat] 200 mg PEG BID 08/16/17 Levocarnitine [Carnitor] 330 mg PEG BID 08/16/17 Levothyroxine [Synthroid -] 75 mcg PEG AM 08/16/17 Multivitamin [One Daily] 1 tablet PEG DAILY 08/16/17 Rufinamide [Banzel] 30 ml PEG BID 08/16/17 Sennosides [Senna] 2 tab PEG BID 08/16/17 Sodium Benzoate 4.5 gm PEG TID 08/16/17 levETIRAcetam [Levetiracetam] 15 ml PEG BID 08/16/17 Chlorhexidine Gluconate 10 ml MM BID 02/01/19 Clobazam 10 mg PEG DAILY 02/01/19 Clobazam [Onfi] 20 mg PO BID 02/01/19 Diazepam Rectal Gel [Diastat Rectal Gel -] 5 mg LA ONCE PRN 02/01/19 Fluticasone Prop 0.05% Nasal [Flonase -] 1 spray NS DAILY 02/01/19 Magnesium Hydrox 2400MG/30Ml [Milk of Magnesia -] 30 ml PEG BID 02/01/19 Phenobarbital - 32.4 mg PEG HS MDD 60 02/01/19 Topiramate [Topamax -] 200 mg GT BID 02/01/19 Albuterol 0.083% Nebulizer Jyoti [Ventolin 0.083% Nebulizer Soln -] 1 neb NEB Q6H 03/28/19 Albuterol 2.5/Ipratropium 0.5 [Duoneb -] 1 amp NEB Q6H PRN 03/28/19 Phenobarbital 64.8 mg PEG BID 03/28/19 Topiramate [Topamax] 50 mg PO HS 03/28/19 Bisacodyl Suppository [Dulcolax Suppository -] 10 mg RC DAILY PRN supp.rect 11/02 Polyethylene Glycol 3350 [Miralax 119 gm Btl -] 17 gm PO DAILY bottle 05/20/19 Problem List - Problems (1) Seizure Assessment/Plan: resolved. Multiple seizures on admission, approximately 5 all together reported, from [place] to two witnessed in the ED Given loading dose of keppra 1000mg on admission and now on keppra 1500mg BID via g tube. keppra levels and phenobarbital levels within normal limits on multiple benzos and anti seizures meds at [place]. continued same here. head ct negative for acute process neurology consulted and following, notes reviewed and appreciated. no signs of infection that may be causing seizures, however had one pending + blood culture bottle, was seen by ID, given vanco and monitored off antibiotics. his repeat blood cultures are negative. Code(s): R56.9 - UNSPECIFIED CONVULSIONS Qualifiers: Convulsion type: unspecified Qualified Code(s): R56.9 - Unspecified convulsions (2) Cortical blindness Assessment/Plan: supportive care, frequent orientation and reassurance aides at bedside Code(s): H47.619 - CORTICAL BLINDNESS, UNSPECIFIED SIDE OF BRAIN (3) Feeding by G-tube Assessment/Plan: tolerating tube feeds Code(s): Z93.1 - GASTROSTOMY STATUS (4) Prophylactic measure Assessment/Plan: fen heparin bid monitor electrolytes seizure precautions full code Code(s): Z29.9 - ENCOUNTER FOR PROPHYLACTIC MEASURES, UNSPECIFIED This patient is new to me today: Yes Date on this admission: 05/20/19 Emergency Visit: No Critical Care patient: No - Discharge Referral Referred to [facility] Med P.C.: No
[2019-05-20 20:50] VITALS: BP 126/76; PULSE 86; TEMP 97.7
== END 2019-05-20 21:08 | DRG 53 ==
LOC: JER 11:20 → JERBED 15:04 → J5S 20:55
PROVIDERS: ADMIT Internal Medicine; ATTEND Nurse Practitioner Family
DX: G40.909 Epilepsy, unspecified, not intractable, without status epilepticus (principal); H47.619 Cortical blindness, unspecified side of brain; F73 Profound intellectual disabilities; G80.9 Cerebral palsy, unspecified; E03.9 Hypothyroidism, unspecified; K21.9 Gastro-esophageal reflux disease without esophagitis; Q02 Microcephaly; G80.0 Spastic quadriplegic cerebral palsy; E87.2 Acidosis; I48.91 Unspecified atrial fibrillation; Q67.5 Congenital deformity of spine; B18.2 Chronic viral hepatitis C; Z98.2 Presence of cerebrospinal fluid drainage device; Z93.1 Gastrostomy status
CPT/HCPCS: 36415; 70450-TC; 71045-TC-FY; 80048; 80053; 80177; 80184; 81003; 83605; 83735; 84100; 85025; 85027; 87040; 87086; 87186; 93005; 93010; 99285-25; J0475; J1644; Q2036

== ENCOUNTER 2019-07-18 15:34 | Emergency (ER) | payer OTHER ==
--- NOTE | 2019-07-18 15:58 | PDOC ---
History of Present Illness - General Chief Complaint: Seizure Stated Complaint: Seizure Time Seen by Provider: 07/18/19 15:57 Past History - Past Medical History Allergies/Adverse Reactions: Allergies Allergy/AdvReac Type Severity Reaction Status Date / Time carbamazepine Allergy Unknown Verified 07/18/19 16:00 Home Medications: Ambulatory Orders Baclofen [Lioresal -] 5 mg PEG QID 08/16/17 Benzoyl Peroxide 5% Gel - 1 applic TP BID 08/16/17 Bisacodyl Suppository [Dulcolax Suppository -] 10 mg [place] PRN PRN 08/16/17 Calcium Citrate/Vitamin D3 [Calcium Cit 315-Vit D3 250 Tab] 2 each PEG BID 08/16 Cetirizine HCl [Zyrtec -] 10 mg PEG HS 08/16/17 Cholecalciferol (Vitamin D3) [Vitamin D3] 2,000 iu PEG DAILY 08/16/17 Clindamycin Topical Solution [Cleocin 1% Topical Solution -] 1 applic TP DAILY 08/16/17 Lacosamide [Vimpat] 200 mg PEG BID 08/16/17 Levocarnitine [Carnitor] 330 mg PEG BID 08/16/17 Levothyroxine [Synthroid -] 75 mcg PEG AM 08/16/17 Multivitamin [One Daily] 1 tablet PEG DAILY 08/16/17 Rufinamide [Banzel] 30 ml PEG BID 08/16/17 Sennosides [Senna] 2 tab PEG BID 08/16/17 Sodium Benzoate 4.5 gm PEG TID 08/16/17 levETIRAcetam [Levetiracetam] 15 ml PEG BID 08/16/17 Chlorhexidine Gluconate 10 ml MM BID 02/01/19 Clobazam 10 mg PEG DAILY 02/01/19 Clobazam [Onfi] 20 mg PO BID 02/01/19 Diazepam Rectal Gel [Diastat Rectal Gel -] 5 mg [place] ONCE PRN 02/01/19 Fluticasone Prop 0.05% Nasal [Flonase -] 1 spray NS DAILY 02/01/19 Magnesium Hydrox 2400MG/30Ml [Milk of Magnesia -] 30 ml PEG BID 02/01/19 Phenobarbital - 32.4 mg PEG HS MDD 60 02/01/19 Topiramate [Topamax -] 200 mg GT BID 02/01/19 Albuterol 0.083% Nebulizer Jyoti [Ventolin 0.083% Nebulizer Soln -] 1 neb NEB Q6H 03/28/19 Albuterol 2.5/Ipratropium 0.5 [Duoneb -] 1 amp NEB Q6H PRN 03/28/19 Phenobarbital 64.8 mg PEG BID 03/28/19 Topiramate [Topamax] 50 mg PO HS 03/28/19 Bisacodyl Suppository [Dulcolax Suppository -] 10 mg RC DAILY PRN supp.rect 11/02 Polyethylene Glycol 3350 [Miralax 119 gm Btl -] 17 gm PO DAILY bottle 05/20/19 Anemia: Yes Cardiac Disorders: Yes (SOB) COPD: No GI Disorders: Yes (:GERD, esophagitis.) Liver Disease: Yes (hep c core AB+) Psychiatric Problems: Yes (mental retardation,cortical blindness) Seizures: Yes Thyroid Disease: Yes (HYPOTHYROIDISM) - Surgical History Abdominal Surgery: Yes (g tube) Orthopedic Surgery: Yes - Immunization History Immunization Up to Date: Yes - Psycho Social/Smoking Cessation Hx Smoking Status: No Smoking History: Never smoked Have you smoked in the past 12 months: No Number of Cigarettes Smoked Daily: 0 Hx Alcohol Use: No Drug/Substance Use Hx: No Substance Use Type: None ED Treatment Course - LABORATORY CBC & Chemistry Diagram: 07/18/19 17:57 07/18/19 17:57 Discharge - Discharge Information Problems reviewed: Yes Clinical Impression/Diagnosis: Seizure Condition: Stable Disposition: HOME - Admission No - Follow up/Referral - Patient Discharge Instructions Patient Printed Discharge Instructions: DI for Seizure Disorder -- Adult Additional Instructions: Mr. Weiss was seen in the ER after multiple seizures in the day program. His bloodwork was normal. His head CT as normal as well - the SIGN MAKER shunt appears in place at this time. Please be sure to have him see his neurologist as soon as possible, in the next 2-3 days. We administered his 6PM anti-epileptic medications while he was in the ED. Please return to the ER if he develops high fevers, or if he begins to repeatedly seize again. - Post Discharge Activity
[2019-07-18 16:00] VITALS: BP 118/82; PULSE 74; TEMP 98; BMI 21.5
--- NOTE | 2019-07-18 17:05 | PDOC ---
Documentation entered by Jena Quick SCRIBE, acting as scribe for Sumaya Berry DO. Sumaya Berry, : This documentation has been prepared by the Ynes giang Brenda, SCRIBE, under my direction and personally reviewed by me in its entirety. I confirm that the documentation accurately reflects all work, treatment, procedures, and medical decision making performed by me. Attending Attestation - Resident Resident Name: JerardoEl - ED Attending Attestation I have performed the following: I have examined & evaluated the patient, The case was reviewed & discussed with the resident, I agree w/resident's findings & plan, Exceptions are as noted - HPI HPI: 07/18/19 16:47 The patient is a 38 year old male, with a significant PMH of anoxic MR, intraventricular hemorrhage of , generalized idiopathic epilepsy, microcephaly, cortical Blindness, GERD, spastic quadriplegic cerebral palsy, hypothyroidism, s/p GRIEF COUNSELLOR shunt placement, s/p G tube placement and history of seizures who presents to the emergency department BIBA from [place] for having 3 seizures back to back while at his day camp. As per representatives at [place], the patient went to the daysage today because he was doing better, but had 3 seizures in a row. The applications programmer analyst, on the bedside, reports that the patient regularly has seizures weekly, however due it being so frequently in a short amount of time, they sent him to the ED for evaluation. Allergies: NKA Past surgical history: G tube and unknown orthopedic surgery PCP: From [place] - Physicial Exam PE: 07/18/19 16:47 GENERAL: awake, at baseline MS HEAD: No signs of trauma EYES: EOMI, wandering eyes ENT: nares patent, oropharynx clear without exudates. Moist mucosa NECK: Normal ROM, supple LUNGS: Breath sounds equal, clear to auscultation bilaterally, poor inspiration HEART: Regular rate and rhythm, normal S1 and S2, no murmurs, rubs or gallops ABDOMEN: Soft, nontender, normoactive bowel sounds. No guarding, no rebound. No masses, Peg tube in place LUQ EXTREMITIES: contracted UE and extended LE NEUROLOGICAL: awake, at baseline MS per the aide SKIN: Warm, Dry, normal turgor, no rashes or lesions noted. - Medical Decision Making 07/18/19 17:00 a/p: 38yo male from [place] with 3 seizures back to back at his day program -no seizures while in the ED so far -pt on 6 AED -no recent change in doses -hx of GRIEF COUNSELLOR shunt -will send for head ct, shunt series xrays -labs, ua -will monitor and reassess -will dose 6pm meds 07/18/19 19:14 labs reviewed no elevated wbc chem stable 07/18/19 20:50 pt without another seizure while in the ER resident discussed the case with Dr. Starr pt stable for dc to home Heart Score/ECG Review - ECG Intrepretation Comment:: 07/18/19 19:15 sinus at 74, nl axis, nl interval, poor r wave progression, abnl ekg
[2019-07-18 18:22] LABS: BASO % 0.7 % (0-2.0); EOS % 1.9 % (0-4.5); HEMATOCRIT 47.4 % (35.4-49); HEMOGLOBIN 15.9 GM/dL (11.7-16.9); LYMPH % 28.2 % (8-40); MCH 34.3 pg (25.7-33.7); MCHC 33.5 g/dl (32.0-35.9); MEAN CELL VOLUME 102.2 fl (80-96); MEAN PLT VOLUME 9.4 fl (7.5-11.1); MONO % 8.4 % (3.8-10.2); NEUT % 60.8 % (42.8-82.8); PLATELET COUNT 241 K/MM3 (134-434); RBC 4.63 M/mm3 (4.00-5.60); RDW 12.4 % (11.9-15.9); WHITE BLOOD COUNT 6.2 K/mm3 (4.0-10.0)
[2019-07-18 18:50] LABS: ALBUMIN 3.9 g/dl (3.4-5.0); BILIRUBIN,TOTAL 0.3 mg/dL (0.2-1); BLOOD UREA NITROGEN 7.4 mg/dL (7-18); CALCIUM 9.1 mg/dL (8.5-10.1); CREATININE 0.5 mg/dL (0.55-1.3); POTASSIUM 3.9 mmol/L (3.5-5.1); TOT PROT 7.8 g/dl (6.4-8.2)
[2019-07-18] MEDS ORDERED: LACOSAMIDE 50 MG TABLET PO ONE ×2 (19:11→20:00)
[2019-07-18] MEDS ORDERED: PHENobarbital 30 MG TABLET PO ONE (19:12)
[2019-07-18] MEDS ORDERED: TOPIRAMATE 200 MG TABLET (FP) PO ONE (19:13)
[2019-07-18] MEDS ORDERED: levETIRAcetam 500 MG/5 ML ORAL SOLUTION (UNIT-DOSE CUPS) PO ONE (19:15)
[2019-07-18] MEDS ORDERED: PHENobarbital 30 MG TABLET ONE (20:00)
--- NOTE | 2019-07-19 13:23 | EKG ---
Test Reason : Blood Pressure : / mmHG Vent. Rate : 074 BPM Atrial Rate : 074 BPM P-R Int : 148 ms QRS Dur : 070 ms QT Int : 366 ms P-R-T Axes : 034 014 058 degrees QTc Int : 406 ms POOR DATA QUALITY, INTERPRETATION MAY BE ADVERSELY AFFECTED SINUS RHYTHM WITH FUSION COMPLEXES POSSIBLE LEFT ATRIAL ENLARGEMENT POSSIBLE ANTERIOR INFARCT , AGE UNDETERMINED ABNORMAL ECG WHEN COMPARED WITH ECG OF 14-MAY-2019 13:41, FUSION COMPLEXES ARE NOW PRESENT Confirmed by DEVYN ROBLES MD ([id number]) on 07/19/2019 1:22:47 PM Referred By: Confirmed By:DEVYN ROBLES MD
== END 2019-07-18 22:05 | disposition home or self-care (01) ==
LOC: JER 15:34
DX: G40.909 Epilepsy, unspecified, not intractable, without status epilepticus (principal); G80.1 Spastic diplegic cerebral palsy; F78 Other intellectual disabilities; H47.619 Cortical blindness, unspecified side of brain; K21.9 Gastro-esophageal reflux disease without esophagitis; E03.9 Hypothyroidism, unspecified; Z93.1 Gastrostomy status; Z98.2 Presence of cerebrospinal fluid drainage device; Z88.8 Allergy status to other drugs, medicaments and biological substances
CPT/HCPCS: 36415; 70360-TC-FY; 70450-TC; 71045-TC-FY; 74018-TC-FY; 80053; 80177; 80184; 80201; 82550; 84484; 85025; 87040; 93005; 93010; 99282-25; G0480

== ENCOUNTER 2019-08-03 06:35 | Inpatient (IN) | payer OTHER ==
--- NOTE | 2019-08-03 07:27 | PDOC ---
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 Symptoms began this a.m at around 4. Per caregiver at bedside, there is currently an outbreak of flu at the facility. Pt was given tylenol at facility which did not relieve his symptoms. Past History - Past Medical History Allergies/Adverse Reactions: Allergies Allergy/AdvReac Type Severity Reaction Status Date / Time carbamazepine Allergy Unknown Verified 08/03/19 08:00 Home Medications: Ambulatory Orders Baclofen [Lioresal -] 5 mg PEG QID 08/16/17 Benzoyl Peroxide 5% Gel - 1 applic TP BID 08/16/17 Bisacodyl Suppository [Dulcolax Suppository -] 10 mg IA PRN PRN 08/16/17 Calcium Citrate/Vitamin D3 [Calcium Cit 315-Vit D3 250 Tab] 2 each PEG HS Cetirizine HCl [Zyrtec -] 10 mg PEG HS 08/16/17 Cholecalciferol (Vitamin D3) [Vitamin D3] 2,000 iu PEG DAILY 08/16/17 Clindamycin Topical Solution [Cleocin 1% Topical Solution -] 1 applic TP DAILY 08/16/17 Lacosamide [Vimpat] 200 mg PEG BID 08/16/17 Levocarnitine [Carnitor] 165 mg PEG BID 08/16/17 Levothyroxine [Synthroid -] 75 mcg PEG AM 08/16/17 Multivitamin [One Daily] 1 tablet PEG DAILY 08/16/17 Rufinamide [Banzel] 30 ml PEG BID 08/16/17 Sennosides [Senna] 2 tab PEG BID 08/16/17 Sodium Benzoate 4.5 gm PEG TID 08/16/17 levETIRAcetam [Levetiracetam] 15 ml PEG BID 08/16/17 Chlorhexidine Gluconate 10 ml MM BID 02/01/19 Diazepam Rectal Gel [Diastat Rectal Gel -] 5 mg [place] ONCE PRN 02/01/19 Fluticasone Prop 0.05% Nasal [Flonase -] 1 spray NS DAILY 02/01/19 Magnesium Hydrox 2400MG/30Ml [Milk of Magnesia -] 30 ml PEG BID 02/01/19 Topiramate [Topamax -] 200 mg GT BID 02/01/19 Albuterol 0.083% Nebulizer Jyoti [Ventolin 0.083% Nebulizer Soln -] 1 neb NEB Q6H 03/28/19 Albuterol 2.5/Ipratropium 0.5 [Duoneb -] 1 amp NEB Q6H PRN 03/28/19 Topiramate [Topamax] 50 mg PO HS 03/28/19 Polyethylene Glycol 3350 [Miralax 119 gm Btl -] 17 gm PO DAILY bottle 05/20/19 Amoxicillin/Potassium Clav [Augmentin 875-125 Tablet] 1 each PO BID #13 tablet 08/06/19 Clobazam [Onfi -] 20 mg PEG DAILY tablet MDD 110 08/06/19 Clobazam [Onfi -] 30 mg PEG HS tablet MDD 50 08/06/19 Oseltamivir Phosphate [Tamiflu -] 75 mg PEG BID #3 capsule 08/06/19 Phenobarbital - 60 mg PO DAILY tablet MDD 150 08/06/19 Phenobarbital - 90 mg PEG HS tablet MDD 150 08/06/19 Anemia: Yes Cardiac Disorders: Yes (SOB) COPD: No GI Disorders: Yes (:GERD, esophagitis.) Liver Disease: Yes (hep c core AB+) Psychiatric Problems: Yes (mental retardation,cortical blindness) Seizures: Yes Thyroid Disease: Yes (HYPOTHYROIDISM) - Surgical History Abdominal Surgery: Yes (g tube) Orthopedic Surgery: Yes - Immunization History Immunization Up to Date: Yes - Psycho Social/Smoking Cessation Hx Smoking Status: No Smoking History: Never smoked Have you smoked in the past 12 months: No Number of Cigarettes Smoked Daily: 0 Hx Alcohol Use: No Drug/Substance Use Hx: No Substance Use Type: None *Physical Exam - Physical Exam 08/03/19 09:06 PE: GENERAL: Awake and alert. non-verbal HEAD: No signs of trauma, normocephalic, atraumatic EYES: PERRL, , sclera anicteric, conjunctiva clear ENT: Auricles normal inspection, nares patent, Moist mucosa. congested with runny nose NECK: no JVD, or masses LUNGS: No distress, speaks full sentences, decreased breath sounds lung bases HEART: tachycardic and rhythm, normal S1 and S2, no murmurs, rubs or gallops, peripheral pulses normal and equal bilaterally. ABDOMEN: soft, mildly distended. no masses palpated. G-tube in place. EXTREMITIES : no edema. No clubbing or cyanosis NEUROLOGICAL: non-verbal at baseline. hx of microcephaly SKIN: Warm, Dry, normal turgor, no rashes or lesions noted ED Treatment Course - LABORATORY CBC & Chemistry Diagram: 08/06/19 08:12 08/06/19 08:12 Medical Decision Making - Medical Decision Making 08/03/19 09:19 38y/o M to the ED with cough and tachycardia from [facility] cbc, cmp, blood cultures, pt, ptt, flu swab. 08/03/19 12:21 flu negative CXR: congestive changes no consolidation Has received vanc and zosyn motrin for fever Pt to be admitted. admitting team microblogged for admission. 08/03/19 12:24 Discharge - Discharge Information Problems reviewed: Yes Clinical Impression/Diagnosis: Pneumonia Qualifiers: Pneumonia type: due to unspecified organism Laterality: unspecified laterality Lung location: unspecified part of lung Qualified Code(s): J18.9 - Pneumonia, unspecified organism Condition: Improved Disposition: [facility] - Follow up/Referral - Patient Discharge Instructions - Post Discharge Activity
[2019-08-03 08:00] VITALS: BMI 21.5
--- NOTE | 2019-08-03 08:16 | PDOC ---
Attending Attestation - Resident Resident Name: Anselmo Gonzalez - ED Attending Attestation I have performed the following: I have examined & evaluated the patient, The case was reviewed & discussed with the resident, I agree w/resident's findings & plan, Exceptions are as noted - HPI HPI: 08/03/19 08:16 38 M with h/o anoxic MR, intraventricular hemorrhage of , generalized idiopathic epilepsy, microcephaly, cortical Blindness, GERD, spastic quadriplegic cerebral palsy, hypothyroidism, s/p COMMUNITY SERVICE OFFICER shunt placement, s/p G tube placement and history of seizures, presenting to ED with cough, respiratory distress, fever. Pt unable to contribute history himself due to severe MR. Per aide a bedside, pt has had multiple sick contacts at care facility. - Physicial Exam PE: 08/03/19 08:19 See resident exam - Medical Decision Making 08/03/19 08:19 38 M with fever, cough, resp distress, mild hypoxia. Will perform sepsis work up. Possible flu. - Labs, cultures - Flu swab - CXR, UA - IVF, tylenol
[2019-08-03] MEDS ORDERED: IBUPROFEN 600 MG TABLET (FP) PO ONE ×2 (08:53→09:10)
[2019-08-03] MEDS ORDERED: SODIUM CHLORIDE 0.9% 500 ML INFUS.BAG IV ONE (08:54)
[2019-08-03 09:01] LABS: BASO % 0.3 % (0-2.0); EOS % 0.2 % (0-4.5); HEMATOCRIT 41.1 % (35.4-49); HEMOGLOBIN 14.2 GM/dL (11.7-16.9); LYMPH % 3.5 % (8-40); MCH 34.8 pg (25.7-33.7); MCHC 34.6 g/dl (32.0-35.9); MEAN CELL VOLUME 100.6 fl (80-96); MEAN PLT VOLUME 8.7 fl (7.5-11.1); MONO % 8.6 % (3.8-10.2); NEUT % 87.4 % (42.8-82.8); PLATELET COUNT 229 K/MM3 (134-434); RBC 4.09 M/mm3 (4.00-5.60); RDW 12.6 % (11.9-15.9); WHITE BLOOD COUNT 10.3 K/mm3 (4.0-10.0)
[2019-08-03] MEDS ORDERED: IBUPROFEN 100 MG/5 ML UNIT DOSE CUPS GT ONE (09:12)
[2019-08-03 09:37] LABS: ALBUMIN 3.6 g/dl (3.4-5.0); BILIRUBIN,TOTAL 0.4 mg/dL (0.2-1); CALCIUM 8.6 mg/dL (8.5-10.1); CREATININE 0.7 mg/dL (0.55-1.3); TOT PROT 7.4 g/dl (6.4-8.2)
[2019-08-03] MEDS ORDERED: VANCOMYCIN 1 GM in D5W (PRE-DOCKED) 1,000 MG/250 ML IVPB ONE (09:51)
[2019-08-03] MEDS ORDERED: PIPERACILLIN/TAZOB 3.375 GM 3.375 GM in DEXTROSE 5%-WATER - 50 ML IVPB ONE (09:51)
[2019-08-03] MEDS ORDERED: VANCOMYCIN 1 GRAM (PRE-DOCKED) 1,000 MG/250 ML BAG IVPB ONE (09:58)
[2019-08-03] MEDS ORDERED: PIPERACILLIN/TAZOB 3.375 GM 3.375 GM/50 ML BAG IVPB ONE (09:58)
[2019-08-03 10:23] LABS: INR 0.95 (0.83-1.09); PROTHROMBIN TIME (PATIENT) 11.2 SEC (9.7-13.0)
[2019-08-03 10:26] LABS: ACTIVATED PTT 38.6 SECONDS (25.2-36.5)
[2019-08-03 11:23] LABS: URINE APPEARANCE CLOUDY; URINE BILIRUBIN NEGATIVE (NEGATIVE); URINE COLOR YELLOW; URINE GLUCOSE (UA) NEGATIVE (NEGATIVE); URINE KETONE NEGATIVE (NEGATIVE); URINE LEUK ESTERASE NEGATIVE (NEGATIVE); URINE NITRITE NEGATIVE (NEGATIVE); URINE PROTEIN NEGATIVE (NEGATIVE); URINE UROBILINOGEN 0.2 mg/dL (0.2-1.0)
--- NOTE | 2019-08-03 13:13 | EKG ---
Test Reason : Blood Pressure : / mmHG Vent. Rate : 097 BPM Atrial Rate : 097 BPM P-R Int : 148 ms QRS Dur : 072 ms QT Int : 348 ms P-R-T Axes : 048 044 059 degrees QTc Int : 441 ms NORMAL SINUS RHYTHM POSSIBLE LEFT ATRIAL ENLARGEMENT BORDERLINE ECG WHEN COMPARED WITH ECG OF 18-JUL-2019 15:53, FUSION COMPLEXES ARE NO LONGER PRESENT Confirmed by DEVYN ROBLES MD ([id number]) on 08/03/2019 1:13:45 PM Referred By: Confirmed By:DEVYN ROBLES MD
[2019-08-03] MEDS ORDERED: POTASSIUM CHLORIDE ORAL LIQUID 20 MEQ/15 ML GT ONE (13:35)
[2019-08-03] MEDS ORDERED: POTASSIUM CHLORIDE ORAL LIQUID 20 MEQ/15 ML ONE (13:39)
[2019-08-03] MEDS ORDERED: diazePAM ACUDIAL 5-7.5-10 MG 1 EACH KIT RC PRN (16:54)
[2019-08-03] MEDS ORDERED: ACETAMINOPHEN 650 MG/20.3 ML ORAL SOLUTION (CUPS) PEG PRN (17:16)
--- NOTE | 2019-08-03 17:26 | HP ---
Admitting History and Physical - Admission Chief Complaint: Fever and tachycardia History of Present Illness: 38M from [facility] with PMH of MR, h/o profound Intellectual Disability, h/ o intraventricular hemorrhage of , Generalized idiopathic epilepsy, Microcephaly, Cortical Blindness, GERD, Spastic quadriplegic cerebral palsy, Hypothyroidism, S/p CONSULTING HR PROFESSIONAL shunt placement, S/p G tube placement sent by [facility] for evaluation of tachycardia, fever, and cough to rule out PNA. Per aide at bedside he has a cough with yellow sputum production which he usually doesnt have. History is limited as patient is nonverbal at baseline. Per facility notes he was febrile and tachycardic which did not respond to tylenol. There is a reported outbreak of influenza at [facility]. In the ER he was febrile to 101 and tachycardic to 121. he was given vanco and zosyn in the ER. History Source: Medical Record, Caregiver, Transfer Record Limitations to Obtaining History: Clinical Condition, Physical Impairment, Other (nonverbal) - Past Medical History CRAB CATCHER: Yes: Seizure, Other (severe developmental delay, cerebral palsy, mental retardation, cortical blindness) Gastrointestinal: Yes: GERD Hepatobiliary: Yes: Hepatitis C (HCV core AB+) Heme/Onc: Yes: Anemia Musculoskeletal: Yes: Paraplegia Endocrine: Yes: Hypothyroidism Additional Past Medical History: functional quadriplegia - Past Surgical History Additional Past Surgical History: back surgery for scoliosis with instrumentation, PEG, CONSULTING HR PROFESSIONAL shunt - Smoking History Smoking history: Never smoked Have you smoked in the past 12 months: No Aproximately how many cigarettes per day: 0 - Alcohol/Substance Use Hx Alcohol Use: No - Social History ADL: Support Services History of Recent Travel: No Home Medications - Allergies Allergies/Adverse Reactions: Allergies Allergy/AdvReac Type Severity Reaction Status Date / Time carbamazepine Allergy Unknown Verified 08/03/19 08:00 - Home Medications Home Medications: Ambulatory Orders Baclofen [Lioresal -] 5 mg PEG QID 08/16/17 Benzoyl Peroxide 5% Gel - 1 applic TP BID 08/16/17 Bisacodyl Suppository [Dulcolax Suppository -] 10 mg [place] PRN PRN 08/16/17 Calcium Citrate/Vitamin D3 [Calcium Cit 315-Vit D3 250 Tab] 2 each PEG HS Cetirizine HCl [Zyrtec -] 10 mg PEG HS 08/16/17 Cholecalciferol (Vitamin D3) [Vitamin D3] 2,000 iu PEG DAILY 08/16/17 Clindamycin Topical Solution [Cleocin 1% Topical Solution -] 1 applic TP DAILY 08/16/17 Lacosamide [Vimpat] 200 mg PEG BID 08/16/17 Levocarnitine [Carnitor] 165 mg PEG BID 08/16/17 Levothyroxine [Synthroid -] 75 mcg PEG AM 08/16/17 Multivitamin [One Daily] 1 tablet PEG DAILY 08/16/17 Rufinamide [Banzel] 30 ml PEG BID 08/16/17 Sennosides [Senna] 2 tab PEG BID 08/16/17 Sodium Benzoate 4.5 gm PEG TID 08/16/17 levETIRAcetam [Levetiracetam] 15 ml PEG BID 08/16/17 Chlorhexidine Gluconate 10 ml MM BID 02/01/19 Clobazam 10 mg PEG HS 02/01/19 Clobazam [Onfi] 20 mg PO BID 02/01/19 Diazepam Rectal Gel [Diastat Rectal Gel -] 5 mg [place] ONCE PRN 02/01/19 Fluticasone Prop 0.05% Nasal [Flonase -] 1 spray NS DAILY 02/01/19 Magnesium Hydrox 2400MG/30Ml [Milk of Magnesia -] 30 ml PEG BID 02/01/19 Phenobarbital - 32.4 mg PEG HS MDD 60 02/01/19 Topiramate [Topamax -] 200 mg GT BID 02/01/19 Albuterol 0.083% Nebulizer Jyoti [Ventolin 0.083% Nebulizer Soln -] 1 neb NEB Q6H 03/28/19 Albuterol 2.5/Ipratropium 0.5 [Duoneb -] 1 amp NEB Q6H PRN 03/28/19 Phenobarbital 64.8 mg PEG BID 03/28/19 Topiramate [Topamax] 50 mg PO HS 03/28/19 Bisacodyl Suppository [Dulcolax Suppository -] 10 mg RC DAILY PRN supp.rect 11/02 Polyethylene Glycol 3350 [Miralax 119 gm Btl -] 17 gm PO DAILY bottle 05/20/19 Family Medical History Family History: Unable to Obtain (nonverbal) Review of Systems Unable to obtain ROS, reason: nonverbal - Review of Systems Constitutional: reports: Fever Cardiovascular: reports: Other (tachycardia) Respiratory: reports: Cough (productive with yellow sputum) Physical Examination Vital Signs: Vital Signs Temperature 97.9 F 08/03/19 15:40 Pulse Rate 84 08/03/19 15:40 Respiratory Rate 18 08/03/19 15:40 Blood Pressure 95/54 L 08/03/19 15:40 O2 Sat by Pulse Oximetry (%) 94 L 08/03/19 15:40 Constitutional: Yes: No Distress, Calm, Other (sleeping) Eyes: Yes: Other (would not open eyes to allow me to examine them) HENT: Yes: Other (dry oral mucosa) Cardiovascular: Yes: Regular Rate and Rhythm Respiratory: Yes: Rhonchi (bilateral coarse breath sounds) Gastrointestinal: Yes: Normal Bowel Sounds, Soft, Other (PEG in place without erythema or discharge). No: Distention Extremities: Yes: Deformity (contracted hands) Edema: No Peripheral Pulses: Left Radial: 2+ Neurological: Yes: Other (nonverbal) Labs: CBC, BMP 08/03/19 08:39 08/03/19 08:39 Imaging - Results Chest X-ray: Report Reviewed, Image Reviewed Assessment/Plan 38yo M with multiple medical problems including a PMH of MR, h/o profound Intellectual Disability, h/o intraventricular hemorrhage of , Generalized idiopathic epilepsy, Microcephaly, Cortical Blindness, GERD, Spastic quadriplegic cerebral palsy, Hypothyroidism, S/p CONSULTING HR PROFESSIONAL shunt placement, S/ p G tube placement sent by [facility] for evaluation of fever, tachycardia, and cough to rule out PNA. Sepsis likely secondary to Influenza pneumonia vs bacterial pneumonia (HCAP) vs bronchitis tachycardia and fever apparently flu outbreak at [facility] home flu swab negative but due to high level of suspicion and possibility of false negative will start tamiflu and place on droplet precautions mild leukocytosis to 10.8 Will consult ID Will also start zosyn for 24 hours pending ID consult already got vancomycin in ER today lactic acid not elevated start IVF as patient looks dry UA negative f/u BCx and UCx send sputum culture if produces it Acute Hypoxic respiratory failure likely secondary to bronchitis vs flu vs PNA continue nasal O2 will start nebs prn hypokalemia potassium 3.0 today will give 40 meq via NG tube and recheck check magnesium level in AM history of Seizures-no seizure activity at this time Continue Keppra 1750 mg BID via PEG Continue home dose of Phenobarbitol via PEG continue topiramate at home dose via PEG continue Vimpat at home dose via PEG restart PRN benzodiaezepines functional quadriplegia restart baclofen history of constipation-chronic restart bowel regimen from [place] Hypothyroidism Continue home dose of synthroid via PEG FEN LR @ 83 mls/hr as patient has dry mucous membranes and borderline BP Hypokalemia-replete and recheck restart tube feeds. Patient gets jevity 1.5 for a total of 830ml/day and 75ml free water flush q1h. Ordered tube feeds 35ml/hr continuous Prophylaxis DVT: Lovenox All meds confirmed with physical chart that was sent over from [facility] Visit type - Emergency Visit Emergency Visit: Yes ED Registration Date: 08/03/19 Care time: The patient presented to the Emergency Department on the above date and was hospitalized for further evaluation of their emergent condition. - New Patient This patient is new to me today: Yes Date on this admission: 08/03/19 - Critical Care Critical Care patient: No
[2019-08-03] MEDS ORDERED: ALBUTEROL SO4 0.083% IH SOL 2.5 MG/3 ML VIAL.NEB. NEB PRN (17:36)
[2019-08-03] MEDS: LACTATED RINGERS SOLUTION 1,000 ML IV SCH (17:45)
[2019-08-03] MEDS ORDERED: CLOBAZAM 20 MG PO SCH (22:00)
[2019-08-03] MEDS ORDERED: SODIUM BENZOATE PEG SCH (22:00)
[2019-08-03] MEDS ORDERED: PATIENT'S OWN MEDICATION (NON-FORMULARY) (Phenobarbital [Phenobarbital] 64.8 MG) PEG SCH (22:00)
[2019-08-03] MEDS ORDERED: PATIENT'S OWN MEDICATION (NON-FORMULARY) (Cetirizine Hcl 10 MG) PEG SCH (22:00)
[2019-08-03] MEDS ORDERED: LACOSAMIDE 200 MG PEG SCH (22:00)
[2019-08-03] MEDS ORDERED: RUFINAMIDE PEG SCH (22:00)
[2019-08-03] MEDS ORDERED: LEVOCARNITINE PEG SCH (22:00)
[2019-08-03] MEDS ORDERED: PATIENT'S OWN MEDICATION (NON-FORMULARY) (Topiramate [Topamax] 50 MG) PO SCH (22:00)
[2019-08-03] MEDS ORDERED: PATIENT'S OWN MEDICATION (NON-FORMULARY) (Magnesium Hydrox 2400mg/30ml 30 ML) PEG SCH (22:00)
[2019-08-03] MEDS ORDERED: OSELTAMIVIR PHOSPHATE 75 MG CAPSULE PO SCH (22:00)
[2019-08-03] MEDS ORDERED: PIPERACILLIN/TAZOBACTAM 3.375 GM VIAL IVPB ONE (22:19)
[2019-08-03] MEDS ORDERED: DEXTROSE 5%-WATER - 50 ML IVPB ONE (22:20)
[2019-08-03] MEDS: BACLOFEN 10 MG TABLET (FP) PEG SCH ×2 (22:30→23:22)
[2019-08-03] MEDS: PIPERACILLIN/TAZOB 3.375 GM 3.375 GM in DEXTROSE 5%-WATER - 50 ML IVPB SCH (22:37)
[2019-08-03] MEDS: MAGNESIUM HYDROX 2400MG/30ML ORAL SUSPENSION 30 ML CUP PEG SCH (23:17)
[2019-08-03] MEDS: levOCARNitine 500 MG/5 ML SOLUTION PEG SCH (23:21)
[2019-08-03] MEDS: Lacosamide 50 MG/5 ML ORAL SOLUTION UNIT CUPS PEG SCH (23:22)
[2019-08-03] MEDS: levETIRAcetam 500 MG/5 ML ORAL SOLUTION (UNIT-DOSE CUPS) PEG SCH (23:22)
[2019-08-03] MEDS: cloBAZam 10 MG TABLET PEG SCH (23:23)
[2019-08-03] MEDS: LORATADINE 10 MG TABLET NR SCH (23:23)
[2019-08-03] MEDS: SENNOSIDES 8.6MG TABLET (FP) PO SCH (23:24)
[2019-08-03] MEDS: PHENobarbital 30 MG TABLET PEG SCH (23:24)
[2019-08-03] MEDS: TOPIRAMATE 200 MG, TOPIRAMATE 50 MG PO SCH (23:24)
[2019-08-03] MEDS: OSELTAMIVIR PHOSPHATE 75 MG CAPSULE PEG SCH (23:25)
[2019-08-04] MEDS ORDERED: PIPERACILLIN/TAZOBACTAM 3.375 GM VIAL IVPB ONE ×3 (04:28→20:18)
[2019-08-04] MEDS ORDERED: DEXTROSE 5%-WATER - 50 ML IVPB ONE ×3 (04:29→20:19)
[2019-08-04] MEDS: PIPERACILLIN/TAZOB 3.375 GM 3.375 GM in DEXTROSE 5%-WATER - 50 ML IVPB SCH ×3 (04:39→20:28)
[2019-08-04] MEDS: BACLOFEN 10 MG TABLET (FP) PEG SCH ×3 (06:38→20:28)
[2019-08-04] MEDS: LEVOTHYROXINE NA 75 MCG TABLET (FP) PEG SCH (06:39)
[2019-08-04] MEDS: LACTATED RINGERS SOLUTION 1,000 ML IV SCH (09:36)
[2019-08-04] MEDS: levOCARNitine 500 MG/5 ML SOLUTION PEG SCH ×2 (09:40→22:00)
[2019-08-04] MEDS: PHENobarbital 30 MG TABLET PO SCH (09:43)
[2019-08-04] MEDS: cloBAZam 10 MG TABLET PEG SCH ×2 (09:44→22:03)
[2019-08-04] MEDS: SENNOSIDES 8.6MG TABLET (FP) PO SCH ×2 (09:44→22:02)
[2019-08-04] MEDS: MULTIVIT-MINERALS ORAL LIQUID PO SCH (09:44)
[2019-08-04] MEDS: CHOLECALCIFEROL (VIT D3) 1,000 UNIT (25 MCG) TABLET NR SCH (09:44)
[2019-08-04] MEDS: ENOXAPARIN NA (PORCINE) 40 MG/0.4 ML DISP.SYRIN SQ SCH (09:45)
[2019-08-04] MEDS: levETIRAcetam 500 MG/5 ML ORAL SOLUTION (UNIT-DOSE CUPS) PEG SCH ×2 (09:45→22:00)
[2019-08-04] MEDS: MAGNESIUM HYDROX 2400MG/30ML ORAL SUSPENSION 30 ML CUP PEG SCH ×2 (09:46→22:01)
[2019-08-04] MEDS: TOPIRAMATE 200 MG TABLET (FP) GT SCH (09:47)
[2019-08-04] MEDS: OSELTAMIVIR PHOSPHATE 75 MG CAPSULE PEG SCH ×2 (09:48→22:02)
[2019-08-04] MEDS: Lacosamide 50 MG/5 ML ORAL SOLUTION UNIT CUPS PEG SCH ×2 (09:49→21:58)
[2019-08-04] MEDS ORDERED: MULTIVITAMINS (DAILY MVI) TABLET (FP) PO SCH (10:00)
[2019-08-04] MEDS: POLYETHYLENE GLYCOL 3350 119 GM BTL PEG SCH (10:54)
[2019-08-04 12:15] LABS: BASO % 0.4 % (0-2.0); EOS % 1.7 % (0-4.5); HEMOGLOBIN 14.6 GM/dL (11.7-16.9); LYMPH % 13.7 % (8-40); MCH 34.8 pg (25.7-33.7); MCHC 33.8 g/dl (32.0-35.9); MEAN PLT VOLUME 8.5 fl (7.5-11.1); MONO % 10.3 % (3.8-10.2); NEUT % 73.9 % (42.8-82.8); PLATELET COUNT 197 K/MM3 (134-434); RBC 4.18 M/mm3 (4.00-5.60); RDW 12.7 % (11.9-15.9)
[2019-08-04 12:49] LABS: ALBUMIN 3.2 g/dl (3.4-5.0); BILIRUBIN,TOTAL 0.2 mg/dL (0.2-1); BLOOD UREA NITROGEN 6.8 mg/dL (7-18); CALCIUM 8.4 mg/dL (8.5-10.1); CREATININE 0.6 mg/dL (0.55-1.3); MAGNESIUM 2.4 mg/dL (1.8-2.4); PHOSPHOROUS 2.8 mg/dL (2.5-4.9); POTASSIUM 3.5 mmol/L (3.5-5.1); TOT PROT 6.6 g/dl (6.4-8.2)
--- NOTE | 2019-08-04 13:11 | CON.PULM ---
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 Pt unable to provide further history at this time. Per chart, pt with yellow sputum and febrile to 101. There is currently an outbreak at [facility] of influenza. Given antibiotics in the ER. CXR without acute changes. 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, Other (severe developmental delay, cerebral palsy, mental retardation, cortical blindness) Gastrointestinal: Yes: GERD Hepatobiliary: Yes: Hepatitis C (HCV core AB+) Musculoskeletal: Yes: Paraplegia Endocrine: Yes: Hypothyroidism - Alcohol/Substance Use Hx Alcohol Use: No - Smoking History Smoking history: Never smoked Have you smoked in the past 12 months: No Aproximately how many cigarettes per day: 0 - Social History Usual Living Arrangement: [facility] ADL: Support Services History of Recent Travel: No Home Medications - Allergies Allergies/Adverse Reactions: Allergies Allergy/AdvReac Type Severity Reaction Status Date / Time carbamazepine Allergy Unknown Verified 08/03/19 08:00 - Home Medications Home Medications: Ambulatory Orders Baclofen [Lioresal -] 5 mg PEG QID 08/16/17 Benzoyl Peroxide 5% Gel - 1 applic TP BID 08/16/17 Bisacodyl Suppository [Dulcolax Suppository -] 10 mg ME PRN PRN 08/16/17 Calcium Citrate/Vitamin D3 [Calcium Cit 315-Vit D3 250 Tab] 2 each PEG HS Cetirizine HCl [Zyrtec -] 10 mg PEG HS 08/16/17 Cholecalciferol (Vitamin D3) [Vitamin D3] 2,000 iu PEG DAILY 08/16/17 Clindamycin Topical Solution [Cleocin 1% Topical Solution -] 1 applic TP DAILY 08/16/17 Lacosamide [Vimpat] 200 mg PEG BID 08/16/17 Levocarnitine [Carnitor] 165 mg PEG BID 08/16/17 Levothyroxine [Synthroid -] 75 mcg PEG AM 08/16/17 Multivitamin [One Daily] 1 tablet PEG DAILY 08/16/17 Rufinamide [Banzel] 30 ml PEG BID 08/16/17 Sennosides [Senna] 2 tab PEG BID 08/16/17 Sodium Benzoate 4.5 gm PEG TID 08/16/17 levETIRAcetam [Levetiracetam] 15 ml PEG BID 08/16/17 Chlorhexidine Gluconate 10 ml MM BID 02/01/19 Clobazam 10 mg PEG HS 02/01/19 Clobazam [Onfi] 20 mg PO BID 02/01/19 Diazepam Rectal Gel [Diastat Rectal Gel -] 5 mg ME ONCE PRN 02/01/19 Fluticasone Prop 0.05% Nasal [Flonase -] 1 spray NS DAILY 02/01/19 Magnesium Hydrox 2400MG/30Ml [Milk of Magnesia -] 30 ml PEG BID 02/01/19 Phenobarbital - 32.4 mg PEG HS MDD 60 02/01/19 Topiramate [Topamax -] 200 mg GT BID 02/01/19 Albuterol 0.083% Nebulizer Jyoti [Ventolin 0.083% Nebulizer Soln -] 1 neb NEB Q6H 03/28/19 Albuterol 2.5/Ipratropium 0.5 [Duoneb -] 1 amp NEB Q6H PRN 03/28/19 Phenobarbital 64.8 mg PEG BID 03/28/19 Topiramate [Topamax] 50 mg PO HS 03/28/19 Bisacodyl Suppository [Dulcolax Suppository -] 10 mg RC DAILY PRN supp.rect 11/02 Polyethylene Glycol 3350 [Miralax 119 gm Btl -] 17 gm PO DAILY bottle 05/20/19 Review of Systems Unable to obtain ROS, reason: pt nonverbal Physical Exam Vital Sings: Vital Signs Temperature 97.5 F L 08/04/19 06:05 Pulse Rate 85 08/04/19 06:05 Respiratory Rate 20 08/04/19 06:05 Blood Pressure 94/58 L 08/04/19 06:05 O2 Sat by Pulse Oximetry (%) 95 08/03/19 21:00 Constitutional: Yes: Calm HENT: Yes: Other (microcephaly) Neck: Yes: Supple, Trachea Midline Cardiovascular: Yes: Tachycardia Respiratory: Yes: Rhonchi, Wheezes ...Clubbing: No Gastrointestinal: Yes: Normal Bowel Sounds, Soft. No: Tenderness Edema: No Labs: CBC, BMP 08/04/19 12:00 08/04/19 12:00 Imaging - Results Chest X-ray: Report Reviewed, Image Reviewed (no infiltrates) Problem List - Problems (1) Upper respiratory tract infection Code(s): J06.9 - ACUTE UPPER RESPIRATORY INFECTION, UNSPECIFIED (2) Acute bronchospasm Code(s): J98.01 - ACUTE BRONCHOSPASM Assessment/Plan Upper Respiratory Tract Infection r/o Influenza Acute Bronchospasm Cerebral Palsy Mental Retardation Seizure Disorder Hypothyroidism GERD - agree with empiric tamiflu - short course of medrol - inhaled bronchodilators - O2 to keep SpO2 >90% - aspiration precautions - DVT prophyalxis Thank you for this consult Morgan Blue MD
[2019-08-04] MEDS: methylPREDNISolone NA SUCC 40 MG/1 ML VIAL IVPUSH SCH ×2 (13:46→17:03)
[2019-08-04] MEDS ORDERED: POTASSIUM CHLORIDE ORAL LIQUID 20 MEQ/15 ML PEG ONE (13:53)
--- NOTE | 2019-08-04 14:01 | PN ---
Progress Note, Physician History of Present Illness: seen and examined at bedside. no fever since admission. tachycardia is improving. on tube feeds. seen by pulmonology who agrees with empiric tamiflu. Pulm also added 40mg of medrol q8h for 6 doses and duonebs. RN reports occasional thich yellow sputum. ROS unable to be done as patient is nonverbal - Current Medication List Current Medications: Active Medications Acetaminophen (Tylenol Oral Solution -) 650 mg PEG Q4H PRN PRN Reason: PAIN LEVEL 1-5 OR FEVER Albuterol Sulfate (Ventolin 0.083% Nebulizer Soln -) 1 amp NEB Q4H PRN PRN Reason: SHORT OF BREATH/WHEEZING Albuterol/Ipratropium (Duoneb -) 1 amp NEB RQID [facility] Baclofen (Lioresal -) 5 mg PEG 0000,0600,1600,2100 [facility] Last Admin: 08/04/19 06:38 Dose: 5 mg Cholecalciferol (Vitamin D3 -) 2,000 unit NR DAILY [facility] Last Admin: 08/04/19 09:44 Dose: 2,000 unit Clobazam (Onfi -) 30 mg PEG HS [facility] Last Admin: 08/03/19 23:23 Dose: 30 mg Clobazam (Onfi -) 20 mg PEG DAILY [facility] Last Admin: 08/04/19 09:44 Dose: 20 mg Diazepam (Diastat Rectal Gel -) 5 mg RC ONCE PRN PRN Reason: SEIZURES Enoxaparin Sodium (Lovenox -) 40 mg SQ DAILY [facility] Last Admin: 08/04/19 09:45 Dose: 40 mg Lactated Ringer's (Lactated Ringers Solution) 1,000 mls @ 83 mls/hr IV ASDIR [facility] Last Admin: 08/04/19 09:36 Dose: 83 mls/hr Piperacillin Sod/Tazobactam (Sod 3.375 gm/ Dextrose) 50 mls @ 100 mls/hr IVPB Q8H-IV [facility]; Protocol Lacosamide (Vimpat Liquid -) 200 mg PEG BID [facility] Last Admin: 08/04/19 09:49 Dose: 200 mg Levetiracetam (Keppra Oral Solution -) 1,750 mg PEG BID [facility] Last Admin: 08/04/19 09:45 Dose: 1,750 mg Levocarnitine (Carnitor Oral Solution -) 165 mg PEG BID [facility] Last Admin: 08/04/19 09:40 Dose: 165 mg Levothyroxine Sodium (Synthroid -) 75 mcg PEG AM [facility] Last Admin: 08/04/19 06:39 Dose: 75 mcg Loratadine (Claritin -) 10 mg NR HS [facility] Last Admin: 08/03/19 23:23 Dose: 10 mg Magnesium Hydroxide (Milk Of Magnesia -) 30 ml PEG BID [facility] Last Admin: 08/04/19 09:46 Dose: 30 ml Methylprednisolone Sodium Succinate (Solu-Medrol -) 40 mg IVPUSH Q8H-IV [facility] Stop: 08/06/19 02:01 Last Admin: 08/04/19 13:46 Dose: 40 mg Multivitamins/Minerals (Certavite-Antioxidant Liquid) 15 ml PO DAILY [facility] Last Admin: 08/04/19 09:44 Dose: 15 ml Non-Formulary Medication (Calcium Citrate/Vitamin D3 [Calcium Cit 315-Vit D3 250 Tab]) 2 each PEG HS [facility] Non-Formulary Medication (Rufinamide [Banzel]) 30 ml PEG BID [facility] Non-Formulary Medication (Sodium Benzoate [Sodium Benzoate]) 4.5 gm PEG TID [facility] Oseltamivir Phosphate (Tamiflu -) 75 mg PEG BID [facility] Stop: 08/08/19 21:59 Last Admin: 08/04/19 09:48 Dose: 75 mg Phenobarbital (Phenobarbital -) 90 mg PEG HS [facility] Last Admin: 08/03/19 23:24 Dose: 90 mg Phenobarbital (Phenobarbital -) 60 mg PO DAILY [facility] Last Admin: 08/04/19 09:43 Dose: 60 mg Polyethylene Glycol (Miralax (For Daily Use) -) 17 gm PEG DAILY [facility] Last Admin: 08/04/19 10:54 Dose: 17 grams Potassium Chloride (Potassium Chloride Oral Liquid) 40 meq PEG ONCE ONE Stop: 08/04/19 13:54 Senna (Senna -) 2 tab PO BID [facility] Last Admin: 08/04/19 09:44 Dose: 2 tab Topiramate (Topamax -) 200 mg GT DAILY [facility] Last Admin: 08/04/19 09:47 Dose: 200 mg Topiramate 200 mg/ Topiramate (50 mg) 250 mg PO [facility] Last Admin: 08/03/19 23:24 Dose: 250 mg - Objective Vital Signs: Vital Signs Temperature 97.8 F 08/04/19 10:00 Pulse Rate 88 08/04/19 10:00 Respiratory Rate 08/04/19 10:00 Blood Pressure 100/56 L 08/04/19 10:00 O2 Sat by Pulse Oximetry (%) 96 08/04/19 09:00 Constitutional: Yes: No Distress, Calm, Other (sleeping) HENT: Yes: Other (moist oral mucosa) Cardiovascular: Yes: Regular Rate and Rhythm Respiratory: Yes: Rhonchi (bilateral coarse breath sounds) Gastrointestinal: Yes: Normal Bowel Sounds, Soft, Other (PEG in place without erythema or discharge). 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 Sepsis likely secondary to Influenza pneumonia vs bacterial pneumonia (HCAP) vs bronchitis tachycardia improved and no fever since admission apparently flu outbreak at [facility] flu swab negative but due to high level of suspicion and possibility of false negative will continue empiric tamiflu and place on droplet precautions mild leukocytosis to 10.8 resolved ID consult pending-discussed with Dr. Monterroso over the phone zosyn for 24 hours pending ID consult UA negative urine antigens negative BCx-negative so far and UCx negative final f/u final BCx send sputum culture if produces it Medrol 40mg q8h for 6 doses per pulmonology Acute Hypoxic respiratory failure likely secondary to bronchitis vs flu vs PNA continue nasal O2 duonebs standing and albuterol nebs prn Medrol 40mg q8h for 6 doses per pulmonology hypokalemia potassium 3.5 today will give another 40 meq via NG tube and recheck in AM magnesium level WNL history of Seizures-no seizure activity at this time Continue Keppra 1750 mg BID via PEG Continue home dose of Phenobarbitol via PEG continue topiramate at home dose via PEG continue Vimpat at home dose via PEG continue home doses of PRN benzodiaezepines functional quadriplegia continue baclofen history of constipation-chronic continue bowel regimen from [place] Hypothyroidism Continue home dose of synthroid via PEG FEN can stop IVF. contiue free water flushes thru PEG Hypokalemia has improved and is now 3.5 today will give another 40meq via PEG recheck in AM continue tube feeds. Patient gets jevity 1.5 for a total of 830ml/day and 75ml free water flush q1h per paperwork from [place]. Ordered tube feeds jevity 1.5 35ml/hr continuous patient to be seen by drafter geological Prophylaxis DVT: Lovenox Visit type - Emergency Visit Emergency Visit: Yes ED Registration Date: 08/03/19 Care time: The patient presented to the Emergency Department on the above date and was hospitalized for further evaluation of their emergent condition. - New Patient This patient is new to me today: No - Critical Care Critical Care patient: No
[2019-08-04] MEDS: ALBUTEROL SO4 2.5/IPRATROPIUM 0.5 INH SOL 3 ML VIAL.NEB. NEB SCH ×2 (15:55→20:49)
[2019-08-04] MEDS ORDERED: PIPERACILLIN/TAZOB 3.375 GM 3.375 GM in DEXTROSE 5%-WATER - 50 ML IVPB SCH (18:00)
--- NOTE | 2019-08-04 19:44 | PN ---
Progress Note (short form) - Note Progress Note: ID CONSULT DICTATED ? ACUTE INFLUENZA ?HCAP CP/MR AWAIT C/S EMPIRIC ZOSYN/TAMIFLU
[2019-08-04] MEDS ORDERED: PT OWN MED DRAWER 7, Y5N ONE (21:46)
[2019-08-04] MEDS: TOPIRAMATE 200 MG, TOPIRAMATE 50 MG PO SCH (22:02)
[2019-08-04] MEDS: LORATADINE 10 MG TABLET NR SCH (22:03)
[2019-08-04] MEDS: PHENobarbital 30 MG TABLET PEG SCH (22:03)
[2019-08-05] MEDS: BACLOFEN 10 MG TABLET (FP) PEG SCH ×5 (00:58→23:57)
[2019-08-05] MEDS ORDERED: PIPERACILLIN/TAZOBACTAM 3.375 GM VIAL IVPB ONE ×4 (01:28→23:56)
[2019-08-05] MEDS ORDERED: DEXTROSE 5%-WATER - 50 ML IVPB ONE ×4 (01:28→23:56)
[2019-08-05] MEDS: methylPREDNISolone NA SUCC 40 MG/1 ML VIAL IVPUSH SCH ×3 (01:35→18:37)
[2019-08-05] MEDS: PIPERACILLIN/TAZOB 3.375 GM 3.375 GM in DEXTROSE 5%-WATER - 50 ML IVPB SCH ×3 (01:37→18:36)
[2019-08-05] MEDS: LEVOTHYROXINE NA 75 MCG TABLET (FP) PEG SCH (06:05)
[2019-08-05] MEDS: ALBUTEROL SO4 2.5/IPRATROPIUM 0.5 INH SOL 3 ML VIAL.NEB. NEB SCH ×4 (07:30→20:50)
--- NOTE | 2019-08-05 08:40 | PN ---
Teaching Attending Note Name of Resident: Fede Loera ATTENDING PHYSICIAN STATEMENT I saw and evaluated the patient. I reviewed the resident's note and discussed the case with the resident. I agree with the resident's findings and plan as documented. SUBJECTIVE: Nonverbal offers no complaints OBJECTIVE: Vital Signs Temperature 97.3 F L 08/05/19 05:00 Pulse Rate 62 08/05/19 05:00 Respiratory Rate 20 08/05/19 05:00 Blood Pressure 113/67 08/05/19 05:00 O2 Sat by Pulse Oximetry (%) 100 08/04/19 21:00 General: Nonverbal oriented to self HEENT; mucous membranes moist, no anemia, no jaundice, PERRLA, no nystagmus Neck: No JVD, supple, no bruit, thyroid palpably normal, normal carotid pulsations. Chest: Nontender, mild wheezes CVS: S1-S2 regularno murmur/gallop/rub Abdomen: PEG in place nondistended, soft, bowel sounds present. Extremities: Contracted no edema., No cough tenderness, pulses present PHYSICIAN INTERNIST: Oriented to self CBC, BMP 08/05/19 07:19 Active Medications Acetaminophen (Tylenol Oral Solution -) 650 mg PEG Q4H PRN PRN Reason: PAIN LEVEL 1-5 OR FEVER Albuterol Sulfate (Ventolin 0.083% Nebulizer Soln -) 1 amp NEB Q4H PRN PRN Reason: SHORT OF BREATH/WHEEZING Albuterol/Ipratropium (Duoneb -) 1 amp NEB RQID [facility] Last Admin: 08/05/19 07:30 Dose: 1 amp Baclofen (Lioresal -) 5 mg PEG 0000,0600,1600,2100 [facility] Last Admin: 08/05/19 06:05 Dose: 5 mg Cholecalciferol (Vitamin D3 -) 2,000 unit NR DAILY [facility] Last Admin: 08/04/19 09:44 Dose: 2,000 unit Clobazam (Onfi -) 30 mg PEG HS [facility] Last Admin: 08/04/19 22:03 Dose: 30 mg Clobazam (Onfi -) 20 mg PEG DAILY [facility] Last Admin: 08/04/19 09:44 Dose: 20 mg Diazepam (Diastat Rectal Gel -) 5 mg RC ONCE PRN PRN Reason: SEIZURES Enoxaparin Sodium (Lovenox -) 40 mg SQ DAILY [facility] Last Admin: 08/04/19 09:45 Dose: 40 mg Piperacillin Sod/Tazobactam (Sod 3.375 gm/ Dextrose) 50 mls @ 100 mls/hr IVPB Q8H-IV [facility]; Protocol Last Admin: 08/05/19 01:37 Dose: 100 mls/hr Lacosamide (Vimpat Liquid -) 200 mg PEG BID [facility] Last Admin: 08/04/19 21:58 Dose: 200 mg Levetiracetam (Keppra Oral Solution -) 1,750 mg PEG BID [facility] Last Admin: 08/04/19 22:00 Dose: 1,750 mg Levocarnitine (Carnitor Oral Solution -) 165 mg PEG BID [facility] Last Admin: 08/04/19 22:00 Dose: 165 mg Levothyroxine Sodium (Synthroid -) 75 mcg PEG AM [facility] Last Admin: 08/05/19 06:05 Dose: 75 mcg Loratadine (Claritin -) 10 mg NR HS [facility] Last Admin: 08/04/19 22:03 Dose: 10 mg Magnesium Hydroxide (Milk Of Magnesia -) 30 ml PEG BID [facility] Last Admin: 08/04/19 22:01 Dose: 30 ml Methylprednisolone Sodium Succinate (Solu-Medrol -) 40 mg IVPUSH Q8H-IV [facility] Stop: 08/06/19 02:01 Last Admin: 08/05/19 01:35 Dose: 40 mg Multivitamins/Minerals (Certavite-Antioxidant Liquid) 15 ml PO DAILY [facility] Last Admin: 08/04/19 09:44 Dose: 15 ml Non-Formulary Medication (Calcium Citrate/Vitamin D3 [Calcium Cit 315-Vit D3 250 Tab]) 2 each PEG HS [facility] Non-Formulary Medication (Rufinamide [Banzel]) 30 ml PEG BID [facility] Non-Formulary Medication (Sodium Benzoate [Sodium Benzoate]) 4.5 gm PEG TID [facility] Oseltamivir Phosphate (Tamiflu -) 75 mg PEG BID [facility] Stop: 08/08/19 21:59 Last Admin: 08/04/19 22:02 Dose: 75 mg Phenobarbital (Phenobarbital -) 90 mg PEG HS [facility] Last Admin: 08/04/19 22:03 Dose: 90 mg Phenobarbital (Phenobarbital -) 60 mg PO DAILY [facility] Last Admin: 08/04/19 09:43 Dose: 60 mg Polyethylene Glycol (Miralax (For Daily Use) -) 17 gm PEG DAILY [facility] Last Admin: 08/04/19 10:54 Dose: 17 grams Senna (Senna -) 2 tab PO BID [facility] Last Admin: 08/04/19 22:02 Dose: 2 tab Topiramate (Topamax -) 200 mg GT DAILY [facility] Last Admin: 08/04/19 09:47 Dose: 200 mg Topiramate 200 mg/ Topiramate (50 mg) 250 mg PO HS [facility] Last Admin: 08/04/19 22:02 Dose: 250 mg ASSESSMENT AND PLAN:38M from [facility] with PMH of MR, h/o profound Intellectual Disability, h/o intraventricular hemorrhage of , Generalized idiopathic epilepsy, Microcephaly, Cortical Blindness, GERD, Spastic quadriplegic cerebral palsy, Hypothyroidism, S/p DYNAMICS AX SOLUTION ARCHITECT shunt placement, S/ p G tube placement sent by [place] for evaluation of tachycardia, fever, and cough to rule out PNA. Problem List - Problems (1) Acute bronchospasm Assessment/Plan: Continue DuoNeb and p.o. Medrol follow pulmonary recommendations Problems reviewed: Yes Code(s): J98.01 - ACUTE BRONCHOSPASM (2) Upper respiratory tract infection Assessment/Plan: Most likely viral infection influenza a and B are negative will follow up ID recommendations patient is on Tamiflu and Zosyn Problems reviewed: Yes Code(s): J06.9 - ACUTE UPPER RESPIRATORY INFECTION, UNSPECIFIED (3) Hypothyroid Assessment/Plan: Continue levothyroxine Problems reviewed: Yes Code(s): E03.9 - HYPOTHYROIDISM, UNSPECIFIED (4) S/P DYNAMICS AX SOLUTION ARCHITECT shunt Assessment/Plan: Chronic no activation Problems reviewed: Yes Code(s): Z98.2 - PRESENCE OF CEREBROSPINAL FLUID DRAINAGE DEVICE (5) Seizure disorder Assessment/Plan: Continue all home medication via PEG observe for seizure and aspiration Problems reviewed: Yes Code(s): G40.909 - EPILEPSY, UNSP, NOT INTRACTABLE, WITHOUT STATUS EPILEPTICUS
[2019-08-05 09:03] LABS: BLOOD UREA NITROGEN 5.7 mg/dL (7-18); CALCIUM 8.4 mg/dL (8.5-10.1); CREATININE 0.4 mg/dL (0.55-1.3); POTASSIUM 4.3 mmol/L (3.5-5.1)
[2019-08-05] MEDS: MAGNESIUM HYDROX 2400MG/30ML ORAL SUSPENSION 30 ML CUP PEG SCH ×2 (11:11→21:11)
[2019-08-05] MEDS: Lacosamide 50 MG/5 ML ORAL SOLUTION UNIT CUPS PEG SCH ×2 (11:11→21:11)
[2019-08-05] MEDS: ENOXAPARIN NA (PORCINE) 40 MG/0.4 ML DISP.SYRIN SQ SCH (11:13)
[2019-08-05] MEDS: SENNOSIDES 8.6MG TABLET (FP) PO SCH ×2 (11:13→21:12)
[2019-08-05] MEDS: TOPIRAMATE 200 MG TABLET (FP) GT SCH (11:15)
[2019-08-05] MEDS: OSELTAMIVIR PHOSPHATE 75 MG CAPSULE PEG SCH ×2 (11:15→21:14)
[2019-08-05] MEDS: POLYETHYLENE GLYCOL 3350 119 GM BTL PEG SCH (11:16)
[2019-08-05] MEDS: cloBAZam 10 MG TABLET PEG SCH ×2 (11:16→21:13)
[2019-08-05] MEDS: MULTIVIT-MINERALS ORAL LIQUID PO SCH (11:17)
[2019-08-05] MEDS: levOCARNitine 500 MG/5 ML SOLUTION PEG SCH ×2 (11:18→21:11)
[2019-08-05] MEDS: levETIRAcetam 500 MG/5 ML ORAL SOLUTION (UNIT-DOSE CUPS) PEG SCH ×2 (11:18→21:11)
[2019-08-05] MEDS: PHENobarbital 30 MG TABLET PO SCH (11:19)
--- NOTE | 2019-08-05 11:24 | PN ---
Progress Note (short form) - Note Progress Note: PULMONARY VSS/Afebrile Constitutional: Yes: Calm HENT: Yes: Other (microcephaly) Neck: Yes: Supple, Trachea Midline Cardiovascular: Yes: Tachycardia Respiratory: Yes: Rhonchi, Wheezes ...Clubbing: No Gastrointestinal: Yes: Normal Bowel Sounds, Soft. No: Tenderness Edema: No Labs: reviewed Problem List - Problems (1) Upper respiratory tract infection Code(s): J06.9 - ACUTE UPPER RESPIRATORY INFECTION, UNSPECIFIED (2) Acute bronchospasm Code(s): J98.01 - ACUTE BRONCHOSPASM Assessment/Plan Upper Respiratory Tract Infection Acute Bronchospasm Cerebral Palsy Mental Retardation Seizure Disorder Hypothyroidism GERD - short course of medrol - inhaled bronchodilators - O2 to keep SpO2 >90% - aspiration precautions - DVT prophyalxis Freddie AQUINO MD
[2019-08-05] MEDS: CHOLECALCIFEROL (VIT D3) 1,000 UNIT (25 MCG) TABLET NR SCH (12:43)
--- NOTE | 2019-08-05 15:31 | PN ---
Progress Note, Physician History of Present Illness: AWAKE, NON VERBAL BREATHING NON-LABORED AFEBRILE WBC WNL - Current Medication List Current Medications: Active Medications Acetaminophen (Tylenol Oral Solution -) 650 mg PEG Q4H PRN PRN Reason: PAIN LEVEL 1-5 OR FEVER Albuterol Sulfate (Ventolin 0.083% Nebulizer Soln -) 1 amp NEB Q4H PRN PRN Reason: SHORT OF BREATH/WHEEZING Albuterol/Ipratropium (Duoneb -) 1 amp NEB RQID [facility] Last Admin: 08/05/19 11:22 Dose: 1 amp Baclofen (Lioresal -) 5 mg PEG 0000,0600,1600,2100 [facility] Last Admin: 08/05/19 06:05 Dose: 5 mg Cholecalciferol (Vitamin D3 -) 2,000 unit NR DAILY [facility] Last Admin: 08/05/19 12:43 Dose: 2,000 unit Clobazam (Onfi -) 30 mg PEG HS [facility] Last Admin: 08/04/19 22:03 Dose: 30 mg Clobazam (Onfi -) 20 mg PEG DAILY [facility] Last Admin: 08/05/19 11:16 Dose: 20 mg Diazepam (Diastat Rectal Gel -) 5 mg RC ONCE PRN PRN Reason: SEIZURES Enoxaparin Sodium (Lovenox -) 40 mg SQ DAILY [facility] Last Admin: 08/05/19 11:13 Dose: 40 mg Piperacillin Sod/Tazobactam (Sod 3.375 gm/ Dextrose) 50 mls @ 100 mls/hr IVPB Q8H-IV [facility]; Protocol Last Admin: 08/05/19 11:12 Dose: 100 mls/hr Lacosamide (Vimpat Liquid -) 200 mg PEG BID [facility] Last Admin: 08/05/19 11:11 Dose: 200 mg Levetiracetam (Keppra Oral Solution -) 1,750 mg PEG BID [facility] Last Admin: 08/05/19 11:18 Dose: 1,750 mg Levocarnitine (Carnitor Oral Solution -) 165 mg PEG BID [facility] Last Admin: 08/05/19 11:18 Dose: 165 mg Levothyroxine Sodium (Synthroid -) 75 mcg PEG AM [facility] Last Admin: 08/05/19 06:05 Dose: 75 mcg Loratadine (Claritin -) 10 mg NR HS [facility] Last Admin: 08/04/19 22:03 Dose: 10 mg Magnesium Hydroxide (Milk Of Magnesia -) 30 ml PEG BID [facility] Last Admin: 08/05/19 11:11 Dose: 30 ml Methylprednisolone Sodium Succinate (Solu-Medrol -) 40 mg IVPUSH Q8H-IV [facility] Stop: 08/06/19 02:01 Last Admin: 08/05/19 11:13 Dose: 40 mg Multivitamins/Minerals (Certavite-Antioxidant Liquid) 15 ml PO DAILY [facility] Last Admin: 08/05/19 11:17 Dose: 15 ml Non-Formulary Medication (Calcium Citrate/Vitamin D3 [Calcium Cit 315-Vit D3 250 Tab]) 2 each PEG HS [facility] Non-Formulary Medication (Rufinamide [Banzel]) 30 ml PEG BID [facility] Non-Formulary Medication (Sodium Benzoate [Sodium Benzoate]) 4.5 gm PEG TID [facility] Oseltamivir Phosphate (Tamiflu -) 75 mg PEG BID [facility] Stop: 08/08/19 21:59 Last Admin: 08/05/19 11:15 Dose: 75 mg Phenobarbital (Phenobarbital -) 90 mg PEG [facility] Last Admin: 08/04/19 22:03 Dose: 90 mg Phenobarbital (Phenobarbital -) 60 mg PO DAILY [facility] Last Admin: 08/05/19 11:19 Dose: 60 mg Polyethylene Glycol (Miralax (For Daily Use) -) 17 gm PEG DAILY [facility] Last Admin: 08/05/19 11:16 Dose: 17 grams Senna (Senna -) 2 tab PO BID [facility] Last Admin: 08/05/19 11:13 Dose: 2 tab Topiramate (Topamax -) 200 mg GT DAILY [facility] Last Admin: 08/05/19 11:15 Dose: 200 mg Topiramate 200 mg/ Topiramate (50 mg) 250 mg PO [facility] Last Admin: 08/04/19 22:02 Dose: 250 mg - Objective Vital Signs: Vital Signs Temperature 97.4 F L 08/05/19 14:53 Pulse Rate 66 08/05/19 14:53 Respiratory Rate 20 08/05/19 14:53 Blood Pressure 108/64 08/05/19 14:53 O2 Sat by Pulse Oximetry (%) 100 08/04/19 21:00 Constitutional: Yes: No Distress Cardiovascular: Yes: Regular Rate and Rhythm, S1, S2 Respiratory: Yes: Rhonchi, Wheezes Gastrointestinal: Yes: Normal Bowel Sounds, Soft. No: Tenderness Edema: No Labs: CBC, BMP 08/05/19 07:19 08/05/19 07:19 INR, PTT INR 0.95 (0.83-1.09) 08/03/19 08:39 Assessment/Plan VIRAL SYNDROME V. HCAP BRONCHOSPASM CP/MR MAY SUBSTITUTE AUGMENTIN FOR ADDITIONAL 7D COMPLETE 5D COURSE TAMIFLU
--- NOTE | 2019-08-05 15:53 | PN ---
Physical Exam: SUBJECTIVE: Patient seen and examined. No events overnight. Afebrile. No white count yesterday. OBJECTIVE: Vital Signs Period Temp Pulse Resp BP Sys/De La Vega Pulse Ox Last 24 Hr 97.3 F-98 F 60-84 20-20 101-127/59-71 97-100 General: Nonverbal, comfortable, sleeping HEENT; dry mucous membranes, no jaundice, PERRLA, no nystagmus Neck: No JVD, supple, no bruit, thyroid palpably normal Chest: +rhonchi CVS: S1-S2 , RRR, no murmurs appreciated Abdomen: +PEG in,soft, bowel sounds present. NT Extremities: Contracted , 2+ pulses throughout Laboratory Results - last 24 hr 08/05/19 08/05/19 07:19 07:19 WBC Cancelled Corrected WBC (auto) Cancelled RBC Cancelled Hgb Cancelled Hct Cancelled MCV Cancelled MCH Cancelled MCHC Cancelled RDW Cancelled Plt Count Cancelled MPV Cancelled Absolute Neuts (auto) Cancelled Neutrophils % Cancelled Lymphocytes % Cancelled Monocytes % Cancelled Eosinophils % Cancelled Basophils % Cancelled Nucleated RBC % Cancelled Platelet Estimate Cancelled Platelet Comment Cancelled Sodium 139 Potassium 4.3 Chloride 112 H Carbon Dioxide 18 L Anion Gap 9 BUN 5.7 L Creatinine 0.4 L Est GFR (CKD-EPI)AfAm 174.63 Est GFR (CKD-EPI)NonAf 150.67 Random Glucose 126 H Calcium 8.4 L Active Medications Generic Name Dose Route Start Last Admin Trade Name Freq PRN Reason Stop Dose Admin Acetaminophen 650 mg 08/03/19 17:16 Tylenol Oral Solution - PEG Q4H PRN PAIN LEVEL 1-5 OR FEVER Albuterol Sulfate 1 amp 08/03/19 17:36 Ventolin 0.083% Nebulizer Soln - NEB Q4H PRN SHORT OF BREATH/WHEEZING Albuterol/Ipratropium 1 amp 08/04/19 16:00 08/05/19 11:22 Duoneb - NEB 1 amp RQID JOANNA Administration Baclofen 5 mg 08/03/19 21:00 08/05/19 06:05 Lioresal - PEG 5 mg 0000,0600,1600,2100 JAONNA Administration Cholecalciferol 2,000 unit 08/04/19 10:00 08/05/19 12:43 Vitamin D3 - NR 2,000 unit DAILY JOANNA Administration Clobazam 30 mg 08/03/19 22:00 08/04/19 22:03 Onfi - PEG 30 mg HS JOANNA Administration Clobazam 20 mg 08/04/19 10:00 08/05/19 11:16 Onfi - PEG 20 mg DAILY JOANNA Administration Diazepam 5 mg 08/03/19 16:54 Diastat Rectal Gel - RC ONCE PRN SEIZURES Enoxaparin Sodium 40 mg 08/04/19 10:00 08/05/19 11:13 Lovenox - SQ 40 mg DAILY JOANNA Administration Piperacillin Sod/Tazobactam 50 mls @ 100 mls/hr 08/04/19 19:45 08/05/19 11:12 Sod 3.375 gm/ Dextrose IVPB 100 mls/hr Q8H-IV JOANNA Administration Protocol Lacosamide 200 mg 08/03/19 22:00 08/05/19 11:11 Vimpat Liquid - PEG 200 mg BID JOANNA Administration Levetiracetam 1,750 mg 08/03/19 22:00 08/05/19 11:18 Keppra Oral Solution - PEG 1,750 mg BID JOANNA Administration Levocarnitine 165 mg 08/03/19 22:00 08/05/19 11:18 Carnitor Oral Solution - PEG 165 mg BID JOANNA Administration Levothyroxine Sodium 75 mcg 08/04/19 07:00 08/05/19 06:05 Synthroid - PEG 75 mcg AM JOANNA Administration Loratadine 10 mg 08/03/19 22:00 08/04/19 22:03 Claritin - NR 10 mg HS JOANNA Administration Magnesium Hydroxide 30 ml 08/03/19 22:00 08/05/19 11:11 Milk Of Magnesia - PEG 30 ml BID JOANNA Administration Methylprednisolone Sodium Succinate 40 mg 08/04/19 13:30 08/05/19 11:13 Solu-Medrol - IVPUSH 08/06/19 02:01 40 mg Q8H-IV JOANNA Administration Multivitamins/Minerals 15 ml 08/04/19 10:00 08/05/19 11:17 Certavite-Antioxidant Liquid PO 15 ml DAILY JOANNA Administration Non-Formulary Medication 2 each 08/03/19 22:00 Calcium Citrate/Vitamin D3 [Calcium Cit 315-Vit D3 250 Tab] PEG HS JOANNA Non-Formulary Medication 30 ml 08/03/19 22:00 Rufinamide [Banzel] PEG BID JOANNA Non-Formulary Medication 4.5 gm 08/03/19 22:00 Sodium Benzoate [Sodium Benzoate] PEG TID JOANNA Oseltamivir Phosphate 75 mg 08/03/19 22:00 08/05/19 11:15 Tamiflu - PEG 08/08/19 21:59 75 mg BID JOANNA Administration Phenobarbital 90 mg 08/03/19 22:00 08/04/19 22:03 Phenobarbital - PEG 90 mg HS JOANNA Administration Phenobarbital 60 mg 08/04/19 10:00 08/05/19 11:19 Phenobarbital - PO 60 mg DAILY JOANNA Administration Polyethylene Glycol 17 gm 08/04/19 10:00 08/05/19 11:16 Miralax (For Daily Use) - PEG 17 grams DAILY JOANNA Administration Senna 2 tab 08/03/19 22:00 08/05/19 11:13 Senna - PO 2 tab BID JOANNA Administration Topiramate 200 mg 08/04/19 10:00 08/05/19 11:15 Topamax - GT 200 mg DAILY JOANNA Administration Topiramate 200 mg/ Topiramate 250 mg 08/03/19 22:00 08/04/19 22:02 50 mg PO 250 mg HS JOANNA Administration ASSESSMENT/PLAN: 38yo M with multiple medical problems including a PMH of MR, h/o profound Intellectual Disability, h/o intraventricular hemorrhage of , Generalized idiopathic epilepsy, Microcephaly, Cortical Blindness, GERD, Spastic quadriplegic cerebral palsy, Hypothyroidism, S/p CLUB ATTENDANT shunt placement, S/ p G tube placement sent by [facility] for evaluation of fever, tachycardia, and cough to rule out PNA. #Sepsis likely secondary PNA -tachycardia improved, afebrile, no white count -apparently flu outbreak at [facility] -Flu negative. -Complete 5 days tamiflu because of outbreak in long-term. Day 3 today. -IV medrol. will give total 6 doses. -will start augmentin for 7 days tomorrow. #Acute Hypoxic respiratory failure 2/2 PNA -continue nasal O2 -duonebs standing and albuterol nebs prn -see above plan #hypokalemia -resolved #hx of Seizures -no seizure activity at this time -Continue Keppra 1750 mg BID via PEG -Continue home dose of Phenobarbitol via PEG -continue topiramate at home dose via PEG -continue Vimpat at home dose via PEG -continue home doses of PRN benzodiaezepines #functional quadriplegia -continue baclofen #history of constipation-chronic continue bowel regimen from [place] #Hypothyroidism Continue home dose of synthroid via PEG #FEN -no iv fluids -monitor lytes -tube feeds #dvt ppx -lovenox sq dispo: discharge in AM. call Dr. Villafana in AM or Dr King: Cell (dr. Villafana : [phone]) Visit type - Emergency Visit Emergency Visit: Yes ED Registration Date: 08/03/19 Care time: The patient presented to the Emergency Department on the above date and was hospitalized for further evaluation of their emergent condition. - New Patient This patient is new to me today: Yes Date on this admission: 08/05/19 - Critical Care Critical Care patient: No ATTENDING PHYSICIAN STATEMENT I saw and evaluated the patient. I reviewed the resident's note and discussed the case with the resident. I agree with the resident's findings and plan as documented. SUBJECTIVE: OBJECTIVE: ASSESSMENT AND PLAN:
[2019-08-05] MEDS: PHENobarbital 30 MG TABLET PEG SCH (21:12)
[2019-08-05] MEDS: TOPIRAMATE 200 MG, TOPIRAMATE 50 MG PO SCH (21:12)
[2019-08-05] MEDS: LORATADINE 10 MG TABLET NR SCH (21:13)
[2019-08-06] MEDS: PIPERACILLIN/TAZOB 3.375 GM 3.375 GM in DEXTROSE 5%-WATER - 50 ML IVPB SCH ×2 (01:02→10:54)
[2019-08-06] MEDS: methylPREDNISolone NA SUCC 40 MG/1 ML VIAL IVPUSH SCH (01:02)
[2019-08-06] MEDS: LEVOTHYROXINE NA 75 MCG TABLET (FP) PEG SCH (06:08)
[2019-08-06] MEDS: BACLOFEN 10 MG TABLET (FP) PEG SCH (06:08)
[2019-08-06] MEDS: ALBUTEROL SO4 2.5/IPRATROPIUM 0.5 INH SOL 3 ML VIAL.NEB. NEB SCH ×2 (07:10→11:20)
--- NOTE | 2019-08-06 08:26 | PN ---
Teaching Attending Note Name of Resident: Fdee Loera ATTENDING PHYSICIAN STATEMENT I saw and evaluated the patient. I reviewed the resident's note and discussed the case with the resident. I agree with the resident's findings and plan as documented. SUBJECTIVE: OBJECTIVE: Vital Signs Temperature 97.3 F L 08/06/19 06:04 Pulse Rate 67 08/06/19 06:04 Respiratory Rate 20 08/06/19 06:04 Blood Pressure 106/70 08/06/19 06:04 O2 Sat by Pulse Oximetry (%) 97 08/05/19 21:00 General: Nonverbal oriented to self HEENT; mucous membranes moist, no anemia, no jaundice, PERRLA, no nystagmus Neck: No JVD, supple, no bruit, thyroid palpably normal, normal carotid pulsations. Chest: Nontender, mild wheezes CVS: S1-S2 regularno murmur/gallop/rub Abdomen: PEG in place nondistended, soft, bowel sounds present. Extremities: Contracted no edema., No cough tenderness, pulses present [employer] FOR[employer]: Oriented to self CBC, BMP 08/06/19 08:12 08/06/19 08:12 ASSESSMENT AND PLAN:38M from [facility] with PMH of MR, h/o profound Intellectual Disability, h/o intraventricular hemorrhage of , Generalized idiopathic epilepsy, Microcephaly, Cortical Blindness, GERD, Spastic quadriplegic cerebral palsy, Hypothyroidism, S/p TOP POLISHER shunt placement, S/ p G tube placement sent by [place] for evaluation of tachycardia, fever, and cough to rule out PNA. Patient remained afebrile WBC normal, ID recommended p.o. Augmentin Impression: Reactive airway disease can be discharged on short course of p.o. prednisone. Problem List - Problems (1) Acute bronchospasm Assessment/Plan: Continue DuoNeb and p.o. Medrol follow pulmonary recommendations Code(s): J98.01 - ACUTE BRONCHOSPASM (2) Upper respiratory tract infection Assessment/Plan: Most likely viral infection influenza a and B are negative will follow up ID recommendations patient is on Tamiflu and Zosyn Code(s): J06.9 - ACUTE UPPER RESPIRATORY INFECTION, UNSPECIFIED (3) Hypothyroid Assessment/Plan: Continue levothyroxine Code(s): E03.9 - HYPOTHYROIDISM, UNSPECIFIED (4) S/P TOP POLISHER shunt Assessment/Plan: Chronic no activation Code(s): Z98.2 - PRESENCE OF CEREBROSPINAL FLUID DRAINAGE DEVICE (5) Seizure disorder Assessment/Plan: Continue all home medication via PEG observe for seizure and aspiration Code(s): G40.909 - EPILEPSY, UNSP, NOT INTRACTABLE, WITHOUT STATUS EPILEPTICUS
[2019-08-06 08:36] LABS: BASO % 0.2 % (0-2.0); HEMATOCRIT 43.2 % (35.4-49); HEMOGLOBIN 14.6 GM/dL (11.7-16.9); LYMPH % 19.3 % (8-40); MCH 34.8 pg (25.7-33.7); MCHC 33.8 g/dl (32.0-35.9); MONO % 10.1 % (3.8-10.2); NEUT % 70.4 % (42.8-82.8); PLATELET COUNT 220 K/MM3 (134-434); RBC 4.19 M/mm3 (4.00-5.60); RDW 12.6 % (11.9-15.9); WHITE BLOOD COUNT 6.2 K/mm3 (4.0-10.0)
[2019-08-06 09:01] LABS: ALBUMIN 3.4 g/dl (3.4-5.0); BLOOD UREA NITROGEN 7.3 mg/dL (7-18); CREATININE 0.5 mg/dL (0.55-1.3); POTASSIUM 4.3 mmol/L (3.5-5.1); TOT PROT 7.7 g/dl (6.4-8.2)
--- NOTE | 2019-08-06 10:01 | PN ---
Progress Note (short form) - Note Progress Note: Awake in NAD on NC O2. Coarse breath sounds heard. Afebrile. No acute events overnight. Intake & Output 08/03/19 08/04/19 08/05/19 08/06/19 23:59 23:59 23:59 23:59 Intake Total 1532 3532 980 Output Total 2 2500 600 Balance 1530 1032 380 Weight 96 lb 0.005 oz Last Vital Signs Temp Pulse Resp BP Pulse Ox 97.3 F L 68 16 124/64 97 08/06/19 08:57 08/06/19 08:57 08/06/19 08:57 08/06/19 08:57 08/05/19 21:00 Active Medications Acetaminophen (Tylenol Oral Solution -) 650 mg PEG Q4H PRN PRN Reason: PAIN LEVEL 1-5 OR FEVER Albuterol Sulfate (Ventolin 0.083% Nebulizer Soln -) 1 amp NEB Q4H PRN PRN Reason: SHORT OF BREATH/WHEEZING Albuterol/Ipratropium (Duoneb -) 1 amp NEB RQID [facility] Last Admin: 08/06/19 07:10 Dose: 1 amp Baclofen (Lioresal -) 5 mg PEG 0000,0600,1600,2100 [facility] Last Admin: 08/06/19 06:08 Dose: 5 mg Cholecalciferol (Vitamin D3 -) 2,000 unit NR DAILY [facility] Last Admin: 08/05/19 12:43 Dose: 2,000 unit Clobazam (Onfi -) 30 mg PEG HS [facility] Last Admin: 08/05/19 21:13 Dose: 30 mg Clobazam (Onfi -) 20 mg PEG DAILY [facility] Last Admin: 08/05/19 11:16 Dose: 20 mg Diazepam (Diastat Rectal Gel -) 5 mg RC ONCE PRN PRN Reason: SEIZURES Enoxaparin Sodium (Lovenox -) 40 mg SQ DAILY [facility] Last Admin: 08/05/19 11:13 Dose: 40 mg Piperacillin Sod/Tazobactam (Sod 3.375 gm/ Dextrose) 50 mls @ 100 mls/hr IVPB Q8H-IV JOANNA; Protocol Last Admin: 08/06/19 01:02 Dose: 100 mls/hr Lacosamide (Vimpat Liquid -) 200 mg PEG BID [facility] Last Admin: 08/05/19 21:11 Dose: 200 mg Levetiracetam (Keppra Oral Solution -) 1,750 mg PEG BID [facility] Last Admin: 08/05/19 21:11 Dose: 1,750 mg Levocarnitine (Carnitor Oral Solution -) 165 mg PEG BID [facility] Last Admin: 08/05/19 21:11 Dose: 165 mg Levothyroxine Sodium (Synthroid -) 75 mcg PEG AM [facility] Last Admin: 08/06/19 06:08 Dose: 75 mcg Loratadine (Claritin -) 10 mg NR HS [facility] Last Admin: 08/05/19 21:13 Dose: 10 mg Magnesium Hydroxide (Milk Of Magnesia -) 30 ml PEG BID [facility] Last Admin: 08/05/19 21:11 Dose: 30 ml Multivitamins/Minerals (Certavite-Antioxidant Liquid) 15 ml PO DAILY [facility] Last Admin: 08/05/19 11:17 Dose: 15 ml Non-Formulary Medication (Calcium Citrate/Vitamin D3 [Calcium Cit 315-Vit D3 250 Tab]) 2 each PEG HS [facility] Non-Formulary Medication (Rufinamide [Banzel]) 30 ml PEG BID [facility] Non-Formulary Medication (Sodium Benzoate [Sodium Benzoate]) 4.5 gm PEG TID [facility] Oseltamivir Phosphate (Tamiflu -) 75 mg PEG BID [facility] Stop: 08/08/19 21:59 Last Admin: 08/05/19 21:14 Dose: 75 mg Phenobarbital (Phenobarbital -) [address] [facility] Last Admin: 08/05/19 21:12 Dose: 90 mg Phenobarbital (Phenobarbital -) 60 mg PO DAILY [facility] Last Admin: 08/05/19 11:19 Dose: 60 mg Polyethylene Glycol (Miralax (For Daily Use) -) 17 gm PEG DAILY [facility] Last Admin: 08/05/19 11:16 Dose: 17 grams Senna (Senna -) 2 tab PO BID [facility] Last Admin: 08/05/19 21:12 Dose: 2 tab Topiramate (Topamax -) 200 mg GT DAILY [facility] Last Admin: 08/05/19 11:15 Dose: 200 mg Topiramate 200 mg/ Topiramate (50 mg) [address] [facility] Last Admin: 08/05/19 21:12 Dose: 250 mg Constitutional: Yes: NAD HENT: Yes: Other (microcephaly) Neck: Yes: Supple, Trachea Midline Cardiovascular: Yes: Tachycardia Respiratory: Yes: Scattered coarse rhonchi, No wheezes ...Clubbing: No Gastrointestinal: Yes: Normal Bowel Sounds, Soft. No: Tenderness Edema: No Labs: reviewed Laboratory Results - last 24 hr 08/06/19 08/06/19 08:12 08:12 WBC 6.2 RBC 4.19 Hgb 14.6 Hct 43.2 MCV 103.0 H MCH 34.8 H MCHC 33.8 RDW 12.6 Plt Count 220 MPV 9.0 Absolute Neuts (auto) 4.4 Neutrophils % 70.4 Lymphocytes % 19.3 D Monocytes % 10.1 Eosinophils % 0.0 D Basophils % 0.2 Nucleated RBC % 0 Sodium 136 Potassium 4.3 Chloride 106 Carbon Dioxide 23 Anion Gap 6 L BUN 7.3 Creatinine 0.5 L Est GFR (CKD-EPI)AfAm 159.33 Est GFR (CKD-EPI)NonAf 137.47 Random Glucose 126 H Calcium 9.0 Total Bilirubin 1.0 AST 109 H ALT 128 H Alkaline Phosphatase 96 Total Protein 7.7 Albumin 3.4 Problem List - Problems (1) Upper respiratory tract infection Code(s): J06.9 - ACUTE UPPER RESPIRATORY INFECTION, UNSPECIFIED (2) Acute bronchospasm Code(s): J98.01 - ACUTE BRONCHOSPASM Assessment/Plan Upper Respiratory Tract Infection Acute Bronchospasm Cerebral Palsy Mental Retardation Seizure Disorder Hypothyroidism GERD - Augmentin for 7 days - Complete Tamiflu - inhaled bronchodilators PRN - O2 to keep SpO2 >90% - aspiration precautions - DVT prophyalxis - DC planning Dr Vasquez
--- NOTE | 2019-08-06 10:36 | DS ---
Physical Exam: SUBJECTIVE: Patient seen and examined. No events overnight. Nonverbal. OBJECTIVE: Vital Signs Period Temp Pulse Resp BP Sys/De [place]ega Pulse Ox Last 24 Hr 97.3 F-97.8 F 64-84 16-20 106-124/63-73 97 PHYSICAL EXAM General: Nonverbal, comfortable, sleeping HEENT; dry mucous membranes, no jaundice, PERRLA, no nystagmus Neck: No JVD, supple, no bruit, thyroid palpably normal Chest: +rhonchi CVS: S1-S2 , RRR, no murmurs appreciated Abdomen: +PEG in,soft, bowel sounds present. NT Extremities: Contracted , 2+ pulses throughout LABS Laboratory Results - last 24 hr 08/06/19 08/06/19 08:12 08:12 WBC 6.2 RBC 4.19 Hgb 14.6 Hct 43.2 MCV 103.0 H MCH 34.8 H MCHC 33.8 RDW 12.6 Plt Count 220 MPV 9.0 Absolute Neuts (auto) 4.4 Neutrophils % 70.4 Lymphocytes % 19.3 D Monocytes % 10.1 Eosinophils % 0.0 D Basophils % 0.2 Nucleated RBC % 0 Sodium 136 Potassium 4.3 Chloride 106 Carbon Dioxide 23 Anion Gap 6 L BUN 7.3 Creatinine 0.5 L Est GFR (CKD-EPI)AfAm 159.33 Est GFR (CKD-EPI)NonAf 137.47 Random Glucose 126 H Calcium 9.0 Total Bilirubin 1.0 AST 109 H ALT 128 H Alkaline Phosphatase 96 Total Protein 7.7 Albumin 3.4 HOSPITAL COURSE: Date of Admission:08/03/19 38yo M with multiple medical problems including a PMH of MR, h/o profound Intellectual Disability, h/o intraventricular hemorrhage of , Generalized idiopathic epilepsy, Microcephaly, Cortical Blindness, GERD, Spastic quadriplegic cerebral palsy, Hypothyroidism, S/p LUMBER BEARER shunt placement, S/ p G tube placement sent by [facility] for evaluation of fever, tachycardia, and cough to rule out PNA. #Sepsis likely secondary PNA -resolved -Flu negative. -Complete 5 days tamiflu because of outbreak in care home. Complete on 08/07 -will start augmentin for 6 days #Acute Hypoxic respiratory failure 2/2 PNA -continue nasal O2. wean off -duonebs standing and albuterol nebs prn -see above plan #hypokalemia -resolved #hx of Seizures -no seizure activity at this time -Continue Keppra 1750 mg BID via PEG -Continue home dose of Phenobarbitol via PEG -continue topiramate at home dose via PEG -continue Vimpat at home dose via PEG -continue home doses of PRN benzodiaezepines -no changes to his home medications. cont home meds prior to discharge. #functional quadriplegia -continue baclofen #history of constipation-chronic continue bowel regimen from [place] #Hypothyroidism Continue home dose of synthroid via PEG Date of Discharge: 08/06/19 Minutes to complete discharge: 35 Discharge Summary Problems reviewed: Yes Reason For Visit: PNEUMONIA Current Active Problems Acute bronchospasm (Acute) Seizure disorder (Acute) Upper respiratory tract infection (Acute) Condition: Improved - Instructions Diet, Activity, Other Instructions: You were admitted because of pneumonia and treated with IV antibiotics. You will need 6 more days of oral antibiotics. Augmentin 875mg twice a day. Give first dose tonight 08/06 and complete on 08/12. You will also need to continue taking Tamiflu, although you are Flu negative. Take 1 dose tonight and 2 doses tomorrow (complete on 08/07). Follow up with your primary are doctor in 1 week. Cont. home medications. Disposition: [facility] FACILITY - Home Medications Comprehensive Discharge Medication List: Ambulatory Orders Baclofen [Lioresal -] 5 mg PEG QID 08/16/17 Benzoyl Peroxide 5% Gel - 1 applic TP BID 08/16/17 Bisacodyl Suppository [Dulcolax Suppository -] 10 mg FL PRN PRN 08/16/17 Calcium Citrate/Vitamin D3 [Calcium Cit 315-Vit D3 250 Tab] 2 each PEG HS Cetirizine HCl [Zyrtec -] 10 mg PEG HS 08/16/17 Cholecalciferol (Vitamin D3) [Vitamin D3] 2,000 iu PEG DAILY 08/16/17 Clindamycin Topical Solution [Cleocin 1% Topical Solution -] 1 applic TP DAILY 08/16/17 Lacosamide [Vimpat] 200 mg PEG BID 08/16/17 Levocarnitine [Carnitor] 165 mg PEG BID 08/16/17 Levothyroxine [Synthroid -] 75 mcg PEG AM 08/16/17 Multivitamin [One Daily] 1 tablet PEG DAILY 08/16/17 Rufinamide [Banzel] 30 ml PEG BID 08/16/17 Sennosides [Senna] 2 tab PEG BID 08/16/17 Sodium Benzoate 4.5 gm PEG TID 08/16/17 levETIRAcetam [Levetiracetam] 15 ml PEG BID 08/16/17 Chlorhexidine Gluconate 10 ml MM BID 02/01/19 Diazepam Rectal Gel [Diastat Rectal Gel -] 5 mg FL ONCE PRN 02/01/19 Fluticasone Prop 0.05% Nasal [Flonase -] 1 spray NS DAILY 02/01/19 Magnesium Hydrox 2400MG/30Ml [Milk of Magnesia -] 30 ml PEG BID 02/01/19 Topiramate [Topamax -] 200 mg GT BID 02/01/19 Albuterol 0.083% Nebulizer Jyoti [Ventolin 0.083% Nebulizer Soln -] 1 neb NEB Q6H 03/28/19 Albuterol 2.5/Ipratropium 0.5 [Duoneb -] 1 amp NEB Q6H PRN 03/28/19 Topiramate [Topamax] 50 mg PO HS 03/28/19 Polyethylene Glycol 3350 [Miralax 119 gm Btl -] 17 gm PO DAILY bottle 05/20/19 Amoxicillin/Potassium Clav [Augmentin 875-125 Tablet] 1 each PO BID #13 tablet 08/06/19 Clobazam [Onfi -] 20 mg PEG DAILY tablet MDD 110 08/06/19 Clobazam [Onfi -] 30 mg PEG HS tablet MDD 50 08/06/19 Oseltamivir Phosphate [Tamiflu -] 75 mg PEG BID #3 capsule 08/06/19 Phenobarbital - 60 mg PO DAILY tablet MDD 150 08/06/19 Phenobarbital - 90 mg PEG HS tablet MDD 150 08/06/19 This patient is new to me today: Yes Date on this admission: 08/06/19 Emergency Visit: Yes ED Registration Date: 08/03/19 Care time: The patient presented to the Emergency Department on the above date and was hospitalized for further evaluation of their emergent condition. Critical Care patient: No - Discharge Referral Referred to [facility] Med P.C.: No ATTENDING PHYSICIAN STATEMENT I saw and evaluated the patient. I reviewed the resident's note and discussed the case with the resident. I agree with the resident's findings and plan as documented. SUBJECTIVE: OBJECTIVE: ASSESSMENT AND PLAN:
[2019-08-06] MEDS ORDERED: DEXTROSE 5%-WATER - 50 ML IVPB ONE (10:50)
[2019-08-06] MEDS ORDERED: PIPERACILLIN/TAZOBACTAM 3.375 GM VIAL IVPB ONE (10:50)
[2019-08-06] MEDS: MAGNESIUM HYDROX 2400MG/30ML ORAL SUSPENSION 30 ML CUP PEG SCH (10:54)
[2019-08-06] MEDS: cloBAZam 10 MG TABLET PEG SCH (10:56)
[2019-08-06] MEDS: Lacosamide 50 MG/5 ML ORAL SOLUTION UNIT CUPS PEG SCH (10:56)
[2019-08-06] MEDS: ENOXAPARIN NA (PORCINE) 40 MG/0.4 ML DISP.SYRIN SQ SCH (10:56)
[2019-08-06] MEDS: PHENobarbital 30 MG TABLET PO SCH (10:57)
[2019-08-06] MEDS: SENNOSIDES 8.6MG TABLET (FP) PO SCH (10:57)
[2019-08-06] MEDS: CHOLECALCIFEROL (VIT D3) 1,000 UNIT (25 MCG) TABLET NR SCH (10:57)
[2019-08-06] MEDS: MULTIVIT-MINERALS ORAL LIQUID PO SCH (10:58)
[2019-08-06] MEDS: levETIRAcetam 500 MG/5 ML ORAL SOLUTION (UNIT-DOSE CUPS) PEG SCH (10:59)
[2019-08-06] MEDS: levOCARNitine 500 MG/5 ML SOLUTION PEG SCH (11:00)
[2019-08-06] MEDS: OSELTAMIVIR PHOSPHATE 75 MG CAPSULE PEG SCH (11:00)
[2019-08-06] MEDS: TOPIRAMATE 200 MG TABLET (FP) GT SCH (11:01)
[2019-08-06] MEDS: POLYETHYLENE GLYCOL 3350 119 GM BTL PEG SCH (11:01)
[2019-08-06 14:33] VITALS: BP 107/68; PULSE 85; TEMP 97.7
== END 2019-08-06 15:34 | DRG 720 ==
LOC: JER 06:35 → JERBED 12:19 → J7W 15:23
PROVIDERS: ADMIT Internal Medicine; ATTEND Internal Medicine
DX: A41.89 Other specified sepsis (principal); J11.00 Influenza due to unidentified influenza virus with unspecified type of pneumonia; R00.0 Tachycardia, unspecified; G40.802 Other epilepsy, not intractable, without status epilepticus; H47.619 Cortical blindness, unspecified side of brain; Q02 Microcephaly; K21.9 Gastro-esophageal reflux disease without esophagitis; E03.9 Hypothyroidism, unspecified; G80.0 Spastic quadriplegic cerebral palsy; Z93.1 Gastrostomy status; E87.6 Hypokalemia; R50.9 Fever, unspecified; F73 Profound intellectual disabilities; D72.829 Elevated white blood cell count, unspecified; B19.20 Unspecified viral hepatitis C without hepatic coma; K59.09 Other constipation; J98.01 Acute bronchospasm
CPT/HCPCS: 36415; 71045-TC-FY; 80048; 80053; 81003; 83605; 83735; 84100; 85025; 85610; 85730; 87040; 87086; 87804; 87899; 93005; 93010; 94640; 94761; 99285-25; J0475

== ENCOUNTER 2020-12-18 11:48 | Inpatient (IN) | payer OTHER ==
[2020-12-18] MEDS ORDERED: PIPERACILLIN/TAZOB 4.5 GM 4.5 GM in DEXTROSE 5%-WATER 100 ML IVPB ONE (13:30)
[2020-12-18] MEDS ORDERED: VANCOMYCIN 1 GM in D5W (PRE-DOCKED) 1,000 MG/250 ML IVPB ONE (13:31)
[2020-12-18] MEDS ORDERED: AZITHROMYCIN IVPB 500 MG in DEXTROSE 5%-WATER - 250 ML IVPB ONE (13:33)
[2020-12-18] MEDS ORDERED: CEFTRIAXONE 1,000 MG in DEXTROSE 5%-WATER - 50 ML IVPB ONE (13:33)
[2020-12-18] MEDS ORDERED: AZITHROMYCIN IVPB 500 MG/250 ML BAG IVPB ONE (13:41)
[2020-12-18] MEDS ORDERED: CEFTRIAXONE 1 GM/50 ML BAG ONE (13:41)
[2020-12-18 13:48] LABS: BASO % 0.2 % (0-2.0); EOS % 0.2 % (0-4.5); HEMATOCRIT 41.4 % (35.4-49); HEMOGLOBIN 13.9 GM/dL (11.7-16.9); LYMPH % 7.9 % (8-40); MCH 34.5 pg (25.7-33.7); MCHC 33.5 g/dl (32.0-35.9); MEAN CELL VOLUME 102.8 fl (80-96); MEAN PLT VOLUME 9.4 fl (7.5-11.1); MONO % 5.7 % (3.8-10.2); PLATELET COUNT 192 K/MM3 (134-434); RBC 4.03 M/mm3 (4.00-5.60); RDW 12.7 % (11.9-15.9); WHITE BLOOD COUNT 13.6 K/mm3 (4.0-10.0)
[2020-12-18 14:03] LABS: INR 1.06 (0.83-1.09); PROTHROMBIN TIME (PATIENT) 12.8 SEC (9.7-13.0)
[2020-12-18 14:06] LABS: ACTIVATED PTT 33.1 SECONDS (25.2-36.5)
[2020-12-18 14:07] LABS: CHLORIDE 107 mmol/L (98-107); SODIUM 141 mmol/L (136-145)
[2020-12-18 14:08] LABS: CALCIUM 8.8 mg/dL (8.5-10.1); GLUCOSE,RANDOM 99 mg/dL (74-106)
[2020-12-18 14:09] LABS: ALBUMIN 3.5 g/dl (3.4-5.0); ANION GAP 6 MMOL/L (8-16); BLOOD UREA NITROGEN 7.9 mg/dL (7-18); CO2 28 mmol/L (21-32)
[2020-12-18 14:12] LABS: CREATININE 0.5 mg/dL (0.55-1.3)
[2020-12-18 14:13] LABS: LDH 160 U/L (87-246); SGOT/AST 10 U/L (15-37); SGPT/ALT 21 U/L (13-61)
[2020-12-18 14:14] LABS: BILIRUBIN,TOTAL 0.3 mg/dL (0.2-1)
[2020-12-18 14:15] LABS: ALK PHOS 100 U/L (45-117)
[2020-12-18 15:14] LABS: EPI CELLS 21 /uL (0-25.1); HYALINE CASTS 2 /uL (0-3.1); PH,URINE 8.5 (5.0-8.0); URINE APPEARANCE TURBID; URINE BACTERIA 48 /uL (0-1359); URINE BILIRUBIN NEGATIVE (NEGATIVE); URINE COLOR YELLOW; URINE GLUCOSE (UA) NEGATIVE (NEGATIVE); URINE KETONE NEGATIVE (NEGATIVE); URINE LEUK ESTERASE NEGATIVE (NEGATIVE); URINE NITRITE NEGATIVE (NEGATIVE); URINE PROTEIN 1+ (NEGATIVE); URINE RBC 41 /uL (0-23.9); URINE UROBILINOGEN 0.2 mg/dL (0.2-1.0); URINE WBC 5 /uL (0-25.8)
[2020-12-18] MEDS ORDERED: POTASSIUM CHLORIDE ORAL LIQUID 20 MEQ/15 ML PEG ONE (17:10)
[2020-12-18] MEDS ORDERED: diazePAM RECTAL GEL 10 MG KIT (PRE-CALIBRATED) RC PRN (17:14)
[2020-12-18] MEDS ORDERED: ALBUTEROL SO4 2.5/IPRATROPIUM 0.5 INH SOL 3 ML VIAL.NEB. NEB PRN (17:14)
[2020-12-18] MEDS ORDERED: POTASSIUM CHLORIDE ORAL LIQUID 20 MEQ/15 ML ONE (17:22)
[2020-12-18] MEDS: levETIRAcetam 500 MG/5 ML ORAL SOLUTION (UNIT-DOSE CUPS) PEG SCH (21:49)
[2020-12-18] MEDS: cloBAZam 10 MG TABLET PEG SCH (21:51)
[2020-12-18] MEDS ORDERED: LACOSAMIDE PEG SCH (22:00)
[2020-12-18] MEDS ORDERED: PHENobarbital 30 MG TABLET PEG SCH (22:00)
[2020-12-18] MEDS: Lacosamide 50 MG/5 ML ORAL SOLUTION UNIT CUPS PEG SCH (22:10)
[2020-12-19] MEDS: LEVOTHYROXINE NA 75 MCG TABLET (FP) PEG SCH (06:12)
[2020-12-19] MEDS ORDERED: cefTRIAXone SODIUM 1 GM VIAL ONE (08:49)
[2020-12-19] MEDS ORDERED: PT OWN MED DRAWER 7, Y5N ONE ×3 (08:49→22:39)
[2020-12-19] MEDS ORDERED: DEXTROSE 5%-WATER - 50 ML IVPB ONE ×3 (08:49→18:06)
[2020-12-19] MEDS: Lacosamide 50 MG/5 ML ORAL SOLUTION UNIT CUPS PEG SCH ×2 (09:10→23:27)
[2020-12-19] MEDS: ENOXAPARIN NA (PORCINE) 40 MG/0.4 ML DISP.SYRIN SQ SCH (09:11)
[2020-12-19] MEDS: levETIRAcetam 500 MG/5 ML ORAL SOLUTION (UNIT-DOSE CUPS) PEG SCH ×3 (09:11→23:10)
[2020-12-19 09:18] LABS: HEMATOCRIT 42.3 % (35.4-49); HEMOGLOBIN 14.2 GM/dL (11.7-16.9); MCHC 33.6 g/dl (32.0-35.9); MEAN CELL VOLUME 104.4 fl (80-96); MEAN PLT VOLUME 9.7 fl (7.5-11.1); PLATELET COUNT 178 K/MM3 (134-434); RBC 4.06 M/mm3 (4.00-5.60); RDW 12.7 % (11.9-15.9); WHITE BLOOD COUNT 7.4 K/mm3 (4.0-10.0)
[2020-12-19 09:52] LABS: BLOOD UREA NITROGEN 6.9 mg/dL (7-18); CALCIUM 9.1 mg/dL (8.5-10.1); MAGNESIUM 2.4 mg/dL (1.8-2.4)
[2020-12-19 09:55] LABS: CREATININE 0.3 mg/dL (0.55-1.3); PHOSPHOROUS 4.1 mg/dL (2.5-4.9)
[2020-12-19] MEDS ORDERED: MULTIVITAMIN PEG SCH (10:00)
[2020-12-19] MEDS ORDERED: CEFTRIAXONE 1 GM in DEXTROSE 5%-WATER - 50 ML IVPB SCH (10:00)
[2020-12-19] MEDS ORDERED: cloBAZam 10 MG TABLET PEG SCH ×2 (10:00→22:00)
[2020-12-19] MEDS ORDERED: cloBAZam 10 MG TABLET PO SCH (10:00)
[2020-12-19] MEDS ORDERED: PHENobarbital 30 MG TABLET PO SCH (10:00)
[2020-12-19] MEDS ORDERED: PIPERACILLIN/TAZOBACTAM 2.25 GM VIAL IVPB ONE ×2 (12:56→18:06)
[2020-12-19] MEDS: PIPERACILLIN/TAZOB 2.25 GM 2.25 GM in DEXTROSE 5%-WATER - 50 ML IVPB SCH ×2 (13:05→18:19)
[2020-12-19] MEDS ORDERED: BISACODYL 10 MG SUPP.RECT PR PRN (13:38)
[2020-12-19] MEDS: BACLOFEN 10 MG TABLET (FP) PEG SCH ×3 (14:25→23:11)
[2020-12-19] MEDS: MULTIVIT-MINERALS ORAL LIQUID PEG SCH (15:25)
[2020-12-19] MEDS ORDERED: levOCARNitine 500 MG/5 ML SOLUTION PEG SCH (22:00)
[2020-12-19] MEDS ORDERED: MAGNESIUM HYDROX 2400 MG/30 ML PEG SCH (22:00)
[2020-12-19] MEDS ORDERED: MAGNESIUM HYDROX 2400MG/30ML ORAL SUSPENSION 30 ML CUP PEG SCH (22:42)
[2020-12-19] MEDS: MAGNESIUM HYDROX 2400MG/30ML ORAL SUSPENSION 30 ML CUP PEG SCH (23:10)
[2020-12-19] MEDS: LORATADINE 10 MG TABLET PO SCH (23:11)
[2020-12-19] MEDS: CALCIUM 500MG/VIT-D 200 UNITS COMBO TABLET (FP) PEG SCH (23:11)
[2020-12-19] MEDS: SENNOSIDES 8.8 MG/5 ML BULK BOTTLE PEG SCH (23:11)
[2020-12-19] MEDS: levOCARNitine 500 MG/5 ML SOLUTION PEG SCH (23:12)
[2020-12-19] MEDS: TOPIRAMATE 200 MG TABLET GT SCH (23:13)
[2020-12-19] MEDS: TOPIRAMATE 25 MG TABLET NR SCH (23:13)
[2020-12-19] MEDS: cloBAZam 10 MG TABLET PEG SCH (23:14)
[2020-12-19] MEDS: CHLORHEXIDINE GLUCONATE 0.12% 15ML CUP MM SCH (23:27)
[2020-12-19] MEDS: cloBAZam 10 MG TABLET PO SCH (23:28)
[2020-12-19] MEDS: PHENobarbital 20 MG/5 ML UNIT-DOSE CUP PEG SCH (23:28)
[2020-12-20] MEDS ORDERED: DEXTROSE 5%-WATER - 50 ML IVPB ONE ×3 (02:22→18:14)
[2020-12-20] MEDS ORDERED: PIPERACILLIN/TAZOBACTAM 2.25 GM VIAL IVPB ONE ×3 (02:22→18:14)
[2020-12-20] MEDS: PIPERACILLIN/TAZOB 2.25 GM 2.25 GM in DEXTROSE 5%-WATER - 50 ML IVPB SCH ×3 (02:31→18:29)
[2020-12-20] MEDS ORDERED: LACTATED RINGERS SOLUTION 1000 ML INFUS.BAG IV ONE (03:33)
[2020-12-20] MEDS: LEVOTHYROXINE NA 75 MCG TABLET (FP) PEG SCH (07:09)
[2020-12-20 07:56] LABS: BASO % 0.3 % (0-2.0); EOS % 3.4 % (0-4.5); HEMATOCRIT 41.4 % (35.4-49); HEMOGLOBIN 14.1 GM/dL (11.7-16.9); LYMPH % 12.2 % (8-40); MCH 34.9 pg (25.7-33.7); MCHC 34.1 g/dl (32.0-35.9); MEAN CELL VOLUME 102.5 fl (80-96); MEAN PLT VOLUME 9.7 fl (7.5-11.1); MONO % 7.9 % (3.8-10.2); NEUT % 76.2 % (42.8-82.8); PLATELET COUNT 211 K/MM3 (134-434); RBC 4.04 M/mm3 (4.00-5.60); RDW 12.3 % (11.9-15.9); WHITE BLOOD COUNT 6.2 K/mm3 (4.0-10.0)
[2020-12-20 08:20] LABS: ALBUMIN 2.9 g/dl (3.4-5.0); BLOOD UREA NITROGEN 7.6 mg/dL (7-18); CALCIUM 8.7 mg/dL (8.5-10.1); MAGNESIUM 2.2 mg/dL (1.8-2.4)
[2020-12-20 08:22] LABS: CREATININE 0.3 mg/dL (0.55-1.3)
[2020-12-20 08:24] LABS: BILIRUBIN,TOTAL 0.5 mg/dL (0.2-1); PHOSPHOROUS 3.6 mg/dL (2.5-4.9); TOT PROT 6.4 g/dl (6.4-8.2)
[2020-12-20] MEDS ORDERED: PT OWN MED DRAWER 7, Y5N ONE ×3 (10:59→23:11)
[2020-12-20] MEDS: PHENobarbital 20 MG/5 ML UNIT-DOSE CUP PEG SCH ×2 (11:02→23:41)
[2020-12-20] MEDS: levETIRAcetam 500 MG/5 ML ORAL SOLUTION (UNIT-DOSE CUPS) PEG SCH ×2 (11:03→23:20)
[2020-12-20] MEDS: Lacosamide 50 MG/5 ML ORAL SOLUTION UNIT CUPS PEG SCH ×2 (11:04→23:22)
[2020-12-20] MEDS: BENZOYL PEROXIDE 5% 60 GM GEL..GRAM. TP SCH ×2 (11:04→23:48)
[2020-12-20] MEDS: MAGNESIUM HYDROX 2400MG/30ML ORAL SUSPENSION 30 ML CUP PEG SCH ×3 (11:04→23:29)
[2020-12-20] MEDS: levOCARNitine 500 MG/5 ML SOLUTION PEG SCH ×2 (11:04→23:19)
[2020-12-20] MEDS: FLUTICASONE PROP 0.05% 16 GM NASAL SPRAY NS SCH (11:06)
[2020-12-20] MEDS: ENOXAPARIN NA (PORCINE) 40 MG/0.4 ML DISP.SYRIN SQ SCH (11:07)
[2020-12-20] MEDS: BACLOFEN 10 MG TABLET (FP) PEG SCH ×4 (11:07→23:18)
[2020-12-20] MEDS: cloBAZam 10 MG TABLET PO SCH ×2 (11:08→23:18)
[2020-12-20] MEDS: CHOLECALCIFEROL (VIT D SOLUTION) 400 UNIT/1 ML DROPS PEG SCH (11:09)
[2020-12-20] MEDS: POLYETHYLENE GLYCOL 3350 119 GM BTL PO SCH (11:10)
[2020-12-20] MEDS: CLINDAMYCIN PHOSPHATE 1% TOPICAL SOLUTION 30 ML BOTTLE TP SCH (11:10)
[2020-12-20] MEDS: SENNOSIDES 8.8 MG/5 ML BULK BOTTLE PEG SCH ×2 (11:11→23:22)
[2020-12-20] MEDS: TOPIRAMATE 200 MG TABLET GT SCH ×2 (11:12→23:39)
[2020-12-20] MEDS: MULTIVIT-MINERALS ORAL LIQUID PEG SCH (11:13)
[2020-12-20 13:38] VITALS: BMI 17.3
[2020-12-20] MEDS: CHLORHEXIDINE GLUCONATE 0.12% 15ML CUP MM SCH ×2 (15:25→23:41)
[2020-12-20] MEDS: CALCIUM 500MG/VIT-D 200 UNITS COMBO TABLET (FP) PEG SCH (23:17)
[2020-12-20] MEDS: cloBAZam 10 MG TABLET PEG SCH (23:18)
[2020-12-20] MEDS: LORATADINE 10 MG TABLET PO SCH (23:18)
[2020-12-20] MEDS: TOPIRAMATE 25 MG TABLET NR SCH (23:39)
[2020-12-21] MEDS ORDERED: PIPERACILLIN/TAZOBACTAM 2.25 GM VIAL IVPB ONE ×4 (02:30→17:20)
[2020-12-21] MEDS ORDERED: DEXTROSE 5%-WATER - 50 ML IVPB ONE ×4 (02:30→17:20)
[2020-12-21] MEDS: PIPERACILLIN/TAZOB 2.25 GM 2.25 GM in DEXTROSE 5%-WATER - 50 ML IVPB SCH ×3 (02:32→17:35)
[2020-12-21] MEDS: LEVOTHYROXINE NA 75 MCG TABLET (FP) PEG SCH (06:30)
[2020-12-21] MEDS ORDERED: TOPIRAMATE 25 MG TABLET PEG SCH (07:47)
[2020-12-21 09:00] LABS: HEMATOCRIT 43.4 % (35.4-49); HEMOGLOBIN 14.7 GM/dL (11.7-16.9); MCH 34.9 pg (25.7-33.7); MCHC 33.9 g/dl (32.0-35.9); MEAN CELL VOLUME 102.8 fl (80-96); MEAN PLT VOLUME 9.5 fl (7.5-11.1); PLATELET COUNT 244 K/MM3 (134-434); RBC 4.22 M/mm3 (4.00-5.60); RDW 12.1 % (11.9-15.9); WHITE BLOOD COUNT 5.7 K/mm3 (4.0-10.0)
[2020-12-21] MEDS ORDERED: PT OWN MED DRAWER 7, Y5N ONE ×2 (09:07→21:39)
[2020-12-21] MEDS: MAGNESIUM HYDROX 2400MG/30ML ORAL SUSPENSION 30 ML CUP PEG SCH ×3 (09:18→21:43)
[2020-12-21] MEDS: Lacosamide 50 MG/5 ML ORAL SOLUTION UNIT CUPS PEG SCH ×2 (09:18→21:43)
[2020-12-21] MEDS: MULTIVIT-MINERALS ORAL LIQUID PEG SCH (09:19)
[2020-12-21] MEDS: levETIRAcetam 500 MG/5 ML ORAL SOLUTION (UNIT-DOSE CUPS) PEG SCH ×2 (09:19→21:42)
[2020-12-21] MEDS: SENNOSIDES 8.8 MG/5 ML BULK BOTTLE PEG SCH ×3 (09:20→21:40)
[2020-12-21] MEDS: BACLOFEN 10 MG TABLET (FP) PEG SCH ×4 (09:21→21:44)
[2020-12-21] MEDS: PHENobarbital 20 MG/5 ML UNIT-DOSE CUP PEG SCH ×2 (09:21→21:42)
[2020-12-21] MEDS: CHLORHEXIDINE GLUCONATE 0.12% 15ML CUP MM SCH ×2 (09:22→21:47)
[2020-12-21] MEDS: POLYETHYLENE GLYCOL 3350 119 GM BTL PO SCH ×2 (09:22→09:48)
[2020-12-21] MEDS: cloBAZam 10 MG TABLET PO SCH ×2 (09:22→21:44)
[2020-12-21] MEDS: BENZOYL PEROXIDE 5% 60 GM GEL..GRAM. TP SCH ×2 (09:23→21:49)
[2020-12-21] MEDS: FLUTICASONE PROP 0.05% 16 GM NASAL SPRAY NS SCH (09:24)
[2020-12-21 09:30] LABS: ALBUMIN 3.1 g/dl (3.4-5.0); BLOOD UREA NITROGEN 9.3 mg/dL (7-18); CALCIUM 8.5 mg/dL (8.5-10.1); MAGNESIUM 2.7 mg/dL (1.8-2.4)
[2020-12-21 09:33] LABS: CREATININE 0.4 mg/dL (0.55-1.3)
[2020-12-21 09:34] LABS: BILIRUBIN,TOTAL 0.3 mg/dL (0.2-1); TOT PROT 6.9 g/dl (6.4-8.2)
[2020-12-21] MEDS: ENOXAPARIN NA (PORCINE) 40 MG/0.4 ML DISP.SYRIN SQ SCH (09:38)
[2020-12-21] MEDS: TOPIRAMATE 200 MG TABLET GT SCH ×2 (09:39→21:48)
[2020-12-21] MEDS: CHOLECALCIFEROL (VIT D SOLUTION) 400 UNIT/1 ML DROPS PEG SCH (09:39)
[2020-12-21] MEDS: CLINDAMYCIN PHOSPHATE 1% TOPICAL SOLUTION 30 ML BOTTLE TP SCH (09:39)
[2020-12-21] MEDS: levOCARNitine 500 MG/5 ML SOLUTION PEG SCH ×2 (12:44→21:45)
[2020-12-21 13:06] LABS: MYCOPLASMA PNEUMONIAE,IG G AB <100 U/mL (0-99); MYCOPLASMA PNEUMONIAE,IGM AB <770 U/mL (0-769)
[2020-12-21] MEDS: CALCIUM 500MG/VIT-D 200 UNITS COMBO TABLET (FP) PEG SCH (21:43)
[2020-12-21] MEDS: LORATADINE 10 MG TABLET PO SCH (21:44)
[2020-12-22] MEDS: [UNRECOGNIZED DRUG - REMARK] PEG SCH ×2 (00:25→10:53)
[2020-12-22] MEDS: SODIUM BENZOATE PEG SCH ×3 (00:26→14:30)
[2020-12-22] MEDS ORDERED: PIPERACILLIN/TAZOBACTAM 2.25 GM VIAL IVPB ONE ×2 (00:45→10:24)
[2020-12-22] MEDS ORDERED: DEXTROSE 5%-WATER - 50 ML IVPB ONE ×2 (00:45→10:24)
[2020-12-22] MEDS: PIPERACILLIN/TAZOB 2.25 GM 2.25 GM in DEXTROSE 5%-WATER - 50 ML IVPB SCH ×3 (01:09→18:04)
[2020-12-22] MEDS ORDERED: PT OWN MED DRAWER 7, Y5N ONE ×4 (05:54→15:21)
[2020-12-22] MEDS: LEVOTHYROXINE NA 75 MCG TABLET (FP) PEG SCH (06:18)
[2020-12-22 08:39] LABS: BASO % 1.1 % (0-2.0); EOS % 4.4 % (0-4.5); HEMOGLOBIN 15.7 GM/dL (11.7-16.9); MCH 34.9 pg (25.7-33.7); MCHC 34.1 g/dl (32.0-35.9); MEAN CELL VOLUME 102.2 fl (80-96); MEAN PLT VOLUME 9.8 fl (7.5-11.1); MONO % 14.7 % (3.8-10.2); NEUT % 45.8 % (42.8-82.8); PLATELET COUNT 243 K/MM3 (134-434); WHITE BLOOD COUNT 3.9 K/mm3 (4.0-10.0)
[2020-12-22 08:51] LABS: CALCIUM 8.3 mg/dL (8.5-10.1)
[2020-12-22 08:52] LABS: ALBUMIN 3.2 g/dl (3.4-5.0); BLOOD UREA NITROGEN 9.1 mg/dL (7-18); MAGNESIUM 2.4 mg/dL (1.8-2.4)
[2020-12-22 08:55] LABS: CREATININE 0.4 mg/dL (0.55-1.3)
[2020-12-22 08:56] LABS: BILIRUBIN,TOTAL 0.4 mg/dL (0.2-1)
[2020-12-22] MEDS: CHLORHEXIDINE GLUCONATE 0.12% 15ML CUP MM SCH (10:27)
[2020-12-22] MEDS: levETIRAcetam 500 MG/5 ML ORAL SOLUTION (UNIT-DOSE CUPS) PEG SCH (10:27)
[2020-12-22] MEDS: MULTIVIT-MINERALS ORAL LIQUID PEG SCH (10:27)
[2020-12-22] MEDS: Lacosamide 50 MG/5 ML ORAL SOLUTION UNIT CUPS PEG SCH (10:27)
[2020-12-22] MEDS: PHENobarbital 20 MG/5 ML UNIT-DOSE CUP PEG SCH (10:28)
[2020-12-22] MEDS: cloBAZam 10 MG TABLET PO SCH (10:28)
[2020-12-22] MEDS: levOCARNitine 500 MG/5 ML SOLUTION PEG SCH (10:28)
[2020-12-22] MEDS: ENOXAPARIN NA (PORCINE) 40 MG/0.4 ML DISP.SYRIN SQ SCH (10:28)
[2020-12-22] MEDS: CHOLECALCIFEROL (VIT D SOLUTION) 400 UNIT/1 ML DROPS PEG SCH (10:29)
[2020-12-22] MEDS: BACLOFEN 10 MG TABLET (FP) PEG SCH ×3 (10:29→18:04)
[2020-12-22] MEDS: MAGNESIUM HYDROX 2400MG/30ML ORAL SUSPENSION 30 ML CUP PEG SCH (10:29)
[2020-12-22] MEDS: POLYETHYLENE GLYCOL 3350 119 GM BTL PO SCH (10:30)
[2020-12-22] MEDS: TOPIRAMATE 200 MG TABLET GT SCH (10:48)
[2020-12-22] MEDS: BENZOYL PEROXIDE 5% 60 GM GEL..GRAM. TP SCH (10:52)
[2020-12-22] MEDS: SENNOSIDES 8.8 MG/5 ML BULK BOTTLE PEG SCH (10:52)
[2020-12-22] MEDS: CLINDAMYCIN PHOSPHATE 1% TOPICAL SOLUTION 30 ML BOTTLE TP SCH (10:53)
[2020-12-22] MEDS: FLUTICASONE PROP 0.05% 16 GM NASAL SPRAY NS SCH (11:11)
[2020-12-22] MEDS ORDERED: diazePAM RECTAL GEL 10 MG KIT (PRE-CALIBRATED) RC PRN (11:30)
[2020-12-22 13:58] VITALS: BP 132/77; PULSE 90; TEMP 98.5
== END 2020-12-22 19:46 | DRG 137 ==
LOC: JER 11:48 → JERBED 15:38 → J6S 20:41
PROVIDERS: ADMIT Student in an Organized Health Care Education/Training Program; ATTEND Internal Medicine
PROC: 3E0G76Z Introduction of Nutritional Substance into Upper GI, Via Natural or Artificial Opening (ICD-10-PCS; principal; 2020-12-18)
DX: J69.0 Pneumonitis due to inhalation of food and vomit (principal); J96.01 Acute respiratory failure with hypoxia; F73 Profound intellectual disabilities; Q02 Microcephaly; K21.9 Gastro-esophageal reflux disease without esophagitis; G80.0 Spastic quadriplegic cerebral palsy; E03.9 Hypothyroidism, unspecified; Z98.2 Presence of cerebrospinal fluid drainage device; Z93.1 Gastrostomy status; G40.909 Epilepsy, unspecified, not intractable, without status epilepticus; K59.09 Other constipation
CPT/HCPCS: 36415; 71045-TC-FY; 80048; 80053; 81003; 82728; 83605; 83615; 83735; 84100; 84484; 85025; 85027; 85379; 85610; 85730; 86140; 86738; 87040; 87086; 87254; 87804; 87807; 87899; 93005; 93010; 99285-25; C9803; J0475; U0003; U0005

== ENCOUNTER 2021-11-12 09:58 | Inpatient (IN) | payer OTHER ==
[2021-11-12] MEDS ORDERED: VANCOMYCIN 1 GM in D5W (PRE-DOCKED) 1,000 MG/250 ML IVPB ONE (10:19)
[2021-11-12] MEDS ORDERED: VANCOMYCIN 1 GRAM (PRE-DOCKED) 1,000 MG/250 ML BAG IVPB ONE (10:47)
[2021-11-12 11:14] LABS: HEMATOCRIT 45.3 % (35.4-49); HEMOGLOBIN 15.2 GM/dL (11.7-16.9); MCH 34.7 pg (25.7-33.7); MCHC 33.6 g/dl (32.0-35.9); MEAN CELL VOLUME 103.5 fl (80-96); RBC 4.38 M/mm3 (4.00-5.60); RDW 13.1 % (11.9-15.9)
[2021-11-12 11:18] LABS: WHITE BLOOD COUNT 11.1 K/mm3 (4.0-10.0)
[2021-11-12 11:25] LABS: VENOUS BASE EXCESS -0.5 mmol/L (-2-2); VENOUS O2 SATURATION 77.4 % (70-80); VENOUS PCO2 55.5 mmHg (38-52); VENOUS PH 7.306 (7.310-7.410)
[2021-11-12 11:43] LABS: CALCIUM 8.6 mg/dL (8.5-10.1); CHLORIDE 106 mmol/L (98-107); SODIUM 138 mmol/L (136-145)
[2021-11-12 11:44] LABS: ALBUMIN 3.6 g/dl (3.4-5.0); BLOOD UREA NITROGEN 7.8 mg/dL (7-18); CO2 28 mmol/L (21-32); GLUCOSE,RANDOM 110 mg/dL (74-106)
[2021-11-12 11:47] LABS: ANISOCYTOSIS 0; CREATININE 0.6 mg/dL (0.55-1.3); MACROCYTOSIS 0; SGOT/AST 73 U/L (15-37)
[2021-11-12 11:49] LABS: BILIRUBIN,TOTAL 0.4 mg/dL (0.2-1); TOT PROT 7.6 g/dl (6.4-8.2)
[2021-11-12] MEDS ORDERED: PIPERACILLIN/TAZOB 3.375 GM 3.375 GM in DEXTROSE 5%-WATER - 50 ML IVPB ONE (11:49)
[2021-11-12 11:51] LABS: ALK PHOS 91 U/L (45-117)
[2021-11-12 12:01] LABS: ANION GAP 4 MMOL/L (8-16); SGPT/ALT 29 U/L (13-61)
[2021-11-12 12:03] LABS: EPI CELLS 14 /uL (0-25.1); HYALINE CASTS 1 /uL (0-3.1); URINE APPEARANCE CLEAR; URINE BACTERIA 36 /uL (0-1359); URINE BILIRUBIN NEGATIVE (NEGATIVE); URINE COLOR YELLOW; URINE GLUCOSE (UA) NEGATIVE (NEGATIVE); URINE KETONE NEGATIVE (NEGATIVE); URINE LEUK ESTERASE NEGATIVE (NEGATIVE); URINE NITRITE NEGATIVE (NEGATIVE); URINE PROTEIN NEGATIVE (NEGATIVE); URINE RBC 96 /uL (0-23.9); URINE UROBILINOGEN 0.2 mg/dL (0.2-1.0); URINE WBC 4 /uL (0-25.8)
[2021-11-12] MEDS ORDERED: PIPERACILLIN/TAZOB 3.375 GM 3.375 GM/50 ML BAG IVPB ONE (12:03)
[2021-11-12 13:08] LABS: BASO % 0.2 % (0-2.0); EOS % 1.3 % (0-4.5); HEMATOCRIT 43.8 % (35.4-49); LYMPH % 6.9 % (8-40); MCH 35.5 pg (25.7-33.7); MCHC 34.3 g/dl (32.0-35.9); MEAN CELL VOLUME 103.6 fl (80-96); MEAN PLT VOLUME 9.4 fl (7.5-11.1); MONO % 4.4 % (3.8-10.2); NEUT % 87.2 % (42.8-82.8); PLATELET COUNT 180 10^3/uL (134-434); RBC 4.23 M/mm3 (4.00-5.60); RDW 13.1 % (11.9-15.9); WHITE BLOOD COUNT 14.8 K/mm3 (4.0-10.0)
[2021-11-12 13:14] LABS: INR 1.03 (0.83-1.09); PROTHROMBIN TIME (PATIENT) 11.9 SEC (9.7-13.0)
[2021-11-12 13:16] LABS: ACTIVATED PTT 39.3 SECONDS (25.2-36.5)
[2021-11-12] MEDS ORDERED: LORazepam 2 MG/ML SDV VIAL IVPUSH ONE ×2 (14:40→16:32)
[2021-11-12] MEDS ORDERED: ACETAMINOPHEN 1000 MG/100 ML BAG IVPB ONE (14:42)
[2021-11-12] MEDS ORDERED: ACETAMINOPHEN INJECTION 100 ML IVPB ONE (14:44)
[2021-11-12] MEDS ORDERED: ACETAMINOPHEN 650 MG/20.3 ML ORAL SOLUTION (CUPS) PEG PRN (15:33)
[2021-11-12] MEDS ORDERED: ALBUTEROL SO4 2.5/IPRATROPIUM 0.5 INH SOL 3 ML VIAL.NEB. NEB PRN (16:16)
[2021-11-12] MEDS ORDERED: PIPERACILLIN/TAZOB 3.375 GM 3.375 GM in DEXTROSE 5%-WATER - 50 ML IVPB SCH (18:00)
[2021-11-12] MEDS ORDERED: PIPERACILLIN/TAZOBACTAM 3.375 GM VIAL IVPB ONE (20:27)
[2021-11-12] MEDS ORDERED: DEXTROSE 5%-WATER - 50 ML IVPB ONE (20:27)
[2021-11-12] MEDS: PIPERACILLIN/TAZOB 3.375 GM 3.375 GM in DEXTROSE 5%-WATER - 50 ML IVPB SCH (20:38)
[2021-11-12] MEDS: cloBAZam 10 MG TABLET GT SCH (21:57)
[2021-11-12] MEDS: levETIRAcetam 500 MG/5 ML ORAL SOLUTION (UNIT-DOSE CUPS) GT SCH (21:57)
[2021-11-12] MEDS: Lacosamide 50 MG/5 ML ORAL SOLUTION UNIT CUPS GT SCH (21:57)
[2021-11-12] MEDS: CALCIUM 500MG/VIT-D 200 UNITS COMBO TABLET (FP) PEG SCH (21:58)
[2021-11-12] MEDS: TOPIRAMATE 100 MG TABLET GT SCH (21:58)
[2021-11-12] MEDS ORDERED: PHENobarbital 30 MG TABLET GT SCH (22:00)
[2021-11-12] MEDS ORDERED: levETIRAcetam 500 MG/5 ML ORAL SOLUTION (UNIT-DOSE CUPS) GT SCH (22:00)
[2021-11-12] MEDS ORDERED: CHLORHEXIDINE GLUCONATE 0.12% 15ML CUP MM SCH (22:00)
[2021-11-12] MEDS ORDERED: CHOLECALCIFEROL (VIT D SOLUTION) 400 UNIT/1 ML DROPS PEG SCH (22:00)
[2021-11-12] MEDS: levOCARNitine 500 MG/5 ML SOLUTION PEG SCH (22:38)
[2021-11-12] MEDS: SENNOSIDES 8.8 MG/5 ML BULK BOTTLE GT SCH (22:38)
[2021-11-13] MEDS ORDERED: PIPERACILLIN/TAZOBACTAM 3.375 GM VIAL IVPB ONE ×3 (02:16→17:27)
[2021-11-13] MEDS ORDERED: DEXTROSE 5%-WATER - 50 ML IVPB ONE ×3 (02:17→17:27)
[2021-11-13] MEDS: PIPERACILLIN/TAZOB 3.375 GM 3.375 GM in DEXTROSE 5%-WATER - 50 ML IVPB SCH ×3 (02:20→17:34)
[2021-11-13] MEDS: LEVOTHYROXINE NA 75 MCG TABLET (FP) PEG SCH (06:07)
[2021-11-13] MEDS: levETIRAcetam 500 MG/5 ML ORAL SOLUTION (UNIT-DOSE CUPS) GT SCH (09:59)
[2021-11-13] MEDS: Lacosamide 50 MG/5 ML ORAL SOLUTION UNIT CUPS GT SCH ×2 (09:59→21:58)
[2021-11-13] MEDS: cloBAZam 10 MG TABLET GT SCH ×2 (10:00→21:54)
[2021-11-13] MEDS: SENNOSIDES 8.8 MG/5 ML BULK BOTTLE GT SCH ×2 (10:00→21:55)
[2021-11-13] MEDS: POLYETHYLENE GLYCOL (HEALTHYLAX) 3350 17 GM PACKET GT SCH (10:00)
[2021-11-13] MEDS: ENOXAPARIN NA (PORCINE) 40 MG/0.4 ML DISP.SYRIN SQ SCH (10:01)
[2021-11-13] MEDS: levOCARNitine 500 MG/5 ML SOLUTION PEG SCH ×2 (10:01→21:56)
[2021-11-13] MEDS: TOPIRAMATE 100 MG TABLET GT SCH ×2 (10:05→21:55)
[2021-11-13 13:33] LABS: CALCIUM 8.6 mg/dL (8.5-10.1)
[2021-11-13 13:34] LABS: ALBUMIN 3.2 g/dl (3.4-5.0); BLOOD UREA NITROGEN 7.5 mg/dL (7-18)
[2021-11-13 13:37] LABS: CREATININE 0.5 mg/dL (0.55-1.3)
[2021-11-13 13:38] LABS: BILIRUBIN,TOTAL 0.4 mg/dL (0.2-1); TOT PROT 6.6 g/dl (6.4-8.2)
[2021-11-13 13:46] LABS: BASO % 0.2 % (0-2.0); EOS % 1.2 % (0-4.5); HEMATOCRIT 43.4 % (35.4-49); HEMOGLOBIN 14.1 GM/dL (11.7-16.9); LYMPH % 5.7 % (8-40); MCH 34.4 pg (25.7-33.7); MCHC 32.6 g/dl (32.0-35.9); MEAN CELL VOLUME 105.4 fl (80-96); MEAN PLT VOLUME 9.5 fl (7.5-11.1); MONO % 3.7 % (3.8-10.2); NEUT % 89.2 % (42.8-82.8); PLATELET COUNT 187 10^3/uL (134-434); RBC 4.11 M/mm3 (4.00-5.60); RDW 12.7 % (11.9-15.9); WHITE BLOOD COUNT 13.9 K/mm3 (4.0-10.0)
[2021-11-13 14:04] VITALS: BMI 22.4
[2021-11-13] MEDS: PHENobarbital 20 MG/5 ML UNIT-DOSE CUP GT SCH ×2 (14:16→21:58)
[2021-11-13] MEDS: MULTIVIT-MINERALS ORAL LIQUID PEG SCH (14:43)
[2021-11-13] MEDS: BRIVARACETAM PEG SCH ×3 (14:44→22:00)
[2021-11-13] MEDS: [UNRECOGNIZED DRUG - OTHER] PEG SCH ×3 (14:44→22:00)
[2021-11-13] MEDS: RUFINAMIDE 40 MG/ML GT SCH ×3 (14:46→22:28)
[2021-11-13 14:54] LABS: ANISOCYTOSIS 2+; MACROCYTOSIS 2+
[2021-11-13] MEDS: CALCIUM 500MG/VIT-D 200 UNITS COMBO TABLET (FP) PEG SCH (21:55)
[2021-11-13] MEDS: levETIRAcetam 500 MG/5 ML ORAL SOLUTION BULK GT SCH (21:57)
[2021-11-14] MEDS ORDERED: PIPERACILLIN/TAZOBACTAM 3.375 GM VIAL IVPB ONE ×3 (01:18→16:45)
[2021-11-14] MEDS ORDERED: DEXTROSE 5%-WATER - 50 ML IVPB ONE ×3 (01:19→16:45)
[2021-11-14] MEDS: PIPERACILLIN/TAZOB 3.375 GM 3.375 GM in DEXTROSE 5%-WATER - 50 ML IVPB SCH ×3 (01:34→17:18)
[2021-11-14] MEDS ORDERED: IBUPROFEN 800 MG/8 ML IJ IVPB ONE (03:52)
[2021-11-14] MEDS: LEVOTHYROXINE NA 75 MCG TABLET (FP) PEG SCH (06:55)
[2021-11-14] MEDS: [UNRECOGNIZED DRUG - OTHER] PEG SCH ×2 (09:39→22:30)
[2021-11-14] MEDS: SENNOSIDES 8.8 MG/5 ML BULK BOTTLE GT SCH ×2 (09:39→22:30)
[2021-11-14] MEDS: BRIVARACETAM PEG SCH ×2 (09:39→22:30)
[2021-11-14] MEDS: Lacosamide 50 MG/5 ML ORAL SOLUTION UNIT CUPS GT SCH ×2 (09:40→22:22)
[2021-11-14] MEDS: ENOXAPARIN NA (PORCINE) 40 MG/0.4 ML DISP.SYRIN SQ SCH (09:41)
[2021-11-14] MEDS: PHENobarbital 20 MG/5 ML UNIT-DOSE CUP GT SCH ×2 (09:41→22:19)
[2021-11-14] MEDS: MULTIVIT-MINERALS ORAL LIQUID PEG SCH (09:42)
[2021-11-14] MEDS: POLYETHYLENE GLYCOL (HEALTHYLAX) 3350 17 GM PACKET GT SCH (09:42)
[2021-11-14] MEDS: TOPIRAMATE 100 MG TABLET GT SCH ×2 (09:43→22:23)
[2021-11-14] MEDS: cloBAZam 10 MG TABLET GT SCH ×2 (09:43→22:28)
[2021-11-14] MEDS: levOCARNitine 500 MG/5 ML SOLUTION PEG SCH ×2 (09:45→22:38)
[2021-11-14] MEDS: levETIRAcetam 500 MG/5 ML ORAL SOLUTION BULK GT SCH ×2 (09:45→22:37)
[2021-11-14] MEDS: RUFINAMIDE 40 MG/ML GT SCH ×2 (10:14→22:18)
[2021-11-14] MEDS: CALCIUM 500MG/VIT-D 200 UNITS COMBO TABLET (FP) PEG SCH (22:29)
[2021-11-15] MEDS ORDERED: PIPERACILLIN/TAZOBACTAM 3.375 GM VIAL IVPB ONE ×3 (01:13→16:43)
[2021-11-15] MEDS ORDERED: DEXTROSE 5%-WATER - 50 ML IVPB ONE ×3 (01:13→16:43)
[2021-11-15] MEDS: PIPERACILLIN/TAZOB 3.375 GM 3.375 GM in DEXTROSE 5%-WATER - 50 ML IVPB SCH ×3 (01:17→18:08)
[2021-11-15] MEDS: LEVOTHYROXINE NA 75 MCG TABLET (FP) PEG SCH (06:30)
[2021-11-15 09:51] LABS: BASO % 0.4 % (0-2.0); EOS % 2.3 % (0-4.5); HEMATOCRIT 41.9 % (35.4-49); LYMPH % 16.3 % (8-40); MCH 34.8 pg (25.7-33.7); MCHC 33.3 g/dl (32.0-35.9); MEAN CELL VOLUME 104.7 fl (80-96); MEAN PLT VOLUME 9.3 fl (7.5-11.1); MONO % 11.6 % (3.8-10.2); NEUT % 69.4 % (42.8-82.8); PLATELET COUNT 206 10^3/uL (134-434); RDW 12.8 % (11.9-15.9); WHITE BLOOD COUNT 7.4 K/mm3 (4.0-10.0)
[2021-11-15] MEDS: TOPIRAMATE 100 MG TABLET GT SCH (10:49)
[2021-11-15] MEDS: POLYETHYLENE GLYCOL (HEALTHYLAX) 3350 17 GM PACKET GT SCH (10:49)
[2021-11-15] MEDS: ENOXAPARIN NA (PORCINE) 40 MG/0.4 ML DISP.SYRIN SQ SCH (10:49)
[2021-11-15] MEDS: cloBAZam 10 MG TABLET GT SCH (10:50)
[2021-11-15] MEDS: Lacosamide 50 MG/5 ML ORAL SOLUTION UNIT CUPS GT SCH (10:51)
[2021-11-15] MEDS: PHENobarbital 20 MG/5 ML UNIT-DOSE CUP GT SCH (10:51)
[2021-11-15] MEDS: BRIVARACETAM PEG SCH (10:52)
[2021-11-15] MEDS: [UNRECOGNIZED DRUG - OTHER] PEG SCH (10:52)
[2021-11-15] MEDS: RUFINAMIDE 40 MG/ML GT SCH (11:30)
[2021-11-15] MEDS: SENNOSIDES 8.8 MG/5 ML BULK BOTTLE GT SCH (12:19)
[2021-11-15] MEDS: levETIRAcetam 500 MG/5 ML ORAL SOLUTION BULK GT SCH (12:20)
[2021-11-15 12:23] LABS: CALCIUM 8.3 mg/dL (8.5-10.1)
[2021-11-15] MEDS: MULTIVIT-MINERALS ORAL LIQUID PEG SCH (12:23)
[2021-11-15] MEDS: levOCARNitine 500 MG/5 ML SOLUTION PEG SCH (12:23)
[2021-11-15 12:24] LABS: BLOOD UREA NITROGEN 8.7 mg/dL (7-18); MAGNESIUM 2.3 mg/dL (1.8-2.4)
[2021-11-15 12:27] LABS: CREATININE 0.4 mg/dL (0.55-1.3); PHOSPHOROUS 3.3 mg/dL (2.5-4.9)
[2021-11-15 12:28] LABS: BILIRUBIN,TOTAL 0.2 mg/dL (0.2-1); TOT PROT 6.7 g/dl (6.4-8.2)
[2021-11-15 15:24] VITALS: BP 117/68; PULSE 90; TEMP 97.6
== END 2021-11-15 19:08 | disposition home or self-care (01) | DRG 720 ==
LOC: JER 09:58 → JERBED 12:54 → J8W 18:49
PROVIDERS: ADMIT Internal Medicine; ATTEND Internal Medicine
DX: A41.9 Sepsis, unspecified organism (principal); J69.0 Pneumonitis due to inhalation of food and vomit; J96.01 Acute respiratory failure with hypoxia; E87.2 Acidosis; R53.2 Functional quadriplegia; G80.0 Spastic quadriplegic cerebral palsy; Q02 Microcephaly; Z93.1 Gastrostomy status; D72.829 Elevated white blood cell count, unspecified; E03.9 Hypothyroidism, unspecified; G40.909 Epilepsy, unspecified, not intractable, without status epilepticus; K21.9 Gastro-esophageal reflux disease without esophagitis; G80.9 Cerebral palsy, unspecified; F73 Profound intellectual disabilities
CPT/HCPCS: 36415; 71045-TC-FY; 80053; 81003; 82607; 82746; 82803; 83735; 84100; 85025; 85610; 85730; 87040; 87086; 87899; 93005; 93010; 99285-25; C9803-CS; U0003; U0005

== ENCOUNTER 2021-12-21 12:39 | Inpatient (IN) | payer OTHER ==
[2021-12-21 14:29] LABS: BASO % 0.9 % (0-2.0); EOS % 0.1 % (0-4.5); HEMATOCRIT 45.6 % (35.4-49); HEMOGLOBIN 15.2 GM/dL (11.7-16.9); LYMPH % 8.1 % (8-40); MCH 34.5 pg (25.7-33.7); MCHC 33.4 g/dl (32.0-35.9); MEAN CELL VOLUME 103.3 fl (80-96); MEAN PLT VOLUME 10.6 fl (7.5-11.1); MONO % 19.7 % (3.8-10.2); NEUT % 71.2 % (42.8-82.8); RBC 4.41 M/mm3 (4.00-5.60); RDW 12.6 % (11.9-15.9); WHITE BLOOD COUNT 8.8 K/mm3 (4.0-10.0)
[2021-12-21 14:30] LABS: VENOUS BASE EXCESS -1.8 mmol/L (-2-2); VENOUS O2 SATURATION 97.7 % (70-80); VENOUS PCO2 43.8 mmHg (38-52); VENOUS PH 7.354 (7.310-7.410)
[2021-12-21 14:33] LABS: CHLORIDE 102 mmol/L (98-107); SODIUM 137 mmol/L (136-145)
[2021-12-21 14:34] LABS: CALCIUM 8.5 mg/dL (8.5-10.1)
[2021-12-21 14:35] LABS: ALBUMIN 3.9 g/dl (3.4-5.0); ANION GAP 9 MMOL/L (8-16); BLOOD UREA NITROGEN 8.2 mg/dL (7-18); CO2 26 mmol/L (21-32); GLUCOSE,RANDOM 111 mg/dL (74-106)
[2021-12-21 14:38] LABS: CREATININE 0.6 mg/dL (0.55-1.3); SGOT/AST 17 U/L (15-37); SGPT/ALT 27 U/L (13-61)
[2021-12-21 14:40] LABS: BILIRUBIN,TOTAL 0.2 mg/dL (0.2-1)
[2021-12-21 14:41] LABS: ALK PHOS 106 U/L (45-117)
[2021-12-21 14:47] LABS: ACTIVATED PTT 41.5 SECONDS (25.2-36.5); PROTHROMBIN TIME (PATIENT) 11.5 SEC (9.7-13.0)
[2021-12-21] MEDS ORDERED: DEXAMETHASONE SOD PHOSPHATE 4 MG/1 ML VIAL IVPUSH ONE (16:14)
[2021-12-21] MEDS ORDERED: REMDESIVIR 200 MG in SODIUM CHLORIDE 250 ML IVPB ONE (16:14)
[2021-12-21] MEDS ORDERED: DEXAMETHASONE SOD PHOSPHATE 10 MG/1 ML VIAL ONE (16:30)
[2021-12-21 16:45] LABS: PH,URINE 7.5 (5.0-8.0); URINE APPEARANCE CLEAR; URINE BILIRUBIN NEGATIVE (NEGATIVE); URINE COLOR YELLOW; URINE GLUCOSE (UA) NEGATIVE (NEGATIVE); URINE KETONE NEGATIVE (NEGATIVE); URINE LEUK ESTERASE NEGATIVE (NEGATIVE); URINE NITRITE NEGATIVE (NEGATIVE); URINE PROTEIN NEGATIVE (NEGATIVE); URINE UROBILINOGEN 0.2 mg/dL (0.2-1.0)
[2021-12-21] MEDS ORDERED: PIPERACILLIN/TAZOB 4.5 GM 4.5 GM in DEXTROSE 5%-WATER 100 ML IVPB ONE (17:10)
[2021-12-21] MEDS ORDERED: PIPERACILLIN/TAZOB 4.5 GM 4.5 GM/100 ML BAG IVPB ONE (17:29)
[2021-12-21] MEDS ORDERED: ALBUTEROL SO4 0.083% IH SOL 2.5 MG/3 ML VIAL.NEB. NEB PRN (18:52)
[2021-12-21] MEDS ORDERED: ACETAMINOPHEN 650 MG/20.3 ML ORAL SOLUTION (CUPS) GT PRN (18:53)
[2021-12-21] MEDS: Lacosamide 50 MG/5 ML ORAL SOLUTION UNIT CUPS GT SCH (21:52)
[2021-12-21] MEDS: levETIRAcetam 500 MG/5 ML ORAL SOLUTION (UNIT-DOSE CUPS) GT SCH (21:53)
[2021-12-21] MEDS: TOPIRAMATE 200 MG TABLET GT SCH (21:53)
[2021-12-21] MEDS: PHENobarbital 30 MG TABLET PEG SCH (21:54)
[2021-12-21] MEDS: cloBAZam 10 MG TABLET GT SCH (21:54)
[2021-12-22] MEDS: LEVOTHYROXINE NA 75 MCG TABLET (FP) PEG SCH (06:28)
[2021-12-22 09:24] LABS: BASO % 0.4 % (0-2.0); EOS % 0.3 % (0-4.5); HEMATOCRIT 40.7 % (35.4-49); HEMOGLOBIN 13.7 GM/dL (11.7-16.9); MCH 34.8 pg (25.7-33.7); MCHC 33.7 g/dl (32.0-35.9); MEAN CELL VOLUME 103.5 fl (80-96); MEAN PLT VOLUME 8.9 fl (7.5-11.1); MONO % 14.1 % (3.8-10.2); NEUT % 72.2 % (42.8-82.8); PLATELET COUNT 192 10^3/uL (134-434); RBC 3.93 M/mm3 (4.00-5.60); RDW 12.6 % (11.9-15.9); WHITE BLOOD COUNT 7.1 K/mm3 (4.0-10.0)
[2021-12-22 09:58] LABS: ALBUMIN 3.2 g/dl (3.4-5.0); CALCIUM 8.6 mg/dL (8.5-10.1)
[2021-12-22 09:59] LABS: BLOOD UREA NITROGEN 7.8 mg/dL (7-18)
[2021-12-22] MEDS ORDERED: REMDESIVIR 100 MG in SODIUM CHLORIDE 250 ML IVPB SCH (10:00)
[2021-12-22 10:01] LABS: CREATININE 0.3 mg/dL (0.55-1.3)
[2021-12-22 10:03] LABS: BILIRUBIN,TOTAL 0.4 mg/dL (0.2-1); TOT PROT 6.7 g/dl (6.4-8.2)
[2021-12-22] MEDS: Lacosamide 50 MG/5 ML ORAL SOLUTION UNIT CUPS GT SCH ×2 (10:33→21:57)
[2021-12-22] MEDS: DEXAMETHASONE SOD PHOSPHATE 10 MG/1 ML VIAL IVPUSH SCH (10:34)
[2021-12-22] MEDS: PHENobarbital 30 MG TABLET GT SCH (10:34)
[2021-12-22] MEDS: levETIRAcetam 500 MG/5 ML ORAL SOLUTION (UNIT-DOSE CUPS) GT SCH ×2 (10:34→21:58)
[2021-12-22] MEDS: TOPIRAMATE 200 MG TABLET GT SCH ×2 (10:35→21:58)
[2021-12-22 16:18] VITALS: BMI 24.4
[2021-12-22] MEDS: REMDESIVIR 100 MG in SODIUM CHLORIDE 250 ML IVPB SCH (16:20)
[2021-12-22] MEDS: cloBAZam 10 MG TABLET GT SCH (21:57)
[2021-12-22] MEDS: PHENobarbital 30 MG TABLET PEG SCH (21:58)
[2021-12-23] MEDS: LEVOTHYROXINE NA 75 MCG TABLET (FP) PEG SCH (06:27)
[2021-12-23 09:49] LABS: ALBUMIN 3.3 g/dl (3.4-5.0); BLOOD UREA NITROGEN 11.4 mg/dL (7-18); CALCIUM 8.7 mg/dL (8.5-10.1); MAGNESIUM 2.5 mg/dL (1.8-2.4)
[2021-12-23 09:52] LABS: CREATININE 0.4 mg/dL (0.55-1.3)
[2021-12-23 09:54] LABS: BILIRUBIN,TOTAL 0.4 mg/dL (0.2-1); TOT PROT 6.8 g/dl (6.4-8.2)
[2021-12-23 10:05] LABS: BASO % 0.9 % (0-2.0); EOS % 1.5 % (0-4.5); HEMATOCRIT 42.6 % (35.4-49); HEMOGLOBIN 14.3 GM/dL (11.7-16.9); LYMPH % 29.6 % (8-40); MCH 34.7 pg (25.7-33.7); MCHC 33.5 g/dl (32.0-35.9); MEAN CELL VOLUME 103.6 fl (80-96); MEAN PLT VOLUME 9.8 fl (7.5-11.1); MONO % 13.5 % (3.8-10.2); NEUT % 54.5 % (42.8-82.8); PLATELET COUNT 163 10^3/uL (134-434); RBC 4.11 M/mm3 (4.00-5.60); RDW 12.5 % (11.9-15.9); WHITE BLOOD COUNT 4.4 K/mm3 (4.0-10.0)
[2021-12-23] MEDS: PHENobarbital 30 MG TABLET GT SCH (10:57)
[2021-12-23] MEDS: levETIRAcetam 500 MG/5 ML ORAL SOLUTION (UNIT-DOSE CUPS) GT SCH ×2 (10:57→22:44)
[2021-12-23] MEDS: Lacosamide 50 MG/5 ML ORAL SOLUTION UNIT CUPS GT SCH ×2 (10:57→22:44)
[2021-12-23] MEDS: TOPIRAMATE 200 MG TABLET GT SCH ×2 (10:58→22:44)
[2021-12-23] MEDS: DEXAMETHASONE SOD PHOSPHATE 10 MG/1 ML VIAL IVPUSH SCH (10:58)
[2021-12-23] MEDS: REMDESIVIR 100 MG in SODIUM CHLORIDE 250 ML IVPB SCH (17:09)
[2021-12-23] MEDS: PHENobarbital 30 MG TABLET PEG SCH (22:44)
[2021-12-23] MEDS: cloBAZam 10 MG TABLET GT SCH (22:44)
[2021-12-24] MEDS: LEVOTHYROXINE NA 75 MCG TABLET (FP) PEG SCH (06:42)
[2021-12-24] MEDS: levETIRAcetam 500 MG/5 ML ORAL SOLUTION (UNIT-DOSE CUPS) GT SCH ×2 (10:07→23:14)
[2021-12-24] MEDS: PHENobarbital 30 MG TABLET GT SCH (10:10)
[2021-12-24] MEDS: TOPIRAMATE 200 MG TABLET GT SCH ×2 (10:10→22:37)
[2021-12-24] MEDS: Lacosamide 50 MG/5 ML ORAL SOLUTION UNIT CUPS GT SCH ×2 (10:11→23:13)
[2021-12-24] MEDS: DEXAMETHASONE SOD PHOSPHATE 10 MG/1 ML VIAL IVPUSH SCH (10:11)
[2021-12-24] MEDS: REMDESIVIR 100 MG in SODIUM CHLORIDE 250 ML IVPB SCH (15:25)
[2021-12-24] MEDS: PHENobarbital 30 MG TABLET PEG SCH (23:14)
[2021-12-24] MEDS: cloBAZam 10 MG TABLET GT SCH (23:15)
[2021-12-25] MEDS: LEVOTHYROXINE NA 75 MCG TABLET (FP) PEG SCH (06:38)
[2021-12-25 08:59] LABS: BASO % 0.6 % (0-2.0); EOS % 1.4 % (0-4.5); HEMOGLOBIN 15.3 GM/dL (11.7-16.9); LYMPH % 44.1 % (8-40); MCH 34.6 pg (25.7-33.7); MCHC 34.1 g/dl (32.0-35.9); MEAN CELL VOLUME 101.3 fl (80-96); MEAN PLT VOLUME 9.2 fl (7.5-11.1); MONO % 12.7 % (3.8-10.2); NEUT % 41.2 % (42.8-82.8); PLATELET COUNT 202 10^3/uL (134-434); RBC 4.44 M/mm3 (4.00-5.60); RDW 12.1 % (11.9-15.9); WHITE BLOOD COUNT 5.6 K/mm3 (4.0-10.0)
[2021-12-25 09:12] LABS: CALCIUM 9.1 mg/dL (8.5-10.1)
[2021-12-25 09:13] LABS: ALBUMIN 3.4 g/dl (3.4-5.0); BLOOD UREA NITROGEN 13.1 mg/dL (7-18); MAGNESIUM 2.4 mg/dL (1.8-2.4)
[2021-12-25 09:16] LABS: CREATININE 0.4 mg/dL (0.55-1.3); PHOSPHOROUS 3.9 mg/dL (2.5-4.9)
[2021-12-25 09:17] LABS: TOT PROT 7.4 g/dl (6.4-8.2)
[2021-12-25 09:18] LABS: BILIRUBIN,TOTAL 0.3 mg/dL (0.2-1)
[2021-12-25] MEDS: levETIRAcetam 500 MG/5 ML ORAL SOLUTION (UNIT-DOSE CUPS) GT SCH ×2 (09:38→23:39)
[2021-12-25] MEDS: Lacosamide 50 MG/5 ML ORAL SOLUTION UNIT CUPS GT SCH ×2 (09:38→23:41)
[2021-12-25] MEDS: DEXAMETHASONE SOD PHOSPHATE 10 MG/1 ML VIAL IVPUSH SCH (09:38)
[2021-12-25] MEDS: TOPIRAMATE 200 MG TABLET GT SCH ×2 (09:39→23:45)
[2021-12-25] MEDS: PHENobarbital 30 MG TABLET GT SCH (09:39)
[2021-12-25] MEDS: FAMOTIDINE 10 MG TABLET PO SCH (15:36)
[2021-12-25] MEDS: REMDESIVIR 100 MG in SODIUM CHLORIDE 250 ML IVPB SCH (15:36)
[2021-12-25] MEDS: ENOXAPARIN NA (PORCINE) 40 MG/0.4 ML DISP.SYRIN SQ SCH (15:36)
[2021-12-25] MEDS: PHENobarbital 30 MG TABLET PEG SCH (23:45)
[2021-12-25] MEDS: cloBAZam 10 MG TABLET GT SCH (23:46)
[2021-12-26] MEDS: LEVOTHYROXINE NA 75 MCG TABLET (FP) PEG SCH (08:01)
[2021-12-26] MEDS: DEXAMETHASONE SOD PHOSPHATE 10 MG/1 ML VIAL IVPUSH SCH (10:22)
[2021-12-26] MEDS: levETIRAcetam 500 MG/5 ML ORAL SOLUTION (UNIT-DOSE CUPS) GT SCH ×2 (10:22→23:19)
[2021-12-26] MEDS: FAMOTIDINE 10 MG TABLET PO SCH (10:22)
[2021-12-26] MEDS: Lacosamide 50 MG/5 ML ORAL SOLUTION UNIT CUPS GT SCH ×2 (10:22→23:20)
[2021-12-26] MEDS: PHENobarbital 30 MG TABLET GT SCH (10:22)
[2021-12-26] MEDS: ENOXAPARIN NA (PORCINE) 40 MG/0.4 ML DISP.SYRIN SQ SCH (10:23)
[2021-12-26] MEDS: TOPIRAMATE 200 MG TABLET GT SCH ×2 (10:23→23:17)
[2021-12-26] MEDS: PHENobarbital 30 MG TABLET PEG SCH (23:17)
[2021-12-26] MEDS: cloBAZam 10 MG TABLET GT SCH (23:18)
[2021-12-27] MEDS: LEVOTHYROXINE NA 75 MCG TABLET (FP) PEG SCH (07:32)
[2021-12-27] MEDS: levETIRAcetam 500 MG/5 ML ORAL SOLUTION (UNIT-DOSE CUPS) GT SCH ×2 (10:34→23:16)
[2021-12-27] MEDS: Lacosamide 50 MG/5 ML ORAL SOLUTION UNIT CUPS GT SCH ×2 (10:34→23:15)
[2021-12-27] MEDS: ENOXAPARIN NA (PORCINE) 40 MG/0.4 ML DISP.SYRIN SQ SCH (10:36)
[2021-12-27] MEDS: DEXAMETHASONE SOD PHOSPHATE 10 MG/1 ML VIAL IVPUSH SCH (10:36)
[2021-12-27] MEDS: FAMOTIDINE 10 MG TABLET PO SCH (10:37)
[2021-12-27] MEDS: PHENobarbital 30 MG TABLET GT SCH (10:38)
[2021-12-27] MEDS: TOPIRAMATE 200 MG TABLET GT SCH ×2 (10:38→23:16)
[2021-12-27] MEDS ORDERED: FAMOTIDINE 40 MG/5 ML ORAL SUSPENSION PEG SCH (11:04)
[2021-12-27 13:15] LABS: BASO % 0.4 % (0-2.0); EOS % 0.1 % (0-4.5); HEMATOCRIT 47.6 % (35.4-49); HEMOGLOBIN 16.1 GM/dL (11.7-16.9); LYMPH % 11.8 % (8-40); MCH 34.1 pg (25.7-33.7); MCHC 33.7 g/dl (32.0-35.9); MEAN CELL VOLUME 101.1 fl (80-96); MEAN PLT VOLUME 9.1 fl (7.5-11.1); NEUT % 83.7 % (42.8-82.8); PLATELET COUNT 261 10^3/uL (134-434); RBC 4.71 M/mm3 (4.00-5.60); RDW 12.3 % (11.9-15.9); WHITE BLOOD COUNT 7.4 K/mm3 (4.0-10.0)
[2021-12-27 13:36] LABS: CHLORIDE 105 mmol/L (98-107); SODIUM 136 mmol/L (136-145)
[2021-12-27 13:39] LABS: ALBUMIN 3.6 g/dl (3.4-5.0); ANION GAP 7 MMOL/L (8-16); CALCIUM 9.2 mg/dL (8.5-10.1); CO2 24 mmol/L (21-32)
[2021-12-27 13:40] LABS: BLOOD UREA NITROGEN 14.6 mg/dL (7-18); GLUCOSE,RANDOM 130 mg/dL (74-106); MAGNESIUM 2.6 mg/dL (1.8-2.4)
[2021-12-27 13:42] LABS: CREATININE 0.4 mg/dL (0.55-1.3)
[2021-12-27 13:43] LABS: SGOT/AST 41 U/L (15-37); SGPT/ALT 98 U/L (13-61)
[2021-12-27 13:44] LABS: BILIRUBIN,TOTAL 0.3 mg/dL (0.2-1); TOT PROT 7.9 g/dl (6.4-8.2)
[2021-12-27 13:45] LABS: ALK PHOS 96 U/L (45-117)
[2021-12-27] MEDS: cloBAZam 10 MG TABLET GT SCH (23:13)
[2021-12-27] MEDS: PHENobarbital 30 MG TABLET PEG SCH (23:14)
[2021-12-28] MEDS: LEVOTHYROXINE NA 75 MCG TABLET (FP) PEG SCH (06:00)
[2021-12-28 08:43] LABS: BASO % 0.5 % (0-2.0); HEMATOCRIT 46.7 % (35.4-49); LYMPH % 26.2 % (8-40); MCH 34.8 pg (25.7-33.7); MCHC 34.3 g/dl (32.0-35.9); MEAN CELL VOLUME 101.4 fl (80-96); MONO % 10.6 % (3.8-10.2); NEUT % 61.7 % (42.8-82.8); PLATELET COUNT 261 10^3/uL (134-434); RDW 12.1 % (11.9-15.9)
[2021-12-28 09:05] LABS: CHLORIDE 106 mmol/L (98-107); SODIUM 139 mmol/L (136-145)
[2021-12-28 09:14] LABS: ALBUMIN 3.5 g/dl (3.4-5.0); ANION GAP 8 MMOL/L (8-16); CALCIUM 9.3 mg/dL (8.5-10.1); CO2 26 mmol/L (21-32); GLUCOSE,RANDOM 122 mg/dL (74-106); MAGNESIUM 2.5 mg/dL (1.8-2.4)
[2021-12-28 09:17] LABS: CREATININE 0.4 mg/dL (0.55-1.3); SGPT/ALT 103 U/L (13-61)
[2021-12-28 09:18] LABS: SGOT/AST 43 U/L (15-37)
[2021-12-28 09:19] LABS: BILIRUBIN,TOTAL 0.4 mg/dL (0.2-1); TOT PROT 7.8 g/dl (6.4-8.2)
[2021-12-28 09:20] LABS: ALK PHOS 97 U/L (45-117)
[2021-12-28] MEDS: levETIRAcetam 500 MG/5 ML ORAL SOLUTION (UNIT-DOSE CUPS) GT SCH (11:20)
[2021-12-28] MEDS: ENOXAPARIN NA (PORCINE) 40 MG/0.4 ML DISP.SYRIN SQ SCH (11:20)
[2021-12-28] MEDS: DEXAMETHASONE SOD PHOSPHATE 10 MG/1 ML VIAL IVPUSH SCH (11:21)
[2021-12-28] MEDS: PHENobarbital 30 MG TABLET GT SCH (11:25)
[2021-12-28] MEDS: Lacosamide 50 MG/5 ML ORAL SOLUTION UNIT CUPS GT SCH (11:26)
[2021-12-28] MEDS: TOPIRAMATE 200 MG TABLET GT SCH (11:26)
[2021-12-28 15:44] VITALS: BP 143/90; PULSE 80; TEMP 97.9
== END 2021-12-28 21:35 | disposition home or self-care (01) | DRG 137 ==
LOC: JER 12:39 → JERBED 15:55 → J8W 20:32
PROVIDERS: ADMIT Internal Medicine; ATTEND Nurse Practitioner Acute Care
PROC: XW033E5 Introduction of Remdesivir Anti-infective into Peripheral Vein, Percutaneous Approach, New Technology Group 5 (ICD-10-PCS; principal; 2021-12-21)
PROC: 3E0333Z Introduction of Anti-inflammatory into Peripheral Vein, Percutaneous Approach (ICD-10-PCS; 2021-12-21)
DX: U07.1 COVID-19 (principal); J12.82 Pneumonia due to coronavirus disease 2019; J96.01 Acute respiratory failure with hypoxia; E03.9 Hypothyroidism, unspecified; G40.909 Epilepsy, unspecified, not intractable, without status epilepticus; K21.9 Gastro-esophageal reflux disease without esophagitis; Q02 Microcephaly; G80.0 Spastic quadriplegic cerebral palsy; F73 Profound intellectual disabilities; R53.2 Functional quadriplegia; H47.619 Cortical blindness, unspecified side of brain; R65.10 Systemic inflammatory response syndrome (SIRS) of non-infectious origin without acute organ dysfunction; R14.0 Abdominal distension (gaseous); Z86.19 Personal history of other infectious and parasitic diseases; Z93.1 Gastrostomy status; Z98.2 Presence of cerebrospinal fluid drainage device
CPT/HCPCS: 0241U-QW; 36415; 71045-TC-FY; 74018-TC-FY; 74176-TC; 80053; 81003; 82550; 82553; 82803; 83605; 83735; 84100; 85025; 85379; 85610; 85730; 86140; 86850; 86900; 86901; 87040; 87086; 93005; 93010; 94761; 99291; C9399; C9803-CS; J1100; U0003; U0005

== ENCOUNTER 2022-07-29 11:46 | Inpatient (IN) | payer OTHER ==
[2022-07-29 14:01] LABS: EPI CELLS 21 /uL (0-25.1); HYALINE CASTS 0 /uL (0-3.1); PH,URINE 6.5 (5.0-8.0); URINE APPEARANCE CLEAR; URINE BACTERIA 186 /uL (0-1359); URINE BILIRUBIN NEGATIVE (NEGATIVE); URINE COLOR YELLOW; URINE GLUCOSE (UA) NEGATIVE (NEGATIVE); URINE KETONE NEGATIVE (NEGATIVE); URINE LEUK ESTERASE NEGATIVE (NEGATIVE); URINE NITRITE NEGATIVE (NEGATIVE); URINE PROTEIN NEGATIVE (NEGATIVE); URINE RBC 28 /uL (0-23.9); URINE UROBILINOGEN 0.2 mg/dL (0.2-1.0); URINE WBC 34 /uL (0-25.8)
[2022-07-29 14:03] LABS: BASO % 0.4 % (0-2.0); HEMATOCRIT 44.5 % (35.4-49); HEMOGLOBIN 15.1 GM/dL (11.7-16.9); LYMPH % 11.6 % (8-40); MCH 34.5 pg (25.7-33.7); MCHC 33.9 g/dl (32.0-35.9); MEAN CELL VOLUME 101.7 fl (80-96); MEAN PLT VOLUME 10.2 fl (7.5-11.1); MONO % 9.7 % (3.8-10.2); NEUT % 77.3 % (42.8-82.8); PLATELET COUNT 180 10^3/uL (134-434); RBC 4.37 M/mm3 (4.00-5.60); RDW 12.2 % (11.9-15.9); WHITE BLOOD COUNT 10.7 K/mm3 (4.0-10.0)
[2022-07-29] MEDS ORDERED: CEFTRIAXONE 1,000 MG in DEXTROSE 5%-WATER - 50 ML IVPB ONE (14:48)
[2022-07-29 15:09] LABS: CALCIUM 8.5 mg/dL (8.5-10.1)
[2022-07-29] MEDS ORDERED: CEFTRIAXONE 1 GM/50 ML BAG ONE (15:09)
[2022-07-29 15:10] LABS: ALBUMIN 3.6 g/dl (3.4-5.0); BLOOD UREA NITROGEN 9.6 mg/dL (7-18)
[2022-07-29 15:13] LABS: CREATININE 0.6 mg/dL (0.55-1.3)
[2022-07-29 15:15] LABS: BILIRUBIN,TOTAL 0.2 mg/dL (0.2-1); TOT PROT 7.2 g/dl (6.4-8.2)
[2022-07-29] MEDS ORDERED: REMDESIVIR 200 MG in SODIUM CHLORIDE 250 ML IVPB ONE ×2 (15:37→17:30)
[2022-07-29] MEDS ORDERED: DEXAMETHASONE SOD PHOSPHATE 10 MG/1 ML VIAL IVPUSH ONE (15:37)
[2022-07-29] MEDS ORDERED: DEXAMETHASONE SOD PHOSPHATE 10 MG/1 ML VIAL ONE (16:05)
[2022-07-29] MEDS ORDERED: VANCOMYCIN 1 GM in D5W (PRE-DOCKED) 1,000 MG/250 ML IVPB ONE (16:08)
[2022-07-29] MEDS ORDERED: PIPERACILLIN/TAZOB 4.5 GM 4.5 GM in DEXTROSE 5%-WATER 100 ML IVPB ONE (16:09)
[2022-07-29] MEDS ORDERED: PIPERACILLIN/TAZOB 4.5 GM 4.5 GM/100 ML BAG IVPB ONE (16:11)
[2022-07-29] MEDS ORDERED: VANCOMYCIN/WATER FOR INJ (PEG) 1,000 MG/200 ML BAG IVPB ONE (16:12)
[2022-07-29] MEDS ORDERED: PHENobarbital 30 MG TABLET ONE (21:32)
[2022-07-29] MEDS: Lacosamide 50 MG/5 ML ORAL SOLUTION UNIT CUPS GT SCH (21:56)
[2022-07-29] MEDS: TOPIRAMATE 200 MG TABLET GT SCH (21:56)
[2022-07-29] MEDS: levETIRAcetam 500 MG/5 ML ORAL SOLUTION (UNIT-DOSE CUPS) PO SCH (21:56)
[2022-07-29] MEDS ORDERED: PHENobarbital 30 MG TABLET PO SCH (22:00)
[2022-07-29] MEDS ORDERED: LACOSAMIDE 200 MG TABLET PO SCH (22:00)
[2022-07-29] MEDS ORDERED: PHENobarbital 30 MG TABLET PEG SCH (22:00)
[2022-07-30] MEDS: LEVOTHYROXINE NA 75 MCG TABLET (FP) PEG SCH (07:20)
[2022-07-30] MEDS ORDERED: DEXAMETHASONE SOD PHOSPHATE 10 MG/1 ML VIAL ONE (08:25)
[2022-07-30] MEDS ORDERED: LEVOTHYROXINE NA 75 MCG TABLET (FP) ONE (08:25)
[2022-07-30] MEDS ORDERED: ENOXAPARIN NA (PORCINE) 40 MG/0.4 ML DISP.SYRIN SQ ONE (08:25)
[2022-07-30 08:45] LABS: BASO % 0.7 % (0-2.0); EOS % 1.2 % (0-4.5); HEMATOCRIT 44.8 % (35.4-49); HEMOGLOBIN 15.4 GM/dL (11.7-16.9); LYMPH % 34.3 % (8-40); MCHC 34.2 g/dl (32.0-35.9); MEAN CELL VOLUME 102.1 fl (80-96); MEAN PLT VOLUME 9.4 fl (7.5-11.1); MONO % 10.5 % (3.8-10.2); NEUT % 53.3 % (42.8-82.8); PLATELET COUNT 178 10^3/uL (134-434); RBC 4.39 M/mm3 (4.00-5.60)
[2022-07-30 09:33] LABS: ALBUMIN 3.6 g/dl (3.4-5.0); BLOOD UREA NITROGEN 8.5 mg/dL (7-18); MAGNESIUM 2.4 mg/dL (1.8-2.4)
[2022-07-30 09:35] LABS: CREATININE 0.3 mg/dL (0.55-1.3)
[2022-07-30 09:37] LABS: BILIRUBIN,TOTAL 0.3 mg/dL (0.2-1); TOT PROT 7.7 g/dl (6.4-8.2)
[2022-07-30] MEDS: DEXAMETHASONE SOD PHOSPHATE 4 MG/1 ML VIAL IVPUSH SCH (09:48)
[2022-07-30] MEDS: ENOXAPARIN NA (PORCINE) 40 MG/0.4 ML DISP.SYRIN SQ SCH (09:48)
[2022-07-30] MEDS: levETIRAcetam 500 MG/5 ML ORAL SOLUTION (UNIT-DOSE CUPS) PO SCH (09:53)
[2022-07-30] MEDS: Lacosamide 50 MG/5 ML ORAL SOLUTION UNIT CUPS GT SCH ×2 (10:42→23:44)
[2022-07-30] MEDS: TOPIRAMATE 100 MG TABLET GT SCH ×2 (10:42→23:42)
[2022-07-30] MEDS: TOPIRAMATE 200 MG TABLET GT SCH (14:56)
[2022-07-30] MEDS: PHENobarbital 20 MG/5 ML UNIT-DOSE CUP PEG SCH ×2 (15:21→23:43)
[2022-07-30 15:24] VITALS: BMI 27.4
[2022-07-30] MEDS: REMDESIVIR 100 MG in SODIUM CHLORIDE 250 ML IVPB SCH (21:20)
[2022-07-30] MEDS ORDERED: PHENobarbital 20 MG/5 ML UNIT-DOSE CUP PEG SCH (22:00)
[2022-07-30] MEDS: levETIRAcetam 500 MG/5 ML ORAL SOLUTION (UNIT-DOSE CUPS) GT SCH (23:44)
[2022-07-31] MEDS: LEVOTHYROXINE NA 75 MCG TABLET (FP) PEG SCH (06:22)
[2022-07-31] MEDS ORDERED: MAGNESIUM HYDROX 2400MG/30ML ORAL SUSPENSION 30 ML CUP PEG PRN (08:58)
[2022-07-31] MEDS ORDERED: BISACODYL 10 MG SUPP.RECT PR PRN (08:58)
[2022-07-31] MEDS ORDERED: cloBAZam 10 MG TABLET GT SCH ×2 (10:00→22:00)
[2022-07-31] MEDS: Lacosamide 50 MG/5 ML ORAL SOLUTION UNIT CUPS GT SCH ×2 (10:34→22:58)
[2022-07-31] MEDS: REMDESIVIR 100 MG in SODIUM CHLORIDE 250 ML IVPB SCH (10:35)
[2022-07-31] MEDS: PHENobarbital 20 MG/5 ML UNIT-DOSE CUP PEG SCH ×2 (10:35→22:55)
[2022-07-31] MEDS: levETIRAcetam 500 MG/5 ML ORAL SOLUTION (UNIT-DOSE CUPS) GT SCH ×2 (10:36→22:56)
[2022-07-31] MEDS: DEXAMETHASONE SOD PHOSPHATE 4 MG/1 ML VIAL IVPUSH SCH (10:36)
[2022-07-31] MEDS: TOPIRAMATE 100 MG TABLET GT SCH (10:37)
[2022-07-31] MEDS: BACLOFEN 10 MG TABLET (FP) GT SCH ×4 (10:37→22:57)
[2022-07-31] MEDS: cloBAZam 10 MG TABLET GT SCH ×2 (10:37→22:57)
[2022-07-31] MEDS: ENOXAPARIN NA (PORCINE) 40 MG/0.4 ML DISP.SYRIN SQ SCH (10:37)
[2022-07-31] MEDS: VANCOMYCIN/WATER FOR INJ (PEG) 1,000 MG/200 ML BAG IVPB SCH (12:13)
[2022-07-31] MEDS ORDERED: TOPIRAMATE 200 MG TABLET GT SCH (22:00)
[2022-07-31] MEDS ORDERED: TOPIRAMATE 200 MG, TOPIRAMATE 50 MG GT SCH (22:00)
[2022-07-31] MEDS: TOPIRAMATE 200 MG, TOPIRAMATE 50 MG GT SCH (22:58)
[2022-08-01] MEDS: VANCOMYCIN/WATER FOR INJ (PEG) 1,000 MG/200 ML BAG IVPB SCH ×2 (01:08→11:37)
[2022-08-01] MEDS: LEVOTHYROXINE NA 75 MCG TABLET (FP) PEG SCH (06:51)
[2022-08-01 09:40] LABS: BASO % 0.6 % (0-2.0); EOS % 1.8 % (0-4.5); HEMATOCRIT 42.6 % (35.4-49); HEMOGLOBIN 14.6 GM/dL (11.7-16.9); LYMPH % 45.2 % (8-40); MCH 34.7 pg (25.7-33.7); MCHC 34.2 g/dl (32.0-35.9); MEAN CELL VOLUME 101.4 fl (80-96); MEAN PLT VOLUME 8.2 fl (7.5-11.1); MONO % 13.5 % (3.8-10.2); NEUT % 38.9 % (42.8-82.8); PLATELET COUNT 278 10^3/uL (134-434); RBC 4.21 M/mm3 (4.00-5.60); WHITE BLOOD COUNT 5.4 K/mm3 (4.0-10.0)
[2022-08-01 10:18] LABS: ALBUMIN 3.2 g/dl (3.4-5.0); BILIRUBIN,TOTAL 0.2 mg/dL (0.2-1); BLOOD UREA NITROGEN 12.8 mg/dL (7-18); CALCIUM 8.3 mg/dL (8.5-10.1); CREATININE 0.4 mg/dL (0.55-1.3); MAGNESIUM 2.2 mg/dL (1.8-2.4); TOT PROT 6.4 g/dl (6.4-8.2)
[2022-08-01] MEDS: RUFINAMIDE 40 MG/ML GT SCH ×2 (10:37→21:55)
[2022-08-01] MEDS: REMDESIVIR 100 MG in SODIUM CHLORIDE 250 ML IVPB SCH (10:38)
[2022-08-01] MEDS: PHENobarbital 20 MG/5 ML UNIT-DOSE CUP PEG SCH ×2 (10:38→21:45)
[2022-08-01] MEDS: levETIRAcetam 500 MG/5 ML ORAL SOLUTION (UNIT-DOSE CUPS) GT SCH ×2 (10:39→21:53)
[2022-08-01] MEDS: ENOXAPARIN NA (PORCINE) 40 MG/0.4 ML DISP.SYRIN SQ SCH (10:39)
[2022-08-01] MEDS: Lacosamide 50 MG/5 ML ORAL SOLUTION UNIT CUPS GT SCH ×2 (10:39→21:48)
[2022-08-01] MEDS: cloBAZam 10 MG TABLET GT SCH ×2 (10:41→21:41)
[2022-08-01] MEDS: TOPIRAMATE 100 MG TABLET GT SCH (10:41)
[2022-08-01] MEDS: DEXAMETHASONE SOD PHOSPHATE 4 MG/1 ML VIAL IVPUSH SCH (10:41)
[2022-08-01] MEDS: BACLOFEN 10 MG TABLET (FP) GT SCH ×4 (10:41→21:41)
[2022-08-01] MEDS: TOPIRAMATE 200 MG, TOPIRAMATE 50 MG GT SCH (21:46)
[2022-08-02] MEDS: LEVOTHYROXINE NA 75 MCG TABLET (FP) PEG SCH (06:29)
[2022-08-02 08:51] LABS: RBC 4.52 M/mm3 (4.00-5.60)
[2022-08-02 08:52] LABS: BASO % 0.5 % (0-2.0); HEMATOCRIT 45.8 % (35.4-49); HEMOGLOBIN 15.5 GM/dL (11.7-16.9); LYMPH % 43.6 % (8-40); MCH 34.4 pg (25.7-33.7); MCHC 33.9 g/dl (32.0-35.9); MEAN CELL VOLUME 101.5 fl (80-96); MEAN PLT VOLUME 9.1 fl (7.5-11.1); MONO % 14.5 % (3.8-10.2); NEUT % 40.4 % (42.8-82.8); PLATELET COUNT 237 10^3/uL (134-434)
[2022-08-02 09:01] LABS: CHLORIDE 106 mmol/L (98-107); SODIUM 136 mmol/L (136-145)
[2022-08-02 09:10] LABS: GLUCOSE,RANDOM 104 mg/dL (74-106)
[2022-08-02 09:11] LABS: CALCIUM 8.9 mg/dL (8.5-10.1)
[2022-08-02 09:12] LABS: ALBUMIN 3.5 g/dl (3.4-5.0); ANION GAP 5 MMOL/L (8-16); BILIRUBIN,TOTAL 0.2 mg/dL (0.2-1); BLOOD UREA NITROGEN 12.3 mg/dL (7-18); CO2 26 mmol/L (21-32); MAGNESIUM 2.4 mg/dL (1.8-2.4)
[2022-08-02 09:13] LABS: ALK PHOS 89 U/L (45-117)
[2022-08-02 09:15] LABS: CREATININE 0.5 mg/dL (0.55-1.3); SGOT/AST 21 U/L (15-37); SGPT/ALT 42 U/L (13-61)
[2022-08-02 09:17] LABS: TOT PROT 7.3 g/dl (6.4-8.2)
[2022-08-02] MEDS: DEXAMETHASONE SOD PHOSPHATE 4 MG/1 ML VIAL IVPUSH SCH (10:36)
[2022-08-02] MEDS: BACLOFEN 10 MG TABLET (FP) GT SCH ×4 (10:36→21:33)
[2022-08-02] MEDS: TOPIRAMATE 100 MG TABLET GT SCH (10:36)
[2022-08-02] MEDS: ENOXAPARIN NA (PORCINE) 40 MG/0.4 ML DISP.SYRIN SQ SCH (10:37)
[2022-08-02] MEDS: levETIRAcetam 500 MG/5 ML ORAL SOLUTION (UNIT-DOSE CUPS) GT SCH ×2 (10:38→21:32)
[2022-08-02] MEDS: PHENobarbital 20 MG/5 ML UNIT-DOSE CUP PEG SCH ×2 (10:40→21:34)
[2022-08-02] MEDS: REMDESIVIR 100 MG in SODIUM CHLORIDE 250 ML IVPB SCH (10:40)
[2022-08-02] MEDS: cloBAZam 10 MG TABLET GT SCH ×2 (10:40→21:33)
[2022-08-02] MEDS: RUFINAMIDE 40 MG/ML GT SCH ×2 (10:41→21:35)
[2022-08-02] MEDS: Lacosamide 50 MG/5 ML ORAL SOLUTION UNIT CUPS GT SCH ×2 (10:41→21:37)
[2022-08-02 21:21] VITALS: RESP 18
[2022-08-02] MEDS: TOPIRAMATE 200 MG, TOPIRAMATE 50 MG GT SCH (21:36)
[2022-08-03] MEDS: LEVOTHYROXINE NA 75 MCG TABLET (FP) PEG SCH (06:05)
[2022-08-03 10:20] LABS: HEMOGLOBIN 15.5 GM/dL (11.7-16.9); MCH 34.1 pg (25.7-33.7); MCHC 33.8 g/dl (32.0-35.9); MEAN CELL VOLUME 100.9 fl (80-96); MEAN PLT VOLUME 9.3 fl (7.5-11.1); RBC 4.55 M/mm3 (4.00-5.60); RDW 11.9 % (11.9-15.9)
[2022-08-03 10:22] LABS: WHITE BLOOD COUNT 10.7 K/mm3 (4.0-10.0)
[2022-08-03 10:42] LABS: CALCIUM 8.9 mg/dL (8.5-10.1)
[2022-08-03 10:43] LABS: ALBUMIN 3.6 g/dl (3.4-5.0); BLOOD UREA NITROGEN 12.3 mg/dL (7-18); MAGNESIUM 2.4 mg/dL (1.8-2.4)
[2022-08-03 10:46] LABS: CREATININE 0.5 mg/dL (0.55-1.3)
[2022-08-03 10:48] LABS: BILIRUBIN,TOTAL 0.2 mg/dL (0.2-1)
[2022-08-03] MEDS: levETIRAcetam 500 MG/5 ML ORAL SOLUTION (UNIT-DOSE CUPS) GT SCH ×2 (10:55→23:13)
[2022-08-03] MEDS: PHENobarbital 20 MG/5 ML UNIT-DOSE CUP PEG SCH ×2 (10:55→23:13)
[2022-08-03] MEDS: ENOXAPARIN NA (PORCINE) 40 MG/0.4 ML DISP.SYRIN SQ SCH (10:55)
[2022-08-03] MEDS: RUFINAMIDE 40 MG/ML GT SCH ×2 (10:55→23:15)
[2022-08-03] MEDS: TOPIRAMATE 100 MG TABLET GT SCH (10:56)
[2022-08-03] MEDS: cloBAZam 10 MG TABLET GT SCH ×2 (10:56→23:12)
[2022-08-03] MEDS: DEXAMETHASONE SOD PHOSPHATE 4 MG/1 ML VIAL IVPUSH SCH (10:56)
[2022-08-03] MEDS: BACLOFEN 10 MG TABLET (FP) GT SCH ×4 (10:57→23:12)
[2022-08-03] MEDS: Lacosamide 50 MG/5 ML ORAL SOLUTION UNIT CUPS GT SCH ×2 (10:57→23:12)
[2022-08-03 11:06] LABS: ANISOCYTOSIS 1+; MACROCYTOSIS 1+
[2022-08-03] MEDS: TOPIRAMATE 200 MG, TOPIRAMATE 50 MG GT SCH (23:11)
[2022-08-04 06:01] VITALS: BP 140/89; PULSE 18; TEMP 98
[2022-08-04] MEDS: LEVOTHYROXINE NA 75 MCG TABLET (FP) PEG SCH (06:02)
[2022-08-04] MEDS: RUFINAMIDE 40 MG/ML GT SCH (10:44)
[2022-08-04] MEDS: DEXAMETHASONE SOD PHOSPHATE 4 MG/1 ML VIAL IVPUSH SCH (10:45)
[2022-08-04] MEDS: ENOXAPARIN NA (PORCINE) 40 MG/0.4 ML DISP.SYRIN SQ SCH (10:45)
[2022-08-04] MEDS: levETIRAcetam 500 MG/5 ML ORAL SOLUTION (UNIT-DOSE CUPS) GT SCH (10:45)
[2022-08-04] MEDS: PHENobarbital 20 MG/5 ML UNIT-DOSE CUP PEG SCH (10:45)
[2022-08-04] MEDS: TOPIRAMATE 100 MG TABLET GT SCH (10:46)
[2022-08-04] MEDS: BACLOFEN 10 MG TABLET (FP) GT SCH (10:46)
[2022-08-04] MEDS: cloBAZam 10 MG TABLET GT SCH (10:46)
[2022-08-04] MEDS: Lacosamide 50 MG/5 ML ORAL SOLUTION UNIT CUPS GT SCH (10:47)
== END 2022-08-04 13:57 | DRG 137 ==
LOC: JER 11:46 → JERBED 15:37 → J8W 07-30 13:47
PROVIDERS: ADMIT Internal Medicine; ATTEND Nurse Practitioner Family
PROC: XW033E5 Introduction of Remdesivir Anti-infective into Peripheral Vein, Percutaneous Approach, New Technology Group 5 (ICD-10-PCS; principal; 2022-07-29)
DX: U07.1 COVID-19 (principal); Q02 Microcephaly; G40.909 Epilepsy, unspecified, not intractable, without status epilepticus; H47.619 Cortical blindness, unspecified side of brain; E03.9 Hypothyroidism, unspecified; K21.9 Gastro-esophageal reflux disease without esophagitis; F73 Profound intellectual disabilities; G80.0 Spastic quadriplegic cerebral palsy; R78.81 Bacteremia; Z93.1 Gastrostomy status
CPT/HCPCS: 0241U-QW; 36415; 71045-TC-FY; 80053; 81003; 82607; 82746; 83735; 84100; 85025; 85379; 86140; 87040; 87086; 93005; 93010; 94761; 99285-25; C9399; C9803-CS; J0475; J1100; U0003; U0005